=== PATIENT | female | born 2000 | race Caucasian/White ===

== ENCOUNTER 2020-07-01 10:31 | Outpatient (REF) | payer OTHER, SELFPAY ==
--- NOTE | 2020-07-01 | US_ITS ---
EXAMINATION: OBSTETRICAL ULTRASOUND, FIRST TRIMESTER HISTORY: 19-year-old at 12.0 weeks of gestation NT screening COMPARISON: 05/27/2020 TECHNIQUE: Real time transabdominal imaging with color and M-mode Doppler. FINDINGS: A single, live IUP CRL of 49.6 mm c/w 11.5wks is noted. Heart Rate: 160 beats per minute. Normal yolk sac seen. NT was 1.3.mm. NB Present The embryo appears sonographically wnl for this GA. Both maternal ovaries are seen and appear normal. GESTATIONAL AGE: 1. Established GA: 12.0 wks 2. GA from AUA: 11.5 wks ESTIMATED DATE OF DELIVERY: 1. Established OLGA: 01/13/2021 2. OLGA from [facility]: 01/15/2021 IMPRESSION: 1. Single live IUP 2. Size equals dates 3. NT of 1.3 mm MFM Consultation: I reviewed the ultrasound findings along with significance of NT measurement. The NT of less than 3mm is generally reassuring. However, the sensitivity for T21 detection is only 60%. I reviewed the availability of serum aneuploidy screening which includes cell-free DNA and placental protein based tests. I discussed the sensitivity, false-positive rate, and other limitations associated with each test. I also reviewed the availability of invasive diagnostic tests that are associated small but definite risk of miscarriage. We also reviewed the differences between screening tests and diagnostic tests. After our discussion, she opted for the First trimester screening that is based on cell-free DNA or non-invasive testing (NIPT). The result will be faxed to your office in approximately 7 days. A follow up at 18 weeks for survey has been scheduled. Thank you very much for this referral. Majority of this visit was spent reviewing her care and counselling her in face to face time: Time spent 20 min.
== END 2020-07-01 10:32 | disposition home or self-care (01) ==
LOC: HO.US 10:31
PROVIDERS: Visit Provider Advanced Practice Midwife
DX: Z34.90 Encounter for supervision of normal pregnancy, unspecified, unspecified trimester (principal); Z36.82 Encounter for antenatal screening for nuchal translucency
CPT/HCPCS: 76813

== ENCOUNTER → 2020-07-12 13:01 | Outpatient (BNVA) | payer OTHER, SELFPAY | PROVIDERS: Visit Provider Advanced Practice Midwife | DX: Z76.89 Persons encountering health services in other specified circumstances (principal) ==

== ENCOUNTER 2020-08-05 15:01 | Outpatient (REF) | payer OTHER, SELFPAY ==
[2020-08-06 14:18] LABS: CT PCR NOT DETECTED (Not Detect.); NG PCR NOT DETECTED (Not Detect.)
[2020-08-08 09:44] LABS: BV Int Neg Control Negative (Negative); BV Int Pos Control Positive (Positive)
== END 2020-08-05 15:02 | disposition home or self-care (01) ==
LOC: HO.LAB 15:01
PROVIDERS: Visit Provider Advanced Practice Midwife
DX: Z34.80 Encounter for supervision of other normal pregnancy, unspecified trimester (principal); Z20.2 Contact with and (suspected) exposure to infections with a predominantly sexual mode of transmission; Z34.02 Encounter for supervision of normal first pregnancy, second trimester
CPT/HCPCS: 87480; 87491; 87510; 87591; 87660

== ENCOUNTER 2020-08-19 10:27 | Outpatient (REF) | payer OTHER, SELFPAY ==
--- NOTE | 2020-08-19 10:32 | US_ITS ---
EXAMINATION: US OBSTETRICAL CLINICAL INFORMATION: 19-year-old at the 19.0 weeks of gestation Suspected anomaly COMPARISON: 07/01/2020 TECHNIQUE: Real-time transabdominal ultrasound was performed using C1-5 megahertz transducer. FINDINGS: A single, active, fetus is seen in vertex presentation. The placenta is posterior without previa, and the amniotic fluid volume is wnl. MEASUREMENTS: 1. Biparietal Diameter: 4.1 cm; 18.4 wks 2. Occipital Frontal Diameter: 5.4 cm 3. Head Circumference: 15.7 cm; 18.4 wks 4. Abdominal Circumference: 13.0 cm; 18.4 wks 5. Femur Length: 2.8 cm; 18.4 wks 6. Humerus Length: 2.7 cm; 18.5 wks 7. Tibia Length: 2.4 cm; 18.5 wks 8. Ulna Length: 2.6 cm; 19.3 wks 9. Lateral ventricle: 0.7 cm 10. Cerebellum: 1.88 cm; 19.3 wks 11. Cisterna Magna: 0.35 cm 12. Nuchal Fold: 2.52 mm 13. Heart Rate: 132 beats per minute Rt ovary: normal Lt ovary: normal Cervical length 4.3 cm on T/A. GESTATIONAL AGE: 1. Established GA: 19.0 wks 2. GA from [facility]: 18.4 wks ESTIMATED DATE OF DELIVERY: 1. Established OLGA: 01/13/2021 2. OLGA from [facility]: 01/16/2021 ANATOMY: The visualized anatomy includes but not limited to: 1. Cranium: Normal 2. Intracranial anatomy: cavum septum pellucidi, lateral ventricles, choroid plexus, cerebellum, posterior fossa, third and fourth ventricles. 3. face: orbits, lip/palate, profile, nasal bone 4. Heart: four-chamber view of the heart, ventricular septum, foramen ovale, pulmonary vein, left and right outflow tracts, three-vessel view, 3 vessel trachea view, aortic and ductal arches, situs.. 5. Diaphragm: Normal 6. Abdominal wall: Normal 7. Cord Insertion: Normal 8. Spine: Cervical, thoracic, lumbar, sacral. 9. Stomach: Normal size and shape 10. Right Kidney: Normal 11. Left Kidney: Normal 12. 3 vessel cord: Normal 13. Upper extremity: Open hands, fifth digit. 14. Lower extremity: Tibia, fibula, bilateral feet. 15. Bladder: Normal 16. Genitalia: Male, patient aware US/US OB /maternal detail IMPRESSION: 1. Single, living, intrauterine with appropriate biometry. 2. Normal survey DISCUSSION: I reviewed today's ultrasound findings. We discussed the limitations of ultrasound in diagnosing aneuploidy and other congenital abnormalities. I reviewed the differences between screening test and diagnostic test. Amniocentesis was discussed and declined. She was informed that the baseline incidence of congenital abnormalities is approximately 3-5%. Not all these conditions are diagnosable in utero. RECOMMENDATIONS: Thank you for allowing me to participate in her care. Visiting time 25 minutes. Majority of this visit was spent reviewing and discussing her care.
== END 2020-08-19 10:28 | disposition home or self-care (01) ==
LOC: HO.US 10:27
PROVIDERS: Visit Provider Advanced Practice Midwife
DX: Z34.80 Encounter for supervision of other normal pregnancy, unspecified trimester (principal); Z36.3 Encounter for antenatal screening for malformations
CPT/HCPCS: 76811

== ENCOUNTER → 2020-09-02 15:07 | Outpatient (BNVA) | payer OTHER, SELFPAY | PROVIDERS: PCP Nurse Practitioner Family; Referring Provider Nurse Practitioner Family; Visit Provider Advanced Practice Midwife | DX: Z76.89 Persons encountering health services in other specified circumstances (principal) ==

== ENCOUNTER 2020-09-16 11:29 | Outpatient (REF) | payer OTHER, SELFPAY ==
--- NOTE | 2020-09-16 11:35 | US_ITS ---
EXAMINATION: OBSTETRICAL ULTRASOUND, Follow up HISTORY: 19-year-old at the 23.0 weeks of gestation Size date discrepancy ? umbilical cord cyst COMPARISON: 08/19/2020 TECHNIQUE: Real time transabdominal imaging with color and M-mode Doppler. PRESENTATION: Vertex PLACENTA LOCATION: Posterior without previa AMNIOTIC FLUID: Normal MEASUREMENTS: 1. Biparietal Diameter: 5.1 cm; 21.4 wks 2. Head Circumference: 20.5 cm; 22.5 wks 3. Abdominal Circumference: 18.3 cm; 23.2 wks 4. Femur Length: 4.2 cm; 23.4 wks 5. Heart Rate: 144 beats per minute WEIGHT: EFW: 570 grams (1 lbs 4 oz) -- 51 %. Evaluation of the umbilical cord showed prominent segments of the umbilical vein rather than a cyst. Abdominal CI and PCI are within normal limits. GESTATIONAL AGE: 1. Established GA: 23.0 wks 2. GA from A: 22.6 wks ESTIMATED DATE OF DELIVERY: 1. Established OLGA: 01/13/2021 2. OLGA from A: 01/14/2021 US/US OB follow up IMPRESSION: 1. Single active fetus is in vertex presentation 2. Size equals dates 3. Prominent segment of the umbilical vein. No evidence of nuchal cord cyst I reviewed today's ultrasound findings and gave her reassurance. Previously seen umbilical cord cyst is no longer visible. Instead prominent segment of the umbilical vein seen. Normal blood flow is seen through this segment. This is most likely a normal variant. Follow-up has been scheduled in 6 weeks. Thank you very much for this referral. Visiting time 25 minutes. Majority of this visit was spent reviewing and coordinating her care.
== END 2020-09-16 11:30 | disposition home or self-care (01) ==
LOC: HO.US 11:29
PROVIDERS: Visit Provider Advanced Practice Midwife
DX: Z34.80 Encounter for supervision of other normal pregnancy, unspecified trimester (principal)
CPT/HCPCS: 76816

== ENCOUNTER → 2020-10-07 14:24 | Outpatient (BNVA) | payer OTHER, SELFPAY | PROVIDERS: PCP Pediatrics; Visit Provider Advanced Practice Midwife | DX: Z76.89 Persons encountering health services in other specified circumstances (principal) ==

== ENCOUNTER → 2020-10-11 11:25 | Outpatient (BNVA) | payer OTHER, SELFPAY | PROVIDERS: PCP Pediatrics; Visit Provider Advanced Practice Midwife | CPT/HCPCS: 99212 ==

== ENCOUNTER 2020-10-25 12:57 | Outpatient (REF) | payer OTHER, SELFPAY ==
[2020-10-25 14:56] LABS: Hematocrit 32.9 % (37-47); Hemoglobin 10.4 g/dl (12.0-16.0); Mean Corpuscular HGB Conc 31.6 g/dl (31.0-35.0); Mean Corpuscular Hemoglobin 28.3 pg (27.0-33.0); Mean Corpuscular Volume 89.6 fL (80-98); Mean Platelet Volume 10.9 fL (9.4-12.3); Platelet Count 272 X10*3/uL (160-400); Red Blood Count 3.67 X10*6/uL (4.20-5.50); Red Cell Distribution Width 14.2 % (11.0-16.0); White Blood Count 9.7 X10*3/uL (4.8-10.8)
[2020-10-25 15:13] LABS: Glucose 1 Hour PP 50gm Dose 87 mg/dL (60-140)
[2020-10-26 08:09] LABS: Syphilis Screen Nonreactive (Nonreactive)
== END 2020-10-25 12:58 | disposition home or self-care (01) ==
LOC: HO.LAB 12:57
PROVIDERS: Visit Provider Advanced Practice Midwife
DX: Z34.80 Encounter for supervision of other normal pregnancy, unspecified trimester (principal)
CPT/HCPCS: 36415; 85027; 86780

== ENCOUNTER 2020-10-28 12:12 | Outpatient (REF) | payer OTHER, SELFPAY ==
--- NOTE | 2020-10-28 12:17 | US_ITS ---
EXAMINATION: OBSTETRICAL ULTRASOUND, Follow up HISTORY: 20-year-old at 29.0 weeks of gestation Umbilical cord cyst Size date discrepancy COMPARISON: 09/16/2020 TECHNIQUE: Real time transabdominal imaging with color and M-mode Doppler. PRESENTATION: Vertex PLACENTA LOCATION: Posterior AMNIOTIC FLUID: Normal MEASUREMENTS: 1. Biparietal Diameter: 7.2 cm; 29.0 wks 2. Head Circumference: 27.1 cm; 29.4 wks 3. Abdominal Circumference: 25.0 cm; 29.2 wks 4. Femur Length: 5.6 cm; 29.2 wks 5. Heart Rate: 158 beats per minute WEIGHT: EFW: 1365 grams (3 lbs 0 oz) -- 47 %. There is no evidence of the umbilical cord cyst either at the abdominal cord insertion site or at the PCI. Normal views of: Posterior fossa, lateral ventricles, four-chamber view of the heart, stomach, bladder and kidneys. BIOPHYSICAL PROFILE: Motion: 2 Tone: 2 Breathin Amniotic Fluid: 2 Total score: 8/8 GESTATIONAL AGE: 1. Established GA: 29.0 wks 2. GA from AUA: 29.2 wks ESTIMATED DATE OF DELIVERY: 1. Established OLGA: 01/14/2020 2. OLGA from [facility]: 01/11/2021 US/US OB follow up IMPRESSION: 1. A single active fetus in vertex presentation 2. Size equals dates 3. BPP of 05/07 4. Umbilical cord cyst has resolved. No further ultrasound examination scheduled. Thank you very much for this referral.
== END 2020-10-28 12:13 | disposition home or self-care (01) ==
LOC: HO.US 12:12
PROVIDERS: Visit Provider Advanced Practice Midwife
DX: O43.193 Other malformation of placenta, third trimester (principal); O98.313 Other infections with a predominantly sexual mode of transmission complicating pregnancy, third trimester; O26.893 Other specified pregnancy related conditions, third trimester; G43.909 Migraine, unspecified, not intractable, without status migrainosus; O26.843 Uterine size-date discrepancy, third trimester; Z3A.29 29 weeks gestation of pregnancy
CPT/HCPCS: 76816; 81003; 99212

== ENCOUNTER 2020-11-15 14:35 | Outpatient (REF) | payer OTHER, SELFPAY ==
[2020-11-16 09:22] LABS: BV Int Neg Control Negative (Negative); BV Int Pos Control Positive (Positive)
[2020-11-16 17:36] LABS: C. trachomatis RNA TMA NOT DETECTED (NOT DETECTED); N. gonorrhoeae RNA TMA NOT DETECTED (NOT DETECTED)
== END 2020-11-15 14:36 | disposition home or self-care (01) ==
LOC: HO.LAB 14:35
PROVIDERS: Visit Provider Advanced Practice Midwife
DX: O26.899 Other specified pregnancy related conditions, unspecified trimester (principal); Z20.2 Contact with and (suspected) exposure to infections with a predominantly sexual mode of transmission; N89.8 Other specified noninflammatory disorders of vagina
CPT/HCPCS: 36415; 81003; 87210; 87480; 87491; 87510; 87591; 87660; 99212

== ENCOUNTER → 2020-11-28 14:15 | Outpatient (BNVA) | payer OTHER, SELFPAY | PROVIDERS: Visit Provider Advanced Practice Midwife | DX: Z34.80 Encounter for supervision of other normal pregnancy, unspecified trimester (principal) | CPT/HCPCS: 90471; 90715; 99212 ==

== ENCOUNTER 2021-04-05 14:37 | Emergency (ER) | payer OTHER, SELFPAY ==
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
[2021-04-05 15:07] VITALS: BP 116/62; PULSE 73; RESP 16; TEMP 36.7; O2SAT 97; BMI 32.2
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
== END 2021-04-05 16:49 | disposition home or self-care (01) ==
PROVIDERS: Emergency Provider Emergency Medicine; PCP Pediatrics
DX: S06.0X0A Concussion without loss of consciousness, initial encounter (principal); S39.012A Strain of muscle, fascia and tendon of lower back, initial encounter; S16.1XXA Strain of muscle, fascia and tendon at neck level, initial encounter; S93.401A Sprain of unspecified ligament of right ankle, initial encounter; V43.52XA Car driver injured in collision with other type car in traffic accident, initial encounter; Y93.9 Activity, unspecified; Y92.410 Unspecified street and highway as the place of occurrence of the external cause; Y99.9 Unspecified external cause status
CPT/HCPCS: 70450; 72100; 72125; 73610; 99283; 99284

== ENCOUNTER 2021-06-16 14:33 | Emergency (ER) | payer OTHER, SELFPAY ==
[2021-06-16 14:36] VITALS: BP 133/81; PULSE 94; RESP 18; TEMP 36.6; O2SAT 99; BMI 32.1
[2021-06-16 16:00] VITALS: BP 113/72; PULSE 83; RESP 16; TEMP 36.7; O2SAT 99
--- NOTE | 2021-06-16 16:43 | ED_ITS ---
HPI - Nausea/Vomiting/Diarrhea General Chief complaint: Nausea/Vomiting/Diarrhea Stated complaint: vomiting Time Seen by Provider: 06/16/21 16:28 Source: patient Mode of arrival: ambulatory Limitations: no limitations History of Present Illness HPI Narrative: Patient is a 20-year-old female, who is presenting with 2 days of nausea and pelvic pain and slight bleeding this morning. She states she thinks she may be , her last menstrual period was June 16 and she had intercourse on May 01, and the . She states she did take an [id number] test and it showed a faint line but she said it's has been doing that since she had a miscarriage few months ago. She denies any vomiting or diarrhea, denies any changes in her urine or bowels, denies any fevers. She states she is not trying to get but she has not been taking her OCP regularly. Related Data Home Medications Medication Instructions Recorded Confirmed vit with calcium-iron tab PO 07/12/20 fum-folic acid 27 mg-1 mg tablet Previous Rx's Medication Instructions Recorded ferrous sulfate 325 mg (65 mg 325 mg PO DAILY #30 tab 10/26/20 iron) tablet famotidine 20 mg tablet 20 mg PO BID #60 tab 10/28/20 valacyclovir 500 mg tablet 500 mg PO DAILY #60 tab 10/28/20 (Valtrex) acetaminophen 500 mg tablet 1,000 mg PO QID PRN #14 tab 04/05/21 (Tylenol Extra Strength) cyclobenzaprine 10 mg tablet 10 mg PO Q8H #10 tab 04/05/21 Allergies Allergy/AdvReac Type Severity Reaction Status Date / Time cinnamon [CINNAMON] Allergy Severe ANAPHYLAXIS Verified 11/28/20 14:38 oats [OATS] Allergy Severe ANAPHYLAXIS Verified 11/28/20 14:38 apple [APPLES] Allergy Intermediate ANGIOEDEMA Verified 11/28/20 14:38 Review of Systems Review of Systems: Yes all other systems are reviewed and are negative PMFSH Past Medical History Medical History Anxiety Depression Migraines Migraines Miscarriage within last 12 months Family History Family History Father Chronic mental illness Mother CVD (cardiovascular disease) Chronic mental illness Family/Other Breast cancer Social History Social History Alcohol intake: unknown Patient Tobacco Use Status: Tobacco use Unknown Advance Directives: No Advance Directives Information Provided: No Physical Exam Vital Signs: Vital Signs: Last Vital Signs Temp 98.0 F 06/16/21 16:00 Pulse 83 06/16/21 16:00 Resp 16 06/16/21 16:00 BP 113/72 06/16/21 16:00 Pulse Ox 99 06/16/21 16:00 Body Mass Index 32.1 Const: General: cooperative, healthy appearing, comfortable, no acute distress and well developed Orientation/consciousness: patient oriented x3 Limitations: no limitations HENMT: Head: Yes normal to inspection Eyes: General: appearance normal, both eyes and all related structures Neck: Neck: Yes normal visual inspection and Yes full ROM Resp: Effort & Inspection: normal respiratory effort and able to speak in complete sentences Cardio: Rate: regular rate Rhythm: regular rhythm Heart sounds: normal S1 and S2 GI: Inspection: Yes normal to inspection Palpation (GI): Soft to palpation and nontender Skin: General skin exam: no rashes or lesions noted Neuro: General: patient oriented x3 Extrem: General: Yes normal to inspection Course Course Course Narrative: Patient is a 20-year-old female, who is presenting with 2 days of nausea and pelvic pain and slight bleeding this morning. Vital signs stable, physical exam unremarkable. Most likely , will get UA and urine test as well as quant. As patient states her tests have been testing positive since she had her miscarriage 2 months ago. MDM - Nausea/Vomiting/Diarrhea Lab Data Labs: Lab Results 06/16/21 06/16/21 06/16/21 Range/Units 16:48 16:48 16:48 Beta HCG, Quant < 2 mIU/mL Urine Color DK YELLOW Urine Appearance HAZY Urine pH 6.0 (5.0-8.0) Ur Specific [place] >= 1.030 H (1.005-1.025) Urine Protein TRACE (NEG-TRACE) MG/DL Urine Glucose (UA) NEG (NEG) MG/DL Urine Ketones NEG (NEG) MG/DL Urine Blood 2+ H (NEG) Urine Nitrite NEG (NEG) Ur Leukocyte Esterase 1+ H (NEG) Urine RBC 1-4 (0) /HPF Urine WBC 1-4 (0-4) /HPF Ur Squamous Epith Cells 3+ /LPF Urine Bacteria TRACE /LPF Urine Mucus 3+ /LPF Urine Test NEGATIVE (NEGATIVE) Discharge Plan Discharge Clinical Impression: Nausea Patient Disposition: Home, Self-Care Instructions: Acute Nausea and Vomiting (ED) Additional Instructions: Today, your test was negative. If her symptoms persist 3 develop a fever, please follow-up with your PCP, any urgent care or emergency department. Otherwise, I have attached instructions on how to manage any nausea that you have. Prescriptions: No Action ferrous sulfate 325 mg (65 mg iron) tablet 325 mg PO DAILY Qty: 30 RF: 5 cyclobenzaprine 10 mg tablet 10 mg PO Q8H Qty: 10 RF: 0 acetaminophen [Tylenol Extra Strength] 500 mg tablet 1,000 mg PO QID PRN (Reason: fever or pain) Qty: 14 RF: 0 vit-iron fum-folic ac 27-1 mg tablet PO RF: 0 valacyclovir [Valtrex] 500 mg tablet 500 mg PO DAILY Qty: 60 RF: 3 famotidine 20 mg tablet 20 mg PO BID Qty: 60 RF: 4 Interventions: ED Discharge Assessment Last Done: 06/16/21 17:47 Discharge Date/Time: 06/16/21 17:51
[2021-06-16 17:03] LABS: UPreg QC Valid YES; Urine Pregnancy NEGATIVE (NEGATIVE)
[2021-06-16 17:04] LABS: Appearance Urine HAZY; Color Urine DK YELLOW; Glucose Urine UA NEG (NEG); Leukocyte Esterase Urine 1+ (NEG); Nitrite Urine NEG (NEG); Specific Gravity - Urine >= 1.030 (1.005-1.025); UACC Culture Trigger YES; Urine Blood 2+ (NEG); Urine Ketones NEG (NEG); Urine Protein TRACE MG/DL (NEG-TRACE)
[2021-06-16 17:38] LABS: HCG Quantitative < 2 mIU/mL
[2021-06-16 17:39] LABS: Bacteria Urine TRACE /LPF; Mucus Urine 3+ /LPF; Squamous Epithelial Cell Urine 3+ /LPF
== END 2021-06-16 17:51 | disposition home or self-care (01) ==
PROVIDERS: Physician Assistant; Emergency Provider Emergency Medicine
DX: R11.2 Nausea with vomiting, unspecified (principal); Z79.899 Other long term (current) drug therapy
CPT/HCPCS: 36415; 81001; 81003; 81025; 84702; 87086; 99283; 99284

== ENCOUNTER 2021-07-29 12:20 | Emergency (ER) | payer OTHER, SELFPAY ==
--- NOTE | ~2021-07-29 | US_ITS ---
EXAMINATION: US OBSTETRICAL ULTRASOUND CLINICAL INFORMATION: Cramping. Rule out spontaneous . COMPARISON: None LMP: 06/16/2021. Gestational age by maternal dates is 6 weeks 1 day. Estimated date of delivery by maternal dates is 03/23/2022. TECHNIQUE: Transabdominal first trimester OB ultrasound FINDINGS: The uterus is normal in size and shape. There is an intrauterine gestational sac. Reeves-rump length measures 0.47 cm suggesting gestational age of 6 weeks 2 days with estimated date of delivery of 03/22/2022. There is a low heart rate of 63 bpm. There is a yolk sac. No fluid collection adjacent to the gestational sac is seen. The right ovary is normal-appearing and measures 2.5 x 1.9 x 1.8 cm. The left ovary measures 2.4 x 1.5 x 2 cm. There is a 0.9 cm complex cyst probably representing a corpus luteum. There is no fluid in the pelvis. US/US OB <= 14 weeks fetus IMPRESSION: 1. Single intrauterine gestation with ultrasound gestational age of 6 weeks 2 days +/- 4 days. 2. Estimated date of delivery is 03/22/2022 +/- 4 days. 3. Low heart rate of 63 bpm.
[2021-07-29 12:29] VITALS: BP 113/68; PULSE 87; RESP 18; TEMP 36.6; O2SAT 98; BMI 30.9
[2021-07-29 12:45] LABS: Appearance Urine HAZY; Color Urine YELLOW; Glucose Urine UA NEG (NEG); Leukocyte Esterase Urine TRACE (NEG); Nitrite Urine NEG (NEG); Specific Gravity - Urine >= 1.030 (1.005-1.025); Urine Blood NEG (NEG); Urine Ketones NEG (NEG); Urine Protein NEG (NEG-TRACE)
[2021-07-29 12:55] LABS: Bacteria Urine 2+ /LPF; RBC Urine 0 /HPF (0); Squamous Epithelial Cell Urine 4+ /LPF
[2021-07-29 13:49] VITALS: BP 126/76; PULSE 90; RESP 18; TEMP 36.6; O2SAT 100
--- NOTE | 2021-07-29 13:56 | ED_ITS ---
HPI - General Adult General Chief complaint: General Medical Stated complaint: cramping (6wks preg) Time Seen by Provider: 07/29/21 13:54 Source: patient Mode of arrival: ambulatory Limitations: no limitations History of Present Illness HPI narrative: 20-year-old female came in for evaluation of abdominal contractio n. This is about 6 weeks came in for evaluation lower pelvic contraction, no vaginal spotting or bleeding, no nausea,, chest pain. Patient is here for any evaluation. Patient has her 1st appointment on September 02. Related Data Home Medications Medication Instructions Recorded Confirmed vit with calcium-iron tab PO 07/12/20 fum-folic acid 27 mg-1 mg tablet Previous Rx's Medication Instructions Recorded ferrous sulfate 325 mg (65 mg 325 mg PO DAILY #30 tab 10/26/20 iron) tablet famotidine 20 mg tablet 20 mg PO BID #60 tab 10/28/20 valacyclovir 500 mg tablet 500 mg PO DAILY #60 tab 10/28/20 (Valtrex) acetaminophen 500 mg tablet 1,000 mg PO QID PRN #14 tab 04/05/21 (Tylenol Extra Strength) cyclobenzaprine 10 mg tablet 10 mg PO Q8H #10 tab 04/05/21 Allergies Allergy/AdvReac Type Severity Reaction Status Date / Time cinnamon [CINNAMON] Allergy Severe ANAPHYLAXIS Verified 11/28/20 14:38 oats [OATS] Allergy Severe ANAPHYLAXIS Verified 11/28/20 14:38 apple [APPLES] Allergy Intermediate ANGIOEDEMA Verified 11/28/20 14:38 Review of Systems 2 Review of Systems: All other systems are reviewed and are negative Constitutional: Reports as per HPI and Reports no additional constitutional complaints Eyes: Reports as per HPI and Reports no additional eye complaints Reports system reviewed and no additional complaints, except as documented Cardiovascular: Reports as per HPI and Reports no additional cardiovascular complaints Respiratory: Reports as per HPI and Reports no additional respiratory complaints Gastrointestinal: Reports as per HPI and Reports no additional gastrointestinal complaints Genitourinary: Reports no additional female genitourinary complaints Musculoskeletal: Reports no additional musculoskeletal complaints Skin/Breast: Reports system reviewed and no additional complaints, except as docu Psychiatric: Reports no additional psychiatric complaints Endocrine: Reports no additional endocrine complaints Hematologic/Lymphatic: Reports no additional hematologic/lymphatic complaints Allergic/Immunologic: Reports no additional allergic/immunologic complaints Reports system reviewed and no additional complaints, except as documented and Reports Abnormal speech present [facility] Past Medical History Medical History Anxiety Depression Migraines Migraines Miscarriage within last 12 months Family History Family History Father Chronic mental illness Mother CVD (cardiovascular disease) Chronic mental illness Family/Other Breast cancer Social History Social History Alcohol intake: unknown Patient Tobacco Use Status: Tobacco use Unknown Advance Directives: No Advance Directives Information Provided: No Patient : Yes Physical Exam Vital Signs: Vital Signs: Last Vital Signs Temp 98 F 07/29/21 13:49 Pulse 90 07/29/21 13:49 Resp 18 07/29/21 13:49 BP 126/76 07/29/21 13:49 Pulse Ox 100 07/29/21 13:49 Body Mass Index 30.9 Vital signs have been reviewed as appeared to be correct. Blood pressure normal. Heart rate normal. Respiration rate normal. Temperature normal. Oxygen saturation normal. Appearance: Alert. Oriented X3. No acute distress. Head: Normal external exam. Normocephalic. Atraumatic. No Gayle signs noted. No raccoon eyes noted Eyes: PERRLA. EOMI. Conjunctiva and sclera normal. Eyelids normal. ENT: TM's Normal. Pharynx normal. Uvula midline. Moist mucous membranes. No trismus noted. No drooling noted. No muffled voice noted. Neck: Normal inspection. Neck supple. FROM. No adenopathy. Thyroid Normal. No meningeal signs. No neck mass noted. CVS: Normal heart rate and rhythm. Heart sound normal. No murmurs noted. Pulses normal throughout. Respiratory: No respiratory distress. Painless inspiration. Breath sounds normal. No wheezes/rales/rhonchi noted. Chest nontender. No accessory muscle usage noted or decreased air movement noted. Abdomen: Soft and nontender. Bowel sounds normal in all 4 quadrants. No distention noted. No organomegaly noted. No visible injury noted. Back: No CVA tenderness. Full range of motion noted. Skin: Skin warm and dry. Normal skin color. Normal skin turgor. No rashes/lesions/lacerations noted. Extremities: No lower extremity edema. Extremities exhibit normal range of motion. Extremities nontender. Neuro: Oriented X 3. Cranial nerve exam: II-XII are grossly intact No motor deficit. No sensory deficit. Reflexes normal. Course Course Course Narrative: Assessment and plan. This is about 6 weeks came in for abdominal contractions, patient blood type is A positive. Patient has unremarkable pelvic ultrasound consistent with early with gestational age of 6 weeks. Medical Decision Making Medical Records Medical records reviewed: Yes I reviewed the patient's medical records. Lab Data Lab results reviewed: Yes I reviewed the patient's lab results. Result diagrams: 07/29/21 14:06 07/29/21 14:06 Labs: Lab Results 07/29/21 07/29/21 07/29/21 Range/Units 12:39 14:06 14:06 WBC 9.4 (4.8-10.8) X10*3/uL RBC 4.23 (4.20-5.50) X10*6/uL Hgb 11.7 L (12.0-16.0) g/dl Hct 35.5 L (37.0-47.0) % MCV 83.9 (80.0-98.0) fL MCH 27.7 (27.0-33.0) pg MCHC 33.0 (31.0-35.0) g/dl RDW 15.6 (11.0-16.0) % Plt Count 269 (160-400) X10*3/uL MPV 10.4 (9.4-12.3) fL Immature Gran % (Auto) 0.3 (0.0-0.4) % Neut % (Auto) 75.5 H (45-73) % Lymph % (Auto) 17.9 L (20-40) % [place] % (Auto) 5.4 (2-11) % Eos % (Auto) 0.7 (0-4) % Baso % (Auto) 0.2 (0-2) % Lymph # (Auto) 1.7 (1.2-4.9) X10*3/uL [place] # (Auto) 0.5 (0.1-1.2) X10*3/uL Eos # (Auto) 0.1 (0.0-0.4) X10*3/uL Baso # (Auto) 0.0 (0.0-0.2) X10*3/uL Abs Immat Gran (auto) 0.03 (0.00-0.03) X10*3/uL Absolute Neuts (auto) 7.07 (2.0-8.3) x10*3/uL Absolute Nucleated RBC 0.000 (0.0-0.012) X10*3/uL Nucleated RBC % (auto) 0.0 (0.0-0.2) /100WBC Sodium 136 (135-145) mmol/L Potassium 4.1 (3.3-5.1) mmol/L Chloride 105 (96-108) mmol/L Carbon Dioxide 22 (22-29) mmol/L Anion Gap 13 (12-20) BUN 10 (9-16) mg/dL Creatinine 0.63 (0.5-1.4) mg/dL Estim Creat Clear Calc 145.9 Estimated GFR > 60 Random Glucose 89 (60-115) mg/dL Calcium 9.3 (8.4-10.2) mg/dL Urine Color YELLOW Urine Appearance HAZY Urine pH 6.0 (5.0-8.0) Ur Specific [place] >= 1.030 H (1.005-1.025) Urine Protein NEG (NEG-TRACE) MG/DL Urine Glucose (UA) NEG (NEG) MG/DL Urine Ketones NEG (NEG) MG/DL Urine Blood NEG (NEG) Urine Nitrite NEG (NEG) Ur Leukocyte Esterase TRACE H (NEG) Urine RBC 0 (0) /HPF Urine WBC 1-4 (0-4) /HPF Ur Squamous Epith Cells 4+ /LPF Urine Bacteria 2+ /LPF Imaging Data Ob pelvic ultrasound: Radiologist's impression: 1. Single intrauterine gestation with ultrasound gestational age of? 6 weeks 2 days +/- 4 days. 2. Estimated date of delivery is 03/22/2022 +/- 4 days. 3. Low heart rate of 63 bpm. Discharge Plan Discharge Clinical Impression: Early stage of Patient Disposition: Home, Self-Care Instructions: (ED) Additional Instructions: Follow-up with your OB as scheduled on September 02. Prescriptions: No Action ferrous sulfate 325 mg (65 mg iron) tablet 325 mg PO DAILY Qty: 30 RF: 5 cyclobenzaprine 10 mg tablet 10 mg PO Q8H Qty: 10 RF: 0 acetaminophen [Tylenol Extra Strength] 500 mg tablet 1,000 mg PO QID PRN (Reason: fever or pain) Qty: 14 RF: 0 vit-iron fum-folic ac 27-1 mg tablet PO RF: 0 valacyclovir [Valtrex] 500 mg tablet 500 mg PO DAILY Qty: 60 RF: 3 famotidine 20 mg tablet 20 mg PO BID Qty: 60 RF: 4
[2021-07-29 14:11] LABS: MANUAL DIFF FLAG NO
[2021-07-29 14:15] LABS: Basophils Percent Auto 0.2 % (0-2); Eosinophils Absolute Auto 0.1 X10*3/uL (0.0-0.4); Eosinophils Percent Auto 0.7 % (0-4); Hematocrit 35.5 % (37.0-47.0); Hemoglobin 11.7 g/dl (12.0-16.0); Imm Gran Abs Auto 0.03 X10*3/uL (0.00-0.03); Imm Gran Pct Auto 0.3 % (0.0-0.4); Lymphocytes Absolute Auto 1.7 X10*3/uL (1.2-4.9); Lymphocytes Percent Auto 17.9 % (20-40); Mean Corpuscular Hemoglobin 27.7 pg (27.0-33.0); Mean Corpuscular Volume 83.9 fL (80.0-98.0); Mean Platelet Volume 10.4 fL (9.4-12.3); Monocytes Absolute Auto 0.5 X10*3/uL (0.1-1.2); Monocytes Percent Auto 5.4 % (2-11); Neutrophils Absolute Auto 7.07 x10*3/uL (2.0-8.3); Neutrophils Percent Auto 75.5 % (45-73); Platelet Count 269 X10*3/uL (160-400); Red Blood Count 4.23 X10*6/uL (4.20-5.50); Red Cell Distribution Width 15.6 % (11.0-16.0); White Blood Count 9.4 X10*3/uL (4.8-10.8)
[2021-07-29 14:32] LABS: Anion Gap 13 (12-20); Blood Urea Nitrogen 10 mg/dL (9-16); Calcium 9.3 mg/dL (8.4-10.2); Carbon Dioxide 22 mmol/L (22-29); Chloride 105 mmol/L (96-108); Creatinine Clr Calc Pharmacy 145.9; Estimated Glomerular Filt Rate > 60; Glucose Random 89 mg/dL (60-115); Potassium 4.1 mmol/L (3.3-5.1); Sodium 136 mmol/L (135-145)
[2021-07-29 15:19] LABS: HCG Quantitative 32611 mIU/mL
== END 2021-07-29 15:14 | disposition home or self-care (01) ==
PROVIDERS: Emergency Provider Emergency Medicine
DX: O26.91 Pregnancy related conditions, unspecified, first trimester (principal); Z3A.01 Less than 8 weeks gestation of pregnancy
CPT/HCPCS: 36415; 76801; 80048; 81001; 84702; 85025; 99284

== ENCOUNTER 2021-09-04 10:42 | Outpatient (REF) | payer OTHER, SELFPAY ==
[2021-09-04 11:56] LABS: COVID-19 Test Positive (Negative)
== END 2021-09-04 10:43 | disposition home or self-care (01) ==
LOC: HO.LAB 10:42
PROVIDERS: Visit Provider Internal Medicine
DX: Z20.822 Contact with and (suspected) exposure to COVID-19 (principal)
CPT/HCPCS: 36415; 87635; C9803

== ENCOUNTER 2022-08-04 12:00 | Emergency (ER) | payer OTHER, SELFPAY ==
--- OUTSIDE RECORDS SUMMARY | 2022-08-04 12:31 | XMS_ITS ---
:2000 Author Care Team Providers Name Role Phone Gadiel Borden Primary Care Provider Unavailable Allergies None recorded. Medications None recorded. Problems None recorded. Procedures None recorded. Results Lab Results None recorded. Past Encounters None recorded. Social History None recorded. Vaccine List None recorded. Plan of Care Reminders Provider Appointments None recorded. ? ? Lab None recorded. ? ? Referral None recorded. ? ? Procedures None recorded. ? ? Surgeries None recorded. ? ? Imaging None recorded. ? ? Vitals None recorded.
== END 2022-08-04 13:42 | disposition left against medical advice (07) ==
PROVIDERS: Emergency Provider Emergency Medicine
DX: Z20.822 Contact with and (suspected) exposure to COVID-19 (principal)

== ENCOUNTER 2022-08-08 06:50 | Emergency (ER) | payer OTHER, SELFPAY ==
[2022-08-08 07:22] VITALS: BP 120/73; PULSE 108; RESP 16; TEMP 36.2; O2SAT 97; BMI 33.5
--- NOTE | 2022-08-08 08:56 | PC.NURSE ---
provider entered tx room at 0855 to perform pelvic exam, pt not in room, pt not found to be in bathrooms or wr
--- NOTE | 2022-08-08 08:57 | PC.NURSE ---
0855 provider roman entered [facility] for pelvic exam, pt not in room, pt not located in bathrooms or waiting room
--- NOTE | 2022-08-08 09:23 | ED.GENADULT ---
HPI - General Adult General Chief complaint: Back Pain/Injury Stated complaint: Back pain Time Seen by Provider: 08/08/22 08:25 Source: patient Mode of arrival: ambulatory Limitations: no limitations History of Present Illness HPI narrative: Patient left ED without being seen. Related Data Home Medications Medication Instructions Recorded Confirmed vit with calcium-iron tab PO 07/12/20 fum-folic acid 27 mg-1 mg tablet Previous Rx's Medication Instructions Recorded ferrous sulfate 325 mg (65 mg 325 mg PO DAILY #30 tabs 10/26/20 iron) tablet famotidine 20 mg tablet 20 mg PO BID #60 tabs 10/28/20 valacyclovir 500 mg tablet 500 mg PO DAILY #60 tabs 10/28/20 (Valtrex) acetaminophen 500 mg tablet 1,000 mg PO QID PRN fever or pain 04/05/21 (Tylenol Extra Strength) #14 tabs cyclobenzaprine 10 mg tablet 10 mg PO Q8H Muscle spasm #10 tabs 04/05/21 Allergies Allergy/AdvReac Type Severity Reaction Status Date / Time cinnamon [CINNAMON] Allergy Severe ANAPHYLAXIS Verified 11/28/20 14:38 oats [OATS] Allergy Severe ANAPHYLAXIS Verified 11/28/20 14:38 apple [APPLES] Allergy Intermediate ANGIOEDEMA Verified 11/28/20 14:38 PMFSH Past Medical History Medical History Anxiety Depression Migraines Migraines Miscarriage within last 12 months Family History Family History Father Chronic mental illness Mother CVD (cardiovascular disease) Chronic mental illness Family/Other Breast cancer Social History Social History Alcohol intake: unknown Patient Tobacco Use Status: Tobacco use Unknown Advance Directives: No Advance Directives Information Provided: No Physical Exam ED Vital Signs: Vital Signs - 24 hr 08/08/22 07:22 Temperature 97.1 F Pulse Rate 108 H Respiratory Rate 16 Blood Pressure 120/73 Pulse Oximetry 97 Oxygen Delivery Method Room Air BMI result Body Mass Index 33.5 Course Course Course Narrative: Patient left the ED without being seen Discharge Plan Discharge Clinical Impression: Potential exposure to STD Patient Disposition: Left Without Being Seen Interventions: LWBS Worksheet Last Done: 08/08/22 09:19 Discharge Date/Time: 08/08/22 09:20
== END 2022-08-08 09:21 | disposition left against medical advice (07) ==
PROVIDERS: Emergency Provider Emergency Medicine
DX: M54.50 Low back pain, unspecified (principal); Z79.899 Other long term (current) drug therapy; Z20.2 Contact with and (suspected) exposure to infections with a predominantly sexual mode of transmission
CPT/HCPCS: 99281

== ENCOUNTER 2022-08-19 15:26 | Emergency (ER) | payer OTHER, SELFPAY ==
[2022-08-19 15:30] VITALS: BP 131/72; PULSE 99; RESP 16; TEMP 36.6; O2SAT 96; BMI 32.5
--- NOTE | 2022-08-19 15:30 | ED.BACK ---
HPI - Back Pain/Injury General Chief Complaint: Back Pain/Injury Stated Complaint: back pain, left leg can't move, urinating a lot Related Data Home Medications Medication Instructions Recorded Confirmed vit with calcium-iron tab PO 07/12/20 fum-folic acid 27 mg-1 mg tablet Previous Rx's Medication Instructions Recorded ferrous sulfate 325 mg (65 mg 325 mg PO DAILY #30 tabs 10/26/20 iron) tablet famotidine 20 mg tablet 20 mg PO BID #60 tabs 10/28/20 valacyclovir 500 mg tablet 500 mg PO DAILY #60 tabs 10/28/20 (Valtrex) acetaminophen 500 mg tablet 1,000 mg PO QID PRN fever or pain 04/05/21 (Tylenol Extra Strength) #14 tabs cyclobenzaprine 10 mg tablet 10 mg PO Q8H Muscle spasm #10 tabs 04/05/21 Allergies Allergy/AdvReac Type Severity Reaction Status Date / Time cinnamon [CINNAMON] Allergy Severe ANAPHYLAXIS Verified 08/19/22 15:30 oats [OATS] Allergy Severe ANAPHYLAXIS Verified 08/19/22 15:30 apple [APPLES] Allergy Intermediate ANGIOEDEMA Verified 08/19/22 15:30 PMFSH Past Medical History Medical History Anxiety Depression Migraines Migraines Miscarriage within last 12 months Family History Family History Father Chronic mental illness Mother CVD (cardiovascular disease) Chronic mental illness Family/Other Breast cancer Social History Social History Alcohol intake: unknown Patient Tobacco Use Status: Tobacco use Unknown Advance Directives: No Advance Directives Information Provided: No Physical Exam Vital Signs: Vital Signs: Last Vital Signs Temp 97.8 F 08/19/22 15:30 Pulse 99 08/19/22 15:30 Resp 16 08/19/22 15:30 BP 131/72 08/19/22 15:30 Pulse Ox 96 08/19/22 15:30 O2 Del Method 08/19/22 15:30 BMI result Body Mass Index 32.5 Course Course Course Narrative: RME--21yo F c/o severe back pain x 2 weeks. Denies injury/trauma or fall. Reports incontinence due to not being able to get up fast enough. Denies hematuria/dysuria, abd pain ambulated slow and steady into triage. Pt is driving today UA/preg ordered as well as Toradol and Lidoderm MDM - Back Pain/Injury Lab Data Labs: Lab Results 08/19/22 08/19/22 Range/Units 15:41 15:41 Urine Color Yellow Urine Appearance Clear Urine pH 5.5 (5.0-9.0) Ur Specific [place] 1.025 (1.005-1.025) Urine Protein Negative (Neg-Trace) mg/dL Urine Glucose (UA) Negative (Negative) mg/dL Urine Ketones Negative (Negative) mg/dL Urine Blood Negative (Negative) Urine Nitrite Negative (Negative) Ur Leukocyte Esterase Negative (Negative) Urine Test NEGATIVE (NEGATIVE) Discharge Plan Discharge Clinical Impression: Back pain Patient Disposition: Elopement Prescriptions: No Action ferrous sulfate 325 mg (65 mg iron) tablet 325 mg PO DAILY Qty: 30 5RF cyclobenzaprine 10 mg tablet 10 mg PO Q8H Qty: 10 0RF acetaminophen [Tylenol Extra Strength] 500 mg tablet 1,000 mg PO QID PRN (Reason: fever or pain) Qty: 14 0RF vit-iron fum-folic ac 27-1 mg tablet PO valacyclovir [Valtrex] 500 mg tablet 500 mg PO DAILY Qty: 60 3RF famotidine 20 mg tablet 20 mg PO BID Qty: 60 4RF Interventions: ED Discharge Assessment Last Done: 08/19/22 16:35 Discharge Date/Time: 08/19/22 16:28
[2022-08-19 15:47] LABS: Appearance Urine Clear; Color Urine Yellow; Glucose Urine UA Negative (Negative); Leukocyte Esterase Urine Negative (Negative); Nitrite Urine Negative (Negative); PH 5.5 (5.0-9.0); Specific Gravity - Urine 1.025 (1.005-1.025); Urine Blood Negative (Negative); Urine Ketones Negative (Negative); Urine Protein Negative (Neg-Trace)
[2022-08-19 15:49] LABS: UPreg QC Valid YES; Urine Pregnancy NEGATIVE (NEGATIVE)
== END 2022-08-19 16:28 | disposition left against medical advice (07) ==
PROVIDERS: Physician Assistant; Emergency Provider Emergency Medicine
DX: M54.50 Low back pain, unspecified (principal); Z79.899 Other long term (current) drug therapy
CPT/HCPCS: 81003; 81025; 96374; 99282; 99284

== ENCOUNTER 2022-08-31 13:26 | Outpatient (REF) | payer OTHER, SELFPAY | END 2022-08-31 13:27 | disposition home or self-care (01) | LOC: HO.LAB 13:26 | PROVIDERS: Visit Provider Internal Medicine | DX: Z13.89 Encounter for screening for other disorder (principal) ==

== ENCOUNTER 2022-09-06 12:58 | Outpatient (REF) | payer OTHER, SELFPAY ==
[2022-09-06 13:23] LABS: COVID-19 Test Negative (Negative); IDNOW Serial# 9DB6401D
== END 2022-09-06 12:59 | disposition home or self-care (01) ==
LOC: HO.LAB 12:58
PROVIDERS: Visit Provider Internal Medicine
DX: Z20.822 Contact with and (suspected) exposure to COVID-19 (principal)
CPT/HCPCS: 87635; C9803

== ENCOUNTER 2023-09-14 19:09 | Emergency (ER) | payer MEDICAID, SELFPAY ==
[2023-09-14 19:56] VITALS: BP 150/88; PULSE 85; RESP 18; TEMP 36.9; O2SAT 98; BMI 32.4
== END 2023-09-14 22:53 | disposition left against medical advice (07) ==
PROVIDERS: Emergency Provider Emergency Medicine
DX: R51.9 Headache, unspecified (principal); R42 Dizziness and giddiness
CPT/HCPCS: 99281

== ENCOUNTER 2023-10-10 11:48 | Outpatient (REF) | payer MEDICAID, SELFPAY ==
[2023-10-10 15:45] LABS: CT PCR NOT DETECTED (Not Detect.); NG PCR NOT DETECTED (Not Detect.)
[2023-10-11 08:10] LABS: HIV AB/AG Nonreactive (Nonreactive); HIV Num 1 0.04 S/CO (0.00-0.99); Hepatitis B Surface Antigen Negative (Negative); ~HepC Num1 0.08 S/CO (0.00-0.79); ~Hepatitis C Antibody Nonreactive (Nonreactive)
[2023-10-11 08:20] LABS: Syphilis Screen Nonreactive (Nonreactive)
== END 2023-10-10 11:49 | disposition home or self-care (01) ==
LOC: HO.CHCLDS 11:48
PROVIDERS: Visit Provider Family Medicine
DX: Z11.3 Encounter for screening for infections with a predominantly sexual mode of transmission (principal)
CPT/HCPCS: 0353U; 36415; 86780; 86803; 87340; 87389

== ENCOUNTER → 2023-10-25 11:39 | Outpatient (REF) | payer MEDICAID, SELFPAY ==
--- NOTE | ~2023-10-25 | XR_ITS ---
EXAMINATION: XR CHEST CLINICAL INFORMATION: Preop surgery COMPARISON: None available. TECHNIQUE: 2 views of the chest were obtained. FINDINGS: No significant abnormality is noted involving the heart, lungs, mediastinum, bony thorax or soft tissues. XR/XR chest 2V IMPRESSION: Unremarkable chest examination.
--- NOTE | 2023-10-25 11:59 | ECG_ITS ---
Test Reason : R94.31 Blood Pressure : / mmHG Vent. Rate : 077 BPM Atrial Rate : 077 BPM P-R Int : 126 ms QRS Dur : 080 ms QT Int : 366 ms P-R-T Axes : 006 055 035 degrees QTc Int : 414 ms Normal sinus rhythm with sinus arrhythmia Normal ECG No previous ECGs available Referred By: Aster White Electronically Signed By:Regan Erwin
== END ==
LOC: HO.CARD 11:39
PROVIDERS: PCP Family Medicine; Visit Provider Plastic Surgery
DX: Z01.818 Encounter for other preprocedural examination (principal); R94.31 Abnormal electrocardiogram [ECG] [EKG]
CPT/HCPCS: 71046; 93005

== ENCOUNTER → 2023-10-25 11:59 | Outpatient (BNV) | payer MEDICAID, SELFPAY | PROVIDERS: PCP Family Medicine; Visit Provider Internal Medicine Cardiovascular Disease | DX: R94.31 Abnormal electrocardiogram [ECG] [EKG] (principal) | CPT/HCPCS: 93010 ==

== ENCOUNTER 2023-11-26 15:28 | Outpatient (REF) | payer MEDICAID, SELFPAY ==
[2023-11-26 17:31] LABS: MANUAL DIFF FLAG NO
[2023-11-26 17:34] LABS: Basophils Percent Auto 0.3 % (0-2); Eosinophils Absolute Auto 0.1 X10*3/uL (0.0-0.4); Eosinophils Percent Auto 1.6 % (0-4); Hematocrit 37.1 % (37.0-47.0); Hemoglobin 11.8 g/dl (12.0-16.0); Imm Gran Abs Auto 0.03 X10*3/uL (0.00-0.03); Imm Gran Pct Auto 0.4 % (0.0-0.4); Lymphocytes Absolute Auto 1.6 X10*3/uL (1.2-4.9); Lymphocytes Percent Auto 21.7 % (20-40); Mean Corpuscular HGB Conc 31.8 g/dl (31.0-35.0); Mean Corpuscular Hemoglobin 27.3 pg (27.0-33.0); Mean Corpuscular Volume 85.7 fL (80.0-98.0); Mean Platelet Volume 10.7 fL (9.4-12.3); Monocytes Absolute Auto 0.6 X10*3/uL (0.1-1.2); Monocytes Percent Auto 7.5 % (2-11); Neutrophils Percent Auto 68.5 % (45-73); Platelet Count 304 X10*3/uL (160-400); Red Blood Count 4.33 X10*6/uL (4.20-5.50); Red Cell Distribution Width 15.3 % (11.0-16.0); White Blood Count 7.3 X10*3/uL (4.8-10.8)
[2023-11-26 17:40] LABS: Estimated Average Glucose 111 mg/dL; Hemoglobin A1c % 5.5 % (<6.0)
[2023-11-26 17:42] LABS: Prothrombin Time 11.9 SEC (11.1-13.3)
[2023-11-26 17:43] LABS: Appearance Urine Clear; Bacteria Urine 1+ (None Seen); Color Urine Yellow; Glucose Urine UA Negative (Negative); Hyaline Casts Urine 0-2 /LPF (0-2); Leukocyte Esterase Urine Negative (Negative); Nitrite Urine Negative (Negative); PH 6.5 (5.0-9.0); RBC Urine 0-2 /HPF (0-2); Specific Gravity - Urine 1.025 (1.005-1.025); Urine Blood Negative (Negative); Urine Ketones Negative (Negative); Urine Protein Negative (Neg-Trace); WBC Urine 0-5 /HPF (0-5)
[2023-11-26 17:45] LABS: Partial Thromboplastin Time 28.7 SEC (26.0-36.8)
[2023-11-26 17:48] LABS: Anion Gap 10 (12-20); Blood Urea Nitrogen 11 mg/dL (9-16); Calcium 9.1 mg/dL (8.4-10.2); Carbon Dioxide 22 mmol/L (22-29); Chloride 110 mmol/L (96-108); Estimated Glomerular Filt Rate > 60; Glucose Random 103 mg/dL (60-115); Potassium 3.6 mmol/L (3.3-5.1); Sodium 138 mmol/L (135-145)
[2023-11-26 18:05] LABS: TSH reflex Free T4 0.62 uIU/mL (0.32-4.0)
[2023-11-27 08:04] LABS: HIV AB/AG Nonreactive (Nonreactive); HIV Num 1 0.05 S/CO (0.00-0.99); ~Hepatitis C Antibody Nonreactive (Nonreactive)
[2023-11-28 12:58] LABS: HCG Tumor Marker <5 mIU/mL
== END 2023-11-26 15:29 | disposition home or self-care (01) ==
LOC: HO.CHCLDS 15:28
PROVIDERS: Visit Provider Family Medicine
DX: Z01.818 Encounter for other preprocedural examination (principal)
CPT/HCPCS: 36415; 80048; 81001; 83036; 84443; 84702; 85025; 85610; 85730; 86803; 87389

== ENCOUNTER 2023-12-10 10:14 | Outpatient (REF) | payer MEDICAID, SELFPAY ==
[2023-12-10 15:00] LABS: Alanine Aminotransferase 18 U/L (0-31); Alkaline Phosphatase 85 U/L (39-117); Anion Gap 10 (12-20); Aspartate Amino Transferase 12 U/L (5-31); Bilirubin Total 0.4 mg/dL (0.0-1.0); Blood Urea Nitrogen 12 mg/dL (9-16); Calcium 9.1 mg/dL (8.4-10.2); Carbon Dioxide 24 mmol/L (22-29); Chloride 110 mmol/L (96-108); Estimated Glomerular Filt Rate > 60; Glucose Random 77 mg/dL (60-115); Potassium 3.7 mmol/L (3.3-5.1); Sodium 140 mmol/L (135-145)
== END 2023-12-10 10:15 | disposition home or self-care (01) ==
LOC: HO.CHCLDS 10:14
PROVIDERS: Visit Provider Family Medicine
DX: Z01.818 Encounter for other preprocedural examination (principal)
CPT/HCPCS: 36415; 80053

== ENCOUNTER 2023-12-24 17:14 | Observation (INO) | payer MEDICAID, SELFPAY ==
--- NOTE | ~2023-12-24 | CT_ITS ---
EXAMINATION: CT CHEST ANGIOGRAM PE PROTOCOL CLINICAL INFORMATION: , Reason for Exam Chest pain status post surgery. PE? COMPARISON: None TECHNIQUE: Volumetric imaging was performed through the chest. Reformatted coronal and sagittal imaging was performed. 3-D MIP images performed at a dedicated separate workstation. This CT examination was performed using dose optimization techniques as appropriate, variously including the following: *Automated exposure control *Adjustment of mA and/or kV according to patient size (this includes techniques or standardized protocols for targeted exams where dose is matched to indication/reason for exam; i.e. extremities or head) *Use of iterative reconstruction technique CONTRAST: 65 mL of Omnipaque 350 injected DLP: 274 FINDINGS: PULMONARY ARTERIES: There are suboptimal opacification of the pulmonary artery with many artifacts, there are occlusive and nonocclusive filling defects in secondary and tertiary branches suggesting small emboli , within peripheral segmental and subsegmental branches. Gomez images. There are no large central emboli. No CT evidence of cardiac strain or septal bowing. LINES/TUBES: None LUNGS: Lung Parenchyma: There is no CT evidence of significant lung parenchymal disease. Lung Nodules:There are no significant lung nodules. AIRWAYS: Trachea and bronchi are normal. PLEURA: No pleural effusion or pneumothorax. MEDIASTINUM AND NANCY: The visualized thyroid gland is unremarkable. No mediastinal, hilar or axillary lymphadenopathy. There is no mediastinal mass. VESSELS: Thoracic aorta is normal in size. HEART AND PERICARDIUM: Heart is normal in size. There is no pericardial effusion. There are coronary calcifications. CHEST WALL, LOWER NECK, SURROUNDING SOFT TISSUES: Normal VISUALIZED ABDOMEN: Unremarkable BONES: The visualized bony thorax is within normal limits. CT/CT angio chest PE protocol IMPRESSION: 1. Positive PE. There are occlusive and nonocclusive small filling defects in peripheral segmental and subsegmental branches secondary and tertiary branches suggesting small emboli within secondary and tertiary branches. Gomez images, No large central emboli. No CT evidence of cardiac strain. 2. Coronary calcifications. (Referring physician staff is being called, by physician staff assistance, to be alerted of the above critical findings and recommendations.) 12/24/2023 9:07 PM
--- NOTE | 2023-12-24 17:16 | ECG_ITS ---
Test Reason : CHEST TIGHTNESS Blood Pressure : / mmHG Vent. Rate : 124 BPM Atrial Rate : 124 BPM P-R Int : 114 ms QRS Dur : 070 ms QT Int : 288 ms P-R-T Axes : 059 057 021 degrees QTc Int : 413 ms Sinus tachycardia Nonspecific ST abnormality Abnormal ECG When compared with ECG of 25-OCT-2023 12:08, Vent. rate has increased BY [address] now depressed in Anterior leads Referred By: Jaun Boucher Electronically Signed By:Regan Erwin
[2023-12-24 17:28] VITALS: BP 128/78; PULSE 126; RESP 16; TEMP 36.6; O2SAT 98; BMI 32.8
--- NOTE | 2023-12-24 17:34 | ED_ITS ---
HPI - General Adult General Chief complaint: General Medical Stated complaint: chest tightness, sob Time Seen by Provider: 12/24/23 17:36 Source: patient Mode of arrival: ambulatory Limitations: no limitations History of Present Illness HPI narrative: Patient is a 23 old female who presents emergency department for evaluation of shortness of breath and a tightness sensation in her chest. She reports that she underwent a [place] butt lift surgery in [facility] at [facility] on 12/18/2023. The following day she was experiencing shortness of breath and she presented to an emergency department in [place]. She reports that she had a CT scan with IV contrast and reportedly this was normal. She does state that at that time she is advised her hemoglobin was low; at 8.2 and states that prior to surgery she was informed it was 11.8. She states that her shortness of breath had actually resolved for a few days and she ultimately traveled home by plane. She expressed concern that potentially the way she was feeling was due to the oxycodone that she was taking. She stopped taking this as of last night. She states that she began feeling short of breath again last night as well as today. It is experienced at rest as well as with exertion. Denies leg pain. Denies history of DVT/PE/malignancy. Denies use of OCP Related Data Home Medications Medication Instructions Recorded Confirmed ascorbic acid (vitamin C) 500 mg 500 mg QAM 12/24/23 12/24/23 tablet (Vitamin C) cephalexin 500 mg capsule 500 mg PO QID 12/24/23 12/24/23 ferrous gluconate 324 mg (38 mg 324 mg PO QAM 12/24/23 12/24/23 iron) tablet oxycodone-acetaminophen 5 mg-325 1 tab PO Q4H PRN Pain 12/24/23 12/24/23 mg tablet pediatric multivitamin no.17 with 1 tab PO QAM 12/24/23 12/24/23 fluoride 0.5 mg chewable tablet (Multi-Vitamin With Fluoride) Allergies Allergy/AdvReac Type Severity Reaction Status Date / Time cinnamon [CINNAMON] Allergy Severe ANAPHYLAXIS Verified 09/14/23 20:01 oats [OATS] Allergy Severe ANAPHYLAXIS Verified 09/14/23 20:01 apple [APPLES] Allergy Intermediate ANGIOEDEMA Verified 09/14/23 20:01 Review of Systems 2 Review of Systems: Yes all other systems are reviewed and are negative [facility] Past Medical History Attestation statement: The following information was validated with the patient. Source: old records reviewed Medical History Miscarriage within last 12 months Migraines Migraines Depression Anxiety Family History Family History Father Chronic mental illness Mother CVD (cardiovascular disease) Chronic mental illness Family/Other Breast cancer Social History Social History Alcohol intake: unknown Patient Tobacco Use Status: Tobacco use Unknown Smoked in Last 30 Days: No Use of substances other than those prescribed or required for medical reasons: No Advance Directives: Yes Advance Directives on File: Yes Advance Directives Date on File: 12/25/23 Nutrition Risks: No Nutritional Risk service: No Physical Exam ED Vital Signs: Vital Signs - 24 hr 12/24/23 17:28 12/24/23 19:00 Temperature 98 F 98.3 F Pulse Rate 126 H 89 Respiratory Rate 16 14 Blood Pressure 128/78 125/74 Pulse Oximetry 98 98 Oxygen Delivery Method Room Air Room Air BMI result Body Mass Index 32.8 Appearance: Alert.?Oriented to person, place and time. No acute distress.?Normal affect. Eyes: Pupils equal, round and reactive to light.? ENT: Pharynx normal.?? Neck: Normal inspection.? Neck supple.?? CVS: Heart sounds normal. Tachycardia? Pulses normal.?? Respiratory: No respiratory distress.? Lung sounds clear to auscultation bilaterally?? Abdomen: Soft and non-tender. Normoactive bowel sounds. No pulsatile mass.? Multiple surgical incisions to the abdomen, groin, back, and buttocks - appear well healing, some have scabbed, no surrounding erythema, swelling, warmth, pus- like discharge. Extensive bruising to the bilateral posterior shoulders, anterior axilla/chest, pelvis groin and proximal thighs and buttocks. ? Skin: Skin warm and dry.? Normal skin color.? Extremities: No lower extremity edema.? No calf ttp?compression stockings intact. 2+ DP/PT pulse bilaterally Neuro: Moves all extremities spontaneously. Sensation intact bilaterally. Ambulates with normal steady gait. Course Course Course Narrative: RME: 23-year-old female presents to ED for chest tightness and shortness of breath status post butt lift surgery in [place] and recent travel from [place]. Patient brought into the ED immediately. Patient is tachycardic. Labs chest CT ordered to rule out PE Reevaluation(s) Reevaluation #1: CT positive for pulmonary embolism, admitted to medicine service, Dr. Hernandez. Patient updated on plan of care verbalizes understanding. Lovenox initiated. Medications Administered Generic Name Dose Route Start Last Admin Trade Name Freq PRN Reason Stop Dose Admin Acetaminophen 650 mg 12/24/23 21:43 12/25/23 16:14 Acetaminophen 325 Mg Tablet PO 650 mg Q6H PRN Administration Pain, Mild (Pain Scale 1-3) Ascorbic Acid 500 mg 12/25/23 09:00 12/25/23 09:16 Ascorbic Acid 500 Mg Tablet PO 500 mg DAILY DEEP Administration Cephalexin HCl 500 mg 12/24/23 22:15 12/25/23 13:04 Cephalexin 500 Mg Capsule PO 12/25/23 17:01 500 mg QID DEEP Administration Enoxaparin Sodium 90 mg 12/24/23 22:00 12/25/23 09:18 Enoxaparin Sodium 100 Mg/Ml Syringe 1 mg/kg (90 mg) 90 mg SUBCUT Administration Q12H [facility] Ferrous Sulfate 324 mg 12/25/23 09:00 12/25/23 09:16 Ferrous Sulfate 324 Mg Tablet. PO 324 mg DAILY DEEP Administration Multivitamins/Vitamin C 1 tab 12/24/23 22:15 12/25/23 09:16 Multivitamin Tablet PO 1 tab DAILY DEEP Administration Sodium Chloride 3 ml 12/25/23 00:00 12/25/23 16:14 0.9 % Sodium Chloride Flush 3 Ml Syringe IVFLUSH 3 ml QSHIFT DEEP Administration Discontinued Medications Generic Name Dose Route Start Last Admin Trade Name Freq PRN Reason Stop Dose Admin Acetaminophen 975 mg 12/24/23 18:22 12/24/23 18:34 Acetaminophen 325 Mg Tablet PO 12/24/23 18:23 975 mg ONCE ONE Administration Sodium Chloride 1,000 mls @ 999 mls/hr 12/24/23 17:45 12/24/23 19:56 Ns IV 12/24/23 18:45 Infused .Q1H1M DEEP Infusion Iohexol 100 ml 12/24/23 19:20 12/24/23 19:20 Iohexol 350 Mg/Ml 100 Ml Infus..Btl IV 12/24/23 19:21 65 ml ONCE ONE Administration Medical Decision Making Medical Decision Making [facility] Narrative: Patient is a 23 old female who presents emergency department for evaluation of shortness of breath and tightness in her chest as per HPI after recent body contouring surgical procedure on 12/18/2023. She appears to be in no respiratory distress, speaking clear full sentences, lung sounds are clear bilaterally to the apices, no tachypnea or hypoxia. She is tachycardic upon evaluation which she states has than baseline for her since she had her surgery. Reports that her pain is primarily to her surgical site in reported as a 6/10, declines any pain medication aside from Tylenol she does not like the way that the opiates make her feel. Serum labs EKG and CT angio of the chest to be obtained, concern for possible PE given history and physical examination. Differential to include viral syndrome, poorly controlled pain, anxiety Differential Diagnosis Differential Diagnoses: The differential diagnosis associated with the presentation includes (As noted above) Admission/Observation Consideration of admission/observation: Escalation of care including admission/observation considered (See narrative above in course narrative for further detail) Consult Healthcare Provider Management of the patient was discussed with: Hospitalist (See course narrative) Lab Data MDM Lab Attestation statement: I reviewed the patient's lab results. (See course narrative for further detail) CBC is without leukocytosis, normocytic anemia which is improved from her prior reported levels, unremarkable CMP. High sensitive troponin below detectable limits. BNP within normal range. HCG negative. Viral panel negative. 12/25/23 04:18 12/25/23 04:18 Labs: Lab Results 12/24/23 12/24/23 Range/Units 18:04 19:03 WBC 10.3 (4.8-10.8) X10*3/uL RBC 3.25 L D (4.20-5.50) X10*6/uL Hgb 9.2 L D (12.0-16.0) g/dl Hct 28.3 L D (37.0-47.0) % MCV 87.1 (80.0-98.0) fL MCH 28.3 (27.0-33.0) pg MCHC 32.5 (31.0-35.0) g/dl RDW 15.3 (11.0-16.0) % Plt Count 392 D (160-400) X10*3/uL MPV 10.2 (9.4-12.3) fL Immature Gran % (Auto) 1.3 H (0.0-0.4) % Neut % (Auto) 62.7 (45-73) % Lymph % (Auto) 26.2 (20-40) % [place] % (Auto) 7.4 (2-11) % Eos % (Auto) 1.9 (0-4) % Baso % (Auto) 0.5 (0-2) % Lymph # (Auto) 2.7 (1.2-4.9) X10*3/uL [place] # (Auto) 0.8 (0.1-1.2) X10*3/uL Eos # (Auto) 0.2 (0.0-0.4) X10*3/uL Baso # (Auto) 0.1 (0.0-0.2) X10*3/uL Abs Immat Gran (auto) 0.13 H (0.00-0.03) X10*3/uL Absolute Neuts (auto) 6.4 (2.0-8.3) x10*3/uL Absolute Nucleated RBC 0.000 (0.0-0.012) X10*3/uL Nucleated RBC % (auto) 0.0 (0.0-0.2) /100WBC PT 11.6 (11.1-13.3) SEC INR 1.0 (0.9-1.1) APTT 28.0 (26.0-36.8) SEC D-Dimer High Sensitivty 381 NG/ML Sodium 139 (135-145) mmol/L Potassium 3.7 (3.3-5.1) mmol/L Chloride 105 (96-108) mmol/L Carbon Dioxide 26 (22-29) mmol/L Anion Gap 12 (12-20) BUN 9 (9-16) mg/dL Creatinine 0.57 (0.5-1.4) mg/dL Estim Creat Clear Calc 162.1 Estimated GFR > 60 Random Glucose 95 (60-115) mg/dL Calcium 9.3 (8.4-10.2) mg/dL Total Bilirubin 0.6 (0.0-1.0) mg/dL AST 20 (5-31) U/L ALT 31 (0-31) U/L Alkaline Phosphatase 69 (39-117) U/L Troponin I High Sens < 2.7 (<3.5-17.0) ng/L B-Natriuretic Peptide < 10 (<100) pg/mL Total Protein 6.8 (6.5-8.0) g/dL Albumin 3.7 (3.5-5.0) g/dL Beta HCG, Quant < 2 mIU/mL Influenza Type A (PCR) NEGATIVE (Negative) Influenza Type B (PCR) NEGATIVE (Negative) RSV RNA Qual (PCR) NEGATIVE (Negative) SARS-CoV-2 RNA (RT-PCR) NEGATIVE (Negative) Independent Interpretation I performed an independent interpretation of an: CT Scan (Positive PE) Radiology Impression Discussion of test interpretation with radiology: I have reviewed the radiologist's reading. Radiologist Impression: CT/CT angio chest PE protocol IMPRESSION: 1. Positive PE. There are occlusive and nonocclusive small filling defects in peripheral segmental and subsegmental branches secondary and tertiary branches suggesting small emboli within secondary and tertiary branches. Gomez images, No large central emboli. No CT evidence of cardiac strain. 2. Coronary calcifications. External Record Review Unfortunately unable to obtain outpatient records from surgical site, unable to make contact with staff. She does not recall the name of the hospital she presented to in [place] to obtain records from there. Critical Care Time Critical Care Time Critical Care Time: Yes Total Critical Care Time: 45 Attestation: I personally attest to this critical care time spent taking care of the patient exclusive of all other billable procedures was approximately 45 minutes including initial evaluation of patient, ordering tests, ct interpretation, EKG interpretation, medical consultation, documentation, re-evaluation. Discharge Plan Discharge Clinical Impression: Pulmonary embolism Patient Disposition: Admitted As Inpatient
[2023-12-24] MEDS: 0.9 % Sodium Chloride 1,000 ML 999 ML IV (18:05)
[2023-12-24 18:28] LABS: MANUAL DIFF FLAG NO
[2023-12-24] MEDS: Acetaminophen 325 MG TABLET 975 MG PO (18:34)
[2023-12-24 18:38] LABS: Basophils Absolute Auto 0.1 X10*3/uL (0.0-0.2); Basophils Percent Auto 0.5 % (0-2); Eosinophils Absolute Auto 0.2 X10*3/uL (0.0-0.4); Eosinophils Percent Auto 1.9 % (0-4); Hematocrit 28.3 % (37.0-47.0); Hemoglobin 9.2 g/dl (12.0-16.0); Imm Gran Abs Auto 0.13 X10*3/uL (0.00-0.03); Imm Gran Pct Auto 1.3 % (0.0-0.4); Lymphocytes Absolute Auto 2.7 X10*3/uL (1.2-4.9); Lymphocytes Percent Auto 26.2 % (20-40); Mean Corpuscular HGB Conc 32.5 g/dl (31.0-35.0); Mean Corpuscular Hemoglobin 28.3 pg (27.0-33.0); Mean Corpuscular Volume 87.1 fL (80.0-98.0); Mean Platelet Volume 10.2 fL (9.4-12.3); Monocytes Absolute Auto 0.8 X10*3/uL (0.1-1.2); Monocytes Percent Auto 7.4 % (2-11); Neutrophils Absolute Auto 6.4 x10*3/uL (2.0-8.3); Neutrophils Percent Auto 62.7 % (45-73); Platelet Count 392 X10*3/uL (160-400); Red Blood Count 3.25 X10*6/uL (4.20-5.50); Red Cell Distribution Width 15.3 % (11.0-16.0); White Blood Count 10.3 X10*3/uL (4.8-10.8)
[2023-12-24 18:39] LABS: Prothrombin Time 11.6 SEC (11.1-13.3)
[2023-12-24 18:41] LABS: D Dimer High Sensitivity 381 NG/ML
[2023-12-24 18:54] LABS: Alanine Aminotransferase 31 U/L (0-31); Albumin Level 3.7 g/dL (3.5-5.0); Alkaline Phosphatase 69 U/L (39-117); Anion Gap 12 (12-20); Aspartate Amino Transferase 20 U/L (5-31); B Type Natriuretic Peptide < 10 pg/mL (<100); Bilirubin Total 0.6 mg/dL (0.0-1.0); Blood Urea Nitrogen 9 mg/dL (9-16); Calcium 9.3 mg/dL (8.4-10.2); Carbon Dioxide 26 mmol/L (22-29); Chloride 105 mmol/L (96-108); Creatinine Clr Calc Pharmacy 162.1; Estimated Glomerular Filt Rate > 60; Glucose Random 95 mg/dL (60-115); Potassium 3.7 mmol/L (3.3-5.1); Sodium 139 mmol/L (135-145); Total Protein 6.8 g/dL (6.5-8.0)
[2023-12-24 19:00] VITALS: BP 125/74; PULSE 89; RESP 14; TEMP 36.8; O2SAT 98
[2023-12-24 19:01] LABS: HCG Quantitative < 2 mIU/mL; Troponin-I High Sensitivity < 2.7 ng/L (<3.5-17.0)
[2023-12-24] MEDS: iohexoL 350 MG/ML 100 ML INFUS..BTL IV (19:20)
[2023-12-24 19:52] LABS: Influenza A PCR NEGATIVE (Negative); Influenza B PCR NEGATIVE (Negative); Resp Syncy Virus RNA Qual PCR NEGATIVE (Negative); SARS COV2 PCR INHOUSE NEGATIVE (Negative)
--- NOTE | 2023-12-24 20:34 | PC.NURSE ---
late entry: veterinary technologist called this RN into satinder, due to suspected IV infiltration. Pts IV did infiltrate, this RN stopped infusing fluids, pulled IV and provided patient with warm pack. Pt is endorsing mild pain to the upper left bicep at this time
--- NOTE | 2023-12-24 21:44 | PM.IMHP ---
History of Present Illness Date of Service: 12/24/23 Chief Complaint: Dyspnea This is a 23-year-old female with pertinent history of recent BBL (12/18/2023) who presents to the emergency department for evaluation of dyspnea. Patient states she underwent surgery in [place], [place]. Patient experienced shortness of breath following surgery but states her CT scan with contrast was normal. Patient traveled to [place] on 12/21/2023 by plane. She again started to have shortness of breath on 12/22 which was constant and prompted ER visit today. Also reports chest tightening. No palpitations or chest discomfort. No similar history in the past. No fever, chills, abdominal pain, changes in urinary or bowel habits. No use of for CP. Denies history of blood clots. In the emergency department, patient was found to be tachycardic and CTA with occlusive and nonocclusive pulmonary emboli Review of Systems Constitutional: Constitutional: Reports no additional constitutional complaints Cardiovascular: Cardiovascular: Reports dyspnea and Reports dyspnea on exertion Respiratory: Respiratory: Reports dyspnea and Reports dyspnea on exertion Gastrointestinal: Gastrointestinal: Reports no additional gastrointestinal complaints Genitourinary: Genitourinary: Reports no additional female genitourinary complaints PMFSH Medical History Miscarriage within last 12 months Migraines Migraines Depression Anxiety Family History Father Chronic mental illness Mother CVD (cardiovascular disease) Chronic mental illness Family/Other Breast cancer Social History Alcohol intake: unknown Patient Tobacco Use Status: Tobacco use Unknown Smoked in Last 30 Days: No Use of substances other than those prescribed or required for medical reasons: No Advance Directives: No Advance Directives Information Provided: No Meds Allergies Allergy/AdvReac Type Severity Reaction Status Date / Time cinnamon [CINNAMON] Allergy Severe ANAPHYLAXIS Verified 09/14/23 20:01 oats [OATS] Allergy Severe ANAPHYLAXIS Verified 09/14/23 20:01 apple [APPLES] Allergy Intermediate ANGIOEDEMA Verified 09/14/23 20:01 Home Medications Medication Instructions Recorded Confirmed Last Taken Type ascorbic acid (vitamin C) 500 mg 500 mg QAM 03/12/24/23 12/24/23 History tablet (Vitamin C) cephalexin 500 mg capsule 500 mg PO QID 12/24/23 12/24/23 12/24/23 History ferrous gluconate 324 mg (38 mg 324 mg PO QAM 12/24/23 12/24/23 12/24/23 History iron) tablet oxycodone-acetaminophen 5 mg-325 1 tab PO Q4H PRN Pain 12/24/23 12/24/23 12/23/23 History mg tablet pediatric multivitamin no.17 with 1 tab PO QAM 12/24/23 12/24/23 12/24/23 History fluoride 0.5 mg chewable tablet (Multi-Vitamin With Fluoride) Physical Exam Vital Signs and Narrative: Vital Signs: Last Vital Signs Temp 98.3 F 12/24/23 19:00 Pulse 89 12/24/23 19:00 Resp 14 12/24/23 19:00 BP 125/74 12/24/23 19:00 Pulse Ox 98 12/24/23 19:00 O2 Del Method Room Air 12/24/23 19:00 BMI result Body Mass Index 32.8 Middle-aged female lying in bed in no distress Neck supple, no JVD Tachycardic with regular rhythm, S1-S2 heard Regular breath sounds bilaterally, no wheezing or crackles appreciated Abdomen soft nontender, no guarding, no rigidity Patient is awake, alert and oriented to self, place, time and person ; no focal motor deficit Psych: Normal mood No pedal edema Results Labs 12/24/23 18:04 12/24/23 18:04 Labs: Laboratory Results - last 24 hr 12/24/23 12/24/23 18:04 19:03 MCV 87.1 MCH 28.3 MCHC 32.5 RDW 15.3 Plt Count 392 D MPV 10.2 Immature Gran % (Auto) 1.3 H Neut % (Auto) 62.7 Lymph % (Auto) 26.2 [place] % (Auto) 7.4 Eos % (Auto) 1.9 Baso % (Auto) 0.5 Lymph # (Auto) 2.7 [place] # (Auto) 0.8 Eos # (Auto) 0.2 Baso # (Auto) 0.1 Abs Immat Gran (auto) 0.13 H Absolute Neuts (auto) 6.4 Absolute Nucleated RBC 0.000 Nucleated RBC % (auto) 0.0 PT 11.6 INR 1.0 APTT 28.0 D-Dimer High Sensitivty 381 Anion Gap 12 Estim Creat Clear Calc 162.1 Estimated GFR > 60 Random Glucose 95 Calcium 9.3 Total Bilirubin 0.6 AST 20 ALT 31 Alkaline Phosphatase 69 Troponin I High Sens < 2.7 B-Natriuretic Peptide < 10 Total Protein 6.8 Albumin 3.7 Beta HCG, Quant < 2 Influenza Type A (PCR) NEGATIVE Influenza Type B (PCR) NEGATIVE RSV RNA Qual (PCR) NEGATIVE SARS-CoV-2 RNA (RT-PCR) NEGATIVE Imaging Radiologist's Impressions: Impressions Chest CTA 12/24/23 19:35 IMPRESSION: 1. Positive PE. There are occlusive and nonocclusive small filling defects in peripheral segmental and subsegmental branches secondary and tertiary branches suggesting small emboli within secondary and tertiary branches. Gomez images, No large central emboli. No CT evidence of cardiac strain. 2. Coronary calcifications. (Referring physician staff is being called, by physician staff assistance, to be alerted of the above critical findings and recommendations.) 12/24/2023 9:07 PM Assessment and Plan (1) Pulmonary emboli: Status: Acute Plan This is a 23-year-old female with pertinent history of recent BBL (12/18/2023) who presents to the emergency department for evaluation of dyspnea. #. Acute symptomatic non massive PE: Provoked due to recent surgery. Will admit patient with cardiac monitoring. Initiating therapeutic Lovenox. Transition to oral anticoagulants prior to discharge. Monitor symptoms. #. Normocytic anemia: Likely blood loss in the setting of recent surgery. States her hemoglobin was normal prior to surgery. Obtaining B12/folate/iron panel #. Recent BBL: On Keflex, stop date 12/24 DVT prophylaxis: Therapeutic Lovenox Full code Quality Stroke Does the patient have a stroke diagnosis?: No VTE Prior VTE?: No VTE Risk Level:: Medical - moderate - high VTE Device Contraindication: Treatment Not Indicated VTE Drug Contraindication: N/A - Med Ordered
--- NOTE | 2023-12-24 21:56 | PHA.MEDREC ---
Pharmacy Consult ? Medication Reconciliation Pharmacy has completed the medication reconciliation. Confirmed medication and with patient. Patient reports she is only taking her pain medication in the evening. Also reports that she started taking Cephalexin 500mg on the .
[2023-12-24 22:14] VITALS: BP 119/74; PULSE 105; RESP 15; O2SAT 99
[2023-12-24] MEDS: cephALEXin 500 MG CAPSULE PO (22:52)
[2023-12-24] MEDS: Multivitamin TABLET 1 TAB PO (22:52)
[2023-12-24] MEDS: Enoxaparin Sodium 100 MG/ML SYRINGE 90 MG SUBCUT (22:52)
[2023-12-25] VITALS (8 sets, daily range): BP systolic 95–122; BP diastolic 54–65; PULSE 86–116; RESP 13–18; TEMP 36.1–36.8; O2SAT 97–99; BMI 32.8
--- NOTE | 2023-12-25 00:32 | PC.NURSE ---
Pt changed her mind about pain meds before sleep, reports feeling tired and is going to try to sleep. Will continue to monitor for changes.
[2023-12-25] MEDS: 0.9 % Sodium Chloride Flush 3 ML SYRINGE IVFLUSH ×4 (02:20→22:48)
[2023-12-25 06:16] LABS: MANUAL DIFF FLAG NO
[2023-12-25 06:17] LABS: Basophils Percent Auto 0.3 % (0-2); Eosinophils Absolute Auto 0.2 X10*3/uL (0.0-0.4); Eosinophils Percent Auto 1.9 % (0-4); Hematocrit 25.7 % (37.0-47.0); Hemoglobin 8.2 g/dl (12.0-16.0); Imm Gran Abs Auto 0.15 X10*3/uL (0.00-0.03); Imm Gran Pct Auto 1.5 % (0.0-0.4); Lymphocytes Absolute Auto 2.8 X10*3/uL (1.2-4.9); Lymphocytes Percent Auto 27.3 % (20-40); Mean Corpuscular HGB Conc 31.9 g/dl (31.0-35.0); Mean Corpuscular Hemoglobin 27.7 pg (27.0-33.0); Mean Corpuscular Volume 86.8 fL (80.0-98.0); Mean Platelet Volume 10.3 fL (9.4-12.3); Monocytes Absolute Auto 0.7 X10*3/uL (0.1-1.2); Monocytes Percent Auto 6.7 % (2-11); NRBC Pct Auto 0.2 /100WBC (0.0-0.2); Neutrophils Absolute Auto 6.4 x10*3/uL (2.0-8.3); Neutrophils Percent Auto 62.3 % (45-73); Platelet Count 360 X10*3/uL (160-400); Red Blood Count 2.96 X10*6/uL (4.20-5.50); Red Cell Distribution Width 15.6 % (11.0-16.0); White Blood Count 10.3 X10*3/uL (4.8-10.8)
[2023-12-25 06:35] LABS: Anion Gap 12 (12-20); Blood Urea Nitrogen 10 mg/dL (9-16); Calcium 8.6 mg/dL (8.4-10.2); Carbon Dioxide 26 mmol/L (22-29); Chloride 106 mmol/L (96-108); Creatinine Clr Calc Pharmacy 146.6; Estimated Glomerular Filt Rate > 60; Glucose Random 89 mg/dL (60-115); Iron 47 mcg/dL (30-160); Percent Iron Saturation 18 % (15-50); Potassium 3.7 mmol/L (3.3-5.1); Sodium 140 mmol/L (135-145); Total Iron Binding Capacity 262 mcg/dL (228-428); Unsaturated Iron Binding 215 ug/dL
[2023-12-25 07:06] LABS: Folate 11.4 ng/mL (> or = 4.0); Vitamin B12 1192 pg/mL (200-900)
--- NOTE | 2023-12-25 07:10 | PC.NURSE ---
Report given to oncoming ZAIN Traylor
[2023-12-25 08:18] LABS: Immature Retic Fraction 35.6 % (3.0-15.9); Retic HGB Equivalent 30.9 pg (30.0-35.0); Reticulocytes Absolute 0.122 X10*6/uL (0.026-0.095)
[2023-12-25 08:19] LABS: Reticulocyte Percent 4.1 % (0.5-1.8)
[2023-12-25 08:24] LABS: Lactate Dehydrogenase 271 U/L (122-220)
--- NOTE | 2023-12-25 09:04 | PC.NURSE ---
Pt resting on stretcher, respirations equal and unlabored. Awaiting inpatient bed assignment.
[2023-12-25] MEDS: Ascorbic Acid 500 MG TABLET PO (09:16)
[2023-12-25] MEDS: Multivitamin TABLET 1 TAB PO (09:16)
[2023-12-25] MEDS: cephALEXin 500 MG CAPSULE PO ×3 (09:16→16:55)
[2023-12-25] MEDS: Ferrous Sulfate 324 MG TABLET.DR PO (09:16)
[2023-12-25] MEDS: Acetaminophen 325 MG TABLET 650 MG PO ×3 (09:17→22:47)
[2023-12-25] MEDS: Enoxaparin Sodium 100 MG/ML SYRINGE 90 MG SUBCUT ×2 (09:18→22:47)
--- NOTE | 2023-12-25 10:51 | MHC.CM.PN ---
Met with patient and sig other, Freddy, in regards to discharge planning. Patient lives with [facility], ambulates independently and had no services prior to coming to the hospital. No services anticipated to be needed because patient is not homebound. PCP verified. Copy of HCP obtained from [facility]. Obs notice explained and signed. Isaiah will tranpsort patient home when medically stable. Continue to monitor for d/c needs.
--- NOTE | 2023-12-25 11:05 | P.PNIM_ITS ---
Subjective Subjective Date of Service: 12/25/23 Interval History: dyspnea improved but still quite dyspneic + tachycardic (to 130s) with minimal movement Review of Systems Review of Systems: Yes all other systems are reviewed and are negative Physical Exam 2 Vital Signs: Vital Signs: Last Vital Signs Temp 97.6 F 12/25/23 10:41 Pulse 100 12/25/23 10:41 Resp 16 12/25/23 10:41 BP 95/65 12/25/23 10:41 Pulse Ox 97 12/25/23 10:41 O2 Del Method Room Air 12/25/23 10:41 BMI result Body Mass Index 32.8 Gen: in no acute distress HEENT: sclera anicteric, moist mucus membranes Neck: supple Lungs: clear to auscultation bilaterally Heart: regular, tachycardic, no murmurs Abd: soft, non-tender, non-distended Ext: no edema Skin: warm/well-perfused Neuro: alert and oriented x3, no focal findings Psych: appropriate affect Objective Data Active Medications Acetaminophen (Acetaminophen 325 Mg Tablet) 650 mg PO Q6H PRN PRN Reason: Pain, Mild (Pain Scale 1-3) Last Admin: 12/25/23 09:17 Dose: 650 mg Documented By: LYNDSEY Ascorbic Acid (Ascorbic Acid 500 Mg Tablet) 500 mg PO DAILY [facility] Last Admin: 12/25/23 09:16 Dose: 500 mg Documented By: LYNDSEY Cephalexin HCl (Cephalexin 500 Mg Capsule) 500 mg PO QID [facility] Stop: 12/25/23 17:01 Last Admin: 12/25/23 09:16 Dose: 500 mg Documented By: LYNDSEY Enoxaparin Sodium (Enoxaparin Sodium 100 Mg/Ml Syringe) 90 mg 1 mg/kg (90 mg) SUBCUT Q12H [facility] Last Admin: 12/25/23 09:18 Dose: 90 mg Documented By: LYNDSEY Ferrous Sulfate (Ferrous Sulfate 324 Mg Tablet.) 324 mg PO DAILY [facility] Last Admin: 12/25/23 09:16 Dose: 324 mg Documented By: LYNDSEY Melatonin (Melatonin 3 Mg Tablet) 6 mg PO BEDTIME PRN PRN Reason: Insomnia Multivitamins/Vitamin C (Multivitamin Tablet) 1 tab PO DAILY [facility] Last Admin: 12/25/23 09:16 Dose: 1 tab Documented By: LYNDSEY Ondansetron HCl (Ondansetron Hcl 4 Mg/2 Ml Vial) 4 mg IVPUSH Q8H PRN PRN Reason: Nausea and Vomiting Oxycodone HCl (Oxycodone Hcl Immed Release 5 Mg Tablet) 5 mg PO Q4H PRN PRN Reason: Pain, Severe (Pain Scale 7-10) Sodium Chloride (0.9 % Sodium Chloride Flush 3 Ml Syringe) [facility] Last Admin: 12/25/23 09:17 Dose: 3 ml Documented By: LYNDSEY Labs 12/25/23 04:18 12/25/23 04:18 Labs: Laboratory Results - last 24 hr 12/24/23 12/24/23 12/25/23 18:04 19:03 04:18 MCV 87.1 86.8 MCH 28.3 27.7 MCHC 32.5 31.9 RDW 15.3 15.6 Plt Count 392 D 360 MPV 10.2 10.3 Immature Gran % (Auto) 1.3 H 1.5 H Neut % (Auto) 62.7 62.3 Lymph % (Auto) 26.2 27.3 [place] % (Auto) 7.4 6.7 Eos % (Auto) 1.9 1.9 Baso % (Auto) 0.5 0.3 Lymph # (Auto) 2.7 2.8 [place] # (Auto) 0.8 0.7 Eos # (Auto) 0.2 0.2 Baso # (Auto) 0.1 0.0 Abs Immat Gran (auto) 0.13 H 0.15 H Absolute Neuts (auto) 6.4 6.4 Absolute Nucleated RBC 0.000 0.020 H Nucleated RBC % (auto) 0.0 0.2 Absolute Retic 0.122 H Percent Retic 4.1 H Immature Retic Fraction 35.6 H Retic Hgb Equivalent 30.9 PT 11.6 INR 1.0 APTT 28.0 D-Dimer High Sensitivty 381 Anion Gap 12 12 Estim Creat Clear Calc 162.1 146.6 Estimated GFR > 60 > 60 Random Glucose 95 89 Calcium 9.3 8.6 D Iron 47 TIBC 262 % Saturation 18 Unsat Iron Binding 215 Total Bilirubin 0.6 AST 20 ALT 31 Alkaline Phosphatase 69 Lactate Dehydrogenase 271 H Troponin I High Sens < 2.7 B-Natriuretic Peptide < 10 Total Protein 6.8 Albumin 3.7 Vitamin B12 1192 H Folate 11.4 Beta HCG, Quant < 2 Influenza Type A (PCR) NEGATIVE Influenza Type B (PCR) NEGATIVE RSV RNA Qual (PCR) NEGATIVE SARS-CoV-2 RNA (RT-PCR) NEGATIVE Assessment and Plan (1) Pulmonary embolism: Status: Acute Plan d2 23yo F with recent BBL in [place], [place] 12/18/23 after which she flew back to [place] 12/21/23 then developed dyspnea 12/23/23 admitted for symptomatic provoked PE provoked PE - on therapeutic LMWH, transition to apixaban possibly tomorrow, total duration at least 3 mo normocytic anemia - likely blood loss from recent surgery; monitor H+H and check FOBT recent BBL - finish cephalexin as previously prescribed, last day today dispo - anticipate home eventually Total time managing care of this patient today: 35 minutes. Quality Stroke Does the patient have a stroke diagnosis?: No VTE Prior VTE?: No VTE Risk Level:: Medical - moderate - high VTE Device Contraindication: Treatment Not Indicated VTE Drug Contraindication: N/A - Med Ordered
--- NOTE | 2023-12-25 16:34 | HO.SKINPHOTO ---
Location: L nostril Category: Stage: Length: Width: Depth: cm Location: Category: Stage: Length: Width: Depth: cm Location: Category: Stage: Length: Width: Depth: cm Location: Category: Stage: Length: Width: Depth: cm Location: Category: Stage: Length: Width: Depth: cm Location: Category: Stage: Length: Width: Depth: cm
--- NOTE | 2023-12-25 16:35 | PC.NURSE ---
photo included in chart sent to Dr. Bryant, pt concerned for HSV outbreak, reports painful throbbing, request for valrex made to . awaiting order.
[2023-12-25] MEDS: valACYclovir HCL 1,000 MG TABLET 1000 MG PO (16:55)
[2023-12-26] VITALS (7 sets, daily range): BP systolic 106–118; BP diastolic 54–69; PULSE 85–117; RESP 18; TEMP 35.7–36.5; O2SAT 96–99
[2023-12-26] MEDS: Acetaminophen 325 MG TABLET 650 MG PO (06:24)
[2023-12-26] MEDS: valACYclovir HCL 1,000 MG TABLET 1000 MG PO ×2 (06:25→08:51)
[2023-12-26] MEDS: Multivitamin TABLET 1 TAB PO (08:06)
[2023-12-26] MEDS: Ferrous Sulfate 324 MG TABLET.DR PO (08:06)
[2023-12-26] MEDS: Ascorbic Acid 500 MG TABLET PO (08:06)
[2023-12-26] MEDS: 0.9 % Sodium Chloride Flush 3 ML SYRINGE IVFLUSH (08:06)
[2023-12-26] MEDS: Enoxaparin Sodium 100 MG/ML SYRINGE 90 MG SUBCUT (08:08)
[2023-12-26 10:44] LABS: Hematocrit 29.2 % (37.0-47.0); Hemoglobin 9.3 g/dl (12.0-16.0); Mean Corpuscular HGB Conc 31.8 g/dl (31.0-35.0); Mean Corpuscular Hemoglobin 27.6 pg (27.0-33.0); Mean Corpuscular Volume 86.6 fL (80.0-98.0); Mean Platelet Volume 10.2 fL (9.4-12.3); NRBC Pct Auto 0.2 /100WBC (0.0-0.2); Platelet Count 384 X10*3/uL (160-400); Red Blood Count 3.37 X10*6/uL (4.20-5.50); Red Cell Distribution Width 16.3 % (11.0-16.0); White Blood Count 12.7 X10*3/uL (4.8-10.8)
--- NOTE | 2023-12-26 13:27 | MHC.CM.PN ---
Patient has been medically cleared for dc to home today, self care.
--- NOTE | 2023-12-26 13:31 | PM.DS ---
DS: Providers Provider Date of Service: 12/26/23 Date of admission: 12/24/23 21:46 Date of discharge: 12/26/23 Primary care physician: Aster White MD DS: Diagnosis Discharge Diagnosis (1) Pulmonary embolism: Status: Acute (2) Postoperative anemia: Status: Acute (3) HSV infection: Status: Acute DS: Summary Hospital Course Hospital Course: From the history and physical by the admitting hospitalist, Aniyah Hernandez MD, 12/24/23: This is a 23-year-old female with pertinent history of recent BBL (12/18/2023) who presents to the emergency department for evaluation of dyspnea. Patient states she underwent surgery in [place], [place]. Patient experienced shortness of breath following surgery but states her CT scan with contrast was normal. Patient traveled to [place] on 12/21/2023 by plane. She again started to have shortness of breath on 12/22 which was constant and prompted ER visit today. Also reports chest tightening. No palpitations or chest discomfort. No similar history in the past. No fever, chills, abdominal pain, changes in urinary or bowel habits. No use of for CP. Denies history of blood clots. In the emergency department, patient was found to be tachycardic and CTA with occlusive and nonocclusive pulmonary emboli 23yo F with recent [place] butt lift surgery in [place], [place] 12/18/23 after which she flew back to [place] 12/21/23 then developed dyspnea 12/23/23; admitted for symptomatic provoked PE. Not hypoxic, though symptomatic and with exertional tachycardia. Started on therapeutic enoxaparin. Transitioned to oral apixaban [10 mg bid x 7d, then 5 mg bid] with total duration of at least 3-6 months. Noted to have normocytic anemia likely related to blood loss from recent surgery [she said her Hb was as low as 7+ after the surgery in [place]]. 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 Discharged home with instructions to follow up with primary care in 1-2 weeks. Time Attestation Discharge Coordination Time (in mins): 40 Quality: Safe Use of Opioids Does Pt have an Active Cancer Diagnosis on the Problem List?: No Quality: Stroke Does the patient have a stroke diagnosis?: No Physical Exam Vital Signs: Vital Signs: Last Vital Signs Temp 97.3 F 12/26/23 10:52 Pulse 105 H 12/26/23 10:52 Resp 18 12/26/23 10:52 BP 115/69 12/26/23 10:52 Pulse Ox 98 12/26/23 10:52 O2 Del Method Room Air 12/26/23 10:52 BMI result Body Mass Index 32.8 Gen: in no acute distress HEENT: sclera anicteric, moist mucus membranes, small vesicle at L nasolabial fold Neck: supple Lungs: clear to auscultation bilaterally Heart: regular rate and rhythm, no murmurs Abd: soft, non-tender, non-distended Ext: no edema Skin: warm/well-perfused Neuro: alert and oriented x3, no focal findings Psych: appropriate affect DS: Data Data Completed and Pending Completed studies during hospitalization [Text1]: Laboratory Results WBC 12.7 X10*3/uL (4.8-10.8) H 12/26/23 10:33 RBC 3.37 X10*6/uL (4.20-5.50) L 12/26/23 10:33 Hgb 9.3 g/dl (12.0-16.0) L 12/26/23 10:33 Hct 29.2 % (37.0-47.0) L 12/26/23 10:33 MCV 86.6 fL (80.0-98.0) 12/26/23 10:33 MCH 27.6 pg (27.0-33.0) 12/26/23 10:33 MCHC 31.8 g/dl (31.0-35.0) 12/26/23 10:33 RDW 16.3 % (11.0-16.0) H 12/26/23 10:33 Plt Count 384 X10*3/uL (160-400) 12/26/23 10:33 MPV 10.2 fL (9.4-12.3) 12/26/23 10:33 Immature Gran % (Auto) 1.5 % (0.0-0.4) H 12/25/23 04:18 Neut % (Auto) 62.3 % (45-73) 12/25/23 04:18 Lymph % (Auto) 27.3 % (20-40) 12/25/23 04:18 [place] % (Auto) 6.7 % (2-11) 12/25/23 04:18 Eos % (Auto) 1.9 % (0-4) 12/25/23 04:18 Baso % (Auto) 0.3 % (0-2) 12/25/23 04:18 Lymph # (Auto) 2.8 X10*3/uL (1.2-4.9) 12/25/23 04:18 [place] # (Auto) 0.7 X10*3/uL (0.1-1.2) 12/25/23 04:18 Eos # (Auto) 0.2 X10*3/uL (0.0-0.4) 12/25/23 04:18 Baso # (Auto) 0.0 X10*3/uL (0.0-0.2) 12/25/23 04:18 Abs Immat Gran (auto) 0.15 X10*3/uL (0.00-0.03) H 12/25/23 04:18 Absolute Neuts (auto) 6.4 x10*3/uL (2.0-8.3) 12/25/23 04:18 Absolute Nucleated RBC 0.020 X10*3/uL (0.0-0.012) H 12/26/23 10:33 Nucleated RBC % (auto) 0.2 /100WBC (0.0-0.2) 12/26/23 10:33 Absolute Retic 0.122 X10*6/uL (0.026-0.095) H 12/25/23 04:18 Percent Retic 4.1 % (0.5-1.8) H 12/25/23 04:18 Immature Retic Fraction 35.6 % (3.0-15.9) H 12/25/23 04:18 Retic Hgb Equivalent 30.9 pg (30.0-35.0) 12/25/23 04:18 PT 11.6 SEC (11.1-13.3) 12/24/23 18:04 INR 1.0 (0.9-1.1) 12/24/23 18:04 APTT 28.0 SEC (26.0-36.8) 12/24/23 18:04 D-Dimer High Sensitivty 381 NG/ML 12/24/23 18:04 Sodium 140 mmol/L (135-145) 12/25/23 04:18 Potassium 3.7 mmol/L (3.3-5.1) 12/25/23 04:18 Chloride 106 mmol/L (96-108) 12/25/23 04:18 Carbon Dioxide 26 mmol/L (22-29) 12/25/23 04:18 Anion Gap 12 (12-20) 12/25/23 04:18 BUN 10 mg/dL (9-16) 12/25/23 04:18 Creatinine 0.63 mg/dL (0.5-1.4) 12/25/23 04:18 Estim Creat Clear Calc 146.6 12/25/23 04:18 Estimated GFR > 60 12/25/23 04:18 Random Glucose 89 mg/dL (60-115) 12/25/23 04:18 Calcium 8.6 mg/dL (8.4-10.2) D 12/25/23 04:18 Iron 47 mcg/dL (30-160) 12/25/23 04:18 TIBC 262 mcg/dL (228-428) 12/25/23 04:18 % Saturation 18 % (15-50) 12/25/23 04:18 Unsat Iron Binding 215 ug/dL 12/25/23 04:18 Total Bilirubin 0.6 mg/dL (0.0-1.0) 12/24/23 18:04 AST 20 U/L (5-31) 12/24/23 18:04 ALT 31 U/L (0-31) 12/24/23 18:04 Alkaline Phosphatase 69 U/L (39-117) 12/24/23 18:04 Lactate Dehydrogenase 271 U/L (122-220) H 12/25/23 04:18 Troponin I High Sens < 2.7 ng/L (<3.5-17.0) 12/24/23 18:04 B-Natriuretic Peptide < 10 pg/mL (<100) 12/24/23 18:04 Total Protein 6.8 g/dL (6.5-8.0) 12/24/23 18:04 Albumin 3.7 g/dL (3.5-5.0) 12/24/23 18:04 Vitamin B12 1192 pg/mL (200-900) H 03/27/24 04:18 Folate 11.4 ng/mL (> or = 4.0) 12/25/23 04:18 Beta HCG, Quant < 2 mIU/mL 12/24/23 18:04 Influenza Type A (PCR) NEGATIVE (Negative) 12/24/23 19:03 Influenza Type B (PCR) NEGATIVE (Negative) 12/24/23 19:03 RSV RNA Qual (PCR) NEGATIVE (Negative) 12/24/23 19:03 SARS-CoV-2 RNA (RT-PCR) NEGATIVE (Negative) 12/24/23 19:03 CAR, Polyspecific NEGATIVE 12/25/23 04:18 Positive CAR Work-up TNP 12/25/23 04:18 Impressions Chest CTA 12/24/23 19:35 IMPRESSION: 1. Positive PE. There are occlusive and nonocclusive small filling defects in peripheral segmental and subsegmental branches secondary and tertiary branches suggesting small emboli within secondary and tertiary branches. Gomez images, No large central emboli. No CT evidence of cardiac strain. 2. Coronary calcifications. (Referring physician staff is being called, by physician staff assistance, to be alerted of the above critical findings and recommendations.) 12/24/2023 9:07 PM Discharge Plan Discharge Anticipated Discharge Date/Time: 12/26/23 12:58 Patient Disposition: Home, Self-Care Discharge Diagnosis: pulmonary embolism postoperative anemia HSV infection Referrals: Aster White MD [Primary Care Provider] - 1 Week Discharge Medications: New valacyclovir 1 gram Tablet 1,000 mg PO Q8H Qty: 15 0RF Eliquis 5 mg tablet See Rx Instructions .ROUTE .COMPLEX Qty: 74 0RF Rx Instructions: 10 mg (2 tabs) twice daily for 7 days, then 5 mg twice daily Continued oxycodone-acetaminophen 5-325 mg tablet 1 tab PO Q4H PRN (Reason: Pain) ascorbic acid (vitamin C) [Vitamin C] 500 mg tablet 500 mg QAM ferrous gluconate 324 mg (38 mg iron) tablet 324 mg PO QAM Multi-Vitamin With Fluoride 0.5 mg tablet,chewable 1 tab PO QAM Discontinued cephalexin 500 mg capsule 500 mg PO QID Discharge Orders: Discharge Order (Routine); Ordered 12/26/23 Ordered By: Jaehyun Annette Diet: Advance to usual diet Activity on Discharge: As tolerated Stand Alone Forms: Patient Portal Discharge page Care Plan Goals: treat clot Health Concerns: pulmonary embolism postoperative anemia HSV infection Plan of Treatment: apixaban [Eliquis] 10 mg [two 5 mg tabs] twice daily for 7 days, then 5 mg [one 5 mg tab] twice daily for AT LEAST 3 months take valacylovir 1 gram 3x a day for 5 days Please follow up with your primary care doctor within 1 week. Return to the hospital if you experience recurrent or worsening symptoms. Assessment: See Discharge Summary. Patient Instructions: Apixaban (By mouth), Pulmonary Embolism (DC)
== END 2023-12-26 14:14 | disposition home or self-care (01) ==
LOC: HO.ED 18:15 → HO.EDOVER 21:57 → HO.IMC 12-25 17:49
PROVIDERS: Nurse Practitioner Family; Physician Assistant; Admitting Provider Student in an Organized Health Care Education/Training Program; Emergency Provider Emergency Medicine Emergency Medical Services; PCP Family Medicine; Visit Provider Family Medicine
DX: I26.99 Other pulmonary embolism without acute cor pulmonale (principal); D64.89 Other specified anemias; B00.9 Herpesviral infection, unspecified; R06.02 Shortness of breath; R07.89 Other chest pain; Z98.890 Other specified postprocedural states; Z11.52 Encounter for screening for COVID-19; Z20.828 Contact with and (suspected) exposure to other viral communicable diseases
CPT/HCPCS: 0241U; 36415; 71275; 80048; 80053; 82607; 82746; 83540; 83615; 83880; 84484; 84702; 85025; 85027; 85045; 85379; 85610; 85730; 86880; 93005; 96360; 96361; 99222; 99285; J1650; Q9967

== ENCOUNTER → 2023-12-24 17:16 | Outpatient (BNV) | payer MEDICAID, SELFPAY | PROVIDERS: Admitting Provider Student in an Organized Health Care Education/Training Program; Emergency Provider Emergency Medicine Emergency Medical Services; PCP Family Medicine; Visit Provider Internal Medicine Cardiovascular Disease | DX: R00.0 Tachycardia, unspecified (principal); R07.9 Chest pain, unspecified | CPT/HCPCS: 93010 ==

== ENCOUNTER → 2023-12-24 21:46 | Outpatient (BNV) | payer MEDICAID, SELFPAY | PROVIDERS: Admitting Provider Student in an Organized Health Care Education/Training Program; Emergency Provider Emergency Medicine Emergency Medical Services; Visit Provider Student in an Organized Health Care Education/Training Program | DX: I26.99 Other pulmonary embolism without acute cor pulmonale (principal); D64.9 Anemia, unspecified; B00.9 Herpesviral infection, unspecified | CPT/HCPCS: 99222; 99232; 99239 ==

== ENCOUNTER 2024-01-03 22:49 | Emergency (ER) | payer MEDICAID, SELFPAY ==
--- NOTE | ~2024-01-03 | XR_ITS ---
EXAMINATION: XR CHEST CLINICAL INFORMATION: Chest pain. COMPARISON: None available. TECHNIQUE: Frontal view of the chest was obtained. FINDINGS: No significant abnormality is noted involving the heart, lungs, mediastinum, bony thorax or soft tissues. XR/XR chest 1V IMPRESSION: Unremarkable examination.
--- NOTE | 2024-01-03 22:51 | ECG_ITS ---
Test Reason : CP Blood Pressure : / mmHG Vent. Rate : 081 BPM Atrial Rate : 081 BPM P-R Int : 146 ms QRS Dur : 082 ms QT Int : 374 ms P-R-T Axes : 048 047 033 degrees QTc Int : 434 ms Normal sinus rhythm Normal ECG When compared with ECG of 24-DEC-2023 17:20, Vent. rate has decreased BY 43 BPM Referred By: Generic ED Physician Electronically Signed By:LORRIE ESTEVEZ MD
--- NOTE | 2024-01-03 22:58 | MHC.EDTECH ---
Patient brought into triage EKG taken per order and signed by provider
[2024-01-03 23:07] VITALS: BP 120/70; PULSE 88; RESP 16; TEMP 36.5; O2SAT 97; BMI 33.1
[2024-01-03 23:21] LABS: Basophils Percent Auto 0.5 % (0-2); Eosinophils Absolute Auto 0.1 X10*3/uL (0.0-0.4); Eosinophils Percent Auto 1.7 % (0-4); Hematocrit 32.7 % (37.0-47.0); Hemoglobin 10.4 g/dl (12.0-16.0); Imm Gran Abs Auto 0.01 X10*3/uL (0.00-0.03); Imm Gran Pct Auto 0.1 % (0.0-0.4); Lymphocytes Percent Auto 36.6 % (20-40); MANUAL DIFF FLAG NO; Mean Corpuscular HGB Conc 31.8 g/dl (31.0-35.0); Mean Corpuscular Hemoglobin 27.9 pg (27.0-33.0); Mean Corpuscular Volume 87.7 fL (80.0-98.0); Monocytes Absolute Auto 0.6 X10*3/uL (0.1-1.2); Monocytes Percent Auto 6.7 % (2-11); Neutrophils Absolute Auto 4.4 x10*3/uL (2.0-8.3); Neutrophils Percent Auto 54.4 % (45-73); Platelet Count 403 X10*3/uL (160-400); Red Blood Count 3.73 X10*6/uL (4.20-5.50); Red Cell Distribution Width 16.2 % (11.0-16.0); White Blood Count 8.2 X10*3/uL (4.8-10.8)
[2024-01-03 23:28] LABS: D Dimer High Sensitivity 411 NG/ML
[2024-01-03 23:41] LABS: Alanine Aminotransferase 29 U/L (0-31); Albumin Level 4.1 g/dL (3.5-5.0); Alkaline Phosphatase 77 U/L (39-117); Anion Gap 13 (12-20); Aspartate Amino Transferase 18 U/L (5-31); Bilirubin Total 0.2 mg/dL (0.0-1.0); Blood Urea Nitrogen 16 mg/dL (9-16); Calcium 9.3 mg/dL (8.4-10.2); Carbon Dioxide 24 mmol/L (22-29); Chloride 108 mmol/L (96-108); Creatinine Clr Calc Pharmacy 127.2; Estimated Glomerular Filt Rate > 60; Glucose Random 100 mg/dL (60-115); Potassium 3.6 mmol/L (3.3-5.1); Sodium 141 mmol/L (135-145); Total Protein 7.1 g/dL (6.5-8.0)
[2024-01-03 23:50] LABS: Troponin-I High Sensitivity < 2.7 ng/L (<3.5-17.0)
== END 2024-01-04 01:09 | disposition left against medical advice (07) ==
PROVIDERS: Emergency Provider Emergency Medicine
DX: R07.9 Chest pain, unspecified (principal); R06.02 Shortness of breath
CPT/HCPCS: 36415; 71045; 80053; 84484; 85025; 85379; 93005; 99283

== ENCOUNTER → 2024-01-03 22:51 | Outpatient (BNV) | payer MEDICAID, SELFPAY | PROVIDERS: Emergency Provider Emergency Medicine; Visit Provider Internal Medicine Cardiovascular Disease | DX: R07.9 Chest pain, unspecified (principal) | CPT/HCPCS: 93010 ==

== ENCOUNTER 2024-01-04 10:44 | Emergency (ER) | payer MEDICAID, SELFPAY ==
--- NOTE | ~2024-01-04 | CT_ITS ---
EXAMINATION: CT ABDOMEN AND PELVIS WITH CONTRAST CLINICAL INFORMATION: Recent cosmetic surgery including liposuctioned Br COMPARISON: None available. TECHNIQUE: Multidetector volumetric images were obtained from the superior aspect of the liver through the pubic symphysis following administration 85 mL of Omnipaque 350 intravenous contrast. Sagittal and coronal reformatted images were obtained on the technologist's workstation. Oral contrast: No This CT examination was performed using dose optimization techniques as appropriate, variously including the following: *Automated exposure control *Adjustment of mA and/or kV according to patient size (this includes techniques or standardized protocols for targeted exams where dose is matched to indication/reason for exam; i.e. extremities or head) *Use of iterative reconstruction technique DLP: 659 mGy-cm FINDINGS: LUNG BASES: The visualized lung bases are unremarkable. LIVER, GALLBLADDER, AND BILIARY TREE: The liver is normal in size, shape, and attenuation. No focal hepatic lesion or biliary ductal dilatation is present. The gallbladder is unremarkable with no evidence of radiopaque gallstones, gallbladder wall thickening, or obvious pericholecystic inflammatory changes. PANCREAS: Unremarkable. SPLEEN: Unremarkable. ADRENAL GLANDS: Unremarkable. KIDNEYS AND URETERS: The kidneys are normal in size, shape, and attenuation. No hydronephrosis, hydroureter, or calculi seen. No perinephric stranding. BLADDER: Mildly distended without wall thickening. GASTROINTESTINAL TRACT: Colonic diverticulosis without secondary signs of acute diverticulitis. The small bowel is unremarkable. The appendix is unremarkable. ABDOMINAL WALL: No significant hernia is appreciated. LYMPH NODES: Innumerable prominent mesenteric lymph nodes, which do not meet pathologic size criteria, largest of which measures 9 mm in short axis and the mid left mesentery (3:29). No retroperitoneal, pelvic, or inguinal lymphadenopathy. VASCULAR: No abdominal aortic aneurysm. Prominent bilateral parametrial varicosities. PELVIC VISCERA: Unremarkable. TISSUES: Extensive fat stranding in the subcutaneous fat of the circumferential abdominal wall and anterior pelvis. Small bilateral fluid collections measuring 2.3 x 0.8 x 3.4 cm on the right and 3.5 x 1.3 x 4.0 cm on the left. No drainable fluid collection. OSSEOUS STRUCTURES: Unremarkable. CT/CT abdomen pelvis w IV con IMPRESSION: 1. Extensive fat stranding in the subcutaneous fat of the circumferential abdominal wall and anterior pelvis is likely postsurgical in the setting of recent liposuction. Small bilateral fluid collections measuring 3.4 cm on the right and 4.0 cm on the left likely represent postsurgical seromas. Cannot exclude superinfection. 2. Colonic diverticulosis without acute diverticulitis. 3. Prominent bilateral parametrial varicosities may suggest pelvic congestion syndrome and pelvic pain. Recommend clinical correlation. Fleischner guidelines were followed.
[2024-01-04 10:48] VITALS: BP 118/67; PULSE 96; RESP 18; TEMP 36.3; O2SAT 97; BMI 33.2
--- NOTE | 2024-01-04 10:53 | ECG_ITS ---
Test Reason : PE Blood Pressure : / mmHG Vent. Rate : 095 BPM Atrial Rate : 095 BPM P-R Int : 110 ms QRS Dur : 076 ms QT Int : 352 ms P-R-T Axes : 071 052 026 degrees QTc Int : 442 ms Sinus rhythm with sinus arrhythmia with short OK Otherwise normal ECG When compared with ECG of 03-JAN-2024 22:52, OK interval has decreased Referred By: Generic ED Physician Electronically Signed By:LORRIE ESTEVEZ MD
--- NOTE | 2024-01-04 11:14 | ED_ITS ---
HPI - SOB/Dyspnea General Chief Complaint: Dyspnea Stated Complaint: Shortness of breath, chest pain Time Seen by Provider: 01/04/24 11:13 Source: patient Mode of arrival: ambulatory Limitations: no limitations History of Present Illness HPI Narrative: 23-year-old female who recently traveled [place] to have 360 liposuction and a presumed butt lift. diagnosed with a PE that was segmental and placed on Xarelto this was approximately 2 weeks ago. Patient is here today complaining of shortness of breath and dizziness. She states she is also here for abdominal pain stating that it is different than her gas pains Related Data Home Medications ?Medication ?Instructions ?Recorded ?Confirmed ascorbic acid (vitamin C) 500 mg 500 mg QAM 12/24/23 12/24/23 tablet (Vitamin C) ferrous gluconate 324 mg (38 mg 324 mg PO QAM 12/24/23 12/24/23 iron) tablet oxycodone-acetaminophen 5 mg-325 1 tab PO Q4H PRN Pain 12/24/23 12/24/23 mg tablet pediatric multivitamin no.17 with 1 tab PO QAM 12/24/23 12/24/23 fluoride 0.5 mg chewable tablet (Multi-Vitamin With Fluoride) Previous Rx's ?Medication ?Instructions ?Recorded apixaban 5 mg tablet (Eliquis) See Rx Instructions .Route 12/26/23 .COMPLEX #74 tabs valacyclovir 1 gram tablet 1,000 mg PO Q8H #15 tabs 12/26/23 Allergies Allergy/AdvReac Type Severity Reaction Status Date / Time cinnamon [CINNAMON] Allergy Severe ANAPHYLAXIS Verified 01/04/24 10:51 oats [OATS] Allergy Severe ANAPHYLAXIS Verified 01/04/24 10:51 apple [APPLES] Allergy Intermediate ANGIOEDEMA Verified 01/04/24 10:51 Review of Systems 2 Review of Systems: Review of systems: General: Patient denies any fever chills recent illness or falls Musculoskeletal: Denies back pain or body aches or other injuries HEENT: denies headache, runny nose, ear pain Respiratory: shortness of breath, no cough Cardiovascular: no chest pain or palpitations : denies dysuria, frequency Abdomen: no nausea vomiting she also has abdominal pain Extremities: no swelling, no pain Skin: no diaphoresis Yes all other systems are reviewed and are negative PMFSH Past Medical History Medical History Miscarriage within last 12 months Migraines Migraines Depression Anxiety Family History Family History Father Chronic mental illness Mother CVD (cardiovascular disease) Chronic mental illness Family/Other Breast cancer Social History Social History Alcohol intake: unknown Patient Tobacco Use Status: Never used Tobacco Second Hand Smoke Exposure: No Advance Directives: Yes Advance Directives on File: Yes Advance Directives Date on File: 12/25/23 service: No Physical Exam 2 Vital Signs: Vital Signs: Last Vital Signs Temp 97.3 F 01/04/24 10:48 Pulse 78 01/04/24 13:18 Resp 16 01/04/24 13:18 BP 118/71 01/04/24 13:18 Pulse Ox 99 01/04/24 13:18 O2 Del Method Room Air 01/04/24 13:18 BMI result Body Mass Index 33.2 General: Well-appearing well-nourished in no signs of distress HEENT: Normocephalic atraumatic Neck: No signs of JVD, no masses no tenderness or lymphadenopathy Cardiovascular: Regular rate and rhythm Respiratory: Clear to auscultation bilaterally Abdomen: Unable to examine patient has some kind of brace over her abdomen and buttocks no masses Extremities: Normal pedal pulses no signs of edema Skin: Dry warm no rashes Back: No tenderness full ROM Course Course Course Narrative: Patient removed her brace as able to view the abdomen there is no obvious signs of redness signs of infection she has no tenderness to palpation CT read as some seromas question superinfection there is no signs of infection on the skin I do not think the patient needs antibiotics. As far as the pelvic congestion syndrome was also discussed think this patient can follow up with Ob Medications Administered Discontinued Medications Generic Name Dose Route Start Last Admin Trade Name Freq PRN Reason Stop Dose Admin Sodium Chloride 1,000 mls @ 999 mls/hr 01/04/24 11:30 01/04/24 12:48 Ns IV 01/04/24 12:30 Infused .Q1H1M DEEP Infusion Iohexol 85 ml 01/04/24 14:15 01/04/24 14:15 Iohexol 350 Mg/Ml 100 Ml Infus..Btl IV 01/04/24 14:16 85 ml ONCE ONE Administration Medical Decision Making Medical Decision Making [facility] Narrative: Patient has any known PE was sent home on Xarelto patient does look well vitals are stable this is likely her noon normal x-ray was done I will send off labs make sure there is no heart strain or elevated troponin Differential Diagnosis Differential Diagnoses: The differential diagnosis associated with the presentation includes Pulmonary embolism right heart strain shortness of breath weakness pulmonary embolism new normal for the patient acute complication of recent surgery Admission/Observation Consideration of admission/observation: Escalation of care including admission/observation considered Lab Data [facility] Lab Attestation statement: I reviewed the patient's lab results. 01/04/24 11:35 01/04/24 11:35 Labs: Lab Results 01/04/24 01/04/24 Range/Units 11:35 13:33 WBC 6.6 (4.8-10.8) X10*3/uL RBC 3.72 L (4.20-5.50) X10*6/uL Hgb 10.3 L (12.0-16.0) g/dl Hct 32.0 L (37.0-47.0) % MCV 86.0 (80.0-98.0) fL MCH 27.7 (27.0-33.0) pg MCHC 32.2 (31.0-35.0) g/dl RDW 16.2 H (11.0-16.0) % Plt Count 397 (160-400) X10*3/uL MPV 10.1 (9.4-12.3) fL Immature Gran % (Auto) 0.3 (0.0-0.4) % Neut % (Auto) 61.4 (45-73) % Lymph % (Auto) 28.2 (20-40) % [place] % (Auto) 7.9 (2-11) % Eos % (Auto) 1.7 (0-4) % Baso % (Auto) 0.5 (0-2) % Lymph # (Auto) 1.9 (1.2-4.9) X10*3/uL [place] # (Auto) 0.5 (0.1-1.2) X10*3/uL Eos # (Auto) 0.1 (0.0-0.4) X10*3/uL Baso # (Auto) 0.0 (0.0-0.2) X10*3/uL Abs Immat Gran (auto) 0.02 (0.00-0.03) X10*3/uL Absolute Neuts (auto) 4.0 (2.0-8.3) x10*3/uL Absolute Nucleated RBC 0.000 (0.0-0.012) X10*3/uL Nucleated RBC % (auto) 0.0 (0.0-0.2) /100WBC Sodium 137 (135-145) mmol/L Potassium 4.4 D (3.3-5.1) mmol/L Chloride 105 (96-108) mmol/L Carbon Dioxide 25 (22-29) mmol/L Anion Gap 11 L (12-20) BUN 12 (9-16) mg/dL Creatinine 0.60 (0.5-1.4) mg/dL Estim Creat Clear Calc 155.0 Estimated GFR > 60 Random Glucose 82 (60-115) mg/dL Calcium 9.2 (8.4-10.2) mg/dL Total Bilirubin 0.3 (0.0-1.0) mg/dL Direct Bilirubin 0.1 (0.0-0.5) mg/dL AST 29 (5-31) U/L ALT 28 (0-31) U/L Alkaline Phosphatase 82 (39-117) U/L Total Protein 7.4 (6.5-8.0) g/dL Albumin 4.1 (3.5-5.0) g/dL Lipase 26 (8-78) U/L Urine Color Yellow Urine Appearance Clear Urine pH 5.5 (5.0-9.0) Ur Specific [place] <= 1.005 (1.005-1.025) Urine Protein Negative (Neg-Trace) mg/dL Urine Glucose (UA) Negative (Negative) mg/dL Urine Ketones Negative (Negative) mg/dL Urine Blood Negative (Negative) Urine Nitrite Negative (Negative) Ur Leukocyte Esterase Negative (Negative) Urine Test NEGATIVE (NEGATIVE) Independent Interpretation I performed an independent interpretation of an: EKG, Plain X-Ray and CT Scan Radiology Impression Discussion of test interpretation with radiology: I have reviewed the radiologist's reading. External Record Review External record reviewed: Inpatient record Chronic Conditions Patient?s care impacted by: Hypertension Pulmonary embolism Discharge Plan Discharge Clinical Impression: Acute postoperative abdominal pain, Female pelvic congestion syndrome, Chronic shortness of breath Patient Disposition: Home, Self-Care Instructions: Abdominal Pain (ED), Shortness of Breath (ED) Additional Instructions: You were seen in the emergency department for abdominal pain. You underwent a CT scan labs which show signs of pelvic congestion syndrome which is something that will need follow-up with your doctor for. He also states ear having some breast milk and pain the abdomen please call follow-up with your surgeon If you have any other concerns please do not hesitate to come back to emergency department. As we discussed please continue with the Eliquis 2 tabs twice a day for 7 days then 1 tab twice a day for 7 days and then he will be on 1 tab a day Prescriptions: No Action oxycodone-acetaminophen 5-325 mg tablet 1 tab PO Q4H PRN (Reason: Pain) ascorbic acid (vitamin C) [Vitamin C] 500 mg tablet 500 mg QAM ferrous gluconate 324 mg (38 mg iron) tablet 324 mg PO QAM Multi-Vitamin With Fluoride 0.5 mg tablet,chewable 1 tab PO QAM valacyclovir 1 gram Tablet 1,000 mg PO Q8H Qty: 15 0RF Eliquis 5 mg tablet See Rx Instructions .ROUTE .COMPLEX Qty: 74 0RF Rx Instructions: 10 mg (2 tabs) twice daily for 7 days, then 5 mg twice daily Print Language: Sudanese
[2024-01-04 11:39] LABS: MANUAL DIFF FLAG NO
[2024-01-04] MEDS: 0.9 % Sodium Chloride 1,000 ML 999 ML IV (11:39)
[2024-01-04 11:52] LABS: Basophils Percent Auto 0.5 % (0-2); Eosinophils Absolute Auto 0.1 X10*3/uL (0.0-0.4); Eosinophils Percent Auto 1.7 % (0-4); Hemoglobin 10.3 g/dl (12.0-16.0); Imm Gran Abs Auto 0.02 X10*3/uL (0.00-0.03); Imm Gran Pct Auto 0.3 % (0.0-0.4); Lymphocytes Absolute Auto 1.9 X10*3/uL (1.2-4.9); Lymphocytes Percent Auto 28.2 % (20-40); Mean Corpuscular HGB Conc 32.2 g/dl (31.0-35.0); Mean Corpuscular Hemoglobin 27.7 pg (27.0-33.0); Mean Platelet Volume 10.1 fL (9.4-12.3); Monocytes Absolute Auto 0.5 X10*3/uL (0.1-1.2); Monocytes Percent Auto 7.9 % (2-11); Neutrophils Percent Auto 61.4 % (45-73); Platelet Count 397 X10*3/uL (160-400); Red Blood Count 3.72 X10*6/uL (4.20-5.50); Red Cell Distribution Width 16.2 % (11.0-16.0); White Blood Count 6.6 X10*3/uL (4.8-10.8)
[2024-01-04 12:09] LABS: Alanine Aminotransferase 28 U/L (0-31); Albumin Level 4.1 g/dL (3.5-5.0); Alkaline Phosphatase 82 U/L (39-117); Anion Gap 11 (12-20); Aspartate Amino Transferase 29 U/L (5-31); Bilirubin Direct 0.1 mg/dL (0.0-0.5); Bilirubin Total 0.3 mg/dL (0.0-1.0); Blood Urea Nitrogen 12 mg/dL (9-16); Calcium 9.2 mg/dL (8.4-10.2); Carbon Dioxide 25 mmol/L (22-29); Chloride 105 mmol/L (96-108); Estimated Glomerular Filt Rate > 60; Glucose Random 82 mg/dL (60-115); Lipase 26 U/L (8-78); Potassium 4.4 mmol/L (3.3-5.1); Sodium 137 mmol/L (135-145); Total Protein 7.4 g/dL (6.5-8.0)
[2024-01-04 13:18] VITALS: BP 118/71; PULSE 78; RESP 16; O2SAT 99
[2024-01-04 13:41] LABS: Appearance Urine Clear; Color Urine Yellow; Glucose Urine UA Negative (Negative); Leukocyte Esterase Urine Negative (Negative); Nitrite Urine Negative (Negative); PH 5.5 (5.0-9.0); Specific Gravity - Urine <= 1.005 (1.005-1.025); Urine Blood Negative (Negative); Urine Ketones Negative (Negative); Urine Protein Negative (Neg-Trace)
[2024-01-04 13:43] LABS: UPreg QC Valid YES; Urine Pregnancy NEGATIVE (NEGATIVE)
[2024-01-04] MEDS: iohexoL 350 MG/ML 100 ML INFUS..BTL 85 ML IV (14:15)
[2024-01-04 16:15] VITALS: BP 119/67; PULSE 87; RESP 18; TEMP -17.7; TEMP 0; O2SAT 98
== END 2024-01-04 16:16 | disposition home or self-care (01) ==
PROVIDERS: Emergency Provider Student in an Organized Health Care Education/Training Program; PCP Family Medicine
DX: R06.02 Shortness of breath (principal); R07.89 Other chest pain; R11.0 Nausea; R10.2 Pelvic and perineal pain; Z79.899 Other long term (current) drug therapy
CPT/HCPCS: 36415; 74177; 80048; 80076; 81003; 81025; 83690; 85025; 93005; 96360; 99284; Q9967

== ENCOUNTER → 2024-01-04 10:53 | Outpatient (BNV) | payer MEDICAID, SELFPAY | PROVIDERS: Emergency Provider Student in an Organized Health Care Education/Training Program; PCP Family Medicine; Visit Provider Internal Medicine Cardiovascular Disease | DX: I49.8 Other specified cardiac arrhythmias (principal) | CPT/HCPCS: 93010 ==

== ENCOUNTER 2024-01-26 15:05 | Emergency (ER) | payer MEDICAID, SELFPAY ==
--- NOTE | ~2024-01-26 | CT_ITS ---
EXAMINATION: CT ANGIOGRAM OF THE CHEST WITH AND WITHOUT CONTRAST (CT PULMONARY ANGIOGRAM FOR PE) CLINICAL INFORMATION: Reason for Exam hypoxic and pleurisy. History of PE in the PE? COMPARISON: Baseline 12/24/2023 TECHNIQUE: Prior to contrast administration, noncontrast localization images were obtained. Subsequently, multidetector volumetric imaging was performed from the thoracic inlet to below the diaphragms following the administration of 80 mL Omnipaque 350 intravenous contrast. No contrast reaction reported Sagittal, coronal, and MIP oblique sagittal reformatted images were obtained on the CT workstation, uploaded to PACS, and reviewed. This CT examination was performed using dose optimization techniques as appropriate, variously including the following: *Automated exposure control *Adjustment of mA and/or kV according to patient size (this includes techniques or standardized protocols for targeted exams where dose is matched to indication/reason for exam; i.e. extremities or head) *Use of iterative reconstruction technique Total exam dose-length product 274 mGy-cm FINDINGS: QUALITY OF STUDY/CONTRAST BOLUS: Satisfactory. PULMONARY ARTERIES: No pulmonary emboli. THORACIC AORTA: No aneurysm. LUNG: No focal consolidation, nodules or masses. PLEURA: No pleural effusion or pneumothorax. MEDIASTINUM: Normal heart size. No pericardial effusion. No hilar or mediastinal lymphadenopathy. No evidence of septal bowing or right heart strain. CORONARY ARTERY CALCIFICATION: None visualized on this study. CHEST WALL/AXILLA: No axillary or internal mammary lymphadenopathy. OSSEOUS STRUCTURES: No acute or suspicious osseous abnormality. UPPER ABDOMEN: Unremarkable. No reflux of contrast into the hepatic veins to suggest elevated right heart pressures. CT/CT angio chest PE protocol IMPRESSION: No evidence for acute or chronic pulmonary embolism. VTE: negative
--- NOTE | 2024-01-26 15:07 | ECG_ITS ---
Test Reason : CP Blood Pressure : / mmHG Vent. Rate : 093 BPM Atrial Rate : 093 BPM P-R Int : 126 ms QRS Dur : 076 ms QT Int : 352 ms P-R-T Axes : 047 055 035 degrees QTc Int : 437 ms Normal sinus rhythm with sinus arrhythmia Normal ECG When compared with ECG of 04-JAN-2024 10:56, No significant change was found Referred By: Jaun Boucher Electronically Signed By:HERMAN PRESCOTT
[2024-01-26 15:15] VITALS: BP 113/65; PULSE 106; RESP 18; TEMP 36.6; O2SAT 99; BMI 32.8
--- NOTE | 2024-01-26 15:20 | ED_ITS ---
HPI - General Adult General Chief complaint: Chest Pain Stated complaint: chest pain, hx of blood clot in lungs,low o2 level Time Seen by Provider: 01/26/24 16:38 Source: patient Mode of arrival: ambulatory Limitations: no limitations History of Present Illness HPI narrative: Patient is a 23 year old assigned female at with a history of recent diagnosis of pulmonary embolism presenting to the emergency department today after an episode of shortness of breath, chest discomfort, and a low oxygenation saturation. Patient states that she is taking her Eliquis as prescribed. Patient states that earlier today she had an episode of shortness of breath and chest pain, checked her oxygenation, and saw that it was as low as 84%. Patient denies any dizziness, lightheadedness, abdominal pain, nausea, vomiting, fever, chills, blurry vision, double vision, loss of vision, back pain, night sweats, pain with urination, increased urinary frequency, increased urinary urgency, blood in her urine or stool, syncope or a near syncopal episode, recent trauma or falls, bowel incontinence, bladder incontinence, bowel retention, bladder retention, or any other complaints at this time. Relieving factors: none Exacerbating factors: none Associated symptoms: chest pain and shortness of breath Treatments prior to arrival: none Related Data Home Medications ?Medication ?Instructions ?Recorded ?Confirmed ascorbic acid (vitamin C) 500 mg 500 mg QAM 12/24/23 12/24/23 tablet (Vitamin C) ferrous gluconate 324 mg (38 mg 324 mg PO QAM 12/24/23 12/24/23 iron) tablet oxycodone-acetaminophen 5 mg-325 1 tab PO Q4H PRN Pain 12/24/23 12/24/23 mg tablet pediatric multivitamin no.17 with 1 tab PO QAM 12/24/23 12/24/23 fluoride 0.5 mg chewable tablet (Multi-Vitamin With Fluoride) Previous Rx's ?Medication ?Instructions ?Recorded apixaban 5 mg tablet (Eliquis) See Rx Instructions .Route 12/26/23 .COMPLEX #74 tabs valacyclovir 1 gram tablet 1,000 mg PO Q8H #15 tabs 12/26/23 Allergies Allergy/AdvReac Type Severity Reaction Status Date / Time cinnamon [CINNAMON] Allergy Severe ANAPHYLAXIS Verified 01/26/24 15:16 oats [OATS] Allergy Severe ANAPHYLAXIS Verified 01/26/24 15:16 apple [APPLES] Allergy Intermediate ANGIOEDEMA Verified 01/26/24 15:16 Review of Systems 2 Constitutional: Constitutional: Reports no additional constitutional complaints, Denies chills, Denies fever(s) and Denies night sweats Eyes: Eyes: Reports no additional eye complaints, Denies blurry vision, Denies change in vision, Denies diplopia, Denies eye discharge, Denies loss of vision and Denies eye pain ENT: Denies dizziness Cardiovascular: Cardiovascular: Reports no additional cardiovascular complaints, Reports chest pain, Denies lightheadedness, Denies Loss of Consciousness and Reports dyspnea Respiratory: Respiratory: Reports no additional respiratory complaints and Reports dyspnea Gastrointestinal: Gastrointestinal: Reports no additional gastrointestinal complaints, Denies abdominal pain, Denies melena, Denies hematochezia, Denies change in bowel habits and Denies change in stool character Genitourinary: Genitourinary: Denies hematuria, Denies urinary frequency, Denies dysuria, Denies urinary incontinence, Denies urinary hesitancy and Denies urinary urgency Musculoskeletal: Musculoskeletal: Reports no additional musculoskeletal complaints, Denies numbness and Denies tingling Neurologic: Denies dizziness, Denies loss of vision, Denies numbness and Denies tingling Psychiatric: Psychiatric: Reports no additional psychiatric complaints Endocrine: Endocrine: Reports no additional endocrine complaints Hematologic/Lymphatic: Hematologic/Lymphatic: Reports no additional hematologic/lymphatic complaints Allergic/Immunologic: Allergic/Immunologic: Reports no additional allergic/immunologic complaints PMFSH Past Medical History Attestation statement: The following information was validated with the patient. Source: old records reviewed and nursing notes reviewed Medical History Miscarriage within last 12 months Migraines Migraines Depression Anxiety Family History Family History Father Chronic mental illness Mother CVD (cardiovascular disease) Chronic mental illness Family/Other Breast cancer Social History Social History Alcohol intake: unknown Patient Tobacco Use Status: Never used Tobacco Second Hand Smoke Exposure: No Advance Directives: Yes Advance Directives on File: Yes Advance Directives Date on File: 12/25/23 Do you have a plan to hurt others: No Plan service: No Physical Exam ED Vital Signs: Vital Signs - 24 hr 01/26/24 15:15 01/26/24 17:51 01/26/24 19:22 Temperature 97.8 F 98.0 F 98.2 F Pulse Rate 106 H 83 77 Respiratory Rate 18 14 18 Blood Pressure 113/65 114/72 110/70 Pulse Oximetry 99 100 Oxygen Delivery Method Room Air Room Air BMI result Body Mass Index 32.8 Const General: cooperative, no acute distress, alert and awake Nutritional Appearance: well nourished Orientation/consciousness: patient oriented x3 Limitations: no limitations HENMT Head: Yes normal to inspection and Yes atraumatic Ears: hearing grossly normal bilaterally and external ears normal General nose exam: Normal external nose present, no nasal discharge noted and no epistaxis Face and sinus: Yes normal facial exam, No abrasion and No laceration Mouth: Normal oral and palatal mucosa present, no drooling and no muffled voice Eyes General: appearance normal, both eyes and all related structures Periorbital: periorbital findings normal Eyelids: Yes eyelids normal Conjunctivae: conjunctivae normal Pupils: Equal, round and reactive pupils present EOM: EOMs intact bilaterally Neck Neck: Yes normal visual inspection, Yes full ROM and Yes no lymphadenopathy Chest Chest palpation & inspection: normal inspection of the chest Resp Effort & Inspection: normal respiratory effort and able to speak in complete sentences GI Inspection: Yes normal to inspection Neuro General: patient oriented x3 and moves all extremities Cranial nerves: Yes Equal, round and reactive pupils present Cognition (Neuro): normal cognition Motor exam (neuro): 5/5 motor strength present throughout Sensory Exam: Normal double simultaneous stimulation for sensation Coordination: [id number] test normal Extrem General: Yes normal to inspection, Yes full ROM and Yes capillary refill normal Psych Appearance: grossly normal Mental Status: mental status grossly normal Affect: normal affect Attitude: cooperative Thought process: Normal thought process present Thought content: Normal thought content present Insight: Good insight present (Psych) Course Course Course Narrative: RME: 23 yold female with pmh of PE presents to the ED for chest pain and hypoxia at home with 02 sat of 86%. 02 sat on room air is normal presently in the ED. Nurse Elise spoke with Nurse Jason to bring patient to the ED. Labs, EKG, and CT Chest ordered. Medications Administered Discontinued Medications Generic Name Dose Route Start Last Admin Trade Name Freq PRN Reason Stop Dose Admin Iohexol 100 ml 01/26/24 17:41 01/26/24 17:42 Iohexol 350 Mg/Ml 100 Ml Infus..Btl IV 01/26/24 17:42 65 ml ONCE ONE Administration Medical Decision Making Medical Decision Making [facility] Narrative: Patient is a 23 year old assigned female at with a history of recent pulmonary embolism diagnosis presenting to the emergency department today after an episode of shortness of breath, chest pain, and a low oxygenation saturation reading. Patient's physical exam was unremarkable. Patient's finger nails have acrylic or some other artificial nail on them, which may have affected the patient's home oxygenation saturation probe. Patient was >95% SPO2 while in the department. Patient's blood work was unremarkable. Patient's EKG was unremarkable. Patient's CT PE showed no acute process. I explained my physical exam findings as well as all test results to the patient. I answered all questions asked by the patient. I stressed the importance of the patient taking her medication as prescribed. I stressed the importance of the patient following up with her primary care provider. I stressed the importance of the patient returning to the emergency department immediately if her symptoms were to worsen or if she were to develop any dizziness, shortness of breath, difficulty breathing, chest pain, blurry vision, loss of vision, nausea, vomiting, abdominal pain, fever, chills, back pain, or any other complaints. Patient verbalized agreement and understanding with this treatment plan and discharge. Differential Diagnosis Differential Diagnoses: The differential diagnosis associated with the presentation includes Hypoxia Pulmonary embolism Chest pain NSTEMI STEMI Anxiety Admission/Observation Consideration of admission/observation: Escalation of care including admission/observation considered Patient would have been admitted to the hospital had her work up had any findings where hospital admission was appropriate and her clinical presentation warranted hospital admission. Lab Data [facility] Lab Attestation statement: I reviewed the patient's lab results. My interpretation of these results are in the [facility] Rationale portion of this note. 01/26/24 15:27 01/26/24 15:27 Labs: Lab Results 01/26/24 Range/Units 15:27 WBC 9.9 (4.8-10.8) X10*3/uL RBC 4.42 (4.20-5.50) X10*6/uL Hgb 12.1 (12.0-16.0) g/dl Hct 37.5 (37.0-47.0) % MCV 84.8 (80.0-98.0) fL MCH 27.4 (27.0-33.0) pg MCHC 32.3 (31.0-35.0) g/dl RDW 14.8 (11.0-16.0) % Plt Count 403 H (160-400) X10*3/uL MPV 10.5 (9.4-12.3) fL Immature Gran % (Auto) 0.2 (0.0-0.4) % Neut % (Auto) 66.8 (45-73) % Lymph % (Auto) 25.6 (20-40) % Stewart % (Auto) 5.4 (2-11) % Eos % (Auto) 1.5 (0-4) % Baso % (Auto) 0.5 (0-2) % Lymph # (Auto) 2.5 (1.2-4.9) X10*3/uL Stewart # (Auto) 0.5 (0.1-1.2) X10*3/uL Eos # (Auto) 0.2 (0.0-0.4) X10*3/uL Baso # (Auto) 0.1 (0.0-0.2) X10*3/uL Abs Immat Gran (auto) 0.02 (0.00-0.03) X10*3/uL Absolute Neuts (auto) 6.6 (2.0-8.3) x10*3/uL Absolute Nucleated RBC 0.000 (0.0-0.012) X10*3/uL Nucleated RBC % (auto) 0.0 (0.0-0.2) /100WBC PT 12.8 (11.1-13.3) SEC INR 1.1 (0.9-1.1) APTT 32.7 (26.0-36.8) SEC Sodium 140 (135-145) mmol/L Potassium 3.8 (3.3-5.1) mmol/L Chloride 107 (96-108) mmol/L Carbon Dioxide 23 (22-29) mmol/L Anion Gap 14 (12-20) BUN 14 (9-16) mg/dL Creatinine 0.66 (0.5-1.4) mg/dL Estim Creat Clear Calc 140.0 Estimated GFR > 60 Random Glucose 104 (60-115) mg/dL Calcium 9.3 (8.4-10.2) mg/dL Total Bilirubin 0.3 (0.0-1.0) mg/dL AST 13 (5-31) U/L ALT 16 (0-31) U/L Alkaline Phosphatase 84 (39-117) U/L Troponin I High Sens < 2.7 (<3.5-17.0) ng/L B-Natriuretic Peptide < 10 (<100) pg/mL Total Protein 7.6 (6.5-8.0) g/dL Albumin 4.2 (3.5-5.0) g/dL Beta HCG, Quant < 2 mIU/mL Influenza Type A (PCR) NEGATIVE (Negative) Influenza Type B (PCR) NEGATIVE (Negative) RSV RNA Qual (PCR) NEGATIVE (Negative) SARS-CoV-2 RNA (RT-PCR) NEGATIVE (Negative) Independent Interpretation I performed an independent interpretation of an: EKG and CT Scan Interpretation: My interpretation is in agreement with the radiologist's impression of this imaging study. - EXAMINATION: CT ANGIOGRAM OF THE CHEST WITH AND WITHOUT CONTRAST (CT PULMONARY ANGIOGRAM FOR PE) CLINICAL INFORMATION: Reason for Exam hypoxic and pleurisy. History of PE in the PE? COMPARISON: Baseline 12/24/2023 TECHNIQUE: Prior to contrast administration, noncontrast localization images were obtained. Subsequently, multidetector volumetric imaging was performed from the thoracic inlet to below the diaphragms following the administration of 80 mL Omnipaque 350 intravenous contrast. No contrast reaction reported Sagittal, coronal, and MIP oblique sagittal reformatted images were obtained on the CT workstation, uploaded to PACS, and reviewed. This CT examination was performed using dose optimization techniques as appropriate, variously including the following: *Automated exposure control *Adjustment of mA and/or kV according to patient size (this includes techniques or standardized protocols for targeted exams where dose is matched to indication/reason for exam; i.e. extremities or head) *Use of iterative reconstruction technique Total exam dose-length product 274 mGy-cm FINDINGS: QUALITY OF STUDY/CONTRAST BOLUS: Satisfactory. PULMONARY ARTERIES: No pulmonary emboli. THORACIC AORTA: No aneurysm. LUNG: No focal consolidation, nodules or masses. PLEURA: No pleural effusion or pneumothorax. MEDIASTINUM: Normal heart size. No pericardial effusion. No hilar or mediastinal lymphadenopathy. No evidence of septal bowing or right heart strain. CORONARY ARTERY CALCIFICATION: None visualized on this study. CHEST WALL/AXILLA: No axillary or internal mammary lymphadenopathy. OSSEOUS STRUCTURES: No acute or suspicious osseous abnormality. UPPER ABDOMEN: Unremarkable. No reflux of contrast into the hepatic veins to suggest elevated right heart pressures. CT/CT angio chest PE protocol IMPRESSION: No evidence for acute or chronic pulmonary embolism. VTE: negative Dictated By: Boy Trevizo MD Signed By: Electronically signed by Boy Trevizo MD 01/26/241950 - Vent. Rate: 093 BPM Atrial Rate: 093 BPM P-R Int: 126 ms QRS Dur: 076 ms QT Int: 352 ms P-R-T Axes: 047 055 035 degrees QTc Int: 437 ms Normal sinus rhythm with sinus arrhythmia Normal ECG When compared with ECG of 04-JAN-2024 10:56, No significant change was found DD/ 1510 Radiology Impression Discussion of test interpretation with radiology: I have reviewed the radiologist's reading. Discharge Plan Discharge Clinical Impression: Pulmonary embolism Patient Disposition: Home, Self-Care Instructions: Blood Thinners (ED) Additional Instructions: Continue taking your anti-coagulant medication. Follow up with your primary care provider. Return to the emergency department immediately if your symptoms worsen or if you develop any dizziness, shortness of breath, difficulty breathing, chest pain, blurry vision, loss of vision, nausea, vomiting, abdominal pain, fever, chills, back pain, or any other complaints. Prescriptions: No Action oxycodone-acetaminophen 5-325 mg tablet 1 tab PO Q4H PRN (Reason: Pain) ascorbic acid (vitamin C) [Vitamin C] 500 mg tablet 500 mg QAM ferrous gluconate 324 mg (38 mg iron) tablet 324 mg PO QAM Multi-Vitamin With Fluoride 0.5 mg tablet,chewable 1 tab PO QAM valacyclovir 1 gram Tablet 1,000 mg PO Q8H Qty: 15 0RF Eliquis 5 mg tablet See Rx Instructions .ROUTE .COMPLEX Qty: 74 0RF Rx Instructions: 10 mg (2 tabs) twice daily for 7 days, then 5 mg twice daily Referrals: [facility] Family Medicine [Provider Group] (Call to establish and follow up with a primary care provider. If you already have a primary care provider, please follow up with them.) [facility] [Provider Group] [facility] [Provider Group] Stand Alone Forms: Work/School Release Interventions: ED Discharge Assessment Last Done: 01/26/24 19:22 Discharge Date/Time: 01/26/24 19:25 Print Language: Icelandic
[2024-01-26 15:33] LABS: MANUAL DIFF FLAG NO
[2024-01-26 15:42] LABS: Basophils Absolute Auto 0.1 X10*3/uL (0.0-0.2); Basophils Percent Auto 0.5 % (0-2); Eosinophils Absolute Auto 0.2 X10*3/uL (0.0-0.4); Eosinophils Percent Auto 1.5 % (0-4); Hematocrit 37.5 % (37.0-47.0); Hemoglobin 12.1 g/dl (12.0-16.0); Imm Gran Abs Auto 0.02 X10*3/uL (0.00-0.03); Imm Gran Pct Auto 0.2 % (0.0-0.4); Lymphocytes Absolute Auto 2.5 X10*3/uL (1.2-4.9); Lymphocytes Percent Auto 25.6 % (20-40); Mean Corpuscular HGB Conc 32.3 g/dl (31.0-35.0); Mean Corpuscular Hemoglobin 27.4 pg (27.0-33.0); Mean Corpuscular Volume 84.8 fL (80.0-98.0); Mean Platelet Volume 10.5 fL (9.4-12.3); Monocytes Absolute Auto 0.5 X10*3/uL (0.1-1.2); Monocytes Percent Auto 5.4 % (2-11); Neutrophils Absolute Auto 6.6 x10*3/uL (2.0-8.3); Neutrophils Percent Auto 66.8 % (45-73); Platelet Count 403 X10*3/uL (160-400); Red Blood Count 4.42 X10*6/uL (4.20-5.50); Red Cell Distribution Width 14.8 % (11.0-16.0); White Blood Count 9.9 X10*3/uL (4.8-10.8)
[2024-01-26 15:45] LABS: INTERNATIONAL NORM RATIO 1.1 (0.9-1.1); Prothrombin Time 12.8 SEC (11.1-13.3)
[2024-01-26 15:48] LABS: Partial Thromboplastin Time 32.7 SEC (26.0-36.8)
[2024-01-26 16:01] LABS: B Type Natriuretic Peptide < 10 pg/mL (<100)
[2024-01-26 16:04] LABS: Alanine Aminotransferase 16 U/L (0-31); Albumin Level 4.2 g/dL (3.5-5.0); Alkaline Phosphatase 84 U/L (39-117); Anion Gap 14 (12-20); Aspartate Amino Transferase 13 U/L (5-31); Bilirubin Total 0.3 mg/dL (0.0-1.0); Blood Urea Nitrogen 14 mg/dL (9-16); Calcium 9.3 mg/dL (8.4-10.2); Carbon Dioxide 23 mmol/L (22-29); Chloride 107 mmol/L (96-108); Estimated Glomerular Filt Rate > 60; Glucose Random 104 mg/dL (60-115); HCG Quantitative < 2 mIU/mL; Potassium 3.8 mmol/L (3.3-5.1); Sodium 140 mmol/L (135-145); Total Protein 7.6 g/dL (6.5-8.0)
[2024-01-26 16:12] LABS: Influenza A PCR NEGATIVE (Negative); Influenza B PCR NEGATIVE (Negative); Resp Syncy Virus RNA Qual PCR NEGATIVE (Negative); SARS COV2 PCR INHOUSE NEGATIVE (Negative); Troponin-I High Sensitivity < 2.7 ng/L (<3.5-17.0)
[2024-01-26] MEDS: iohexoL 350 MG/ML 100 ML INFUS..BTL IV (17:42)
[2024-01-26 17:51] VITALS: BP 114/72; PULSE 83; RESP 14; TEMP 36.7; O2SAT 100
[2024-01-26 19:22] VITALS: BP 110/70; PULSE 77; RESP 18; TEMP 36.8
== END 2024-01-26 19:25 | disposition home or self-care (01) ==
PROVIDERS: Physician Assistant; Emergency Provider Internal Medicine
DX: I26.99 Other pulmonary embolism without acute cor pulmonale (principal); Z79.01 Long term (current) use of anticoagulants
CPT/HCPCS: 0241U; 36415; 71275; 80053; 83880; 84484; 84702; 85025; 85610; 85730; 93005; 99283; 99284; Q9967

== ENCOUNTER → 2024-01-26 15:07 | Outpatient (BNV) | payer MEDICAID, SELFPAY | PROVIDERS: Emergency Provider Internal Medicine; Visit Provider Internal Medicine | DX: I49.8 Other specified cardiac arrhythmias (principal) | CPT/HCPCS: 93010 ==

== ENCOUNTER 2024-02-02 08:11 | Emergency (ER) | payer OTHER, SELFPAY ==
[2024-02-02 08:19] VITALS: BP 134/82; PULSE 115; O2SAT 97
[2024-02-02 08:21] VITALS: BP 112/78; PULSE 93; RESP 18; TEMP 36.6; O2SAT 99; BMI 32.2
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
[2024-02-02 08:42] LABS: MANUAL DIFF FLAG NO
[2024-02-02 08:45] LABS: Basophils Percent Auto 0.5 % (0-2); Eosinophils Percent Auto 0.1 % (0-4); Hematocrit 38.9 % (37.0-47.0); Hemoglobin 12.8 g/dl (12.0-16.0); Imm Gran Abs Auto 0.02 X10*3/uL (0.00-0.03); Imm Gran Pct Auto 0.2 % (0.0-0.4); Lymphocytes Absolute Auto 2.8 X10*3/uL (1.2-4.9); Lymphocytes Percent Auto 32.4 % (20-40); Mean Corpuscular HGB Conc 32.9 g/dl (31.0-35.0); Mean Corpuscular Hemoglobin 27.1 pg (27.0-33.0); Mean Corpuscular Volume 82.4 fL (80.0-98.0); Monocytes Absolute Auto 0.5 X10*3/uL (0.1-1.2); Monocytes Percent Auto 5.2 % (2-11); Neutrophils Absolute Auto 5.3 x10*3/uL (2.0-8.3); Neutrophils Percent Auto 61.6 % (45-73); Platelet Count 394 X10*3/uL (160-400); Red Blood Count 4.72 X10*6/uL (4.20-5.50); Red Cell Distribution Width 14.8 % (11.0-16.0); White Blood Count 8.7 X10*3/uL (4.8-10.8)
[2024-02-02] MEDS: LORazepam 1 MG TABLET 2 MG PO (08:47)
[2024-02-02 08:53] LABS: Appearance Urine Clear; Color Urine Yellow; Glucose Urine UA Negative (Negative); Leukocyte Esterase Urine Small (1+) (Negative); Nitrite Urine Negative (Negative); PH 5.5 (5.0-9.0); Specific Gravity - Urine 1.015 (1.005-1.025); UMIC TRIGGER UACC YES; Urine Blood Negative (Negative); Urine Ketones Negative (Negative); Urine Protein Negative (Neg-Trace)
[2024-02-02 08:58] LABS: Bacteria Urine 1+ (None Seen); Hyaline Casts Urine 0-2 /LPF (0-2); RBC Urine 0-2 /HPF (0-2); UACC Culture Trigger YES
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
[2024-02-02 09:12] LABS: Amphetamine Screen Urine Not Detected (Not Detect); Barbiturates, Urine Not Detected (Not Detect); Benzodiazepines Screen Urine Not Detected (Not Detect); Buprenorphine Scr Not Detected (Not Detect); Cannabinoid Screen Urine Not Detected (Not Detect); Cocaine Screen Urine Not Detected (Not Detect); Fentanyl, urine Not Detected (Not Detect); Methadone Screen, Urine Not Detected (Not Detect); Opiate Screen Urine Not Detected (Not Detect); Oxycodone Screen Urine Not Detected (Not Detect); Phencyclidine Screen Urine Not Detected (Not Detect)
[2024-02-02 09:16] LABS: Alanine Aminotransferase 16 U/L (0-31); Albumin Level 4.7 g/dL (3.5-5.0); Alkaline Phosphatase 89 U/L (39-117); Anion Gap 20 (12-20); Aspartate Amino Transferase 16 U/L (5-31); Bilirubin Direct < 0.2 mg/dL (0.0-0.5); Bilirubin Total 0.2 mg/dL (0.0-1.0); Blood Urea Nitrogen 8 mg/dL (9-16); Calcium 9.9 mg/dL (8.4-10.2); Carbon Dioxide 18 mmol/L (22-29); Chloride 110 mmol/L (96-108); Creatinine Clr Calc Pharmacy 157.9; Estimated Glomerular Filt Rate > 60; Ethanol 249 mg/dL; Glucose Random 101 mg/dL (60-115); Magnesium 1.9 mg/dL (1.6-2.6); Potassium 3.4 mmol/L (3.3-5.1); Sodium 145 mmol/L (135-145); Total Protein 8.3 g/dL (6.5-8.0)
[2024-02-02 09:21] LABS: HCG Quantitative < 2 mIU/mL; Influenza A PCR NEGATIVE (Negative); Influenza B PCR NEGATIVE (Negative); Resp Syncy Virus RNA Qual PCR NEGATIVE (Negative); SARS COV2 PCR INHOUSE NEGATIVE (Negative)
--- NOTE | 2024-02-02 10:20 | PC.NURSE ---
Pt sleeping at this time. Placed on bedside gambling monitor, NSR. Breathing even and unlabored.
[2024-02-02 11:41] VITALS: BP 100/59; PULSE 98; RESP 14; O2SAT 98
[2024-02-02 14:29] VITALS: BP 99/52; PULSE 98; RESP 17; O2SAT 98
--- NOTE | 2024-02-02 16:05 | PC.NURSE ---
Late entry: Patient increasing in agitation, yelling that she wants to leave. MD aware, patient re-directed by this RN. Boyfriend is now at bedside. Rosy, CARE team met with patient, plan for d/c at this point
[2024-02-02 16:33] VITALS: BP 102/68; PULSE 84; RESP 16; TEMP 36.6; O2SAT 97
== END 2024-02-02 16:35 | disposition home or self-care (01) ==
PROVIDERS: Emergency Provider Emergency Medicine
DX: F10.929 Alcohol use, unspecified with intoxication, unspecified (principal); Y90.8 Blood alcohol level of 240 mg/100 ml or more; F41.9 Anxiety disorder, unspecified; Z86.711 Personal history of pulmonary embolism; Z79.01 Long term (current) use of anticoagulants
CPT/HCPCS: 0241U; 80048; 80076; 80307; 81001; 83735; 84702; 85025; 87086; 99284; 99285; S9485

== ENCOUNTER 2024-03-10 09:21 | Outpatient (AMB) | payer MEDICAID, SELFPAY ==
--- NOTE | 2024-03-10 09:22 | MHC.OFFVIS ---
Vital Signs 03/10/24 09:28 Height 5 ft 4 in Weight 192 lb BMI 33.0 BP 115/67 Blood Pressure Location Rt brachial Position Sitting Pulse 86 Intake Visit Reasons: abscess (R) axilla Intake Note: Patient referred by Dr. Thomas for abscess on Rt axilla. Reports abcess healed. Was prescribed a course of Doxycycline 100mg BID X7d. Patient c/o: abscess completely healed but did not want to cancel last minute. Patient did not take abx. Optical Effects Line Up Person Required: No Accompanied by: Self / Same As Patient Allergies cinnamon [CINNAMON] Allergy (Severe, Verified 03/10/24 09:27) ANAPHYLAXIS oats [OATS] Allergy (Severe, Verified 03/10/24 09:27) ANAPHYLAXIS apple [APPLES] Allergy (Intermediate, Verified 03/10/24 09:27) ANGIOEDEMA HPI Comments Details: Patient presents here for evaluation of a right axillary abscess. This happened several days ago. Apparently it is spontaneously drained and is resolving. She has never had this before. Chart was reviewed and patient evaluated [facility] Medical History Miscarriage within last 12 months Migraines Migraines Depression Anxiety Family History Father Chronic mental illness Mother CVD (cardiovascular disease) Chronic mental illness Family/Other Breast cancer Social History Alcohol intake: unknown Patient Tobacco Use Status: Never used Tobacco Second Hand Smoke Exposure: No Advance Directives Date on File: 12/25/23 service: No Female Reproductive History Menstrual Age of Menarche: 12 Physical Exam Vital Signs: Last Vital Signs Pulse 86 03/10/24 09:28 BP 115/67 03/10/24 09:28 BMI result Body Mass Index 33.0 Extrem Other: Right axilla demonstrates resolving carbuncle. No evidence of any fluctuance or abscess. Assessment & Plan Assessment & Plan (1) Carbuncle of arm: Code(s): L02.439 - Carbuncle of limb, unspecified Category: Surgical Plan At present, patient was obtained local therapy and will otherwise follow-up p.r.n.. All questions answered. Coding Level of Care Code New Pt Level 3 (43654) Diagnoses Carbuncle of arm L02.439
[2024-03-10 09:28] VITALS: BP 115/67; PULSE 86; BMI 33.0
== END 2024-03-10 09:48 | disposition home or self-care (01) ==
PROVIDERS: PCP Internal Medicine; Visit Provider Surgery
DX: L02.439 Carbuncle of limb, unspecified (principal)
CPT/HCPCS: 99203

== ENCOUNTER → 2024-03-10 09:21 | Outpatient (BNVA) | payer MEDICAID, SELFPAY | PROVIDERS: PCP Internal Medicine; Visit Provider Surgery | DX: L02.439 Carbuncle of limb, unspecified (principal) | CPT/HCPCS: 99202 ==

== ENCOUNTER 2024-03-23 08:02 | Emergency (ER) | payer MEDICAID, SELFPAY ==
[2024-03-23 08:10] VITALS: BP 117/72; PULSE 93; RESP 18; TEMP 36.5; O2SAT 97; BMI 33.1
--- NOTE | 2024-03-23 09:35 | PC.NURSE ---
called pharmacy for missing medication
--- NOTE | 2024-03-23 09:38 | ED_ITS ---
HPI - Skin/Abscess/Foreign Bdy General Chief complaint: Skin/Abscess/Foreign Body Stated complaint: Abscess R arm Time Seen by Provider: 03/23/24 09:02 Source: patient Mode of arrival: ambulatory Limitations: no limitations History of Present Illness HPI narrative: 23-year-old female with no significant past medical history presents to emergency department with complaints of swelling, erythema, and pain at the [facility] axilla for the last 2 weeks. She reports she believes she has abscess. She denies any drainage from the abscessed area. She also denies any fevers, chills. She endorses change in range of motion secondary to pain. Pertinent positives and negatives discussed in HPI Related Data Home Medications ?Medication ?Instructions ?Recorded ?Confirmed ascorbic acid (vitamin C) 500 mg 500 mg QAM 12/24/23 03/10/24 tablet (Vitamin C) pediatric multivitamin no.17 with 1 tab PO QAM 12/24/23 03/10/24 fluoride 0.5 mg chewable tablet (Multi-Vitamin With Fluoride) Previous Rx's ?Medication ?Instructions ?Recorded apixaban 5 mg tablet (Eliquis) See Rx Instructions .Route 12/26/23 .COMPLEX #74 tabs valacyclovir 1 gram tablet 1,000 mg PO Q8H #15 tabs 12/26/23 mupirocin 2 % topical ointment 1 appl topical TID #15 grams 03/23/24 Allergies Allergy/AdvReac Type Severity Reaction Status Date / Time cinnamon [CINNAMON] Allergy Severe ANAPHYLAXIS Verified 03/23/24 08:11 oats [OATS] Allergy Severe ANAPHYLAXIS Verified 03/23/24 08:11 apple [APPLES] Allergy Intermediate ANGIOEDEMA Verified 03/23/24 08:11 Review of Systems Review of Systems: Yes all other systems are reviewed and are negative [facility] Past Medical History Medical History Miscarriage within last 12 months Migraines Migraines Depression Anxiety Family History Family History Father Chronic mental illness Mother CVD (cardiovascular disease) Chronic mental illness Family/Other Breast cancer Social History Social History Alcohol intake: unknown Patient Tobacco Use Status: Never used Tobacco Second Hand Smoke Exposure: No Advance Directives: Yes Advance Directives on File: Yes Advance Directives Date on File: 12/25/23 Do you have a plan to hurt others: No Plan service: No Physical Exam Vital Signs: Vital Signs: Last Vital Signs Temp 97.7 F 03/23/24 10:54 Pulse 93 03/23/24 10:54 Resp 18 03/23/24 10:54 BP 117/72 03/23/24 10:54 Pulse Ox 97 03/23/24 10:54 O2 Del Method Room Air 03/23/24 10:54 BMI result Body Mass Index 33.1 Nursing notes and vital signs reviewed. GENERAL APPEARANCE: A&0 x 4, generally well appearing, no acute distress HENMT: Normal to inspection, atraumatic, face symmetrical. Normal external ears, nose, and oropharynx clear. EYE: PERRLA, EOM intact, structures appear normal NECK: Supple without stiffness or restricted ROM. HEART: Normal rate and regular rhythm, normal S1/S2, no M/R/G LUNGS: LS CTA, moving air well. Able to speak in complete sentences. No crackles, wheezes, or rhonchi auscultated BACK: No CVAT, no obvious deformity EXTREMITIES: Moving all extremities without difficulty. Normal capillary refill. 1.5 cm x 1 cm erythemic, swollen area with central fluctuance NEUROLOGICAL: Alert and oriented, moving all 4 extremities with equal strength. CN not formally tested but appearing grossly intact. Observed to ambulate with normal gait. Cognition normal SKIN: Warm and dry without any lesions, rash, or visible sores Medications Administered Discontinued Medications Generic Name Dose Route Start Last Admin Trade Name Haiderq PRN Reason Stop Dose Admin Lidocaine HCl 30 ml 03/23/24 09:20 03/23/24 10:02 Lidocaine Hcl 1 % 10 Ml Vial INFILTRATI 03/23/24 09:21 30 ml ONCE ONE Administration Medical Decision Making Medical Decision Making MDM Narrative: Old records reviewed for previous imaging, lab studies, ECGs, and notes. Pat ient was assessed the emergency department with no acute distress or toxicity noted. Abscess incised and drained. See procedure note for further details. Mupirocin ointment sent to preferred pharmacy and patient educated to follow-up with dermatology in addition to her primary care provider. Patient educated to use warm compresses several times day to further express drainage from the abscess. Patient is safe for discharge at this time with plan for [id number] Tylenol and/or NSAID such as ibuprofen or naproxen for fever/discomfort with dosing as per packaging. HPI, PE, diagnostics, and plan discussed with patient and family with no unanswered questions at this time. Strict return precautions given to return to the emergency department with new, worsening, or concerning emergent symptoms. Recommended to follow-up with there primary care provider in 24-48 hours for further treatment and management. Differential Diagnosis Differential Diagnoses: The differential diagnosis associated with the presentation includes But not limited to cellulitis, abscess, hidradenitis suppurativa, carbuncle, sepsis, malignancy Chronic Conditions Patient?s care impacted by: Other PE on eliquis Procedures Abscess I/D Site: upper extremity (Axilla) Side (if applicable): right Sedation/analgesia: none Local Anesthetic: lidocaine 1% Amount of anesthesia used (mL): 5 Technique: incised with blade (And loculated) Amount of fluid expressed (mL): 10 Sent for culture/gram staining?: No Irrigation: Yes Packing used?: none Complications: pain Discharge Plan Discharge Clinical Impression: Abscess of axilla, right Patient Disposition: Home, Self-Care Instructions: Abscess (ED), Incision and Drainage (ED) Additional Instructions: Your seen in the emergency department for concerns of an abscess to your right armpit. Your abscess was incised and drained with a large volume of purulent fluid expressed. Please use warm compresses several times a day in addition to prescribe antibiotic ointment. Please follow-up with dermatology in addition to your primary care provider. You are safe for discharge at this time with plan for management of fever or discomfort with [id number] Tylenol and/or NSAID such as ibuprofen or naproxen with dosing as per packaging. Please return to the emergency department with new, worsening, or concerning emergent symptoms. Recommended to follow-up with your primary care provider in 24-48 hours for further treatment and management. Thank you for choosing [facility]. Prescriptions: New mupirocin 2 % ointment 1 appl topical TID Qty: 15 0RF No Action ascorbic acid (vitamin C) [Vitamin C] 500 mg tablet 500 mg QAM Multi-Vitamin With Fluoride 0.5 mg tablet,chewable 1 tab PO QAM valacyclovir 1 gram Tablet 1,000 mg PO Q8H Qty: 15 0RF Eliquis 5 mg tablet See Rx Instructions .ROUTE .COMPLEX Qty: 74 0RF Rx Instructions: 10 mg (2 tabs) twice daily for 7 days, then 5 mg twice daily Referrals: [facility]] [facility]] [facility] [Provider Group] Stand Alone Forms: Work/School Release Interventions: ED Discharge Assessment Last Done: 03/23/24 10:54 Discharge Date/Time: 03/23/24 10:54 Print Language: Uruguayan
[2024-03-23] MEDS: Lidocaine HCl 1 % 10 ML VIAL 30 ML INFILTRATI (10:02)
--- NOTE | 2024-03-23 10:02 | PC.NURSE ---
provider to medicate pt in wound
[2024-03-23 10:54] VITALS: BP 117/72; PULSE 93; RESP 18; TEMP 36.5; O2SAT 97
== END 2024-03-23 10:54 | disposition home or self-care (01) ==
PROVIDERS: Emergency Provider Emergency Medicine
DX: L02.411 Cutaneous abscess of right axilla (principal)
CPT/HCPCS: 10060; 99282; 99284

== ENCOUNTER 2024-05-29 12:08 | Emergency (ER) | payer MEDICAID, SELFPAY ==
--- NOTE | ~2024-05-29 | CT_ITS ---
EXAMINATION: CT HEAD WITHOUT CONTRAST CLINICAL INFORMATION: Chronic migraine headaches, acute worsening headache COMPARISON: CT scan of brain on 04/05/2021 TECHNIQUE: Contiguous axial imaging was performed from the skull base to vertex without intravenous administration of contrast. This CT examination was performed using dose optimization techniques as appropriate, variously including the following: *Automated exposure control *Adjustment of mA and/or kV according to patient size (this includes techniques or standardized protocols for targeted exams where dose is matched to indication/reason for exam; i.e. extremities or head) *Use of iterative reconstruction technique DLP: 576 mGy-cm FINDINGS: Ventricles, sulci and cisterns are normal. Cava septum pellucidum and cavum with edema present. There is no midline shift, no abnormal intra- or extra- axial fluid accumulation. [place] and white matter differentiation is normal. Bone window images show no evidence of skull fracture. CT/CT head/brain wo IV con IMPRESSION: 1. Unchanged Normal CT scan of the brain. 2. No intracranial hemorrhage or skull fracture is seen. 3. No evidence of space occupying lesion could be found. 4. The current plain CT scan of the brain shows no diagnostic evidence of acute cerebral infarction. Electronically signed by: Ramon Bryson MD 05/29/2024 02:59 PM EDT
--- NOTE | 2024-05-29 12:11 | ED.GENADULT ---
HPI - General Adult General Chief complaint: Headache Stated complaint: Sent from urgent care for CT scan Time Seen by Provider: 05/29/24 12:35 Source: patient and RN notes reviewed Mode of arrival: ambulatory Limitations: no limitations History of Present Illness ED Provider: Roxy Youssef PA-C HPI narrative: This is a 23-year-old female, with a history of PE on Eliquis, who presents emergency department with complaints of headaches x 2 weeks. Patient states that over the last 2 weeks she has noticed frontal headache, and pressure in her head. She has a history of migraines and states that this is atypical of her headaches she has had in the past. She states that her severity waxes and wanes in severity however states that the headache is present at all times. She has been taking Tylenol which has not provided her with any relief. She was seen at an urgent care yesterday and was told to come to the emergency room for head CT. She states that over the last 3 days she has had nausea, 3 episodes of vomiting yesterday, and diarrhea. She denies any bloody or black stool. She denies any urinary symptoms. No chance of . Denies any fevers, chills, chest pain, shortness for breath, abdominal pain, current nausea. No other complaints or concerns this time. MD complaint: Headaches Onset (ago): week(s) Location: head Radiation: non-radiation Quality: aching Pain Consistency: constant Relieving factors: none Exacerbating factors: none Associated symptoms: denies other symptoms Treatments prior to arrival: none Related Data Home Medications ?Medication ?Instructions ?Recorded ?Confirmed ascorbic acid (vitamin C) 500 mg 500 mg QAM 12/24/23 03/10/24 tablet (Vitamin C) pediatric multivitamin no.17 with 1 tab PO QAM 12/24/23 03/10/24 fluoride 0.5 mg chewable tablet (Multi-Vitamin With Fluoride) Previous Rx's ?Medication ?Instructions ?Recorded apixaban 5 mg tablet (Eliquis) See Rx Instructions .Route 12/26/23 .COMPLEX #74 tabs valacyclovir 1 gram tablet 1,000 mg PO Q8H #15 tabs 12/26/23 mupirocin 2 % topical ointment 1 appl topical TID #15 grams 03/23/24 Allergies Allergy/AdvReac Type Severity Reaction Status Date / Time cinnamon [CINNAMON] Allergy Severe ANAPHYLAXIS Verified 05/29/24 12:16 oats [OATS] Allergy Severe ANAPHYLAXIS Verified 05/29/24 12:16 apple [APPLES] Allergy Intermediate ANGIOEDEMA Verified 05/29/24 12:16 Review of Systems Review of Systems: Yes all other systems are reviewed and are negative Constitutional: Constitutional: Reports as per [facility] Past Medical History Attestation statement: The following information was validated with the patient. Medical History Miscarriage within last 12 months Migraines Migraines Depression Anxiety Family History Family History Father Chronic mental illness Mother CVD (cardiovascular disease) Chronic mental illness Family/Other Breast cancer Social History Social History Alcohol intake: unknown Patient Tobacco Use Status: Never used Tobacco Second Hand Smoke Exposure: No Advance Directives: Yes Advance Directives on File: Yes Advance Directives Date on File: 12/25/23 service: No Physical Exam ED Vital Signs: Vital Signs - 24 hr 05/29/24 12:12 05/29/24 14:00 05/29/24 15:30 Temperature 97.6 F 97.6 F 97.6 F Pulse Rate 107 H 99 99 Respiratory Rate 16 18 18 Blood Pressure 112/72 112/72 112/72 Pulse Oximetry 98 98 98 Oxygen Delivery Method Room Air Room Air Room Air BMI result Body Mass Index 34.7 Const General: cooperative, comfortable and no acute distress Orientation/consciousness: patient oriented x3 Limitations: no limitations [facility] Head: Yes normal to inspection, Yes normocephalic and Yes atraumatic Ears: hearing grossly normal bilaterally General nose exam: Normal external nose present Face and sinus: Yes normal facial exam Mouth: Normal oral and palatal mucosa present, oropharynx normal and moist mucous membranes Throat: Yes posterior oropharynx normal Eyes General: appearance normal, both eyes and all related structures Eyelids: Yes eyelids normal Conjunctivae: conjunctivae normal Sclerae: sclerae normal Pupils: Equal, round and reactive pupils present EOM: EOMs intact bilaterally Neck Neck: Yes normal visual inspection, Yes full ROM and Yes no lymphadenopathy Lymphatic: no lymphadenopathy noted Chest Chest palpation & inspection: normal inspection of the chest Resp Effort & Inspection: normal respiratory effort and able to speak in complete sentences Auscultation: clear to auscultation bilaterally, no crackles, no rales, no rhonchi and no wheezes Cardio Rate: regular rate Rhythm: regular rhythm Heart sounds: S1 normal heart sound present and S2 normal heart sound present GI Other: Abdomen is soft, nontender, nondistended Inspection: Yes normal to inspection Skin General skin exam: no rashes or lesions noted Trauma: no lacerations or abrasions Wounds: no wounds Neuro General: patient oriented x3 and moves all extremities Cranial nerves: Yes Equal, round and reactive pupils present Extrem General: Yes normal to inspection Right upper extremity: normal to inspection Left upper extremity: normal to inspection Right lower extremity: normal to inspection Left lower extremity: normal to inspection NIH Stroke Scale Internal: Initial- Upon Arrival Level of Consciousness: Alert Level of Consciousness Questions: Answers both questions correctly Level of Consciousness Commands: Performs both tasks correctly Best Gaze: Normal Visual: No visual loss Facial Palsy: Normal Motor Arm (Right): No drift Motor Arm (Left): No drift Motor Leg (Right): No drift Motor Leg (Left): No drift Limb Ataxia: Absent Sensory: Normal Best Language: No aphasia Dysarthia: Normal Extinction and Inattention: No abnormality Score: 0 Course Course Course Narrative: This is a Rapid Medical Examination (RME) performed by Rashid Veloz PA-C in triage. Full HPI, ROS, assessment and treatment plan per primary provider in the Main ED. 23 yo female hx of PE on eliquis intermittent x2 years, worsening x2 weeks. described as pressure senstion to left side of head w/ assoc n/v. no photophobia. pain is longer controlled with tylenol. seen at yesterday, advised to come to the ED for CT scan of head as patient is on eliquis. Plan: ct head, basic labs Reevaluation(s) Reevaluation #1: CT scan unremarkable. Discussed findings with patient. Labs reassuring, no electrolyte derangement, she tested negative for COVID, flu, RSV. It is unclear what is causing her to have the symptoms however given reassuring exam, no further workup indicated at this time. Given strict return precautions. She understands agrees plan. Stable for discharge. Medications Administered Discontinued Medications Generic Name Dose Route Start Last Admin Trade Name Freq PRN Reason Stop Dose Admin Sodium Chloride 1,000 mls @ 999 mls/hr 05/29/24 12:49 05/29/24 13:50 Ns IV 05/29/24 13:49 Infused .Q1H1M ONE Infusion Medical Decision Making Medical Decision Making [facility] Narrative: This is a 23-year-old female who presents emergency department with complaints of headache x2 weeks. On arrival, patient is slightly tachycardic at 107 all other vital signs within normal limits. She also reports that she had several episodes of vomiting and diarrhea over the past week. No nasal congestion, fevers or chills. She is currently on Eliquis for pulmonary embolism that was provoked after having an elective surgery. She has no focal deficits on examination. Normal physical examination. Differential diagnoses ICH,-unlikely, SDH, sinusitis, tension headache, migraine headache, ocular migraine, electrolyte derangement. Differential Diagnosis Differential Diagnoses: The differential diagnosis associated with the presentation includes See above Admission/Observation Consideration of admission/observation: Escalation of care including admission/observation considered Lab Data [facility] Lab Attestation statement: I reviewed the patient's lab results. 05/29/24 12:24 05/29/24 12:24 Labs: Lab Results 05/29/24 05/29/24 05/29/24 Range/Units 12:24 12:24 13:24 WBC 7.3 (4.8-10.8) X10*3/uL RBC 4.62 (4.20-5.50) X10*6/uL Hgb 12.6 (12.0-16.0) g/dl Hct 38.3 (37.0-47.0) % MCV 82.9 (80.0-98.0) fL MCH 27.3 (27.0-33.0) pg MCHC 32.9 (31.0-35.0) g/dl RDW 15.9 (11.0-16.0) % Plt Count 323 (160-400) X10*3/uL MPV 10.2 (9.4-12.3) fL Immature Gran % (Auto) 0.4 (0.0-0.4) % Neut % (Auto) 61.7 (45-73) % Lymph % (Auto) 31.6 (20-40) % [place] % (Auto) 5.1 (2-11) % Eos % (Auto) 0.7 (0-4) % Baso % (Auto) 0.5 (0-2) % Lymph # (Auto) 2.3 (1.2-4.9) X10*3/uL [place] # (Auto) 0.4 (0.1-1.2) X10*3/uL Eos # (Auto) 0.1 (0.0-0.4) X10*3/uL Baso # (Auto) 0.0 (0.0-0.2) X10*3/uL Abs Immat Gran (auto) 0.03 (0.00-0.03) X10*3/uL Absolute Neuts (auto) 4.5 (2.0-8.3) x10*3/uL Absolute Nucleated RBC 0.000 (0.0-0.012) X10*3/uL Nucleated RBC % (auto) 0.0 (0.0-0.2) /100WBC PT 13.1 (11.1-13.3) SEC INR 1.1 (0.9-1.1) Sodium 140 (135-145) mmol/L Potassium 3.5 (3.3-5.1) mmol/L Chloride 110 H (96-108) mmol/L Carbon Dioxide 25 (22-29) mmol/L Anion Gap 9 L (12-20) BUN 14 (9-16) mg/dL Creatinine 0.65 (0.5-1.4) mg/dL Estim Creat Clear Calc 146.3 Estimated GFR > 60 Random Glucose 98 (60-115) mg/dL Calcium 10.0 (8.4-10.2) mg/dL Magnesium 1.9 (1.6-2.6) mg/dL Total Bilirubin 0.3 (0.0-1.0) mg/dL AST 12 (5-31) U/L ALT 13 (0-31) U/L Alkaline Phosphatase 83 (39-117) U/L Total Protein 7.6 (6.5-8.0) g/dL Albumin 4.3 (3.5-5.0) g/dL Beta HCG, Quant < 2 < 2 mIU/mL Influenza Type A (PCR) NEGATIVE (Negative) Influenza Type B (PCR) NEGATIVE (Negative) RSV RNA Qual (PCR) NEGATIVE (Negative) SARS-CoV-2 RNA (RT-PCR) NEGATIVE (Negative) Radiology Impression Discussion of test interpretation with radiology: I have reviewed the radiologist's reading. External Record Review External record reviewed: Inpatient record, Office record, Outpatient record, Prior outpatient labs, Prior outpatient radiology, Primary care record and Outside ED record Discharge Plan Discharge Clinical Impression: Headache Patient Disposition: Home, Self-Care Instructions: Acute Headache (ED) Additional Instructions: You were seen in the emergency department due to ongoing headaches. Your blood work was reassuring. Your CT scan does not show any abnormalities. You are not . Please rest, drink plenty of fluids. Follow-up with the neurology referral that you were given yesterday. If any new or worsening symptoms occur including but not limited to fevers, chills, worsening headache, vomiting, please return for re-evaluation. Follow-up with your primary care physician regarding this visit. Prescriptions: No Action ascorbic acid (vitamin C) [Vitamin C] 500 mg tablet 500 mg QAM Multi-Vitamin With Fluoride 0.5 mg tablet,chewable 1 tab PO QAM valacyclovir 1 gram Tablet 1,000 mg PO Q8H Qty: 15 0RF Eliquis 5 mg tablet See Rx Instructions .ROUTE .COMPLEX Qty: 74 0RF Rx Instructions: 10 mg (2 tabs) twice daily for 7 days, then 5 mg twice daily mupirocin 2 % ointment 1 appl topical TID Qty: 15 0RF Stand Alone Forms: Work/School Release Interventions: ED Discharge Assessment Last Done: 05/29/24 15:30 Discharge Date/Time: 05/29/24 15:31 Print Language: Sami
[2024-05-29 12:12] VITALS: BP 112/72; PULSE 107; RESP 16; TEMP 36.4; O2SAT 98; BMI 34.7
[2024-05-29 12:27] LABS: MANUAL DIFF FLAG NO
[2024-05-29 12:29] LABS: Basophils Percent Auto 0.5 % (0-2); Eosinophils Absolute Auto 0.1 X10*3/uL (0.0-0.4); Eosinophils Percent Auto 0.7 % (0-4); Hematocrit 38.3 % (37.0-47.0); Hemoglobin 12.6 g/dl (12.0-16.0); Imm Gran Abs Auto 0.03 X10*3/uL (0.00-0.03); Imm Gran Pct Auto 0.4 % (0.0-0.4); Lymphocytes Absolute Auto 2.3 X10*3/uL (1.2-4.9); Lymphocytes Percent Auto 31.6 % (20-40); Mean Corpuscular HGB Conc 32.9 g/dl (31.0-35.0); Mean Corpuscular Hemoglobin 27.3 pg (27.0-33.0); Mean Corpuscular Volume 82.9 fL (80.0-98.0); Mean Platelet Volume 10.2 fL (9.4-12.3); Monocytes Absolute Auto 0.4 X10*3/uL (0.1-1.2); Monocytes Percent Auto 5.1 % (2-11); Neutrophils Absolute Auto 4.5 x10*3/uL (2.0-8.3); Neutrophils Percent Auto 61.7 % (45-73); Platelet Count 323 X10*3/uL (160-400); Red Blood Count 4.62 X10*6/uL (4.20-5.50); Red Cell Distribution Width 15.9 % (11.0-16.0); White Blood Count 7.3 X10*3/uL (4.8-10.8)
[2024-05-29 12:35] LABS: INTERNATIONAL NORM RATIO 1.1 (0.9-1.1); Prothrombin Time 13.1 SEC (11.1-13.3)
[2024-05-29 12:50] LABS: Alanine Aminotransferase 13 U/L (0-31); Albumin Level 4.3 g/dL (3.5-5.0); Alkaline Phosphatase 83 U/L (39-117); Anion Gap 9 (12-20); Aspartate Amino Transferase 12 U/L (5-31); Bilirubin Total 0.3 mg/dL (0.0-1.0); Blood Urea Nitrogen 14 mg/dL (9-16); Carbon Dioxide 25 mmol/L (22-29); Chloride 110 mmol/L (96-108); Creatinine Clr Calc Pharmacy 146.3; Estimated Glomerular Filt Rate > 60; Glucose Random 98 mg/dL (60-115); Magnesium 1.9 mg/dL (1.6-2.6); Potassium 3.5 mmol/L (3.3-5.1); Sodium 140 mmol/L (135-145); Total Protein 7.6 g/dL (6.5-8.0)
[2024-05-29 12:51] LABS: HCG Quantitative < 2 mIU/mL
[2024-05-29] MEDS: 0.9 % Sodium Chloride 1,000 ML 999 ML IV (13:00)
[2024-05-29 14:00] VITALS: BP 112/72; PULSE 99; RESP 18; TEMP 36.4; O2SAT 98
[2024-05-29 14:04] LABS: Influenza A PCR NEGATIVE (Negative); Influenza B PCR NEGATIVE (Negative); Resp Syncy Virus RNA Qual PCR NEGATIVE (Negative); SARS COV2 PCR INHOUSE NEGATIVE (Negative)
[2024-05-29 15:30] VITALS: BP 112/72; PULSE 99; RESP 18; TEMP 36.4; O2SAT 98
== END 2024-05-29 15:31 | disposition home or self-care (01) ==
PROVIDERS: Physician Assistant Medical; Emergency Provider Emergency Medicine
DX: R51.9 Headache, unspecified (principal); R29.700 NIHSS score 0; Z86.711 Personal history of pulmonary embolism; Z79.01 Long term (current) use of anticoagulants
CPT/HCPCS: 0241U; 36415; 70450; 80053; 83735; 84702; 85025; 85610; 96360; 99284

== ENCOUNTER 2024-06-06 19:30 | Emergency (ER) | payer MEDICAID, SELFPAY ==
--- NOTE | ~2024-06-06 | XR_ITS ---
EXAMINATION: XR CHEST CLINICAL INFORMATION: Shortness of breath COMPARISON: None available. TECHNIQUE: 2 views of the chest were obtained. FINDINGS: No significant abnormality is noted involving the heart, lungs, mediastinum, bony thorax or soft tissues. XR/XR chest 2V IMPRESSION: Unremarkable examination. Electronically signed by: Asa Hinojosa DO 06/06/2024 09:10 PM EDT
--- NOTE | 2024-06-06 19:31 | ECG_ITS ---
Test Reason : CHEST PAIN Blood Pressure : / mmHG Vent. Rate : 108 BPM Atrial Rate : 108 BPM P-R Int : 120 ms QRS Dur : 084 ms QT Int : 346 ms P-R-T Axes : 040 029 011 degrees QTc Int : 463 ms Sinus tachycardia Otherwise normal ECG When compared with ECG of 26-JAN-2024 15:10, Heart rate has increased Referred By: Shelley Corrales Electronically Signed By:ABDELRAHMAN FERNANDEZ
[2024-06-06 19:42] VITALS: BP 141/95; PULSE 111; RESP 20; TEMP 36.7; O2SAT 97; BMI 35.2
--- NOTE | 2024-06-06 19:43 | ED_ITS ---
HPI - General Adult General Chief complaint: Chest Pain Stated complaint: chest pain/heart rate seems high/sob Time Seen by Provider: 06/06/24 21:16 Source: patient Mode of arrival: ambulatory Limitations: no limitations History of Present Illness ED Provider: pawan AYON narrative: Patient With history of PE post surgery in 12/[address] scan on 01/21 was negative for PE patient is on Eliquis since then complaining of for last 3 days having chest tightness and shortness a breath prior to arrival patient had palpitation with heart rate of 140 on arrival was 110 no leg swelling or leg pain pain increases on taking deep breath no cough no fever no chills no calf pain no family history of blood clot Related Data Home Medications ?Medication ?Instructions ?Recorded ?Confirmed ascorbic acid (vitamin C) 500 mg 500 mg QAM 12/24/23 03/10/24 tablet (Vitamin C) pediatric multivitamin no.17 with 1 tab PO QAM 12/24/23 03/10/24 fluoride 0.5 mg chewable tablet (Multi-Vitamin With Fluoride) Previous Rx's ?Medication ?Instructions ?Recorded apixaban 5 mg tablet (Eliquis) See Rx Instructions .Route 12/26/23 .COMPLEX #74 tabs valacyclovir 1 gram tablet 1,000 mg PO Q8H #15 tabs 12/26/23 mupirocin 2 % topical ointment 1 appl topical TID #15 grams 03/23/24 Allergies Allergy/AdvReac Type Severity Reaction Status Date / Time cinnamon [CINNAMON] Allergy Severe ANAPHYLAXIS Verified 06/06/24 19:45 oats [OATS] Allergy Severe ANAPHYLAXIS Verified 06/06/24 19:45 apple [APPLES] Allergy Intermediate ANGIOEDEMA Verified 06/06/24 19:45 Review of Systems 2 Review of Systems: Yes all other systems are reviewed and are negative PMFSH Past Medical History Medical History Miscarriage within last 12 months Migraines Migraines Depression Anxiety Family History Family History Father Chronic mental illness Mother CVD (cardiovascular disease) Chronic mental illness Family/Other Breast cancer Social History Social History Alcohol intake: unknown Patient Tobacco Use Status: Never used Tobacco Smoked in Last 30 Days: No Second Hand Smoke Exposure: No Use of substances other than those prescribed or required for medical reasons: No Advance Directives: Yes Advance Directives on File: Yes Advance Directives Date on File: 12/25/23 Do you have a plan to hurt others: No Plan service: No Physical Exam ED Vital Signs: Vital Signs - 24 hr 06/06/24 19:42 06/06/24 21:49 06/06/24 23:18 Temperature 98.0 F 98.1 F 98.1 F Pulse Rate 111 H 92 92 Respiratory Rate 20 19 19 Blood Pressure 141/95 H 117/65 117/65 Pulse Oximetry 97 99 99 Oxygen Delivery Method Room Air Room Air Room Air BMI result Body Mass Index 35.2 Appearance: Alert. Oriented X3. No acute distress. Eyes: PERRLA, No Nystagmus ENT: Pharynx normal. Oral Mucosa moist Neck: Normal inspection. Neck supple. CVS: Normal heart rate and rhythm. Pulses normal. No pericardial rubs Respiratory: No respiratory distress. Equal air entry bilateral, no wheezing/rales/rhonchi no pleural rubs Abdomen: Soft and nontender. Bowel sounds are present, no mass palpable, no CVA tenderness Skin: Skin warm and dry. Normal skin color. Normal skin turgor. Extremities: No lower extremity edema. No calf tenderness Neuro: Oriented X 3. No motor deficit. No sensory deficit.No cerebellar signs , cranial nerves II-XII intact Course Course Course Narrative: RME performed by Shelley Corrales PA-C. Patient is a 23 year old assigned female at presenting to the emergency department with chest pain and shortness of breath. Patient states that she has a history of PE and is currently taking Eliquis. Detailed physical exam and review of systems are deferred to the psychology clinician. EKG, labs, imaging, and swabs ordered. Patient placed back in the waiting room pending room availability and results. Medical Decision Making Medical Decision Making MDM Narrative: Patient with atypical chest pain with shortness a breath D-dimer negative for PE discharge patient home patient has had a tachycardia episode with heart rate of 140 at home followed by anxiety could be the cause for the symptoms never had any tachycardia like this in the past patient advised to follow with PCP or report to the ER if palpitation happens again for further workup likely patient has SVT Differential Diagnosis Differential Diagnoses: The differential diagnosis associated with the presentation includes PE/ACS/pneumonia/pneumothorax Admission/Observation Consideration of admission/observation: Escalation of care including admission/observation considered Lab Data MDM Lab Attestation statement: I reviewed the patient's lab results. 06/06/24 19:56 06/06/24 19:56 Labs: Lab Results 06/06/24 06/06/24 Range/Units 19:56 21:49 WBC 10.3 (4.8-10.8) X10*3/uL RBC 4.71 (4.20-5.50) X10*6/uL Hgb 12.8 (12.0-16.0) g/dl Hct 38.9 (37.0-47.0) % MCV 82.6 (80.0-98.0) fL MCH 27.2 (27.0-33.0) pg MCHC 32.9 (31.0-35.0) g/dl RDW 15.4 (11.0-16.0) % Plt Count 318 (160-400) X10*3/uL MPV 9.8 (9.4-12.3) fL Immature Gran % (Auto) 0.3 (0.0-0.4) % Neut % (Auto) 65.7 (45-73) % Lymph % (Auto) 26.2 (20-40) % [place] % (Auto) 6.4 (2-11) % Eos % (Auto) 1.0 (0-4) % Baso % (Auto) 0.4 (0-2) % Lymph # (Auto) 2.7 (1.2-4.9) X10*3/uL [place] # (Auto) 0.7 (0.1-1.2) X10*3/uL Eos # (Auto) 0.1 (0.0-0.4) X10*3/uL Baso # (Auto) 0.0 (0.0-0.2) X10*3/uL Abs Immat Gran (auto) 0.03 (0.00-0.03) X10*3/uL Absolute Neuts (auto) 6.7 (2.0-8.3) x10*3/uL Absolute Nucleated RBC 0.000 (0.0-0.012) X10*3/uL Nucleated RBC % (auto) 0.0 (0.0-0.2) /100WBC D-Dimer High Sensitivty < 150 NG/ML Sodium 139 (135-145) mmol/L Potassium 3.6 (3.3-5.1) mmol/L Chloride 107 (96-108) mmol/L Carbon Dioxide 23 (22-29) mmol/L Anion Gap 13 (12-20) BUN 12 (9-16) mg/dL Creatinine 0.73 (0.5-1.4) mg/dL Estim Creat Clear Calc 131.4 Estimated GFR > 60 Random Glucose 106 (60-115) mg/dL Calcium 9.9 (8.4-10.2) mg/dL Magnesium 2.0 (1.6-2.6) mg/dL Total Bilirubin 0.3 (0.0-1.0) mg/dL AST 13 (5-31) U/L ALT 15 (0-31) U/L Alkaline Phosphatase 90 (39-117) U/L Troponin I High Sens < 2.7 (<3.5-17.0) ng/L Total Protein 8.0 (6.5-8.0) g/dL Albumin 4.5 (3.5-5.0) g/dL Beta HCG, Quant < 2 mIU/mL Influenza Type A (PCR) NEGATIVE (Negative) Influenza Type B (PCR) NEGATIVE (Negative) RSV RNA Qual (PCR) NEGATIVE (Negative) SARS-CoV-2 RNA (RT-PCR) NEGATIVE (Negative) Independent Interpretation I performed an independent interpretation of an: EKG and Plain X-Ray Interpretation: Sinus tachycardia heart rate 108 beats per minute normal interval normal axis no acute ST T wave changes Radiology Impression Discussion of test interpretation with radiology: I have reviewed the radiologist's reading. Discharge Plan Discharge Clinical Impression: Atypical chest pain Patient Disposition: Home, Self-Care Instructions: Noncardiac Chest Pain (ED) Additional Instructions: Your chest pain is likely musculoskeletal workup is negative for blood clot or any major cardiac event Drink plenty of fluids Report to the ER if your recurrence of the palpitation episodes for further management Prescriptions: No Action ascorbic acid (vitamin C) [Vitamin C] 500 mg tablet 500 mg QAM Multi-Vitamin With Fluoride 0.5 mg tablet,chewable 1 tab PO QAM valacyclovir 1 gram Tablet 1,000 mg PO Q8H Qty: 15 0RF Eliquis 5 mg tablet See Rx Instructions .ROUTE .COMPLEX Qty: 74 0RF Rx Instructions: 10 mg (2 tabs) twice daily for 7 days, then 5 mg twice daily mupirocin 2 % ointment 1 appl topical TID Qty: 15 0RF Interventions: ED Discharge Assessment Last Done: 06/06/24 23:18 Discharge Date/Time: 06/06/24 23:19 Print Language: Citizen [place]
[2024-06-06 20:01] LABS: MANUAL DIFF FLAG NO
[2024-06-06 20:04] LABS: Basophils Percent Auto 0.4 % (0-2); Eosinophils Absolute Auto 0.1 X10*3/uL (0.0-0.4); Hematocrit 38.9 % (37.0-47.0); Hemoglobin 12.8 g/dl (12.0-16.0); Imm Gran Abs Auto 0.03 X10*3/uL (0.00-0.03); Imm Gran Pct Auto 0.3 % (0.0-0.4); Lymphocytes Absolute Auto 2.7 X10*3/uL (1.2-4.9); Lymphocytes Percent Auto 26.2 % (20-40); Mean Corpuscular HGB Conc 32.9 g/dl (31.0-35.0); Mean Corpuscular Hemoglobin 27.2 pg (27.0-33.0); Mean Corpuscular Volume 82.6 fL (80.0-98.0); Mean Platelet Volume 9.8 fL (9.4-12.3); Monocytes Absolute Auto 0.7 X10*3/uL (0.1-1.2); Monocytes Percent Auto 6.4 % (2-11); Neutrophils Absolute Auto 6.7 x10*3/uL (2.0-8.3); Neutrophils Percent Auto 65.7 % (45-73); Platelet Count 318 X10*3/uL (160-400); Red Blood Count 4.71 X10*6/uL (4.20-5.50); Red Cell Distribution Width 15.4 % (11.0-16.0); White Blood Count 10.3 X10*3/uL (4.8-10.8)
[2024-06-06 20:25] LABS: Alanine Aminotransferase 15 U/L (0-31); Albumin Level 4.5 g/dL (3.5-5.0); Alkaline Phosphatase 90 U/L (39-117); Anion Gap 13 (12-20); Aspartate Amino Transferase 13 U/L (5-31); Bilirubin Total 0.3 mg/dL (0.0-1.0); Blood Urea Nitrogen 12 mg/dL (9-16); Calcium 9.9 mg/dL (8.4-10.2); Carbon Dioxide 23 mmol/L (22-29); Chloride 107 mmol/L (96-108); Creatinine Clr Calc Pharmacy 131.4; Estimated Glomerular Filt Rate > 60; Glucose Random 106 mg/dL (60-115); Potassium 3.6 mmol/L (3.3-5.1); Sodium 139 mmol/L (135-145)
[2024-06-06 20:27] LABS: HCG Quantitative < 2 mIU/mL; Troponin-I High Sensitivity < 2.7 ng/L (<3.5-17.0)
[2024-06-06 20:40] LABS: Influenza A PCR NEGATIVE (Negative); Influenza B PCR NEGATIVE (Negative); Resp Syncy Virus RNA Qual PCR NEGATIVE (Negative); SARS COV2 PCR INHOUSE NEGATIVE (Negative)
--- NOTE | 2024-06-06 20:41 | MHC.EDTECH ---
Patient brought in from the waiting room,changed into hospital attire and placed on the assembly loader,call mooney in reach
[2024-06-06 21:49] VITALS: BP 117/65; PULSE 92; RESP 19; TEMP 36.7; O2SAT 99
--- NOTE | 2024-06-06 21:50 | MHC.EDTECH ---
Hourly rounds and vitals completed,lab drawn and sent to lab,call mooney in reach
[2024-06-06 22:05] LABS: D Dimer High Sensitivity < 150 NG/ML
--- NOTE | 2024-06-06 22:45 | MHC.EDTECH ---
Patient given a turkey sandwich per request
[2024-06-06 23:18] VITALS: BP 117/65; PULSE 92; RESP 19; TEMP 36.7; O2SAT 99
== END 2024-06-06 23:19 | disposition home or self-care (01) ==
PROVIDERS: Physician Assistant Medical; Emergency Provider Internal Medicine
DX: R07.89 Other chest pain (principal); R06.02 Shortness of breath; R00.0 Tachycardia, unspecified; Z03.818 Encounter for observation for suspected exposure to other biological agents ruled out; Z86.711 Personal history of pulmonary embolism; Z79.01 Long term (current) use of anticoagulants; Z79.899 Other long term (current) drug therapy
CPT/HCPCS: 0241U; 36415; 71046; 80053; 83735; 84484; 84702; 85025; 85379; 93005; 99283; 99284

== ENCOUNTER 2024-07-31 12:01 | Emergency (ER) | payer MEDICAID, SELFPAY ==
[2024-07-31 12:05] VITALS: BP 116/82; PULSE 94; RESP 16; TEMP 36.8; O2SAT 98; BMI 31.9
--- NOTE | 2024-07-31 12:08 | ED_ITS ---
HPI - Skin/Abscess/Foreign Bdy General Chief complaint: Skin/Abscess/Foreign Body Stated complaint: fluid filled blisters after removing control Related Data Home Medications ?Medication ?Instructions ?Recorded ?Confirmed ascorbic acid (vitamin C) 500 mg 500 mg QAM 12/24/23 03/10/24 tablet (Vitamin C) pediatric multivitamin no.17 with 1 tab PO QAM 12/24/23 03/10/24 fluoride 0.5 mg chewable tablet (Multi-Vitamin With Fluoride) Previous Rx's ?Medication ?Instructions ?Recorded apixaban 5 mg tablet (Eliquis) See Rx Instructions .Route 12/26/23 .COMPLEX #74 tabs valacyclovir 1 gram tablet 1,000 mg PO Q8H #15 tabs 12/26/23 mupirocin 2 % topical ointment 1 appl topical TID #15 grams 03/23/24 Allergies Allergy/AdvReac Type Severity Reaction Status Date / Time cinnamon [CINNAMON] Allergy Severe ANAPHYLAXIS Verified 07/31/24 12:06 oats [OATS] Allergy Severe ANAPHYLAXIS Verified 07/31/24 12:06 apple [APPLES] Allergy Intermediate ANGIOEDEMA Verified 07/31/24 12:06 PMFSH Past Medical History Medical History Miscarriage within last 12 months Migraines Migraines Depression Anxiety Family History Family History Father Chronic mental illness Mother CVD (cardiovascular disease) Chronic mental illness Family/Other Breast cancer Social History Social History Alcohol intake: unknown Patient Tobacco Use Status: Never used Tobacco Second Hand Smoke Exposure: No Advance Directives Date on File: 12/25/23 Do you have a plan to hurt others: No Plan service: No Physical Exam Vital Signs: Vital Signs: Last Vital Signs Temp 98.3 F 07/31/24 12:05 Pulse 94 07/31/24 12:05 Resp 16 07/31/24 12:05 BP 116/82 07/31/24 12:05 Pulse Ox 98 07/31/24 12:05 O2 Del Method Room Air 07/31/24 12:05 BMI result Body Mass Index 31.9 Course Course Course Narrative: This is a Rapid Medical Examination (RME) performed by Rashid Veloz PA-C in triage. Full HPI, ROS, assessment and treatment plan per primary provider in the Main ED. 23 yo female here for eval of fluid filled blisters to right bicep region beginning today, following nexplanon removal on 07/29. does not believe she is having a reaction to her bandaid as she has used these numerous times. did not trial any OTC meds prior to arrival. Reports allergy to latex however does not believe they were latex gloves when removing the Nexplanon. Reevaluation(s) Reevaluation #1: Patient left the emergency department before myself or any of the other clinicians could review or explain physical exam findings, test results, need or lack there of for additional testing, treatment options, or a treatment plan. Discharge Plan Discharge Clinical Impression: Allergic reaction Patient Disposition: Left W/O Completing Treatment Prescriptions: No Action ascorbic acid (vitamin C) [Vitamin C] 500 mg tablet 500 mg QAM Multi-Vitamin With Fluoride 0.5 mg tablet,chewable 1 tab PO QAM valacyclovir 1 gram Tablet 1,000 mg PO Q8H Qty: 15 0RF Eliquis 5 mg tablet See Rx Instructions .ROUTE .COMPLEX Qty: 74 0RF Rx Instructions: 10 mg (2 tabs) twice daily for 7 days, then 5 mg twice daily mupirocin 2 % ointment 1 appl topical TID Qty: 15 0RF Print Language: Uruguayan
== END 2024-07-31 13:14 | disposition left against medical advice (07) ==
LOC: HO.ED 12:55
PROVIDERS: Emergency Provider Emergency Medicine
DX: L50.0 Allergic urticaria (principal)
CPT/HCPCS: 99281

== ENCOUNTER 2024-08-22 22:07 | Emergency (ER) | payer MEDICAID, SELFPAY ==
[2024-08-22 22:15] VITALS: BP 110/63; PULSE 84; RESP 16; TEMP 36.3; O2SAT 98; BMI 34.8
[2024-08-22 22:30] LABS: IDNOW Serial# 08D9AD1C; Strep A Nucleic Acid Negative (Negative)
--- NOTE | 2024-08-22 22:49 | ED.GENADULT ---
HPI - General Adult General Chief complaint: General Medical Stated complaint: +strep throat antibiotics not working Time Seen by Provider: 08/22/24 22:49 History of Present Illness ED Provider: Floyd AYON narrative: The patient is a 23-year-old female who presents with a complaint of left-sided sore throat pain. She says that about 10 days ago she had what she considered a normal, bilateral sore throat. She went to an urgent care and was diagnosed with strep throat and was placed on penicillin. She says that the original discomfort she had has improved but she has subsequently developed sore throat pain and that is only on the left side of her throat and her neck. She has some pain with swallowing. Patient had a pulmonary embolism earlier this year. She had a positive CT pulmonary angiogram on 12/24/2023. She was placed on apixaban. This was felt to be a provoked pulmonary embolism. She had the PE after having had surgery. The patient recently stopped taking apixaban. Related Data Home Medications ?Medication ?Instructions ?Recorded ?Confirmed ascorbic acid (vitamin C) 500 mg 500 mg QAM 12/24/23 03/10/24 tablet (Vitamin C) pediatric multivitamin no.17 with 1 tab PO QAM 12/24/23 03/10/24 fluoride 0.5 mg chewable tablet (Multi-Vitamin With Fluoride) Previous Rx's ?Medication ?Instructions ?Recorded apixaban 5 mg tablet (Eliquis) See Rx Instructions .Route 12/26/23 .COMPLEX #74 tabs valacyclovir 1 gram tablet 1,000 mg PO Q8H #15 tabs 12/26/23 mupirocin 2 % topical ointment 1 appl topical TID #15 grams 03/23/24 amoxicillin 400 mg-potassium 10 ml PO BID 10 days #200 mL 08/22/24 clavulanate 57 mg/5 mL oral suspension ibuprofen 100 mg/5 mL oral 400 mg (20 mL) PO Q6H PRN pain 08/22/24 suspension #473 mL Allergies Allergy/AdvReac Type Severity Reaction Status Date / Time cinnamon [CINNAMON] Allergy Severe ANAPHYLAXIS Verified 08/22/24 22:17 oats [OATS] Allergy Severe ANAPHYLAXIS Verified 08/22/24 22:17 apple [APPLES] Allergy Intermediate ANGIOEDEMA Verified 08/22/24 22:17 Review of Systems Review of Systems: Yes all other systems are reviewed and are negative [facility] Past Medical History Medical History Miscarriage within last 12 months Migraines Migraines Depression Anxiety Family History Family History Father Chronic mental illness Mother CVD (cardiovascular disease) Chronic mental illness Family/Other Breast cancer Social History Social History Unable to assess alcohol history related to: Unknown Alcohol intake: unknown Patient Tobacco Use Status: Never used Tobacco Second Hand Smoke Exposure: No Use of substances other than those prescribed or required for medical reasons: Unknown Advance Directives: Yes Advance Directives on File: Yes Advance Directives Date on File: 12/25/23 Do you have a plan to hurt others: No Plan Patient : No service: No Physical Exam ED Vital Signs: Vital Signs - 24 hr 08/22/24 22:15 08/22/24 23:28 Temperature 97.4 F 97.9 F Pulse Rate 84 80 Respiratory Rate 16 16 Blood Pressure 110/63 111/76 Pulse Oximetry 98 99 Oxygen Delivery Method Room Air Room Air BMI result Body Mass Index 34.8 Const Other: The patient is awake and alert and does not seem in distress. There is no shortness of breath. She is tolerating her secretions. She does not have a hot potato voice. HENMT Other: Face is symmetrical. There is no trismus. The patient has large tonsils bilaterally. There may be a minimal fullness to the left soft palate but this is an equivocal finding. The uvula is midline. Tympanic membranes are normal bilaterally. Eyes General: appearance normal, both eyes and all related structures Neck Other: Some mild tenderness in the region of the left jugulodigastric lymph node. No definite palpable note however. Resp Effort & Inspection: normal respiratory effort Auscultation: clear to auscultation bilaterally Cardio Rate: regular rate Rhythm: regular rhythm Heart sounds: S1 normal heart sound present and S2 normal heart sound present Skin Other: Skin is pale and dry Neuro Other: The patient is awake and alert with a normal mental status. Cranial nerves are grossly intact. She moves her extremities normally. Extrem Other: No peripheral edema Medications Administered Discontinued Medications Generic Name Dose Route Start Last Admin Trade Name Freq PRN Reason Stop Dose Admin Amoxicillin/Clavulanate Potassium 875 mg 08/22/24 23:03 08/22/24 23:22 Amoxicillin/Potassium Clav 875 Mg Tablet PO 08/22/24 23:04 Not Given ONCE ONE Amoxicillin/Clavulanate Potassium 800 mg 08/22/24 23:26 08/22/24 23:49 Amoxicillin/Potassium Clav 4,000 Mg/50 Ml Susp.Recon PO 08/22/24 23:27 800 mg ONCE ONE Administration Ibuprofen 400 mg 08/22/24 23:05 08/22/24 23:22 Ibuprofen 400 Mg Tablet PO 08/22/24 23:06 Not Given ONCE ONE Ibuprofen 400 mg 08/22/24 23:25 08/22/24 23:49 Ibuprofen Oral Susp 200 Mg/10 Ml Oral.Susp PO 08/22/24 23:26 400 mg ONCE ONE Administration Medical Decision Making Medical Decision Making [facility] Narrative: The patient is a 23-year-old woman who says that she tested positive for strep throat approximately 10 days ago. She was prescribed penicillin. She says that although the original sore throat pain seems to have improved she now has a new left-sided sore throat pain. On exam there is no trismus. I do not feel she has a hot potato voice. She is tolerating her secretions well. Her overall clinical appearance is nontoxic. She has large tonsils bilaterally. There may be some minimal fullness of the left soft palate and she has tenderness in the region of the left jugulodigastric lymph node. Although I do not think she has a peritonsillar abscess it is not impossible she might have an early peritonsillar cellulitis. She will be started on a course of amoxicillin/clavulanate. She should return if worse. Lab Data Labs: Lab Results 08/22/24 Range/Units 22:17 Influenza Type A (PCR) NEGATIVE (Negative) Influenza Type B (PCR) NEGATIVE (Negative) RSV RNA Qual (PCR) NEGATIVE (Negative) SARS-CoV-2 RNA (RT-PCR) NEGATIVE (Negative) S. pyogenes GrpA CRISTI Negative (Negative) Discharge Plan Discharge Clinical Impression: Peritonsillar cellulitis Patient Disposition: Home, Self-Care Additional Instructions: You are being started on a course of a 2nd antibiotic, amoxicillin/clavulanate (also known as Augmentin). I think it is possible you might have a very mild complication of strep throat. You may have a mild case of peritonsillar cellulitis. Please take the antibiotic 2 times a day as prescribed. You may use ibuprofen and acetaminophen as needed for discomfort. Please follow up with your regular doctor's office in about a week. Return to the emergency room if you feel significantly worse. Prescriptions: New amoxicillin-pot clavulanate 400-57 mg/5 mL suspension for reconstitution 10 ml PO BID 10 Days Qty: 200 0RF ibuprofen 100 mg/5 mL suspension 400 mg PO Q6H PRN (Reason: pain) Qty: 473 0RF No Action ascorbic acid (vitamin C) [Vitamin C] 500 mg tablet 500 mg QAM Multi-Vitamin With Fluoride 0.5 mg tablet,chewable 1 tab PO QAM valacyclovir 1 gram Tablet 1,000 mg PO Q8H Qty: 15 0RF Eliquis 5 mg tablet See Rx Instructions .ROUTE .COMPLEX Qty: 74 0RF Rx Instructions: 10 mg (2 tabs) twice daily for 7 days, then 5 mg twice daily mupirocin 2 % ointment 1 appl topical TID Qty: 15 0RF Referrals: [facility] [Provider Group] (left sided sore throat, ? peritonsillar cellulitis) Print Language: Serbian
[2024-08-22 23:02] LABS: Influenza A PCR NEGATIVE (Negative); Influenza B PCR NEGATIVE (Negative); Resp Syncy Virus RNA Qual PCR NEGATIVE (Negative); SARS COV2 PCR INHOUSE NEGATIVE (Negative)
--- NOTE | 2024-08-22 23:22 | PC.NURSE ---
Patient refused Augmentin & Ibuprofen by tablet. States I can't swallow pills. Can you please ask the doctor to give me the liquid version of these medications? I spoke with Dr. Barrientos, who is modifying the medication orders to liquid concentration of these medications. Plan to discharge after medication administration.
[2024-08-22 23:28] VITALS: BP 111/76; PULSE 80; RESP 16; TEMP 36.6; O2SAT 99
[2024-08-22] MEDS: Ibuprofen Oral Susp 200 MG/10 ML ORAL.SUSP 400 MG PO (23:49)
[2024-08-22] MEDS: Amoxicillin/Potassium Clav 4,000 MG/50 ML SUSP.RECON 800 MG PO (23:49)
[2024-08-22 23:57] VITALS: BP 111/76; PULSE 80; RESP 16; TEMP 36.6; O2SAT 99
== END 2024-08-22 23:57 | disposition home or self-care (01) ==
PROVIDERS: Emergency Provider Emergency Medicine
DX: J36 Peritonsillar abscess (principal); Z03.818 Encounter for observation for suspected exposure to other biological agents ruled out; Z86.711 Personal history of pulmonary embolism
CPT/HCPCS: 0241U; 87651; 99283; 99284

== ENCOUNTER 2024-09-04 09:12 | Emergency (ER) | payer MEDICAID, SELFPAY ==
--- NOTE | ~2024-09-04 | CT_ITS ---
EXAMINATION: CT HEAD WITHOUT CONTRAST CLINICAL INFORMATION: Headache COMPARISON: 05/29/2024 TECHNIQUE: Contiguous axial imaging was performed from the skull base to vertex without intravenous administration of contrast. This CT examination was performed using dose optimization techniques as appropriate, variously including the following: *Automated exposure control *Adjustment of mA and/or kV according to patient size (this includes techniques or standardized protocols for targeted exams where dose is matched to indication/reason for exam; i.e. extremities or head) *Use of iterative reconstruction technique DLP: 562 mGy-cm FINDINGS: The ventricles and sulci are normal in size and configuration. No acute hemorrhage, mass effect or shift is evident. Noriega-white differentiation is maintained. In the posterior fossa, the brainstem, cerebellum and fourth ventricle image normally. Small cavum septum lucidum is again evident. The orbits and calvarium are intact. The paranasal sinuses and mastoid air cells are well pneumatized and clear. CT/CT head/brain wo IV con IMPRESSION: 1. Unremarkable noncontrast brain CT. No acute hemorrhage, mass effect or shift. No significant change since 05/29/2024. Electronically signed by: Anatoliy Gallego MD 09/04/2024 01:16 PM [facility]
[2024-09-04 09:24] VITALS: BP 127/83; PULSE 81; RESP 16; TEMP 36.1; O2SAT 98; BMI 36.8
--- NOTE | 2024-09-04 09:27 | ECG_ITS ---
Test Reason : HEADACHE Blood Pressure : / mmHG Vent. Rate : 075 BPM Atrial Rate : 075 BPM P-R Int : 138 ms QRS Dur : 088 ms QT Int : 388 ms P-R-T Axes : 017 036 016 degrees QTc Int : 433 ms Normal sinus rhythm with sinus arrhythmia Normal ECG When compared with ECG of 06-JUN-2024 19:32, No significant change was found Referred By: Generic ED Physician Electronically Signed By:Regan Erwin
--- NOTE | 2024-09-04 11:43 | ED.GENADULT ---
HPI - General Adult General Chief complaint: Headache Stated complaint: Headache/Dizziness Time Seen by Provider: 09/04/24 12:29 Source: patient Mode of arrival: ambulatory Limitations: no limitations History of Present Illness ED Provider: Dr. Lopez Tucker HPI narrative: 23-year-old female with a history of depression, anxiety, migraines, pulmonary embolism-provoked by cosmetic surgery completed 6 month course of Eliquis who presents emergency department for evaluation of headache x6 days. The patient states 6 days prior she woke up with a headache. She states the pain is located in the back of her head and she describes it as a pressure-like pain. The pain is been mainly constant with some brief relief with Tylenol. She states she took Excedrin migraine but the caffeine and Excedrin migraine made her anxious and did not relieve her pain. Patient states she was associated nausea and vomiting with her headache. She was had dimming of her vision and tunnel vision as well. She states that sometimes when she gets up she off balance. The patient does have a migraine syndrome but states that this headache is different than her normal migraine headaches. She denied fever, chills. She states she was chronic chest pain. She denied shortness of breath or dyspnea on exertion. Related Data Home Medications ?Medication ?Instructions ?Recorded ?Confirmed ascorbic acid (vitamin C) 500 mg 500 mg QAM 12/24/23 03/10/24 tablet (Vitamin C) pediatric multivitamin no.17 with 1 tab PO QAM 12/24/23 03/10/24 fluoride 0.5 mg chewable tablet (Multi-Vitamin With Fluoride) Previous Rx's ?Medication ?Instructions ?Recorded apixaban 5 mg tablet (Eliquis) See Rx Instructions .Route 12/26/23 .COMPLEX #74 tabs valacyclovir 1 gram tablet 1,000 mg PO Q8H #15 tabs 12/26/23 mupirocin 2 % topical ointment 1 appl topical TID #15 grams 03/23/24 amoxicillin 400 mg-potassium 10 ml PO BID 10 days #200 mL 08/22/24 clavulanate 57 mg/5 mL oral suspension ibuprofen 100 mg/5 mL oral 400 mg (20 mL) PO Q6H PRN pain 08/22/24 suspension #473 mL Allergies Allergy/AdvReac Type Severity Reaction Status Date / Time cinnamon [CINNAMON] Allergy Severe ANAPHYLAXIS Verified 09/04/24 09:26 oats [OATS] Allergy Severe ANAPHYLAXIS Verified 09/04/24 09:26 apple [APPLES] Allergy Intermediate ANGIOEDEMA Verified 09/04/24 09:26 Review of Systems Review of Systems: Yes all other systems are reviewed and are negative [facility] Past Medical History [facility] Narrative: Social history: The patient states she quit smoking cigarettes 1 year prior. She denies alcohol use. She denies drug use. Medical History Miscarriage within last 12 months Migraines Migraines Depression Anxiety Family History Family History Father Chronic mental illness Mother CVD (cardiovascular disease) Chronic mental illness Family/Other Breast cancer Social History Social History Unable to assess alcohol history related to: Unknown Alcohol intake: unknown Patient Tobacco Use Status: Never used Tobacco Second Hand Smoke Exposure: No Advance Directives: Yes Advance Directives on File: Yes Advance Directives Date on File: 12/25/23 service: No Physical Exam ED Vital Signs: Vital Signs - 24 hr 09/04/24 09:24 09/04/24 11:44 Temperature 96.9 F 97.4 F Pulse Rate 81 71 Respiratory Rate 16 16 Blood Pressure 127/83 120/73 Pulse Oximetry 98 98 Oxygen Delivery Method Room Air Room Air BMI result Body Mass Index 36.8 Vital signs were normal Exam: General: Awake, alert in no distress Head: Normocephalic, atraumatic EENT: PERRL, Lids normal, sclera normal, conjunctiva normal, nose normal , ears normal, throat without erythema or exudates Neck: Supple, no adenopathy Lung: breath sounds symmetric, no wheezing, rales or rhonchi Chest: symmetric movement, nontender Heart: regular rate and rhythm, normal S1, S2 no murmurs or rubs Abdomen: soft, non-tender, nondistended, normal bowel sounds Back: no vertebral tenderness, no CVAT Extremities: no deformities, moves all extremities symmetrically Neuro: General: Awake, alert, oriented, normal speech Cranial nerves: cranial nerves intact Strength: Normal, symmetric strength, can hold all extremities up against gravity without difficulty and no drift Cerebellar: Good yzdzvu-gv-hgvw-to-finger, good rapid finger movement, normal heel to graves Psych: Pleasant, cooperative Course Course Course Narrative: This is an RME done by LILIA Chandler: Additional HPI, ROS, PE not included below will be deferred to primary provider. 23 yo f hx of pe recently stoped eliquis ( 2 months ago) presenting w/ dizziness and the worst headache of her life. Hx of migranes but this feels different. LKWT 6 days ago. Denies head trauma, fevers, chills, neck pain, cp, sob Plan- labs, head ct, ekg Appearance: Alert.? Oriented X3.? No acute cardiopulmonary distress distress.? Head: Normocephalic, atraumatic, no step-offs or deformities? CVS: Pulses normal.? Respiratory: No respiratory distress.? Abdomen: Soft and nontender.? Skin: ? Normal skin color. Extremities: 5/5 strength to bilateral upper and lower extremities Neuro: Oriented X 3.? No motor deficit.? No sensory deficit. Medical Decision Making Medical Decision Making MDM Narrative: 23-year-old female with a history of depression, anxiety, migraines, pulmonary embolism-provoked by cosmetic surgery completed 6 month course of Eliquis who presents emergency department for evaluation of headache x6 days. Patient does have a migraine syndrome but this headache is different than her usual migraine syndrome . The patient's does have associated nausea, vomiting, tunnel vision, dim vision and feeling off balance. Vital signs were normal. Physical examination was normal cerebellar exam Differential diagnosis: ?Includes but is not limited to intracranial bleed, subarachnoid hemorrhage, subdural hemorrhage, stroke, giant cell arteritis, meningitis,, electrolyte abnormality Following evaluation was ordered: CBC, CMP, magnesium, quantitative beta-hCG, urinalysis, EKG, CT scan of the brain without IV contrast Course: 13:44 My independent interpretation patient's laboratory evaluation is as follows: CBC was normal. CMP was normal. Quantitative beta-hCG was negative. Urinalysis was negative. Magnesium was normal. Patient's CT scan of the brain revealed no acute findings which she was reassuring. The patient does not want any medications for her headache given in the emergency department at this time since she had akathisiain the past. Patient was instructed to take Tylenol 1000 mg, ibuprofen 400 mg and Benadryl 50 mg every 6 hours as needed for her headaches. She was given printed and verbal instructions and discharged home Admission/Observation Consideration of admission/observation: Escalation of care including admission/observation considered (Yes) Lab Data MDM Lab Attestation statement: I reviewed the patient's lab results. 09/04/24 11:52 09/04/24 11:52 Labs: Lab Results 09/04/24 09/04/24 09/04/24 Range/Units 11:52 11:53 11:56 WBC 7.2 (4.8-10.8) X10*3/uL RBC 4.77 (4.20-5.50) X10*6/uL Hgb 12.9 (12.0-16.0) g/dl Hct 39.6 (37.0-47.0) % MCV 83.0 (80.0-98.0) fL MCH 27.0 (27.0-33.0) pg MCHC 32.6 (31.0-35.0) g/dl RDW 14.1 (11.0-16.0) % Plt Count 351 (160-400) X10*3/uL MPV 9.9 (9.4-12.3) fL Immature Gran % (Auto) 0.3 (0.0-0.4) % Neut % (Auto) 62.4 (45-73) % Lymph % (Auto) 29.6 (20-40) % [place] % (Auto) 6.3 (2-11) % Eos % (Auto) 1.0 (0-4) % Baso % (Auto) 0.4 (0-2) % Lymph # (Auto) 2.1 (1.2-4.9) X10*3/uL [place] # (Auto) 0.5 (0.1-1.2) X10*3/uL Eos # (Auto) 0.1 (0.0-0.4) X10*3/uL Baso # (Auto) 0.0 (0.0-0.2) X10*3/uL Abs Immat Gran (auto) 0.02 (0.00-0.03) X10*3/uL Absolute Neuts (auto) 4.5 (2.0-8.3) x10*3/uL Absolute Nucleated RBC 0.000 (0.0-0.012) X10*3/uL Nucleated RBC % (auto) 0.0 (0.0-0.2) /100WBC PT 12.6 H (10.9-12.4) SEC INR 1.1 (0.9-1.1) Sodium 141 (135-145) mmol/L Potassium 4.0 (3.3-5.1) mmol/L Chloride 108 (96-108) mmol/L Carbon Dioxide 25 (22-29) mmol/L Anion Gap 12 (12-20) BUN 15 (9-16) mg/dL Creatinine 0.64 (0.5-1.4) mg/dL Estim Creat Clear Calc 153.3 Estimated GFR > 60 Random Glucose 94 (60-115) mg/dL Calcium 9.9 (8.4-10.2) mg/dL Magnesium 1.9 (1.6-2.6) mg/dL Total Bilirubin 0.4 (0.0-1.0) mg/dL AST 18 (5-31) U/L ALT 20 (0-31) U/L Alkaline Phosphatase 84 (39-117) U/L Total Protein 7.8 (6.5-8.0) g/dL Albumin 4.4 (3.5-5.0) g/dL Beta HCG, Quant < 2 mIU/mL Urine Color Yellow Urine Appearance Clear Urine pH 5.5 (5.0-9.0) Ur Specific [place] >= 1.030 H (1.005-1.025) Urine Protein Negative (Neg-Trace) mg/dL Urine Glucose (UA) Negative (Negative) mg/dL Urine Ketones Negative (Negative) mg/dL Urine Blood Negative (Negative) Urine Nitrite Negative (Negative) Ur Leukocyte Esterase Negative (Negative) Independent Interpretation I performed an independent interpretation of an: EKG Interpretation: My interpretation patient's 12 EKG done at 09:27 hours is as follows: Normal sinus rhythm rate of 75, normal NV interval, QRS duration and QTC interval, inverted T-waves in lead 3 and V1, no ST segment elevation, no ST segment depression, no PACs, no PVCs. This is a normal EKG. Radiology Impression Discussion of test interpretation with radiology: I have reviewed the radiologist's reading. Radiologist Impression: CT head/brain wo IV con IMPRESSION: 1. Unremarkable noncontrast brain CT. No acute hemorrhage, mass effect or shift. No significant change since 05/29/2024. Electronically signed by: Anatoliy Gallego MD 09/04/2024 01:16 PM EST Chronic Conditions Patient?s care impacted by: Other (Depression, anxiety, migraine syndrome) Discharge Plan Discharge Clinical Impression: Migraine syndrome Patient Disposition: Home, Self-Care Instructions: Migraine Headache (ED) Additional Instructions: Your blood work was normal. The CT scan of your brain was unremarkable which is reassuring. Your symptoms are consistent with a migraine headache even though your symptoms are different than your usual migraine headaches symptoms. Take the following 3 medications together every 6 hours as needed for headache, nausea or vomiting. Ibuprofen 200 mg pills, 2 pills orally Extra-strength Tylenol (acetaminophen) 500 mg, 2 pills orally Benadry (diphenhydramine) l 25 mg, 2 pills After you take these medications, lie down in a dark quiet room and try to fall asleep. ?These medications will make you sleepy, do not drive or work after taking these medications. Follow-up with your doctor in 2 days. Please return to the emergency department if your symptoms get worse or if you develop any symptoms that are concerning to you. Prescriptions: No Action amoxicillin-pot clavulanate 400-57 mg/5 mL suspension for reconstitution 10 ml PO BID 10 Days Qty: 200 0RF ibuprofen 100 mg/5 mL suspension 400 mg PO Q6H PRN (Reason: pain) Qty: 473 0RF ascorbic acid (vitamin C) [Vitamin C] 500 mg tablet 500 mg QAM Multi-Vitamin With Fluoride 0.5 mg tablet,chewable 1 tab PO QAM valacyclovir 1 gram Tablet 1,000 mg PO Q8H Qty: 15 0RF Eliquis 5 mg tablet See Rx Instructions .ROUTE .COMPLEX Qty: 74 0RF Rx Instructions: 10 mg (2 tabs) twice daily for 7 days, then 5 mg twice daily mupirocin 2 % ointment 1 appl topical TID Qty: 15 0RF Print Language: Romansh
[2024-09-04 11:44] VITALS: BP 120/73; PULSE 71; RESP 16; TEMP 36.3; O2SAT 98
[2024-09-04 12:00] LABS: MANUAL DIFF FLAG NO
[2024-09-04 12:02] LABS: Basophils Percent Auto 0.4 % (0-2); Eosinophils Absolute Auto 0.1 X10*3/uL (0.0-0.4); Hematocrit 39.6 % (37.0-47.0); Hemoglobin 12.9 g/dl (12.0-16.0); Imm Gran Abs Auto 0.02 X10*3/uL (0.00-0.03); Imm Gran Pct Auto 0.3 % (0.0-0.4); Lymphocytes Absolute Auto 2.1 X10*3/uL (1.2-4.9); Lymphocytes Percent Auto 29.6 % (20-40); Mean Corpuscular HGB Conc 32.6 g/dl (31.0-35.0); Mean Platelet Volume 9.9 fL (9.4-12.3); Monocytes Absolute Auto 0.5 X10*3/uL (0.1-1.2); Monocytes Percent Auto 6.3 % (2-11); Neutrophils Absolute Auto 4.5 x10*3/uL (2.0-8.3); Neutrophils Percent Auto 62.4 % (45-73); Platelet Count 351 X10*3/uL (160-400); Red Blood Count 4.77 X10*6/uL (4.20-5.50); Red Cell Distribution Width 14.1 % (11.0-16.0); White Blood Count 7.2 X10*3/uL (4.8-10.8)
[2024-09-04 12:03] LABS: Appearance Urine Clear; Color Urine Yellow; Glucose Urine UA Negative (Negative); Leukocyte Esterase Urine Negative (Negative); Nitrite Urine Negative (Negative); PH 5.5 (5.0-9.0); Specific Gravity - Urine >= 1.030 (1.005-1.025); Urine Blood Negative (Negative); Urine Ketones Negative (Negative); Urine Protein Negative (Neg-Trace)
[2024-09-04 12:21] LABS: Alanine Aminotransferase 20 U/L (0-31); Albumin Level 4.4 g/dL (3.5-5.0); Alkaline Phosphatase 84 U/L (39-117); Anion Gap 12 (12-20); Aspartate Amino Transferase 18 U/L (5-31); Bilirubin Total 0.4 mg/dL (0.0-1.0); Blood Urea Nitrogen 15 mg/dL (9-16); Calcium 9.9 mg/dL (8.4-10.2); Carbon Dioxide 25 mmol/L (22-29); Chloride 108 mmol/L (96-108); Creatinine Clr Calc Pharmacy 153.3; Estimated Glomerular Filt Rate > 60; Glucose Random 94 mg/dL (60-115); Magnesium 1.9 mg/dL (1.6-2.6); Sodium 141 mmol/L (135-145); Total Protein 7.8 g/dL (6.5-8.0)
[2024-09-04 12:24] LABS: HCG Quantitative < 2 mIU/mL
[2024-09-04 12:26] LABS: INTERNATIONAL NORM RATIO 1.1 (0.9-1.1); Prothrombin Time 12.6 SEC (10.9-12.4)
[2024-09-04 14:12] VITALS: BP 112/57; PULSE 75; RESP 16; TEMP 37.1; O2SAT 98
== END 2024-09-04 14:13 | disposition home or self-care (01) ==
PROVIDERS: Physician Assistant; Emergency Provider Emergency Medicine Emergency Medical Services
DX: G43.909 Migraine, unspecified, not intractable, without status migrainosus (principal)
CPT/HCPCS: 36415; 70450; 80053; 81003; 83735; 84702; 85025; 85610; 93005; 99284

== ENCOUNTER → 2024-09-04 09:27 | Outpatient (BNV) | payer MEDICAID, SELFPAY | PROVIDERS: Emergency Provider Emergency Medicine Emergency Medical Services; Visit Provider Internal Medicine Cardiovascular Disease | DX: I49.9 Cardiac arrhythmia, unspecified (principal) | CPT/HCPCS: 93010 ==

== ENCOUNTER 2024-09-08 10:44 | Outpatient (REF) | payer MEDICAID, SELFPAY ==
[2024-09-08 11:42] LABS: MANUAL DIFF FLAG NO
[2024-09-08 11:59] LABS: Basophils Percent Auto 0.5 % (0-2); Eosinophils Absolute Auto 0.1 X10*3/uL (0.0-0.4); Eosinophils Percent Auto 1.3 % (0-4); Hematocrit 38.5 % (37.0-47.0); Hemoglobin 12.3 g/dl (12.0-16.0); Imm Gran Abs Auto 0.02 X10*3/uL (0.00-0.03); Imm Gran Pct Auto 0.3 % (0.0-0.4); Lymphocytes Percent Auto 26.2 % (20-40); Mean Corpuscular HGB Conc 31.9 g/dl (31.0-35.0); Mean Corpuscular Hemoglobin 26.8 pg (27.0-33.0); Mean Corpuscular Volume 83.9 fL (80.0-98.0); Mean Platelet Volume 10.8 fL (9.4-12.3); Monocytes Absolute Auto 0.5 X10*3/uL (0.1-1.2); Monocytes Percent Auto 7.2 % (2-11); Neutrophils Absolute Auto 4.8 x10*3/uL (2.0-8.3); Neutrophils Percent Auto 64.5 % (45-73); Platelet Count 331 X10*3/uL (160-400); Red Blood Count 4.59 X10*6/uL (4.20-5.50); Red Cell Distribution Width 14.2 % (11.0-16.0); White Blood Count 7.5 X10*3/uL (4.8-10.8)
[2024-09-08 12:37] LABS: HCG Quantitative < 2 mIU/mL
== END 2024-09-08 10:45 | disposition home or self-care (01) ==
LOC: HO.HHCL 10:44
PROVIDERS: Family Medicine; Visit Provider Internal Medicine Geriatric Medicine
DX: Z32.00 Encounter for pregnancy test, result unknown (principal); D64.9 Anemia, unspecified
CPT/HCPCS: 36415; 84702; 85025

== ENCOUNTER 2024-10-15 10:38 | Outpatient (REF) | payer MEDICAID, SELFPAY ==
[2024-10-15 12:27] LABS: HCG Quantitative < 2 mIU/mL
== END 2024-10-15 10:39 | disposition home or self-care (01) ==
LOC: HO.HHCL 10:38
PROVIDERS: Visit Provider Family Medicine
DX: Z72.51 High risk heterosexual behavior (principal)
CPT/HCPCS: 36415; 84702

== ENCOUNTER 2024-10-27 13:06 | Outpatient (REF) | payer MEDICAID, SELFPAY ==
--- OUTSIDE RECORDS SUMMARY | 2024-10-27 14:03 | XMS_ITS | Encounter Summary ---
Demographics Address [address] [place] [address] Mobile Phone Home Phone Email Address Preferred Language en Marital Status Single Sikhism Affiliation Unknown Race White Ethnic Group or Author Organization [employer] Address [address] 7t [place] [address] Care Team Providers Care Intake Man Name Role Phone Jeanine Smith MD Primary Care Provider Reason for Visit * Reason Onset Date Comments Med Refill 10/25/2024 Encounter Details Date Type Department Care Team ([facility] st Contact Info) Description 10/25/2024 Refill [facility] MED & PEDS [address] [place] [address] Jeanine Smith MD [address] [place] [address] Social History Tobacco Use Types Packs/Day Years Used Date Smoking Tobacco: Never Passive Smoke Exposure: Never Smokeless Tobacco: Never Alcohol Use Standard Drinks/Week Comments Never 0 (1 standard drink = 0.6 oz pur e alcohol) Depression Answer Date Recorded Patient Health Questionnaire-9 Score 15 06/30/2024 Patient Health Questionnaire-9 Score 15 06/30/2024 Last PHQ-9: Questionnaire Data Not on file 1 Housing Stability Answer Date Recorded What is your housing situation today? I have aristeo willams 10/03/[address] you li ve. Do you have problems with any of the following? None of the above 10/03/2023 Food Insecurity Answer Date Recorded Within the past 12 months, y ou worried that your food would run out before you got money to buy more: Never True 10/03/2023 Within the past 12 months,th e food you bought just didn't last and you didn't have enough money to get more: Never True 12/2023 Transportation Answer Date Recorded In the past 12 months, has l ack of transportation kept you from medical appts, meetings, work or from getting things needed for daily living? No 10/03/2023 Utilities Answer Date Recorded In the past 12 months, has t he electric, gas, oil or water company threatened to shut off services in your home? No 10/03/2023 Depression Answer Date Recorded Patient Health Questionnaire-2 Score 3 06/30/2024 Comments No Sex and Gender Information Value Date Recorded Sex Assigned at Female 05/16/2023 1:26 PM EDT Legal Sex Female 1:25 PM EDT Gender Identity Female 05/16/2023 1:26 PM EDT Sexual Orientation Straight 11/19/2023 8: 38 AM EST documented as of this encounter Plan of Treatment Upcoming Encounters Date Type Department Care Team (Late st Contact Info) Description 10/29/2024 10:00 AM EST Office Visit [facility] [address] [place] [address] Sharron Pace CNM [address] [place] [address] documented as of this encounter Visit Diagnoses Not on filedocumented in this encounter Additional Health Concerns Assessment Noted Time PHQ-9 Depression Total Score: 15 024 2:35 PM EDT documented as of this encounter Care Teams Intake Man Relationship Specialty Start Date End Date Jeanine Smith MD [address] [place] [address] PCP - General Internal Medicine 03/04/24 [facility] Consulting Physician Obstetrics and Gynecology 09/30/23 documented as of this encounter
--- OUTSIDE RECORDS SUMMARY | 2024-10-27 14:03 | XMS_ITS | Encounter Summary ---
Author Organization [employer] Address [address] 7t [place] [address] Care Team Providers Care Finance Administrator Name Role Phone Jeanine Smith MD Primary Care Provider [phone] Encounter Details Date Type Department Care Team (Late st Contact Info) Description 03/05/2024 Orders Only [facility] MED & PEDS [address] [place], [place] [phone] Jeanine Smith MD [address] [place], [place] [phone] Single subsegmental pulmonary embolism without acute cor pulmonale (CMS/HCC) Social History Tobacco Use Types Packs/Day Years Used Date Smoking Tobacco: Never Smokeless Tobacco: Never Housing Stability Answer Date Recorded What is [...] off services in your home? No 10/03/2023 Comments Unknown Sex and Gender Information Value Date Recorded Sex Assigned at Female 05/16/2023 1:26 PM EDT Legal Sex Female 1:25 PM EDT Gender Identity Female 05/16/2023 1:26 PM EDT Sexual Orientation Straight 11/19/2023 8: 38 AM EST documented as of this encounter Plan of Treatment Upcoming Encounters Date Type Department Care Team (Late st Contact Info) Description 10/29/2024 10:00 AM EST Office Visit [facility] [address] [place], [place] [phone] Sharron Pace CNM [address] [place] [address] documented as of this encounter Visit Diagnoses Diagnosis Single subsegmental pulmonary embolism without acute cor pulmonale (CMS/HCC) documented in this encounter Care Teams Finance Administrator Relationship Specialty Start Date End Date Jeanine Smith MD [address] [place] [address] PCP - General Internal Medicine 03/04/24 [facility] Consulting Physician Obstetrics and Gynecology 09/30/23 documented as of this encounter
--- OUTSIDE RECORDS SUMMARY | 2024-10-27 14:03 | XMS_ITS | Encounter Summary ---
Author Organization [employer] Address [address] 7t [place] [address] Care Team Providers Care Weapons System Instrument Mechanic Name Role Phone Jeanine Smith MD Primary Care Provider Encounter Details Date Type Department Care Team (Late st Contact Info) Description 10/16/2024 Telephone [facility] CHC MED & PEDS [address] [place], [place] [phone] Jeanine Smith MD 505 [place] [address] Social History Tobacco Use Types Packs/Day Years [...] AM EST documented as of this encounter Miscellaneous Notes * Telephone Encounter - Yolanda Coto RN - 10/21/2024 11:09 AM EST Tc from pt requesting a letter to be able to tint her car window due to migraine history. PER [facility] needs clinical diagnoises that would cause photophobia migraines is not listed. Provider need to sign off that it can not be corrected by effective polarized tinted sun eye wear. 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 * Telephone Encounter - Rosibel Sparks - 10/16/2024 8:52 AM EST Tc from pt requesting a letter to be able to tint her car window due to migraine history. documented in this encounter Plan of Treatment Upcoming Encounters Date Type Department Care Team (Late st Contact Info) Description 10/29/2024 10:00 AM EST Office Visit [facility] [address] [place] [address] Sharron Pace, EDWARD [address] [place] [address] documented as of this encounter Visit Diagnoses Not on filedocumented in this encounter Additional Health Concerns Assessment Noted Time PHQ-9 Depression Total Score: 15 024 2:35 PM EDT documented as of this encounter Care Teams Weapons System Instrument Mechanic Relationship Specialty Start Date End Date Jeanine Smith MD [address] [place] [address] PCP - General Internal Medicine 03/04/24 [facility] Consulting Physician Obstetrics and Gynecology 09/30/23 documented as of this encounter
--- OUTSIDE RECORDS SUMMARY | 2024-10-27 14:03 | XMS_ITS | Encounter Summary ---
Author Organization [employer] [facility] Address [address] 7t [place] [address] Care Team Providers Care Passenger Elevator Operator Name Role Phone Jeanine Smith MD Primary Care Provider [phone] Encounter Details Date Type Department Care Team (Latest Contact Info) Description 10/15/2024 Travel Social History Tobacco Use Types Packs/Day Years [...] Description 10/29/2024 10:00 AM EST Office Visit [facility] [address] [place], [place] [phone] Sharron Pace CNM [address] [place] [address] documented as of this encounter Visit Diagnoses Not on filedocumented in this encounter Additional Health Concerns Assessment Noted Time PHQ-9 Depression Total Score: 15 024 2:35 PM EDT documented as of this encounter Care Teams Passenger Elevator Operator Relationship Specialty Start Date End Date Jeanine Smith MD [address] [place] [address] PCP - General Internal Medicine 03/04/24 [facility] Consulting Physician Obstetrics and Gynecology 09/30/23 documented as of this encounter
--- OUTSIDE RECORDS SUMMARY | 2024-10-27 14:03 | XMS_ITS | Encounter Summary ---
Author Organization [employer] Address [address] 7[address] [place] [address] Care Team Providers Care Pickling Tank Operator Name Role Phone Aster White MD Primary Care Provider [phone] Jeanine Smiht MD Primary Care Provider [phone] Encounter Details Date Type Department Care Team ([facility] st Contact Info) Description 02/05/2024 Telephone [facility]INE [address] [place] [address] Aster White MD [address] [place], [place] [phone] Social History Tobacco Use Types Packs/Day Years Used Date Smoking Tobacco: Never Smokeless Tobacco: Never Housing Stability Answer Date Recorded What is your housing situation today? I have aristeo imer 10/03/[address] you li [...] 10:00 AM EST Office Visit [facility] [address] [place] [address] Sharron Pace CNM [address] [place] [address] documented as of this encounter Visit Diagnoses Not on filedocumented in this encounter Care Teams Pickling Tank Operator Relationship Specialty Start Date End Date Aster White MD 230 [place] [address] PCP - General Family Medicine 10/10/23 03/03/24 Jeanine Smith MD [address] [place] [address] PCP - General Internal Medicine 03/04/24 [facility] Consulting Physician Obstetrics and Gynecology 09/30/23 documented as of this encounter
--- OUTSIDE RECORDS SUMMARY | 2024-10-27 14:03 | XMS_ITS | Encounter Summary ---
Author Organization [employer] Address [address] 7[address] [place] [address] Care Team Providers Care Inspector And Unloader Name Role Phone Jeanine Smith MD Primary Care Provider Encounter Details Date Type Department Care Team (Late st Contact Info) Description 10/26/2024 Orders Only [facility] MED & PEDS [address] [place], [place] [phone] Jeanine Smith MD 505 [place] [address] Social History Tobacco Use Types Packs/Day Years [...] Description 10/29/2024 10:00 AM EST Office Visit [facility] [address] [place], [place] [phone] Sharron Pace CNM [address] [place] [address] documented as of this encounter Visit Diagnoses Not on filedocumented in this encounter Additional Health Concerns Assessment Noted Time PHQ-9 Depression Total Score: 15 024 2:35 PM EDT documented as of this encounter Care Teams Inspector And Unloader Relationship Specialty Start Date End Date Jeanine Smith MD [address] [place] [address] PCP - General Internal Medicine 03/04/24 [facility] Consulting Physician Obstetrics and Gynecology 09/30/23 documented as of this encounter
--- OUTSIDE RECORDS SUMMARY | 2024-10-27 14:03 | XMS_ITS | Encounter Summary ---
Author Organization [employer] [facility] Address [address] [facility] [address] 7t [place] [address] Care Team Providers Care Theatrical Trouper Name Role Phone Jeanine Smith MD Primary Care Provider Reason for Visit * Reason Comments Sore Throat Encounter Details Date Type Department Care Team ([facility] st Contact Info) Description 10/15/2024 10:00 AM EST Office Visit [facility] [address] [place], [place] [phone] Mart Briscoe MD [address] [place] [address] Unprotected sexual intercourse (Primary Dx); Sore throat; Nausea Social History Tobacco Use Types Packs/Day Years [...] AM EST documented as of this encounter Last Filed Vital Signs Vital Sign Reading Time Taken Comments Blood Pressure 123/83 10/15/2024 10:08 AM EST Pulse 90 10/15/2024 10:08 AM EST Temperature 36.6 ??C (97.9 ??F) 10/15/2024 10:[address] Respiratory Rate 16 10/15/2024 10:08 AM EST Oxygen Saturation 99% 10/15/2024 10:08 AM EST Inhaled Oxygen Concentration - - Weight 92.1 kg (203 lb) 10/15/2024 10:08 AM EST Height - - Body Mass Index 34.84 09/02/2024 5:57 PM EST documented in this encounter Progress Notes * Mart Briscoe MD - 10/15/2024 10:00 AM EST Subjective History was provided by the patient. Paolo Quintana is a 24 y.o. female who presents for evaluation of dry throat and acid reflux. Denies congestion or rhinorrhea. Denies cough. Denies F/C/N/V/D. Denies tobacco or alcohol use. But admits to late night eating prior to bedtime. There was a concern from a pharmacist about her frequent use of Plan B. Currently not on any maintenance control method. Patient states she is nowplanning to conceive. Has a monogamous male partner of 5 years. States she is no longer pursuing Plan B or control. Her LMP was 4 weeks ago. Also had [facility]. Was told all negative results. Objective Vitals: 10/15/24 1008 BP: 123/83 BP Location: Right arm Patient Position: Sitting BP Cuff Size: Adult Pulse: 90 Resp: 16 Temp: 97.9 ??F (36.6 ??C) TempSrc: Temporal SpO2: 99% Weight: 203 lb (92.1 kg) Physical Exam Office Visit on 10/15/2024 Component Date Value Ref Range Status Influenza A 10/15/2024 Negative Negative, Indeterminate Final Influenza B 10/15/2024 Negative Negative, Indeterminate Final Rapid COVID Ag 10/15/2024 Negative Final Rapid Strep A Screen 10/15/2024 Negative Negative, None Detected Final Preg Test, Ur 10/15/2024 Negative Negative, Indeterminate, None Detected, Invalid, Specimen unsatisfactory for evaluation, Weakly Positive Final HCG Quantitative 10/15/2024 <2 mIU/mL Final Weeks post LMP Approximate hCG(Last Menstrual Period) Range (mIU/ml)3 - 4 weeks 9 - 1304 - 5 weeks 75 - 2,6005 - 6 weeks 850 - 20,8006 - 7 weeks 4000 - 100,2007 - 12 weeks 11,500 - 289,41617 - 16 weeks 18,300 - 137,68810 - 29 weeks (2nd trimester) 1,400 - 53,32943 - 41 weeks (3rd trimester) 940 - 60,000The Meza B-hCG assay is used for the early detection ofpregnancy; it cannot be used to diagnose any conditionunrelated to . If a B-hCG level is not supportedby the clinical evidence, results should be confirmed by analternative method (qualitative urine hCG, for example). Paolo was seen today for sore throat. Diagnoses and all orders for this visit: Unprotected sexual intercourse (Primary) - hCG, Total, Quantitative; Future Sore throat - Influenza A (ID NOW Rapid Molecular) - Influenza B (ID NOW Rapid Molecular) - POCT Rapid COVID Ag - POCT rapid strep A manually resulted Nausea - POCT , urine manually resulted Patient presents to [facility] due to dry throat and acid reflux symptoms Rapid COVID-19, Influenza A/B, and Strep tests all negative today Patient prefers to not take any Tums, H2 lorie, or PPI for her GERD Discussed lifestyle modification and GERD precautions Encouraged to avoid late night eating Urine test negative today; patient also requesting a serum HCG Discussed about PNV (prefers to purchase OTC) Indications for UC/ER use reviewed Advised to contact the clinic if any persistent or worsening symptoms documented in this encounter Plan of Treatment Upcoming Encounters Date Type Department Care Team (Late st Contact Info) Description 10/29/2024 10:00 AM EST Office Visit [facility] [address] [place], [place] [phone] Sharron Pace CNM [address] [place], [place] [phone] documented as of this encounter Procedures Procedure Name Priority Date/Time Associated Diagnosis Comments HCG, TOTAL, QN Routine 10/15/2024 10:42 AM EST Unprotected sexual intercourse POCT INFLUENZA B (ID NOW RAPID MOLECULAR) Routine 10/15/2024 10:22 AM EST Sore throat POCT INFLUENZA A (ID NOW RAPID MOLECULAR) Routine 10/15/2024 10:22 AM EST Sore throat POCT , URINE Routine 10/15/2024 10:17 AM EST Nausea POCT RAPID COVID ANTIGEN Routine 10/15/2024 10:12 AM EST Sore throat POCT RAPID STREP A Routine 10/15/2024 10 :12 AM EST Sore throat documented in this encounter Results * hCG, Total, Quantitative (10/15/2024 10:42 AM EST) HCG Quantitative <2 mIU/mL [facility] Comment:Weeks post LMP Appro ximate hCG(Last Menstrual Period) Range (mIU/ml)3 - 4 weeks 9 - 1304 - 5 weeks 75 - 2,6005 - 6 weeks 850 - 20,8006 - 7 weeks 4000 - 100,2007 - 12 weeks 11,500 - 289,37992 - 16 weeks 18,300 - 137,50782 - 29 weeks (2nd trimester) 1,400 - 53,90442 - 41 weeks (3rd trimester) 940 - 60,000The Meza B- hCG assay is used for the early detection ofpregnancy; it cannot be used to diagnose any conditionunrelated to . If a B-hCG level is not supportedby the clinical evidence, results should be confirmed by analternative method (qualitative urine hCG, for example). Blood Venous blood specimen / Unknown 10/15/2024 10:42 AM EST 10/15/2024 11:12 AM EST us Mart Briscoe MD LAB BLOOD ORDERABLES Final Resul t Performing Organization Address [facility] Co de Phone Number [facility] [address] [place] [phone] * Influenza B (ID NOW Rapid Molecular) (10/15/2024 10:22 AM EST) Pathologist [facility] Influenza B Negative Negative, Indeterminate [facility] Swab 10/15/2024 10:2 2 AM EST us Mart Briscoe MD POINT OF CARE TEST ENTER/EDIT OR DERABLES Final Result Performing Organization Address [facility] Phone Number [facility] [address] [place] [phone] * Influenza A (ID NOW Rapid Molecular) (10/15/2024 10:22 AM EST) [facility] Influenza A Negative Negative, Indeterminate [facility] Swab 10/15/2024 10:2 2 AM EST us Mart Briscoe MD POINT OF CARE TEST ENTER/EDIT OR DERABLES Final Result Performing Organization Address [facility] Phone Number [facility] [address] [place] [phone] * POCT , urine manually resulted (10/15/2024 10:17 AM EST) Preg Test, Ur Negative Negative, Indeterminate, None Detected, Invalid, Specimen unsatisfactory for evaluation, Weakly Positive Urine 10/15/2024 10:1 7 AM EST us Mart Briscoe MD POINT OF CARE TEST ENTER/EDIT OR DERABLES Final Result * POCT rapid strep A manually resulted (10/15/2024 10:12 AM EST) Rapid Strep A Screen Negative Negative, None Detected Swab 10/15/2024 10:1 2 AM EST us Mart Briscoe MD POINT OF CARE TEST ENTER/EDIT OR DERABLES Final Result * POCT Rapid COVID Ag (10/15/2024 10:12 AM EST) Rapid COVID Ag Negative Swab 10/15/2024 10:1 2 AM EST us Mart Briscoe MD POINT OF CARE TEST ENTER/EDIT OR DERABLES Final Result documented in this encounter Visit Diagnoses Diagnosis Unprotected sexual intercourse- Primary Problems related to high-risk sexual behavior Sore throat Acute pharyngitis Nausea Nausea alone documented in this encounter Additional Health Concerns Assessment Noted Time PHQ-9 Depression Total Score: 15 024 2:35 PM EDT documented as of this encounter Care Teams Theatrical Trouper Relationship Specialty Start Date End Date Jeanine Smith MD [address] [place] [address] PCP - General Internal Medicine 03/04/24 [facility] Consulting Physician Obstetrics and Gynecology 09/30/23 documented as of this encounter
--- OUTSIDE RECORDS SUMMARY | 2024-10-27 14:03 | XMS_ITS | Encounter Summary ---
Author Organization [employer] Address [address]t [place] [address] Care Team Providers Care Final Inspector Balance Wheel Name Role Phone Jeanine Smith MD Primary Care Provider [phone] Reason for Visit * Reason Onset Date Comments Med Refill 10/26/2024 Encounter Details Date Type Department Care Team ([facility] st Contact Info) Description 10/26/2024 Refill [facility] [address] [place] [address] Jeanine Smith MD [address] [place] [address] Social History Tobacco Use Types Packs/Day Years [...] encounter Miscellaneous Notes * Telephone Encounter - Rosibel Sparks - 10/26/2024 2:38 PM EST Tc from pt called in regarding status on last message . Pt was informed messaged was sent to pcp this morning it can take 24-72 hr for a response . * Telephone Encounter - Ricki Brasher - 10/26/2024 9:23 AM EST TC from pt requesting medication refill. Medications needing refill : valACYclovir (Valtrex) 1 g tablet To be sent to: [facility]- [address] [place] [address] documented in this encounter Plan of Treatment Upcoming Encounters Date Type Department Care Team (Late st Contact Info) Description 10/29/2024 10:00 AM EST Office Visit [facility] [address] [place] [address] Sharron Pace CNM [address] [place] [address] documented as of this encounter Visit Diagnoses Not on filedocumented in this encounter Additional Health Concerns Assessment Noted Time PHQ-9 Depression Total Score: 15 024 2:35 PM EDT documented as of this encounter Care Teams Final Inspector Balance Wheel Relationship Specialty Start Date End Date Jeanine Smith MD [address] [place] [address] PCP - General Internal Medicine 03/04/24 [facility] Consulting Physician Obstetrics and Gynecology 09/30/23 documented as of this encounter
--- OUTSIDE RECORDS SUMMARY | 2024-10-27 14:03 | XMS_ITS | Encounter Summary ---
Author Organization [employer] Address [address] [facility] 7t [place] [address] Care Team Providers Care Car Varnisher Name Role Phone Jeanine Smith MD Primary Care Provider [phone] Reason for Visit * Reason Onset Date Comments No Show 10/08/2024 Encounter Details Date Type Department Care Team ([facility] Contact Info) Description 10/08/2024 Telephone [facility] MED & PEDS [address] [place] [address] Jeanine Smith MD [address] [place] [address] No Show Social History Tobacco Use Types Packs/Day Years [...] encounter Miscellaneous Notes * Telephone Encounter - Beryl Sommers - 10/08/2024 1:46 PM EST 10/08/24 no show for discuss control documented in this encounter Plan of Treatment Upcoming Encounters Date Type Department Care Team (Late st Contact Info) Description 10/29/2024 10:00 AM EST Office Visit [facility] MEDICINE [address] [place] [address] Sharron Pace CN [address] [place] [address] documented as of this encounter Visit Diagnoses Not on filedocumented in this encounter Additional Health Concerns Assessment Noted Time PHQ-9 Depression Total Score: 15 024 2:35 PM EDT documented as of this encounter Care Teams Car Varnisher Relationship Specialty Start Date End Date Jeanine Smith MD [address] [place] [address] PCP - General Internal Medicine 03/04/24 [facility] Consulting Physician Obstetrics and Gynecology 09/30/23 documented as of this encounter
--- OUTSIDE RECORDS SUMMARY | 2024-10-27 14:03 | XMS_ITS | Encounter Summary ---
Author Organization [facility] [facility] Address [address] [place] [address] 7 [place] [address] Care Team Providers Care Lay Ups Assembler Name Role Phone Aster White MD Primary Care Provider [phone] Jeanine Smith MD Primary Care Provider [phone] Reason for Referral * Consultation (Routine) - Authorized Specialty Diagnoses / Procedures Referred By Contac t Referred To Contact Pharmacy Diagnoses Acute pulmonary embolism, unspecified pulmonary embolism type, unspecified whether acute cor pulmonale present (CMS/HCC) Minnie Adams PharmD [address] [place] [address] Phone: tel: fax: Referral ID Status Reason Start Date Expiration Date Visits Requested Visits Authorized [id number] Authorized Continuity of Care 01/10/2024 01/09/2025 1 1 Encounter Details Date Type Department Care Team (Late st Contact Info) Description 01/10/2024 Orders Only [facility] MEDICINE [address] [place] [address] Minnie Adams, PharmD [address] [place] [address] Acute pulmonary embolism, unspecified pulmonary embolism type, unspecified whether acute cor pulmonale present (CMS/HCC) (Primary Dx) Social History Tobacco Use Types Packs/Day Years Used Date Smoking Tobacco: Never Smokeless Tobacco: Never Housing Stability Answer Date Recorded What is your housing situation today? I have aristeo sing 10/03/[address] you li [...] Description 10/29/2024 10:00 AM EST Office Visit [facility] MEDICINE [address] [place] [address] Sharron Pace CN [address] [place] [address] Scheduled Referrals Name Type Priority Associated Diagnoses Orde r Schedule Referral to Pharmacy [place] Outpatient Referral Routine Acute pulmonary embolism, unspecified pulmonary embolism type, unspecified whether acute cor pulmonale present (CMS/HCC) Ordered: 01/10/2024 documented as of this encounter Visit Diagnoses Diagnosis Acute pulmonary embolism, unspecified pulmonary embolism type, unspecified whether acute cor pulmonale present (CMS/HCC)- Primary documented in this encounter Care Teams Lay Ups Assembler Relationship Specialty Start Date End Date Aster White MD [address] [place] [address] PCP - General Family Medicine 10/10/23 03/03/24 Jeanine Smith MD [address] [place] [address] PCP - General Internal Medicine 03/04/24 [facility] Consulting Physician Obstetrics and Gynecology 09/30/23 documented as of this encounter
--- OUTSIDE RECORDS SUMMARY | 2024-10-27 14:03 | XMS_ITS | Encounter Summary ---
Author Organization [employer] Address [address] [facility] 7t [place] [address] Care Team Providers Care Retail Mortgage Banker Name Role Phone Jeanine Smith MD Primary Care Provider Reason for Visit * Reason Onset Date Comments Plan B 10/08/2024 Encounter Details Date Type Department Care Team ([facility] st Contact Info) Description 10/08/2024 Telephone [facility]S [address] [place] [address] Jeanine Smith MD [address] [place] [address] Plan B Social History Tobacco Use Types Packs/Day Years [...] encounter Miscellaneous Notes * Telephone Encounter - Ilda Tavarez RN - 10/08/2024 9:49 AM EST Pt came to [facility] pharm today, [facility] pharmacist states this is the third time pt has been in for Plan B in 20 days. This is not best pt care. [facility] pharmacist has counseled on control and pt refused first two times. This time [facility] pharmacist will not give Plan B and reached out to this telegraphic typewriter operator chief. Pt agrees to see PCP today at 11:15a to discuss control. documented in this encounter Plan of Treatment Upcoming Encounters Date Type Department Care Team (Late st Contact Info) Description 10/29/2024 10:00 AM EST Office Visit [facility] MEDICINE [address] [place] [address] Sharron Pace CNM [address] [place] [address] documented as of this encounter Visit Diagnoses Not on filedocumented in this encounter Additional Health Concerns Assessment Noted Time PHQ-9 Depression Total Score: 15 024 2:35 PM EDT documented as of this encounter Care Teams Retail Mortgage Banker Relationship Specialty Start Date End Date Jeanine Smith MD [address] [place] [address] PCP - General Internal Medicine 03/04/24 [facility] Consulting Physician Obstetrics and Gynecology 09/30/23 documented as of this encounter
--- OUTSIDE RECORDS SUMMARY | 2024-10-27 14:04 | XMS_ITS | Encounter Summary ---
Author Organization [employer] Address [address] [facility] [address] 7t [place] [address] Care Team Providers Care Back Shoe Worker Name Role Phone Jeanine Smith MD Primary Care Provider Reason for Visit * Reason Onset Date Comments Nurse Triage 06/29/2024 Encounter Details Date Type Department Care Team ([facility] st Contact Info) Description 06/29/2024 Telephone [facility] MEDICINE [address] [place] [address] Jeanine Smith MD [address] [place] [address] Nurse Triage Social History Tobacco Use Types Packs/Day Years Used Date Smoking Tobacco: Never Smokeless Tobacco: Never Depression Answer Date Recorded Patient Health Questionnaire-9 Score 15 06/30/2024 Patient Health Questionnaire-9 Score 15 06/30/2024 Last PHQ-9: Questionnaire Data Not on file 1 Housing Stability Answer Date Recorded What is your housing situation today? I have aristeochris willams 10/03/[address] you [...] t he electric, gas, oil or water [employer] threatened to shut off services in your home? No 10/03/2023 Depression Answer Date Recorded Patient Health Questionnaire-2 Score 3 06/30/2024 Comments Unknown Sex and Gender Information Value Date Recorded Sex Assigned at Female 05/16/2023 1:26 PM EDT Legal Sex Female 1:25 PM EDT Gender Identity Female 05/16/2023 1:26 PM EDT Sexual Orientation Straight 11/19/2023 8: 38 AM EST documented as of this encounter Miscellaneous Notes * Telephone Encounter - Atiya Powell RN - 06/29/2024 11:23 AM EDT Triage call Pt reports experiencing a panic attack 06/28/24 which lasted for 40min. Pt reports feeling like I am in a daze today , shaky, anxous and doesn't want to leave home. Pt is not suicidal and doesn't want to hurt anyone. Pt reports since having control implant about 2 years ago has been having mood shifts. Pt reports recent cosmetic surgery (November of this year) and has had to take eliquis for 6 months now. Pt stopped eliquis 06/26/24 per MD order. Pt doesn't drink coffee or caffeinated drinks. Pt did call ambulance on 06/28/24 but, declined to go to the hospital at that time. Pt is advised to come to [facility] today open till 8pm. Pt is advised [facility] has someone who can speak with Pt in [facility]. Pt agrees with this plan, home care reviewed. Pt will come to [facility] today. Insurance is verified as active. Protocol Used: Anxiety and Panic Attack (Adult) Protocol-Based Disposition: See in Office or Video Visit within 3 Days Video visit not offered Positive Triage Question: * Patient wants to be seen * All higher-acuity triage questions were negative Care Advice Discussed: * Note to Triager - Anxiety Symptoms * Reassurance and Education - Anxiety * Anxiety - Healthy Lifestyle Tips * Avoid Caffeine * Avoid Triggers of Anxiety * Stress Reduction * Reasons To Call Back - Anxiety or panic attacks continue - You feel like harming yourself - You become worse * Telephone Encounter - Sukh Butler - 06/29/2024 10:21 AM EDT Symptom: Anxiety or Panic Attack Outcome: Schedule an urgent appointment (within 4 hours) or talk to a nurse or provider soon Reason: Anxiety keeps from normal daily activities (such as school or work) The caller accepted this outcome. Patient states it could be due to the In plant in the arm for control please call [phone] documented in this encounter Plan of Treatment Upcoming Encounters Date Type Department Care Team (Late st Contact Info) Description 10/29/2024 10:00 AM EST Office Visit [facility] MEDICINE [address] [place], [place] [phone] Sharron Pace CNM [address] [place], [place] [phone] documented as of this encounter Visit Diagnoses Not on filedocumented in this encounter Care Teams Back Shoe Worker Relationship Specialty Start Date End Date Jeanine Smith MD [address] [place] [address] PCP - General Internal Medicine 03/04/24 [facility] Consulting Physician Obstetrics and Gynecology 09/30/23 documented as of this encounter
--- OUTSIDE RECORDS SUMMARY | 2024-10-27 14:04 | XMS_ITS | Encounter Summary ---
Author Organization [employer] Address [address] [facility] [address] [facility] [address] 7t [place] [address] Care Team Providers Care Carbon Dioxide Operator Name Role Phone Aster White MD Primary Care Provider [phone] Jeanine Smith MD Primary Care Provider [phone] Reason for Visit * Reason Onset Date Comments Call Back Request 12/27/2023 Encounter Details Date Type Department Care Team ([facility] st Contact Info) Description 12/27/2023 Telephone [facility] MEDICINE [address] [place] [address] Aster White MD [address] [place] [address] Call Back Request Social History Tobacco Use Types Packs/Day Years [...] encounter Miscellaneous Notes * Telephone Encounter - Caron Carney RN - 01/02/2024 3:23 PM EDT T/C to pt. For below message, as per new prescription direction is Eliquis 5 MG tablet [[id number]] Take 1 tablet (5 mg) by mouth 2 times daily. No answer. Not able to LVM. Will send message to PCP as FYI. * Telephone Encounter - Sukh Butler - 12/27/2023 12:41 PM EDT Tc from patient requesting a call back to see the possibility for a Drainage massage patient had lipo on 12/17 and was diagnose with blood clogs in lungs on 12/23 documented in this encounter Plan of Treatment Upcoming Encounters Date Type Department Care Team (Late st Contact Info) Description 10/29/2024 10:00 AM EST Office Visit [facility] MEDICINE [address] [place] [address] Sharron Pace CNM [address] [place] [address] documented as of this encounter Visit Diagnoses Not on filedocumented in this encounter Care Teams Carbon Dioxide Operator Relationship Specialty Start Date End Date Aster White MD [address] [place] [address] PCP - General Family Medicine 10/10/23 03/03/24 Jeanine Smith MD [address] [place] [address] PCP - General Internal Medicine 03/04/24 [facility] Consulting Physician Obstetrics and Gynecology 09/30/23 documented as of this encounter
--- OUTSIDE RECORDS SUMMARY | 2024-10-27 14:04 | XMS_ITS | Encounter Summary ---
Author Organization [employer] Address [address] [facility] [address] 7t [place] [address] Care Team Providers Care Barber Name Role Phone Jeanine Smith MD Primary Care Provider Encounter Details Date Type Department Care Team (Late st Contact Info) Description 10/27/2024 9:40 AM EST Office Visit [facility] [address] [place], [place] [phone] Tiara Simpson MD [address] [place], [place] [phone] Herpes infection (Primary Dx); Patient desires Social History Tobacco Use Types Packs/Day Years Used Date Smoking Tobacco: Never Passive Smoke Exposure: Never Smokeless Tobacco: Never Tobacco Cessation:Counseling Given: Not Answered Alcohol Use Standard Drinks/Week Comments Never 0 [...] Sign Reading Time Taken Comments Blood Pressure 105/71 10/27/2024 10:28 AM EST Pulse 70 10/27/2024 10:28 AM EST Temperature 36.2 ??C (97.1 ??F) 10/27/2024 10:[address] Respiratory Rate 20 10/27/2024 10:28 AM EST Oxygen Saturation 98% 10/27/2024 10:28 AM EST Inhaled Oxygen Concentration - - Weight 94.4 kg (208 lb 3.2 oz) 10/27/2024 10:28 AM EST Height 162.6 cm (5' 4 ) 10/27/2024 10:28 AM EST Body Mass Index 35.74 10/27/2024 10:28 AM EST documented in this encounter Progress Notes * Renuka Robin - 10/27/2024 9:40 AM EST Subjective Patient ID: Paolo Quintana is a 24 y.o. female with past medical history of obesity, hx of PE, anxiety and depression who presents to walk in clinic for herpes outbreak on right hand. Pt reports she has a hx of herpes outbreak on her right hand every few years. She notes she has never had a swab done but reports positive serologies. Started as a tingling of her right palm and the developed a blister. Denies fevers. Review of Systems Constitutional: Negative for fatigue, fever and unexpected weight change. Respiratory: Negative for cough. Cardiovascular: Negative for chest pain. Gastrointestinal: Negative for abdominal pain. Genitourinary: Negative for difficulty urinating. Objective Visit Vitals BP 105/71 (BP Location: Left arm, Patient Position: Sitting, BP Cuff Size: Large adult) Pulse 70 Temp 97.1 ??F (36.2 ??C) (Temporal) Resp 20 Body mass index is 35.74 kg/m??. Physical Exam Constitutional: Appearance: Normal appearance. Cardiovascular: Rate and Rhythm: Normal rate. Pulmonary: Effort: Pulmonary effort is normal. Skin: Findings: Rash present. Lesion: ..Rash is vesicular (isolated 1cm vesicle on right palmar area withacute tenderness). Neurological: General: No focal deficit present. Mental Status: She is alert and oriented to person, place, and time. Problem List Items Addressed This Visit Herpes infection - Primary Likely herpes outbreak. Physical exam with findings of 1cm vesicular lesion. Within 72 hr window. -Prescribed acyclovir (Zovirax) 800 MG, take 3 tabs a day for 2 days -Obtained swab, sent HSV order 10/27/24. -Contact precautions discussed. Relevant Medications acyclovir (Zovirax) 800 MG tablet Other Relevant Orders Herpes Simplex Virus Culture with Reflex Typing Patient desires -prescribed Vit-Fe Fumarate-FA ( Vitamins) 28-0.8 MG Relevant Medications Vit-Fe Fumarate-FA ( Vitamins) 28-0.8 MG tablet -No evidence of acute disease process. Suspect HSV. Exam with findings of vesicular lesion. -Will treat with antiviral. -ER precautions discussed. -Seek medical attention for worsening symptoms. I, Renuka Robin, am serving as a scribe to document services personally performed by Dr. Neal, based on the patient's response to questions by provider and providers statements to me. documented in this encounter Miscellaneous Notes * Assessment & Plan Note - Renuka Robin - 10/27/2024 10:43 AM ESTAssociated Problem(s): Patient desires -prescribed Vit-Fe Fumarate-FA ( Vitamins) 28-0.8 MG * Assessment & Plan Note - Renuka Robin - 10/27/2024 10:41 AM ESTAssociated Problem(s): Herpes infection Likely herpes outbreak. Physical exam with findings of 1cm vesicular lesion. Within 72 hr window. -Prescribed acyclovir (Zovirax) 800 MG, take 3 tabs a day for 2 days -Obtained swab, sent HSV order 10/27/24. -Contact precautions discussed. documented in this encounter Plan of Treatment Upcoming Encounters Date Type Department Care Team ([facility] st Contact Info) Description 10/29/2024 10:00 AM EST Office Visit [facility] MEDICINE [address] [place], [place] [phone] Sharron Pace CNM [address] [place], [place] [phone] Scheduled Orders Name Type Priority Associated Diagnoses Orde r Schedule Herpes Simplex Virus Culture with Reflex Typing Microbiology Routine Herpes infection Ordered: 10/27/2024 documented as of this encounter Visit Diagnoses Diagnosis Herpes infection- Primary Herpes simplex without mention of complication Patient desires documented in this encounter Additional Health Concerns Assessment Noted Time PHQ-9 Depression Total Score: 15 024 2:35 PM EDT documented as of this encounter Care Teams Barber Relationship Specialty Start Date End Date Jeanine Smith MD [address] [place] [address] PCP - General Internal Medicine 03/04/24 [facility] Consulting Physician Obstetrics and Gynecology 09/30/23 documented as of this encounter
--- OUTSIDE RECORDS SUMMARY | 2024-10-27 14:04 | XMS_ITS | Encounter Summary ---
Author Organization [employer] Address [address] [facility] [address] 7t [place] [address] Care Team Providers Care Shipping Inspector Name Role Phone Jeanine Smith MD Primary Care Provider Reason for Visit * Reason Onset Date Comments Medication Question 05/05/2024 Encounter Details Date Type Department Care Team ([facility] st Contact Info) Description 05/05/2024 Telephone [facility] MEDICINE [address] [place] [address] Jeanine Smith MD [address] [place], [place] [phone] Medication Question Social History Tobacco Use Types Packs/Day Years [...] encounter Miscellaneous Notes * Telephone Encounter - Wing Don RN - 05/05/2024 11:34 AM EDT Tc to pt's pharmacy and spoke to Ksenia who stated pt has refills for Elequis and will fill it out.Called pt who inquired about an appt with PCP to discuss if she is suppose to contiue the medication. Also adivsed that a refill was already ordered. Gave appt with PCP for 05/19 at 11:15 am. Pt verbalized understanding and agreement with plan. * Telephone Encounter - Sukh Butler - 05/05/2024 9:44 AM EDT Tc from patient requesting a call back in regards to the medication Eliquis 5 MG tablet is not sureif suppose to continue taking this medication and only haves a few left documented in this encounter Plan of Treatment Upcoming Encounters Date Type Department Care Team (Late st Contact Info) Description 10/29/2024 10:00 AM EST Office Visit [facility] MEDICINE [address] [place] [address] Sharron Pace CNM [address] [place] [address] documented as of this encounter Visit Diagnoses Not on filedocumented in this encounter Care Teams Shipping Inspector Relationship Specialty Start Date End Date Jeanine Smith MD [address] [place] [address] PCP - General Internal Medicine 03/04/24 [facility] Consulting Physician Obstetrics and Gynecology 09/30/23 documented as of this encounter
--- OUTSIDE RECORDS SUMMARY | 2024-10-27 14:04 | XMS_ITS | Encounter Summary ---
Author Organization [employer] Address [address] 7t [place] [address] Care Team Providers Care Pharmacy Director Name Role Phone Aster White MD Primary Care Provider [phone] Jeanine Smith MD Primary Care Provider [phone] Reason for Visit * Reason Onset Date Comments Lab Orders 12/05/2023 Encounter Details Date Type Department Care Team ([facility] st Contact Info) Description 12/05/2023 Telephone [facility] MEDICINE [address] [place] [address] Aster White MD [address] [place] [address] Lab Orders Social History Tobacco Use Types Packs/Day Years [...] Telephone Encounter - Wing Don RN - 12/05/2023 4:32 PM EST Tc to pt regarding labs. Informed pt that all labs including CMP/BMP and hCG were resent by [facility] a few hrs ago. Pt was scheduled for COVID test at [facility] testing site for next week before surgery. Pt verbalizes understanding and agreement with plan. * Telephone Encounter - Joslyn Oakes - 12/05/2023 9:52 AM EST Tc from pt requesting lab orders. Please contact pt for clarifications. Pheresis Nurse advise pt on labs done. documented in this encounter Plan of Treatment Upcoming Encounters Date Type Department Care Team (Late st Contact Info) Description 10/29/2024 10:00 AM EST Office Visit [facility] MEDICINE [address] [place] [address] Sharron Pace CNM [address] [place] [address] documented as of this encounter Visit Diagnoses Not on filedocumented in this encounter Care Teams Pharmacy Director Relationship Specialty Start Date End Date Aster White MD [address] [place] [address] PCP - General Family Medicine 10/10/23 03/03/24 Jeanine Smith MD [address] [place] [address] PCP - General Internal Medicine 03/04/24 [facility] Consulting Physician Obstetrics and Gynecology 09/30/23 documented as of this encounter
--- OUTSIDE RECORDS SUMMARY | 2024-10-27 14:04 | XMS_ITS | Encounter Summary ---
Author Organization [employer] Address [address] [address] 7t [place] [address] Care Team Providers Care Mirror Silverer Name Role Phone Aster White MD Primary Care Provider [phone] Jeanine Smith MD Primary Care Provider [phone] Encounter Details Date Type Department Care Team ([facility] st Contact Info) Description 12/10/2023 Telephone [facility] MEDICINE [address] [place] [address] Aster White MD [address] [place], [place] [phone] Social History Tobacco Use Types Packs/Day Years [...] Description 10/29/2024 10:00 AM EST Office Visit [facility] MEDICINE [address] [place] [address] Sharron Pace CNM [address] [place] [address] documented as of this encounter Visit Diagnoses Not on filedocumented in this encounter Care Teams Mirror Silverer Relationship Specialty Start Date End Date Aster White MD [address] [place] [address] PCP - General Family Medicine 10/10/23 03/03/24 Jeanine Smith MD [address] [place] [address] PCP - General Internal Medicine 03/04/24 [facility] Consulting Physician Obstetrics and Gynecology 09/30/23 documented as of this encounter
--- OUTSIDE RECORDS SUMMARY | 2024-10-27 14:04 | XMS_ITS | Encounter Summary ---
Author Organization [employer] [facility] Address [address] [place] [address] 7t [place] [address] Care Team Providers Care Parcel Post Clerk Name Role Phone Aster White MD Primary Care Provider [phone] Jeanine Smith MD Primary Care Provider [phone] Reason for Visit * Reason Onset Date Comments New Patient 05/16/2023 Encounter Details Date Type Department Care Team (Late st Contact Info) Description 05/16/2023 Telephone [facility] MEDICINE [address] [place] [address] Hamlet Mccullough MD [address] [place] [address] New Patient Social History Tobacco Use Types Packs/Day Years Used Date Smoking Tobacco: Never Assessed Comments Unknown Sex and Gender Information Value Date Recorded Sex Assigned at Female 05/16/2023 1:26 PM EDT Legal Sex Female 1:25 PM EDT Gender Identity Female 05/16/2023 1:26 PM EDT Sexual Orientation Straight 11/19/2023 8: 38 AM EST documented as of this encounter Miscellaneous Notes * Telephone Encounter - Dar Mcnally - 05/16/2023 1:28 PM EDT Pt has been transfer over to wait list for HEAD OF STORE OPERATIONS. EFFECTIVE SINCE 05/16/2023 documented in this encounter Plan of Treatment Upcoming Encounters Date Type Department Care Team (Late Contact Info) Description 10/29/2024 10:00 AM EST Office Visit [facility] MEDICINE [address] [place] [address] Sharron Pace, [facility] [address] [place] [address] documented as of this encounter Visit Diagnoses Not on filedocumented in this encounter Care Teams Parcel Post Clerk Relationship Specialty Start Date End Date Aster White MD [address] [place] [address] PCP - General Family Medicine 10/10/23 03/03/24 Jeanine Smith MD [address] [place] [address] [place] [address] PCP - General Internal Medicine 03/04/24 [facility] Consulting Physician Obstetrics and Gynecology 09/30/23 documented as of this encounter
--- OUTSIDE RECORDS SUMMARY | 2024-10-27 14:04 | XMS_ITS | Encounter Summary ---
Author Organization [employer] Address [address] [place] [address] Care Team Providers Care Production Machine Shop Supervisor Name Role Phone Jeanine Smith MD Primary Care Provider Encounter Details Date Type Department Care Team (Late st Contact Info) Description 07/29/2024 Orders Only [facility] [address] [place] [address] Sharron Pace, CN [address] [place] [address] Social History Tobacco Use Types Packs/Day Years Used Date Smoking Tobacco: Never Smokeless Tobacco: Never Alcohol Use Standard [...] Description 10/29/2024 10:00 AM EST Office Visit [facility] [address], [place] [phone] Sharron Pace CNM [address], [place] [phone] documented as of this encounter Procedures Procedure Name Priority Date/Time Associated Diagnosis Comments PAP SMEAR Routine 09/01/2021 12:00 AM EST documented in this encounter Results * Pap Smear (09/01/2021 12:00 AM EST) Swab us Historical Provider LAB CYTOLOGY ORDERABLES F inal Result [facility] [address] [place] [address] documented in this encounter Visit Diagnoses Not on filedocumented in this encounter Additional Health Concerns Assessment Noted Time PHQ-9 Depression Total Score: 15 024 2:35 PM EDT documented as of this encounter Care Teams Production Machine Shop Supervisor Relationship Specialty Start Date End Date Jeanine Smith MD [address] [place] [address] PCP - General Internal Medicine 03/04/24 [facility] Consulting Physician Obstetrics and Gynecology 09/30/23 documented as of this encounter
--- OUTSIDE RECORDS SUMMARY | 2024-10-27 14:04 | XMS_ITS | Clinical Summary ---
Author Organization [employer] Address [address] [place] [address] Care Team Providers Care Zone Maintenance Technician Name Role Phone Jeanine Smith MD Primary Care Provider Allergies Active Allergy Reactions Criticality Noted Date Comments Apple Juice Angioedema High 09/14/2023 Cinnamon Anaphylaxis High 09/14/2023 Latex 07/29/2024 Oat Anaphylaxis High 09/14/2023 Medications * This document contains information received from the source organization and may not represent a complete record from that organization. ferrous gluconate (Fergon) 324 (38 Fe) MG tablet Take 1 tablet (324 mg) by mouth with breakfast. 90 tablet 1 11/26/19 24 Active Pediatric Multivitamins-Fl (multivitamin with fluoride) 0.5 MG chewable tablet Chew 1 tablet in the morning. 90 tablet 1 11/26/19 24 Active Ascorbic Acid (Vitamin C) 500 MG capsule Take 500 mg by mouth in the morning. 120 capsule 3 11/26/19 24 Active docusate sodium (Colace) 100 MG capsule 12/01/19 24 Active oxyCODONE-acetam inophen (Percocet) 5-325 MG tablet Take 1 tablet by mouth every 4 (four) hours if needed. 12/18/19 24 Active ondansetron (Zofran) 8 MG tablet Take 8 mg by mouth every 8 (eight) hours if needed for nausea. 12/18/19 24 Active Blood Pressure kit 1 Units in the morning. 1 kit 12/30/19 24 Active Eliquis 5 MG tabletIndication s:Single subsegmental pulmonary embolism without acute cor pulmonale (CMS/HCC) Take 1 tablet (5 mg) by mouth 2 times daily. 60 tablet 1 03/05/20 24 Active norethindrone (Ortho Micronor) 0.35 MG tablet Take 1 tablet (0.35 mg) by mouth Once per day. 28 tablet 12 07/29/20 24 025 Active valACYclovir (Valtrex) 1 g tablet Take 1 tablet (1,000 mg) by mouth Once per day. 5 tablet 10/26/19 25 Active acyclovir (Zovirax) 800 MG tabletIndication s:Herpes Simplex Infection Take 3 tabs a day for 2 days 6 tablet 2 10/27/19 25 Active Vit-Fe Fumarate-FA ( Vitamins) 28-0.8 MG tabletIndication s:Family Planning Take 1 tablet by mouth Once per day. 90 tablet 3 10/27/19 25 026 Active valACYclovir (Valtrex) 1 g tablet Take 1,000 mg by mouth in the morning. 01/10/20 23 025 Discontinued(Re order (will not trigger notification to Pharmacy)) Active Problems Problem Noted Date Diagnosed Date Herpes infection 10/27/2024 Assessment & Plan (10/27/2024 10:41 AM EST): Likely herpes outbreak. Physical exam with findings of 1cm vesicular lesion. Within 72 hr window. -Prescribed acyclovir (Zovirax) 800 MG, take 3 tabs a day for 2 days -Obtained swab, sent HSV order 10/27/24. -Contact precautions discussed. Patient desires 10/27/2024 Assessment & Plan (10/27/2024 10:43 AM EST): -prescribed Vit-Fe Fumarate-FA ( Vitamins) 28-0.8 MG Dizziness 09/02/2024 Acute intractable headache 09/02/2024 Assessment & Plan (09/02/2024 7:00 PM EST): Pt with worst headache of her life , sudden onset, 10/10, worse when lying down, denies recent trauma or fevers. + vomiting. Not similar to previus migraines. Reports vision changes and feeling foggy . Concern for increased intracranial hemorrhage. Clinically stable. Pt to go to ER now. Partner to local intermodal truck driver her. She agrees with the plan. Suicidal ideation 06/30/2024 Chronic migraine with aura, without status migra inosus 05/28/2024 PTSD (post-traumatic stress disorder) 03/04/2024 Depression 03/04/2024 Anxiety 03/04/2024 History of pulmonary embolism 03/04/2024 H/O acute alcohol intoxication 03/04/2024 Pulmonary embolism 12/30/2023 Assessment & Plan (12/30/2023 1:17 PM EDT): Provoked DVT, will cont eliquis for 3 months and re-eval, needs HDF appt. Postoperative anemia 12/30/2023 Assessment & Plan (12/30/2023 1:18 PM EDT): Will cont monitoring, will cont iron supplementation and will recheck in 1 month. Pre-op evaluation 11/26/2023 Assessment & Plan (11/26/2023 3:22 PM EST): Patient was seen for pre-operative evaluation. Patient reports no symptoms of CP at rest or with exertion, dyspnea at rest or with exertion, PND, LE edema, claudication, or palpitations. Patient has no hx of ischemic heart disease, CHF, CVD, diabetes, recent anticoagulant or antithrombotic use, person or family hx of coagulopathy. Patient reports no history of stress test, cardiac cath or coronary revascularization. Patients without any known cardiac risk factors. According to the RCRI, this number of risk factors stratifies the patient to Class O, which carries a 3.9% risk of major CV complications. Reviewed EKG & CXR which were normal. Pending lab results, if normal patient can proceed with intended procedure. Class 1 obesity with body ma ss index (BMI) of 32.0 to 32.9 in adult 10/10/2023 Assessment & Plan (10/10/2023 4:45 PM EST): Discussed calorie deficit, recommended reduction of 20-30% of maintenance calories; communications planner referral offered. Recommended to decrease soda and sugary beverage consumption. Recommended at least 20 g per meal of protein to assist with satiety. Recommended at least 150 min/week of moderate intensity exercise. Resolved Problems Problem Noted Date Diagnosed Date Resolved Date Upper respiratory infection 10/12/2023 12/30/2023 Assessment & Plan (10/12/2023 4:53 PM EST): Pt w respiratory symptoms ,VS stable Here covid ,flu and strep negative. .Likely viral syndrome -cepacol,tylenol prn,dextromethorphan -alarm signs ans symptoms -hydration -rest,hand hygiene, mask use Encounters Date Type Department Care Team Description 10/27/2024 9:40 AM EST Office Visit [facility] [address] [place] [phone] Tiara Simpson MD Herpes infection (Primary Dx); Patient desires 10/26/2024 Orders Only [facility] [address] [place] [address] Jeanine Smith MD 10/26/2024 Refill [facility] [address] [place] [phone] Jeanine Smith MD 10/25/2024 Refill [facility] [address] [place] [address] Jeanine Smith MD 10/16/2024 Telephone [facility] [address] [place] [address] Jeanine Smith MD 10/15/2024 10:00 AM EST Office Visit [facility] [address] [place] [phone] Mart Briscoe MD Unprotected sexual intercourse (Primary Dx); Sore throat; Nausea 10/15/2024 Travel 10/08/2024 Telephone [facility] [address] [place] [address] Jeanine Smith MD No Show 10/08/2024 Telephone [facility] [address] [place] [address] Jeanine Fernandes MD Plan B 09/14/2024 Telephone [facility] [address] [place] [address] Leti Mcghee RN Medication Question 09/08/2024 10:20 AM EST [facility] [address] [address] Donte Saavedra MD Possible (Primary Dx) 09/08/[address] [address] Donte Saavedra MD 09/02/2024 6:20 PM EST Office Visit [address] [address] Tiara Simpson MD Acute intractable headache, unspecified headache type (Primary Dx); Dizziness 09/02/[address] [address] Jeanine Smith MD Nurse Triage 08/22/2024 Orders Only GENERIC EXTERNAL DATA DEPARTMENT Provider, Generic External Data 08/13/2024 9:00 AM EST Office Visit [address] [address] Charla Bello MD Streptococcal pharyngitis (Primary Dx); Sore throat 07/30/2024 Telephone [facility] [address] [place] [address] Jeanine Smith MD 07/29/2024 9:30 AM EDT Procedure Visit [address] [address] Sharron Pace CNM Nexplanon removal (Primary Dx); History of pulmonary embolus (PE); Procreative management 07/29/2024 Orders Only [address] [address] Sharron Pace CNM 07/29/2024 Travel from Last 3 Months Immunizations Name Administration Dates Next Due Influenza, IIV3, injectable 10/24/2017 Influenza, intradermal, quad rivalent, preservative free 10/24/2017 Tdap 01/26/2022,11/28/2020,02/05/2018 Social History Tobacco Use Types Packs/Day Years [...] Orientation Straight 11/19/2023 8: 38 AM EST Last Filed Vital Signs Vital Sign Reading [...] Mass Index 35.74 10/27/2024 10:28 AM EST Plan of Treatment Upcoming Encounters Date Type Department Care Team (Late st Contact Info) Description 10/29/2024 10:00 AM EST Office Visit [facility] MEDICINE [address] [place] [address] SanjeevSharron, CNM [address] [place] [address] Health Maintenance Due Date Last Done Comments Lipid Panel 1999 Alcohol/Substance Use Screening 2011 HPV Vaccines (1 - 3-dose series) 2014 Hepatitis B Vaccines (1 of 3 - 19+ 3-dose series) 2018 COVID-19 Vaccine ( - 2023-2 5 season) 2024 Influenza Vaccine (#1) 2024 8, 10/24/2017 Pap Smear 09/01/2024 09/01/2021 SDOH Screening 10/10/2024 10/10/2023 Depression Monitoring (PHQ-9) 12/29/2024, 06/30/2024 Depression Screening 06/30/2025 06/30/2024, 06/30/2024 Family Planning (PISQ) 07/29/2025 07/29/2024 Tobacco Screening 10/27/2025 10/27/2024 DTaP/Tdap/Td Vaccines (4 - T d or Tdap) 01/27/2032 01/26/2022, 11/28/2020, 02/05/2018 Zoster Vaccines (1 of 2) 2049 RSV Patients and Patients Aged 60 years or older (1 - 1-dose 75+ series) 2074 HIV Screening Completed 11/26/2023, 10/10/2023 Hepatitis C Screening Completed 11/26/2023 , 10/10/2023 HIB Vaccines Aged Out No longer eligi ble based on patient's age to complete this topic Hepatitis A Vaccines Aged Out No long er eligible based on patient's age to complete this topic IPV Vaccines Aged Out No longer eligi ble based on patient's age to complete this topic Meningococcal Vaccine Aged Out No silva usha eligible based on patient's age to complete this topic Pneumococcal Vaccine: Pediatrics (0 to 5 Years) and At-Risk Patients (6 to 64 Years) Aged Out No longer eligible b ased on patient's age to complete this topic RSV under 20 months Aged Out No longe r eligible based on patient's age to complete this topic Rotavirus Vaccines Aged Out No longer eligible based on patient's age to complete this topic Procedures Procedure Name Priority Date/Time Associated Diagnosis Comments HCG, TOTAL, QN Routine 10/15/2024 10:42 AM EST Unprotected sexual intercourse POCT INFLUENZA B (ID NOW RAPID MOLECULAR) Routine 10/15/2024 10:22 AM EST Sore throat POCT INFLUENZA A (ID NOW RAPID MOLECULAR) Routine 10/15/2024 10:22 AM EST Sore throat POCT , URINE Routine 10/15/2024 10:17 AM EST Nausea POCT RAPID STREP A Routine 10/15/2024 10 :12 AM EST Sore throat POCT RAPID COVID ANTIGEN Routine 10/15/2024 10:12 AM EST Sore throat HCG, TOTAL, QN Routine 09/08/2024 10:46 AM EST Possible CBC WITH AUTO DIFFERENTIAL Routine 09/08/2024 10:46 AM EST Postoperative anemia POCT , URINE Routine 09/08/2024 10:36 AM EST Possible POCT INFLUENZA A (ID NOW RAPID MOLECULAR) Routine 09/02/2024 6:10 PM EST Dizziness POCT COVID-19 AG DE LA ROSA ID NOW Routine 09/02/2024 6:09 PM EST Dizziness POCT INFLUENZA B (ID NOW RAPID MOLECULAR) Routine 09/02/2024 6:09 PM EST Dizziness POCT , URINE Routine 09/02/2024 6:00 PM EST Dizziness SARS COV2/INFLUENZA A/B AND RSV RNA QL NAAT Routine 08/22/2024 10:17 PM EST STREP A NUCLEIC ACID Routine 08/22/2024 10:17 PM EST POCT INFLUENZA B (ID NOW RAPID MOLECULAR) Routine 08/13/2024 9:27 AM EST Sore throat POCT INFLUENZA A (ID NOW RAPID MOLECULAR) Routine 08/13/2024 9:27 AM EST Sore throat POC DE LA ROSA ID NOW STREP A Routine 08/13/2024 9:13 AM EST Sore throat POCT RAPID COVID ANTIGEN Routine 08/13/2024 9:12 AM EST Sore throat HEPATITIS C ANTIBODY Routine 11/26/2023 3:32 PM EST HIV 1/2 ANTIGEN/ANTIBODY, FOURTH GENERATION W/RFL Routine 11/26/2023 3:32 PM EST PAP SMEAR Routine 09/01/2021 12:00 AM EST from Last 3 Months or Most Recently Relevant to Health Maintenance Results * hCG, Total, Quantitative (10/15/2024 10:42 AM EST) Only the most recent of2 resultswithin the time period is included. HCG Quantitative <2 mIU/mL [facility] Comment:Weeks post LMP Appro ximate hCG(Last Menstrual Period) Range (mIU/ml)3 - 4 weeks 9 - 1304 - 5 weeks 75 - 2,6005 - 6 weeks 850 - 20,8006 - 7 weeks 4000 - 100,2007 - 12 weeks 11,500 - 289,37024 - 16 weeks 18,300 - 137,88783 - 29 weeks (2nd trimester) 1,400 - 53,11202 - 41 weeks (3rd trimester) 940 - 60,000The De La Rosa B- hCG assay is used for the [...] ORDERABLES Final Resul t Performing Organization Address [facility] Co de Phone Number [facility] [address] [place] [phone] * Influenza B (ID NOW Rapid Molecular) (10/15/2024 10:22 AM EST) Only the most recent of3 resultswithin the time period is included. Influenza B Negative Negative, Indeterminate [facility] Swab 10/15/2024 10:2 2 AM EST us Mart Briscoe MD POINT OF CARE TEST ENTER/EDIT OR DERABLES Final Result Performing Organization Address [facility] Phone Number [facility] [address] [place] [phone] * Influenza A (ID NOW Rapid Molecular) (10/15/2024 10:22 AM EST) Only the most recent of3 resultswithin the time period is included. Influenza A Negative Negative, Indeterminate [facility] Swab 10/15/2024 10:2 2 AM EST us Mart Briscoe MD POINT OF CARE TEST ENTER/EDIT OR DERABLES Final Result Performing Organization Address [facility] Phone Number [facility] [address] [place] [phone] * POCT , urine manually resulted (10/15/2024 10:17 AM EST) Only the most recent of3 resultswithin the time period is included. [facility] Preg Test, Ur Negative Negative, Indeterminate, None Detected, Invalid, Specimen unsatisfactory for evaluation, Weakly Positive Urine 10/15/2024 10:1 7 AM EST us Mart Briscoe MD POINT OF CARE TEST ENTER/EDIT OR DERABLES Final Result * POCT Rapid COVID Ag (10/15/2024 10:12 AM EST) Only the most recent of2 resultswithin the time period is included. [facility] Rapid COVID Ag Negative Swab 10/15/2024 10:1 2 AM EST us Mart Briscoe MD POINT OF CARE TEST ENTER/EDIT OR DERABLES Final Result * POCT rapid strep A manually resulted (10/15/2024 10:12 AM EST) [facility] Rapid Strep A Screen Negative Negative, None Detected Swab 10/15/2024 10:1 2 AM EST us Mart Briscoe MD POINT OF CARE TEST ENTER/EDIT OR DERABLES Final Result * (ABNORMAL) CBC auto differential (09/08/2024 10:46 AM EST) [facility] White Blood Count 7.5 4.8 - 10.8 X10*3/uL [facility] Red Blood Count 4.59 4.20 - 5.50 X10*6/uL [facility] Hemoglobin 12.3 12.0 - 16.0 g/dl [facility] Hematocrit 38.5 37.0 - 47.0 % [facility] Mean Corpuscular Volume 83.9 80.0 - 98.0 fL [facility] Mean Corpuscular Hemoglobin 26.8(L) 27.0 - 33.0 pg [facility] Mean Corpuscular HGB Conc 31.9 31.0 - 35.0 g/dl [facility] Red Cell Distribution Width 14.2 11.0 - 16.0 % [facility] Platelet Count 331 160 - 400 X10*3/uL [facility] Mean Platelet Volume 10.8 9.4 - 12.3 fL [facility] Neutrophils Percent Auto 64.5 45 - 73 % [facility] Imm Gran Pct Auto 0.3 0.0 - 0.4 % [facility] Lymphocytes Percent Auto 26.2 20 - 40 % [facility] Monocytes Percent Auto 7.2 2 - 11 % [facility] Eosinophils Percent Auto 1.3 0 - 4 % [facility] Basophils Percent Auto 0.5 0 - 2 % [facility] NRBC Pct Auto 0.0 0.0 - 0.2 /100WBC [facility] Neutrophils Absolute Auto 4.8 2.0 - 8.3 x10*3/uL [facility] Imm Gran Abs Auto 0.02 0.00 - 0.03 X10*3/uL [facility] Lymphocytes Absolute Auto 2.0 1.2 - 4.9 X10*3/uL [facility] Monocytes Absolute Auto 0.5 0.1 - 1.2 X10*3/uL [facility] Eosinophils Absolute Auto 0.1 0.0 - 0.4 X10*3/uL [facility] Basophils Absolute Auto 0.0 0.0 - 0.2 X10*3/uL [facility] NRBC Abs Auto 0.000 0.0 - 0.012 X10*3/uL [facility] Blood Venous blood specimen / Unknown 09/08/2024 10:46 AM EST 09/08/2024 11:36 AM EST us Aster White MD LAB BLOOD ORDERABLES Final Re sult [facility] [address] [place] [address] [phone] * POCT Rapid Covid-19 DE LA ROSA ID NOW (09/02/2024 6:09 PM EST) Coronavirus Antigen PCR Negative Negative, Indeterminate, None Detected, Invalid, Specimen unsatisfactory for evaluation, Weakly Positive QC Media Lot # [id number] Lot# Expiration Date [id number] Swab 09/02/2024 6:09 PM EST Tiara Simpson MD POINT OF CARE TEST ENTER/E DIT ORDERABLES Final Result * Strep A Nucleic Acid (08/22/2024 10:17 PM EST) Pathologist [facility] IDNOW SERIAL# [id number] [facility] Strep A Nucleic Acid Negative Negative [facility] Comment:All test results mus t be correlated with clinical findings.This test has not been evaluated for monitoring treatment ofinfection.Additional follow-up testing using the culture method isrequired if the result is negative and clinical symptomspersist, or in the event of an acute rheumatic feveroutbreak. 08/22/2024 10:1 7 PM EST 08/22/2024 10:19 PM EST us Generic External Data Provider LAB MICROBIOLOGY - GENERAL ORDERABLES Final Result [facility] [address] [place] [phone] * SARS-CoV-2 RNA, Influenza A/B, and RSV RNA, Ql NAAT (08/22/2024 10:17 PM EST) Pathologist [facility] Influenza A PCR NEGATIVE Negative [facility] Influenza B PCR NEGATIVE Negative [facility] Resp Syncy Virus RNA Qual PCR NEGATIVE Negative [facility] SARS COV2 PCR NEGATIVE Negative [facility] Comment:All test results mus t be correlated with clinical findings.Negative results do not preclude SARS-CoV2, influenza Avirus, influenza B virus and/or RSV infectionand should not be used as the sole basis for treatment orother patient management decisions. Negative results must becombined with clinical observations, patient history, andepidemiological information.This test has not been evaluated for monitoring treatment ofinfection.This test has been authorized by the FDA under an EmergencyUse Authorization (EUA) for use by authorized laboratories.Testing performed on the [employer] GeneXpert utilizingreal-time RT-PCR.All SARS CoV2 and positive influenza A/B results arereported to [facility]. 08/22/2024 10:1 7 PM EST 08/22/2024 10:19 PM EST Generic External Data Provider LAB MICROBIOLOGY - GENERAL ORDERABLES Final Result Performing Organization Address [facility] Co de Phone Number [facility] [address] [place] [phone] * (ABNORMAL) POCT rapid strep A manually resulted (08/13/2024 9:13 AM EST) [facility] Rapid Strep A Screen Positive( A) Negative, None Detected Swab 08/13/2024 9:13 AM EST Charla Bello MD POINT OF CARE TEST ENTER/EDIT ORDERABLES Final Result * Hepatitis C Ab (11/26/2023 3:32 PM EST) [facility] Hepatitis C Antibody Nonreactive Nonreactive [facility] Comment:Antibodies to HCV no t detected; does not exclude early acuteHCV infection. 11/26/2023 3:32 PM EST 11/26/2023 5:25 PM EST Aster White MD LAB BLOOD ORDERABLES Final Re sult Performing Organization Address [facility] Co de Phone Number [facility] [address] [place] [phone] * HIV-1/2 Antigen and Antibodies, Fourth Generation, with Reflexes (11/26/2023 3:32 PM EST) [facility] HIV AB/AG Nonreactive Nonreactive [facility] Comment:HIV-1 p24 Ag and/or HIV-1/HIV-2 Ab not detected.A test result that is nonreactive does not exclude thepossibility of exposure to or infection with HIV-1 and/orHIV-2. Nonreactive results in this assay for individualswith prior exposure to HIV-1 and/or HIV-2 may be due toantigen and antibody levels that are below the limit ofdetection of this assay.The [employer] Alinity HIV Ag/Ab Combo assay result andsupplemental assay results should be interpreted inconjunction with the patient's clinical presentation,history and other laboratory results. If the results areinconsistent with clinical evidence, additional testing issuggested to confirm the result. 11/26/2023 3:32 PM EST 11/26/2023 5:25 PM EST Aster White MD LAB BLOOD ORDERABLES Final Re sult Performing Organization Address [facility]/ZIP Co de Phone Number [facility] [address] [place] [address] [phone] * Pap Smear (09/01/2021 12:00 AM EST) Swab Historical Provider LAB CYTOLOGY ORDERABLES F inal Result Performing Organization Address City/[facility]/ZIP Co de Phone Number [facility] [address] [place] [address] from Last 3 Months or Most Recently Relevant to Health Maintenance Insurance [facility] C3 Care Teams Zone Maintenance Technician Relationship Specialty Start Date End Date Jeanine Smith MD [address] [place] [phone] PCP - General Internal Medicine 03/04/24 [facility] Consulting Physician Obstetrics and Gynecology 09/30/23
== END 2024-10-27 13:07 | disposition home or self-care (01) ==
LOC: HO.HHCLNP 13:06
PROVIDERS: Visit Provider Family Medicine
DX: B00.9 Herpesviral infection, unspecified (principal)
CPT/HCPCS: 36415; 87255

== ENCOUNTER 2024-10-29 | Outpatient (REF) | payer MEDICAID, SELFPAY ==
--- OUTSIDE RECORDS SUMMARY | 2024-11-06 14:26 | XMS_ITS | Encounter Summary ---
Author Organization [facility] Address [address] 7t [place] [address] Care Team Providers Care Instructor Modeling Name Role Phone eJanine Smith MD Primary Care Provider [phone] Reason for Visit * Reason Comments Sore Throat Encounter Details Date Type Department Care Team ([facility] st Contact Info) Description 10/15/2024 10:00 AM EST Office Visit [facility] WALK-IN CENTER 230 [place], [place] [phone] Mart Briscoe MD 230 [place] [address] Unprotected sexual intercourse (Primary Dx); Sore throat; [...] weeks ago. Also had STI screening [facility] Was told all negative results. Objective Vitals: [...] - 100,2007 - 12 weeks 11,500 - 289,89234 - 16 weeks 18,300 - 137,98126 - 29 weeks (2nd trimester) 1,400 - 53,67445 - 41 weeks (3rd trimester) 940 - [...] , urine manually resulted Patient presents to [facility] due to dry throat and acid reflux [...] Care Team (Late st Contact Info) Description 11/09/2024 10:00 AM EST Office Visit [facility] MEDICINE 230 [place], [place] [phone] Sharron Pace CNM 230 [place] [address] documented as of this encounter Procedures Procedure [...] 10:42 AM EST) HCG Quantitative <2 mIU/mL [facility] Comment:Weeks post LMP Appro ximate hCG(Last Menstrual Period) Range (mIU/ml)3 - 4 weeks 9 - 1304 - 5 weeks 75 - 2,6005 - 6 weeks 850 - 20,8006 - 7 weeks 4000 - 100,2007 - 12 weeks 11,500 - 289,93674 - 16 weeks 18,300 - 137,89055 - 29 weeks (2nd trimester) 1,400 - 53,43330 - 41 weeks (3rd trimester) 940 - [...] ORDERABLES Final Resul t Performing Organization Address [facility] Co de Phone Number [facility] [address] [place] [phone] * Influenza B (ID NOW Rapid Molecular) (10/15/2024 10:22 AM EST) Pathologist [facility] Influenza B Negative Negative, Indeterminate [facility] Swab 10/15/2024 10:2 2 AM EST us Mart Briscoe MD POINT OF CARE TEST ENTER/EDIT OR DERABLES Final Result Performing Organization Address [facility] Phone Number [facility] [address] [place] [phone] * Influenza A (ID NOW Rapid Molecular) (10/15/2024 10:22 AM EST) [facility] Influenza A Negative Negative, Indeterminate [facility] Swab 10/15/2024 10:2 2 AM EST us Mart Briscoe MD POINT OF CARE TEST ENTER/EDIT OR DERABLES Final Result Performing Organization Address [facility] Phone Number [facility] [address] [place] [phone] * POCT , urine manually resulted [...] documented as of this encounter Care Teams Instructor Modeling Relationship Specialty Start Date End Date Jeanine Smith MD [address] [place] [address] PCP - General Internal Medicine 03/04/24 [facility] Consulting Physician Obstetrics and Gynecology 09/30/23 documented as of this encounter
--- OUTSIDE RECORDS SUMMARY | 2024-11-06 14:26 | XMS_ITS | Encounter Summary ---
Author Organization [employer] Address [address] [facility] 7t [place] [address] Care Team Providers Care Screen Printing Machine Loader Unloader Name Role Phone Jeanine Smith MD Primary Care Provider Reason for Visit * Reason Onset Date Comments No Show 10/08/2024 Encounter Details Date Type Department Care Team ([facility] Contact Info) Description 10/08/2024 Telephone [facility] CHC MED & PEDS 505 [place] [address] Jeanine Smith MD 505 [place] [address] No Show Social History Tobacco Use Types [...] Description 11/09/2024 10:00 AM EST Office Visit [facility] MEDICINE 230 [place] [address] Sharron Pace CN 230 [place] [address] documented as of this encounter Visit Diagnoses Not on filedocumented in this encounter Additional Health Concerns Assessment Noted Time PHQ-9 Depression Total Score: 15 024 2:35 PM EDT documented as of this encounter Care Teams Screen Printing Machine Loader Unloader Relationship Specialty Start Date End Date Jeanine Smith MD 505 [place] [address] PCP - General Internal Medicine 03/04/24 [facility] Consulting Physician Obstetrics and Gynecology 09/30/23 documented as of this encounter
--- OUTSIDE RECORDS SUMMARY | 2024-11-06 14:26 | XMS_ITS | Encounter Summary ---
Author Organization [employer] Address [address] [facility] 7t [place] [address] Care Team Providers Care Airplane Pilot Crop Dusting Name Role Phone Jeanine Smith MD Primary Care Provider Encounter Details Date Type Department Care Team (Late st Contact Info) Description 10/16/2024 Telephone [facility] CHC MED & PEDS 505 [place], [place] [phone] Jeanine Smith MD 505 [place] [address] Social History Tobacco Use Types Packs/Day Years [...] Description 11/09/2024 10:00 AM EST Office Visit [facility] MEDICINE [address] [place] [address] Sharron Pace, EDWARD 230 [place] [address] documented as of this encounter Visit Diagnoses Not on filedocumented in this encounter Additional Health Concerns Assessment Noted Time PHQ-9 Depression Total Score: 15 024 2:35 PM EDT documented as of this encounter Care Teams Airplane Pilot Crop Dusting Relationship Specialty Start Date End Date Jeanine Smith MD [address] [place] [address] PCP - General Internal Medicine 03/04/24 [facility] Consulting Physician Obstetrics and Gynecology 09/30/23 documented as of this encounter
--- OUTSIDE RECORDS SUMMARY | 2024-11-06 14:27 | XMS_ITS | Encounter Summary ---
Author Organization [employer] [facility] Address [address] [facility] [facility] [address] 7t [place] [address] Care Team Providers Care Hris Developer Name Role Phone Jeanine Smith MD [...] Description 11/09/2024 10:00 AM EST Office Visit [facility] MEDICINE 230 [place], [place] [phone] Sharron Pace CNM 230 [place] [address] documented as of this encounter Visit Diagnoses Not on filedocumented in this encounter Additional Health Concerns Assessment Noted Time PHQ-9 Depression Total Score: 15 024 2:35 PM EDT documented as of this encounter Care Teams Hris Developer Relationship Specialty Start Date End Date Jeanine Smith MD [address] [place] [address] PCP - General Internal Medicine 03/04/24 [facility] Consulting Physician Obstetrics and Gynecology 09/30/23 documented as of this encounter
--- OUTSIDE RECORDS SUMMARY | 2024-11-06 14:27 | XMS_ITS | Encounter Summary ---
Author Organization [employer] Address [address] 7t [place] [address] Care Team Providers Care Traveling Electrician Name Role Phone Jeanine Smith MD Primary [...] Description 11/09/2024 10:00 AM EST Office Visit [facility] MEDICINE 230 [place], [place] [phone] Sharron Pace CNM 230 [place] [address] documented as of this encounter Visit Diagnoses Not on filedocumented in this encounter Additional Health Concerns Assessment Noted Time PHQ-9 Depression Total Score: 15 024 2:35 PM EDT documented as of this encounter Care Teams Traveling Electrician Relationship Specialty Start Date End Date Jeanine Smith MD [address] [place] [address] PCP - General Internal Medicine 03/04/24 [facility] Consulting Physician Obstetrics and Gynecology 09/30/23 documented as of this encounter
--- OUTSIDE RECORDS SUMMARY | 2024-11-06 14:27 | XMS_ITS | Encounter Summary ---
Author Organization [employer] Address [address] 7t [place] [address] Care Team Providers Care Systems Integrator Name Role Phone Jeanine Smith MD Primary Care Provider Reason for Visit * Reason Onset Date Comments Nurse Triage 06/29/2024 Encounter Details Date Type Department Care Team ([facility] st Contact Info) Description 06/29/2024 Telephone [facility] MEDICINE 230 [place] [address] Jeanine Smith MD 505 [place] [address] Nurse Triage Social History Tobacco Use Types [...] t he electric, gas, oil or water [employer] threatened to shut off services in your [...] time. Pt is advised to come to [facility] today open till 8pm. Pt is advised [facility] has someone who can speak with Pt in [facility]. Pt agrees with this plan, home care reviewed. Pt will come to [facility] today. Insurance is verified as [...] in the arm for control please call [phone] documented in this encounter Plan of Treatment Upcoming Encounters Date Type Department Care Team (Late st Contact Info) Description 11/09/2024 10:00 AM EST Office Visit [facility] MEDICINE 230 [place], [place] [phone] Sharron Pace CNM 230 [place], [place] [phone] documented as of this encounter Visit Diagnoses Not on filedocumented in this encounter Care Teams Systems Integrator Relationship Specialty Start Date End Date Jeanine Smith MD [address] [place] [address] PCP - General Internal Medicine 03/04/24 [facility] Consulting Physician Obstetrics and Gynecology 09/30/23 documented as of this encounter
--- OUTSIDE RECORDS SUMMARY | 2024-11-06 14:27 | XMS_ITS | Encounter Summary ---
Demographics Address [address] [place] [address] Mobile Phone Home Phone Email Address Preferred Language en Marital Status Single Baptist Affiliation Unknown Race White Ethnic Group or Author Organization [employer] Address [address] [facility] 7t [place] [address] Care Team Providers Care Structural Mill Supervisor Name Role Phone Jeanine Smith MD Primary Care Provider Reason for Visit * Reason Onset Date Comments Med Refill 10/25/2024 Encounter Details Date Type Department Care Team ([facility] st Contact Info) Description 10/25/2024 Refill [facility] MED & PEDS 505 [place] [address] Jeanine Smith MD 505 [place] [address] Social History Tobacco Use Types Packs/Day Years [...] Description 11/09/2024 10:00 AM EST Office Visit [facility] MEDICINE [address] [place] [address] Sharron Pace CNM 230 [place] [address] documented as of this encounter Visit Diagnoses Not on filedocumented in this encounter Additional Health Concerns Assessment Noted Time PHQ-9 Depression Total Score: 15 024 2:35 PM EDT documented as of this encounter Care Teams Structural Mill Supervisor Relationship Specialty Start Date End Date Jeanine Smith MD 505 [place] [address] PCP - General Internal Medicine 03/04/24 [facility] Consulting Physician Obstetrics and Gynecology 09/30/23 documented as of this encounter
--- OUTSIDE RECORDS SUMMARY | 2024-11-06 14:27 | XMS_ITS | Encounter Summary ---
Author Organization [employer] [facility] Address [address] [place] [address] 7 [place] [address] Care Team Providers Care Hogshead Head Matcher Name Role Phone Aster White MD Primary Care Provider [phone] Jeanine Smith MD Primary Care Provider [phone] Reason for Referral * Consultation (Routine) - Authorized Specialty Diagnoses / Procedures Referred By Contac t Referred To Contact Pharmacy Diagnoses Acute pulmonary embolism, unspecified pulmonary embolism type, unspecified whether acute cor pulmonale present (CMS/HCC) Minnie Adams PharmD 230 [place] [address] Phone: tel: fax: Referral ID Status Reason Start Date Expiration Date Visits Requested Visits Authorized [id number] Authorized Continuity of Care 01/10/2024 01/09/2025 1 1 Encounter Details Date Type Department Care Team (Late st Contact Info) Description 01/10/2024 Orders Only [facility] MEDICINE [address] [place] [address] Minnie Adams, PharmD 230 [place] [address] Acute pulmonary embolism, unspecified pulmonary embolism type, [...] Description 11/09/2024 10:00 AM EST Office Visit [facility] MEDICINE [address] [place] [address] Sharron Pace CN 230 [place] [address] Scheduled Referrals Name Type Priority Associated Diagnoses Orde r Schedule Referral to Pharmacy [place] Outpatient Referral Routine Acute pulmonary embolism, unspecified pulmonary embolism type, unspecified whether acute cor pulmonale present (CMS/HCC) Ordered: 01/10/2024 documented as of this encounter Visit Diagnoses Diagnosis Acute pulmonary embolism, unspecified pulmonary embolism type, unspecified whether acute cor pulmonale present (CMS/HCC)- Primary documented in this encounter Care Teams Hogshead Head Matcher Relationship Specialty Start Date End Date Aster White MD [address] [place] [address] PCP - General Family Medicine 10/10/23 03/03/24 Jeanine Smith MD [address] [place] [address] PCP - General Internal Medicine 03/04/24 [facility] Consulting Physician Obstetrics and Gynecology 09/30/23 documented as of this encounter
--- OUTSIDE RECORDS SUMMARY | 2024-11-06 14:27 | XMS_ITS | Encounter Summary ---
Author Organization [employer] Address [address] 7t [place] [address] Care Team Providers Care Science Intern Name Role Phone Jeanine Smith MD Primary Care Provider Encounter Details Date Type Department Care Team (Late st Contact Info) Description 10/31/2024 11:40 AM EST Office Visit [facility] WALK-IN CENTER 230 [place], [place] [phone] Mart Briscoe MD 230 [place], [place] [phone] Viral URI Social History Tobacco Use Types [...] Indeterminate Final QC Media Lot # 10/31/2024 [id number] Final Lot# Expiration Date 10/31/2024 [id number] Final Rapid Influenza B Ag 10/31/2024 Negative Negative, Indeterminate Final QC Media Lot # 10/31/2024 [id number] Final Lot# Expiration Date 10/31/2024 [id number] Final Rapid Strep A Screen 10/31/2024 Negative Negative, None Detected Final QC Media Lot # 10/31/2024 [id number] Final Lot# Expiration Date 10/31/2024 [id number] Final [...] Description 11/09/2024 10:00 AM EST Office Visit [facility] MEDICINE 230 [place], [place] [phone] Sharron Pace, CN 230 [place], [place] [phone] documented as of this encounter Procedures Procedure [...] A manually resulted (10/31/2024 12:11 PM EST) [facility] Rapid Strep A Screen Negative Negative, None Detected QC Media Lot # [id number] Lot# Expiration Date 026 Swab 10/31/2024 12:1 1 PM EST Mart Briscoe MD POINT OF CARE TEST ENTER/EDIT OR DERABLES Final Result * POCT Influenza B manually resulted (10/31/2024 12:11 PM EST) [facility] Rapid Influenza B Ag Negative Negative, Indeterminate QC Media Lot # [id number] Lot# Expiration Date Swab 10/31/2024 12:1 1 PM EST us Mart Briscoe MD POINT OF CARE TEST ENTER/EDIT OR DERABLES Final Result * POCT Influenza A manually resulted (10/31/2024 12:11 PM EST) [facility] Rapid Influenza A Ag Negative Negative, Indeterminate QC Media Lot # [id number] Lot# Expiration Date Swab Nasopharyngeal structure / Unknown 10/31/2024 12:11 PM EST us Mart Briscoe MD POINT OF CARE TEST ENTER/EDIT OR DERABLES Final Result * POCT Rapid COVID Ag (10/31/2024 12:11 PM EST) [facility] Rapid COVID Ag Negative QC Media Lot # [id number] Lot# Expiration Date ,026 Swab 10/31/2024 12:1 1 PM EST us Mart Briscoe MD POINT OF CARE TEST ENTER/EDIT OR DERABLES Final Result documented in this encounter Visit Diagnoses Diagnosis Viral URI Acute upper respiratory infections of unspecified site documented in this encounter Additional Health Concerns Assessment Noted Time PHQ-9 Depression Total Score: 15 024 2:35 PM EDT documented as of this encounter Care Teams Science Intern Relationship Specialty Start Date End Date Jeanine Smith MD [address] [place] [address] PCP - General Internal Medicine 03/04/24 [facility] Consulting Physician Obstetrics and Gynecology 09/30/23 documented as of this encounter
--- OUTSIDE RECORDS SUMMARY | 2024-11-06 14:27 | XMS_ITS | Encounter Summary ---
Author Organization [employer] Address [address] [facility] 7t [place] [address] Care Team Providers Care Correctional Guard Name Role Phone Jeanine Smith MD Primary Care Provider Reason for Visit * Reason Onset Date Comments Plan B 10/08/2024 Encounter Details Date Type Department Care Team ([facility] st Contact Info) Description 10/08/2024 Telephone [facility] CHC MED & PEDS 505 [place] [address] Jeanine Smith MD 505 [place] [address] Plan B Social History Tobacco Use Types [...] 10/08/2024 9:49 AM EST Pt came to [facility] pharm today, [facility] pharmacist states this is the third time pt has been in for Plan B in 20 days. This is not best pt care. [facility] pharmacist has counseled on control and pt refused first two times. This time [facility] pharmacist will not give Plan B and reached out to this press writer. Pt agrees to see PCP today at 11:15a to discuss control. documented in this encounter Plan of Treatment Upcoming Encounters Date Type Department Care Team (Late st Contact Info) Description 11/09/2024 10:00 AM EST Office Visit [facility] MEDICINE 230 [place] [address] Sharron Pace CNM 230 [place] [address] documented as of this encounter Visit Diagnoses Not on filedocumented in this encounter Additional Health Concerns Assessment Noted Time PHQ-9 Depression Total Score: 15 024 2:35 PM EDT documented as of this encounter Care Teams Correctional Guard Relationship Specialty Start Date End Date Jeanine Smith MD 505 [place] [address] PCP - General Internal Medicine 03/04/24 [facility] Consulting Physician Obstetrics and Gynecology 09/30/23 documented as of this encounter
--- OUTSIDE RECORDS SUMMARY | 2024-11-06 14:27 | XMS_ITS | Encounter Summary ---
Author Organization [employer] Address [address] [facility] [facility] [address] [address] 7t [place] [address] Care Team Providers Care Shot Coat Tender Name Role Phone Jeanine Smith MD Primary Care Provider [phone] Encounter Details Date Type Department Care Team (Late st Contact Info) Description 03/05/2024 Orders Only [facility] CHC MED & PEDS 505 [place], [place] [phone] Jeanine Smith MD 505 [place], [place] [phone] Single subsegmental pulmonary embolism without acute cor [...] Visit [facility] MEDICINE 230 [place], [place] [phone] Sharron Pace CNM 230 [place] [address] documented as of this encounter Visit Diagnoses Diagnosis Single subsegmental pulmonary embolism without acute cor pulmonale (CMS/HCC) documented in this encounter Care Teams Shot Coat Tender Relationship Specialty Start Date End Date Jeanine Smith MD [address] [place] [address] PCP - General Internal Medicine 03/04/24 [facility] Consulting Physician Obstetrics and Gynecology 09/30/23 documented as of this encounter
--- OUTSIDE RECORDS SUMMARY | 2024-11-06 14:27 | XMS_ITS | Encounter Summary ---
Author Organization [facility] Address [address] [place] [address] 7t [place] [address] Care Team Providers Care Helpdesk Specialist Name Role Phone Aster White MD Primary Care Provider [phone] Jeanine Smith MD Primary Care Provider [phone] Reason for Visit * Reason Onset Date Comments New Patient 05/16/2023 Encounter Details Date Type Department Care Team (Late st Contact Info) Description 05/16/2023 Telephone [facility] MEDICINE [address] [place] [address] Hamlet Mccullough MD [address] [place] [address] New Patient Social History Tobacco Use Types [...] been transfer over to wait list 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 EFFECTIVE SINCE 05/16/2023 documented in this encounter Plan of Treatment Upcoming Encounters Date Type Department Care Team (Late Contact Info) Description 11/09/2024 10:00 AM EST Office Visit [facility] MEDICINE [address] [place] [address] Sharron Pace, [facility] 230 [place] [address] documented as of this encounter Visit Diagnoses Not on filedocumented in this encounter Care Teams Helpdesk Specialist Relationship Specialty Start Date End Date Aster White MD 230 [place] [address] PCP - General Family Medicine 10/10/23 03/03/24 Jeanine Smith MD [address] [place] [address] [place] [address] PCP - General Internal Medicine 03/04/24 [facility] Consulting Physician Obstetrics and Gynecology 09/30/23 documented as of this encounter
--- OUTSIDE RECORDS SUMMARY | 2024-11-06 14:27 | XMS_ITS | Encounter Summary ---
Author Organization [employer] Address [address] 7t [place] [address] Care Team Providers Care Sleeve Turner Name Role Phone Jeanine Smith MD Primary Care Provider Encounter Details Date Type Department Care Team (Late st Contact Info) Description 10/26/2024 Orders Only [facility] CHC MED & PEDS 505 [place], [place] [phone] Jeanine Smith MD 505 [place] [address] Social History Tobacco Use Types Packs/Day Years [...] Description 11/09/2024 10:00 AM EST Office Visit [facility] MEDICINE 230 [place], [place] [phone] Sharron Pace CNM 230 [place] [address] documented as of this encounter Visit Diagnoses Not on filedocumented in this encounter Additional Health Concerns Assessment Noted Time PHQ-9 Depression Total Score: 15 024 2:35 PM EDT documented as of this encounter Care Teams Sleeve Turner Relationship Specialty Start Date End Date Jeanine Smith MD [address] [place] [address] PCP - General Internal Medicine 03/04/24 [facility] Consulting Physician Obstetrics and Gynecology 09/30/23 documented as of this encounter
--- OUTSIDE RECORDS SUMMARY | 2024-11-06 14:27 | XMS_ITS | Encounter Summary ---
Author Organization [employer] Address [address] [place] [address] Care Team Providers Care Medicare Compliance Auditor Name Role Phone Jeanine Smith MD Primary Care Provider Encounter Details Date Type Department Care Team (Late st Contact Info) Description 11/03/2024 Telephone [facility] [address] [place] [address] Mirta Padilla, RN Social History Tobacco Use Types Packs/Day Years [...] encounter Miscellaneous Notes * Telephone Encounter - Mirta Padilla RN - 11/03/2024 10:21 AM EST Tc to pt to let them know per PCP Please let pt know labs were normal including negative HCG which does not require repeat blood draw thank you Pt verbalized understanding and no further questionsor concerns at this time. * Telephone Encounter - Mirta Padilla RN - 11/03/2024 10:21 AM EST ----- Message from Carisa Ramos sent at 11/02/2024 7:18 PM EST ----- Please let pt know labs were normal including negative HCG which does not require repeat blood drawthank you ----- Message ----- From: Suhas Gonzalez MA Sent: 11/02/2024 9:40 AM EST To: Carisa Ramos NP documented in this encounter Plan of Treatment Upcoming Encounters Date Type Department Care Team (Late st Contact Info) Description 11/09/2024 10:00 AM EST Office Visit [facility] [address] [place] [address] Sharron Pace CNM [address] [place] [address] documented as of this encounter Visit Diagnoses Not on filedocumented in this encounter Additional Health Concerns Assessment Noted Time PHQ-9 Depression Total Score: 15 024 2:35 PM EDT documented as of this encounter Care Teams Medicare Compliance Auditor Relationship Specialty Start Date End Date Jeanine Smith MD [address] [place] [id number] PCP - General Internal Medicine 03/04/24 [facility] Consulting Physician Obstetrics and Gynecology 09/30/23 documented as of this encounter
--- OUTSIDE RECORDS SUMMARY | 2024-11-06 14:27 | XMS_ITS | Encounter Summary ---
Author Organization [employer] Address [address] [place] [address] Care Team Providers Care Podiatry Assistant Name Role Phone Jeanine Smith MD Primary Care Provider Reason for Visit * Reason Onset Date Comments Nurse Triage 11/05/2024 Encounter Details Date Type Department Care Team ([facility] st Contact Info) Description 11/05/2024 Telephone [facility] [address] [place] [address] Jeanine Smith MD [address] [place] [address] Nurse Triage Social History Tobacco Use Types [...] encounter Miscellaneous Notes * Telephone Encounter - Alanna Naidu RN - 11/05/2024 11:23 AM EST called pt to triage, spoke to pt. pt states seen walk in on 2/ for missed period and was told to call back if still no period in a few days. pt states LMP 09/25 and states headaches and nausea. pt was negative for at her walk in appt. pt requesting appt with MEDICAL DIAGNOSTIC RADIOGRAPHER and was given appt Saturdaywith Caryl Pace at 10:00 for exam. advised home care: rest, fluids, monitor for period, and call back as needed. pt understands and agrees sith plan. insurance verified. Protocol Used: Menstrual Period - Missed or Late (Adult) Protocol-Based Disposition: See in Office or Video Visit within 2 Weeks Positive Triage Question: * Missed period has occurred 2 or more times in the last year and cause is not known * All higher-acuity triage questions were negative Care Advice Discussed: * Reasons To Call Back - Positive test - You have any other serious symptoms * Telephone Encounter - Irch Carlos - 11/05/2024 10:51 AM EST Symptoms: Menstrual Periods Absent or Missed, Headache Outcome: Schedule an urgent appointment (within 4 hours) or talk to a nurse or provider soon Reason: Started within the past 3 days The caller accepted this outcome. Pt reports missed cycle for past 11 days and headache, pt also reports Nausea but not from possiblepregnancy . documented in this encounter Plan of Treatment Upcoming Encounters Date Type Department Care Team (Late st Contact Info) Description 11/09/2024 10:00 AM EST Office Visit [facility] [address] [place] [address] Sharron Pace CNM [address] [place], [place] [phone] documented as of this encounter Visit Diagnoses Not on filedocumented in this encounter Additional Health Concerns Assessment Noted Time PHQ-9 Depression Total Score: 15 024 2:35 PM EDT documented as of this encounter Care Teams Podiatry Assistant Relationship Specialty Start Date End Date Jeanine Smith MD [address] [place] [id number] PCP - General Internal Medicine 03/04/24 [facility] Consulting Physician Obstetrics and Gynecology 09/30/23 documented as of this encounter
--- OUTSIDE RECORDS SUMMARY | 2024-11-06 14:27 | XMS_ITS | Encounter Summary ---
Author Organization [employer] Address [address] [place] [address] Care Team Providers Care Cleaning Machine Operator Name Role Phone Jeanine Smith MD Primary Care Provider Encounter Details Date Type Department Care Team (Late st Contact Info) Description 07/29/2024 Orders Only [facility] [address] [place] [address] Sharron Pace, CN [address] [place] [address] Social History Tobacco Use Types Packs/Day Years [...] Description 11/09/2024 10:00 AM EST Office Visit [facility] [address] [place], [place] [phone] Sharron Pace CNM [address] [place], [place] [phone] documented as of this encounter Procedures Procedure Name Priority Date/Time Associated Diagnosis Comments PAP SMEAR Routine 09/01/2021 12:00 AM EST documented in this encounter Results * Pap Smear (09/01/2021 12:00 AM EST) Swab us Historical Provider LAB CYTOLOGY ORDERABLES F inal Result [facility] [address] [place] [address] documented in this encounter Visit Diagnoses Not on filedocumented in this encounter Additional Health Concerns Assessment Noted Time PHQ-9 Depression Total Score: 15 024 2:35 PM EDT documented as of this encounter Care Teams Cleaning Machine Operator Relationship Specialty Start Date End Date Jeanine Smith MD [address] [place] [address] PCP - General Internal Medicine 03/04/24 [facility] Consulting Physician Obstetrics and Gynecology 09/30/23 documented as of this encounter
--- OUTSIDE RECORDS SUMMARY | 2024-11-06 14:27 | XMS_ITS | Encounter Summary ---
Author Organization [employer] Address [address] [place] [address] Care Team Providers Care Healthcare Management Name Role Phone Jeanine Smith MD Primary [...] Description 11/09/2024 10:00 AM EST Office Visit [facility] [address] [place], [place] [phone] Sharron Pace CNM [address] [place] [address] documented as of this encounter Visit Diagnoses Not on filedocumented in this encounter Additional Health Concerns Assessment Noted Time PHQ-9 Depression Total Score: 15 024 2:35 PM EDT documented as of this encounter Care Teams Healthcare Management Relationship Specialty Start Date End Date Jeanine Smith MD [address] [place] [phone] PCP - General Internal Medicine 03/04/24 [facility] Consulting Physician Obstetrics and Gynecology 09/30/23 documented as of this encounter
--- OUTSIDE RECORDS SUMMARY | 2024-11-06 14:27 | XMS_ITS | Encounter Summary ---
Author Organization [employer] Address [address] [place] [address] Care Team Providers Care Programmer Analyst Health It Name Role Phone Jeanine Smith MD Primary Care Provider [phone] Encounter Details Date Type Department Care Team (Late st Contact Info) Description 10/27/2024 9:40 AM EST Office Visit [facility] [address] [place], [place] [phone] Tiara Simpson MD [address] [place], [place] [phone] Herpes infection (Primary Dx); Patient desires Social [...] Upcoming Encounters Date Type Department Care Team ([facility] st Contact Info) Description 11/09/2024 10:00 AM EST Office Visit [facility] [address] [place], [place] [phone] Sharron Pace CNM [address] [place], [place] [phone] documented as of this encounter Procedures Procedure Name Priority Date/Time Associated Diagnosis Comments HERPES CULTURE WITH REFLEX TYPING Routine 10/27/2024 10:49 AM EST Herpes infection documented in this encounter Results * Herpes Simplex Virus Culture with Reflex Typing (10/27/2024 10:49 AM EST) HSV Culture/Type SEE NOTE [facility] Comment:HERPES SIMPLEX VIRUS CULTURE W/RFL TO TYPING Micro Number: [id number] Test Status: Final Specimen Source: Not given Specimen Quality: Adequate HSV Culture: Not IsolatedTHIS TEST WAS PERFORMED AT:[address] [id number] MERATI,MD Swab Topography unknown / Unknown 10/27/2024 10:49 AM EST 10/27/2024 1:08 PM EST Tiara Simpson MD LAB MICROBIOLOGY - GENERAL ORDERABLES Final Result [facility] [address] [place] [address] [phone] documented in this encounter Visit Diagnoses Diagnosis Herpes infection- Primary Herpes simplex without mention of complication Patient desires documented in this encounter Additional Health Concerns Assessment Noted Time PHQ-9 Depression Total Score: 15 024 2:35 PM EDT documented as of this encounter Care Teams Programmer Analyst Health It Relationship Specialty Start Date End Date Jeanine Smith MD [address] [place] [address] PCP - General Internal Medicine 03/04/24 [facility] Consulting Physician Obstetrics and Gynecology 09/30/23 documented as of this encounter
--- OUTSIDE RECORDS SUMMARY | 2024-11-06 14:27 | XMS_ITS | Encounter Summary ---
Author Organization [employer] Address [address] [place] [address] Care Team Providers Care Water Pumper Name Role Phone Aster White MD Primary Care Provider [phone] Jeanine Smith MD Primary Care Provider [phone] Reason for Visit * Reason Onset Date Comments Call Back Request 12/27/2023 Encounter Details Date Type Department Care Team ([facility] st Contact Info) Description 12/27/2023 Telephone [facility] [address] [place] [address] Aster White MD [address] [place] [address] Call Back Request Social History Tobacco Use [...] prescription direction is Eliquis 5 MG tablet [[id number]] Take 1 tablet (5 mg) by mouth [...] Description 11/09/2024 10:00 AM EST Office Visit [facility] [address] [place] [address] Sharron Pace CNM [address] [place] [address] documented as of this encounter Visit Diagnoses Not on filedocumented in this encounter Care Teams Water Pumper Relationship Specialty Start Date End Date Aster White MD [address] [place] [address] PCP - General Family Medicine 10/10/23 03/03/24 Jeanine Smith MD [address] [place] [address] PCP - General Internal Medicine 03/04/24 [facility] Consulting Physician Obstetrics and Gynecology 09/30/23 documented as of this encounter
--- OUTSIDE RECORDS SUMMARY | 2024-11-06 14:27 | XMS_ITS | Encounter Summary ---
Author Organization [employer] Address [address] [place] [address] Care Team Providers Care Numerical Control Machine Tool Operator Name Role Phone Aster White MD Primary Care Provider [phone] Jeanine Smith MD Primary Care Provider [phone] Encounter Details Date Type Department Care Team ([facility] st Contact Info) Description 02/05/2024 Telephone [facility] [address] [place] [address] Aster White MD [address] [place], [place] [phone] Social History Tobacco Use Types Packs/Day Years [...] Description 11/09/2024 10:00 AM EST Office Visit [facility] [address] [place] [address] Sharron Pace CNM [address] [place] [address] documented as of this encounter Visit Diagnoses Not on filedocumented in this encounter Care Teams Numerical Control Machine Tool Operator Relationship Specialty Start Date End Date Aster White MD [address] [place] [address] PCP - General Family Medicine 10/10/23 03/03/24 Jeanine Smith MD [address] [place] [address] PCP - General Internal Medicine 03/04/24 [facility] Consulting Physician Obstetrics and Gynecology 09/30/23 documented as of this encounter
--- OUTSIDE RECORDS SUMMARY | 2024-11-06 14:27 | XMS_ITS | Clinical Summary ---
Author Organization [employer] Address [address] [facility] [address] [place] [address] Care Team Providers Care Refinisher Name Role Phone Jeanine Smith MD Primary [...] Noted Date Diagnosed Date Missed menses 11/02/2024 Assessment & Plan (11/02/2024 12:12 PM EST): Pt menses are late by approxiately 10 days, Has had unprotected sex during this time, neg urine hcg today, pt open to should testing be positive Pt declines contraception Labs as ordered below If labs negative and menses do not occur or pt develops abdominal pain or other symptoms- Return to clinic Irregular periods 11/02/2024 Herpes infection 10/27/2024 Assessment [...] to go to ER now. Partner to moving van driver her. She agrees with the plan. [...] recommended reduction of 20-30% of maintenance calories; field recorder referral offered. Recommended to decrease soda and [...] Encounters Date Type Department Care Team Description 11/05/2024 Telephone [facility] [address] [place] [phone] Jeanine Smith MD Nurse Triage 11/03/[address] [address] Mirta Padilla, ZAIN 11/02/2024 9:40 AM EST Office Visit [facility] [address] [address] Carisa Ramos NP Irregular periods (Primary Dx); Missed menses 10/31/2024 11:40 AM EST Office Visit [facility] [address] [place] [phone] Mart Briscoe MD Viral URI 10/31/2024 Travel 10/29/2024 10:00 AM EST Office Visit [address] [address] Moisés Garcia CNM ASCUS of cervix with negative high risk HPV (Primary Dx); Procreative management; Cystocele, unspecified 10/29/2024 Travel 10/27/2024 9:40 AM EST Office Visit [facility] [address] [address] Tiara Simpson MD Herpes infection (Primary Dx); Patient desires 10/26/2024 Orders Only [facility] [address] [place] [address] Jeanine Smith MD 10/26/2024 Refill [facility] [address] [place] [phone] Jeanine Smith MD 10/25/2024 Refill [facility] [address] [place] [address] Jeanine Smith MD 10/16/2024 Telephone [facility] [address] [place] [address] Jeanine Smith MD 10/15/2024 10:00 AM EST Office Visit [facility] [address] [address] Mart Briscoe MD Unprotected sexual intercourse (Primary Dx); Sore throat; Nausea 10/15/2024 Travel 10/08/2024 Telephone [facility] [address] [place] [address] Jeanine Smith MD No Show 10/08/2024 Telephone [facility] [address] [place] [address] Jeanine Smith MD Plan B 09/14/2024 Telephone [facility] [address] [place] [address] Leti Mcghee, mobile development manager Question 09/08/2024 10:20 AM EST Office Visit [facility] [address] [address] Donte Saavedra MD Possible (Primary Dx) 09/08/2024 Telephone [facility] [address] [address] Donte Saavedra MD 09/02/2024 6:20 PM EST Office Visit [facility] [address] [place] [address] Tiara Simpson MD Acute intractable headache, unspecified headache type (Primary Dx); Dizziness 09/02/2024 Telephone [facility] [address] [place] [address] Jeanine Smith MD Nurse Triage 08/22/2024 Orders Only GENERIC EXTERNAL DATA DEPARTMENT Provider, Generic External Data 08/13/2024 9:00 AM EST Office Visit [facility] [place] [address] [place] [address] Charla Bello MD Streptococcal pharyngitis (Primary Dx); [...] 10/31/2024 11:34 AM EST Plan of Treatment Upcoming Encounters Date Type Department Care Team (Late st Contact Info) Description 11/09/2024 10:00 AM EST Office Visit [facility] [address] [place] [address] Moisés Garcia CNM [address] [place] [address] Health Maintenance Due Date Last Done Comments Lipid Panel 1999 Alcohol/Substance Use Screening 2011 HPV Vaccines (1 - 3-dose series) 2014 Hepatitis B Vaccines (1 of 3 - 19+ 3-dose series) 2018 COVID-19 Vaccine ( - 2023-2 5 season) 2024 Influenza Vaccine (#1) 2024 8, 10/24/2017 SDOH Screening 10/10/2024 10/10/2023 Depression Monitoring (PHQ-9) 12/29/2024, 06/30/2024 Depression Screening 06/30/2025 06/30/2024, 06/30/2024 Family Planning (PISQ) 10/29/2025 10/29/2024 Tobacco Screening 10/29/2025 10/29/2024 Pap Smear 10/29/2027 10/29/2024, 09/01/2021 DTaP/Tdap/Td Vaccines (4 - T d or [...] Associated Diagnosis Comments HCG, TOTAL, QN Routine 11/02/2024 10:17 AM EST Missed menses Irregular periods COMPREHENSIVE METABOLIC PANEL Routine 11/02/2024 10:17 AM EST Missed menses Irregular periods TSH W/REFLEX TO FT4 Routine 11/02/2024 1 0:17 AM EST Missed menses Irregular periods CHLAMYDIA/N. GONORRHOEAE RNA, TMA, UROGENITAL Routine 11/02/2024 10:00 AM EST Missed menses POCT , URINE Routine 11/02/2024 9:39 AM EST Missed menses POCT RAPID STREP A Routine 10/31/2024 12 :11 PM EST Viral URI POCT INFLUENZA B Routine 10/31/2024 12:1 1 PM EST Viral URI POCT INFLUENZA A Routine 10/31/2024 12:1 1 PM EST Viral URI POCT RAPID COVID ANTIGEN Routine 10/31/2024 12:11 PM EST Viral URI PAP SMEAR Routine 10/29/2024 10:40 AM EST ASCUS of cervix with negative high risk HPV HERPES CULTURE WITH REFLEX TYPING Routine 10/27/2024 10:49 AM EST Herpes infection HCG, TOTAL, QN Routine 10/15/2024 10:42 AM [...] GENERATION W/RFL Routine 11/26/2023 3:32 PM EST from Last 3 Months or Most Recently Relevant to Health Maintenance Results * TSH W/Reflex to FT4 (11/02/2024 10:17 AM EST) TSH reflex Free T4 1.22 0.32 - 4.0 uIU/mL [facility] Blood Venous blood specimen / Unknown 11/02/2024 10:17 AM EST 11/02/2024 11:30 AM EST us Carisa Ramos NP LAB BLOOD ORDERABLES Final Resul t Performing Organization Address City/[facility] Co de Phone Number [facility] [address] [place] [phone] * hCG, Total, Quantitative (11/02/2024 10:17 AM EST) Only the most recent of3 resultswithin the time period is included. HCG Quantitative <2 mIU/mL [facility] Comment:Weeks post LMP Appro ximate hCG(Last Menstrual Period) Range (mIU/ml)3 - 4 weeks 9 - 1304 - 5 weeks 75 - 2,6005 - 6 weeks 850 - 20,8006 - 7 weeks 4000 - 100,2007 - 12 weeks 11,500 - 289,57960 - 16 weeks 18,300 - 137,52090 - 29 weeks (2nd trimester) 1,400 - 53,78497 - 41 weeks (3rd trimester) 940 - 60,000The De [place] Rosa B- hCG assay is used for the early detection ofpregnancy; it cannot be used to diagnose any conditionunrelated to . If a B-hCG level is not supportedby the clinical evidence, results should be confirmed by analternative method (qualitative urine hCG, for example). Blood Venous blood specimen / Unknown 11/02/2024 10:17 AM EST 11/02/2024 11:30 AM EST Carisa Ramos NP LAB BLOOD ORDERABLES Final Resul t Performing Organization Address City/[facility] Co de Phone Number [facility] [address] [place] [phone] * (ABNORMAL) Comprehensive Metabolic Panel (11/02/2024 10:17 AM EST) Sodium 138 135 - 145 mmol/L [facility] Potassium 3.6 3.3 - 5.1 mmol/L [facility] Chloride 106 96 - 108 mmol/L [facility] Carbon Dioxide 26 22 - 29 mmol/L [facility] Anion Gap 10(L) 12 - 20 [facility] Urea Nitrogen (BUN) 11 9 - 16 mg/dL [facility] Creatinine, Serum 0.55 0.5 - 1.4 mg/dL [facility] Estimated Glomerular Filt Rate >60 [facility] Comment:Chronic Kidney Disea se: Estimated GFR < 60 mL/min/1.47e0Diqisk Kidney Disease: Estimated GFR < 15 mL/min/1.73m2 Glucose 97 60 - 115 mg/dL [facility] Calcium 8.7 8.4 - 10.2 mg/dL [facility] Bilirubin, Total 0.4 0.0 - 1.0 mg/dL [facility] Aspartate Amino Transferase 15 5 - 31 U/L [facility] Alanine Aminotransferase 20 0 - 31 U/L [facility] Total Protein 7.2 6.5 - 8.0 g/dL [facility] Albumin Level 3.9 3.5 - 5.0 g/dL [facility] Alkaline Phosphatase 77 39 - 117 U/L [facility] Blood Venous blood specimen / Unknown 11/02/2024 10:17 AM EST 11/02/2024 11:30 AM EST us Carisa Ramos NP LAB BLOOD ORDERABLES Final Resul t [facility] [address] [place] [address] [phone] * Chlamydia/N. Gonorrhoeae RNA, TMA, Urogenitial (11/02/2024 10:00 AM EST) CT PCR NOT DETECTED Not Detect. [facility] Comment:A not detected test result does not exclude the possibilityof infection because test results can be affected byimproper specimen collection, concurrent antibiotic therapy,or the number of organisms in the specimen which may bebelow the sensitivity of the test. As with many diagnostictests, results from the Xpert CT/NG assay should beinterpreted in conjunction with other laboratory andclinical data available to the clinician.Xpert CT/NG performance has not been evaluated in patientsless than 14 years of age. The assay should not be used forthe evaluationof suspected sexual abuse or for other medico-legalindications. Additional testing is recommended in anycircumstance when false positive or false negative resultscould lead to adverse medical, social or psychologicalconsequences. NG PCR NOT DETECTED Not Detect. [facility] Comment:A not detected test result does not exclude the possibilityof infection because test results can be affected byimproper specimen collection, concurrent antibiotic therapy,or the number of organisms in the specimen which may bebelow the sensitivity of the test. As with many diagnostictests, results from the Xpert CT/NG assay should beinterpreted in conjunction with other laboratory andclinical data available to the clinician.Xpert CT/NG performance has not been evaluated in patientsless than 14 years of age. The assay should not be used forthe evaluationof suspected sexual abuse or for other medico-legalindications. Additional testing is recommended in anycircumstance when false positive or false negative resultscould lead to adverse medical, social or psychologicalconsequences. Urine (Urine, Random) 11/02/2024 10:00 AM EST 11/02/2024 5:54 PM EST Narrative [facility] - 11/03/2024 1:26 AM EST Urine us Carisa Ramos NP LAB MICROBIOLOGY - GENERAL ORDER CHLOE Final Result [facility] [address] [place] [phone] * POCT , urine manually resulted (11/02/2024 9:39 AM EST) Only the most recent of4 resultswithin the time period is included. Preg Test, Ur Negative Negative, Indeterminate, None Detected, Invalid, Specimen unsatisfactory for evaluation, Weakly Positive Urine 11/02/2024 9:39 AM EST Carisa Ramos NP POINT OF CARE TEST ENTER/EDIT OR DERABLES Final Result * POCT Rapid COVID Ag (10/31/2024 12:11 PM EST) Only the most recent of3 resultswithin the time period is included. [facility] Rapid COVID Ag Negative QC Media Lot # [id number] Lot# Expiration Date Swab 10/31/2024 12:1 1 PM EST us Mart Briscoe MD POINT OF CARE TEST ENTER/EDIT OR DERABLES Final Result * POCT Influenza B manually resulted (10/31/2024 12:11 PM EST) [facility] Rapid Influenza B Ag Negative Negative, Indeterminate QC Media Lot # [id number] Lot# Expiration Date Swab 10/31/2024 12:1 1 PM EST us Mart Briscoe MD POINT OF CARE TEST ENTER/EDIT OR DERABLES Final Result * POCT Influenza A manually resulted (10/31/2024 12:11 PM EST) [facility] Rapid Influenza A Ag Negative Negative, Indeterminate QC Media Lot # [id number] Lot# Expiration Date Swab Nasopharyngeal structure / Unknown 10/31/2024 12:11 PM EST us Mart Briscoe MD POINT OF CARE TEST ENTER/EDIT OR DERABLES Final Result * POCT rapid strep A manually resulted (10/31/2024 12:11 PM EST) Only the most recent of2 resultswithin the time period is included. [facility] Rapid Strep A Screen Negative Negative, None Detected QC Media Lot # [id number] Lot# Expiration Date Swab 10/31/2024 12:1 1 PM EST us Mart Briscoe MD POINT OF CARE TEST ENTER/EDIT OR DERABLES Final Result * Pap Smear (10/29/2024 10:40 AM EST) Swab Cervix uteri structure / Unknown 10/29/2024 10:40 AM EST 10/30/2024 6:30 AM EST Narrative [facility] - 11/06/2024 11:50 AM EST ----- ------- Name: Paolo Angeles ?Age/Sex: 24/F ? : 2000 Unit#: [id number] ?? Attend Dr: ?Re10/29/24 ?Status: PRE REF ? Location: HO.LNP ?Disch: ? ----- ------- SPEC : [id number] ? RECD: 10/30/24-629 ? STATUS: ??SOUT ? REQ NUM: [id number] ? LEXIS: 10/29/24-0 ? SUBM DR: MOISÉS GARCIA CNM ? ENTERED: ??10/30/24 ?SP TYPE: Pap Smr ?OTHR DR: ? ORDERED: ??Pap Smear ? Interpretation ?? Satisfactory for evaluation. ?? Negative for intraepithelial lesion or malignancy. ? HPV High Risk: ??Negative ? HPV Genotyping 16: ??Negative ?? HPV Genotyping 18: ??Negative ?Clinical Information LMP: 09/25/24 Previous PAP test: 2020 ASCUS, HPV neg Other surgery: Other history: ? Material Received ?? ThinPrep-Cervical ----- ------- Signed (signature on file) CORNELIO Berrios (ASCP) 11/06/24 1150 ? ----- ------- ? END OF REPORT ? us Moisés NIXON LAB CYTOLOGY ORDERABLES F inal Result Performing Organization Address [facility] de Phone Number [facility] [address] [place] [address] [phone] * Herpes Simplex Virus Culture with Reflex Typing (10/27/2024 10:49 AM EST) Pathologist [facility] HSV Culture/Type SEE NOTE [facility] Comment:HERPES SIMPLEX VIRUS CULTURE W/RFL TO TYPING Micro Number: [id number] Test Status: Final Specimen Source: Not given Specimen Quality: Adequate HSV Culture: Not IsolatedTHIS TEST WAS PERFORMED AT:[employer] [id number] MERATI,MD Swab Topography unknown / Unknown 10/27/2024 10:49 AM EST 10/27/2024 1:08 PM EST us Tiara Simpson MD LAB MICROBIOLOGY - GENERAL ORDERABLES Final Result Performing Organization Address [facility] Co de Phone Number [facility] [address] [place] [address] [phone] * Influenza B (ID NOW Rapid Molecular) (10/15/2024 10:22 AM EST) Only the most recent of3 resultswithin the time period is included. Influenza B Negative Negative, Indeterminate [facility] Swab 10/15/2024 10:2 2 AM EST us Mart Briscoe MD POINT OF CARE TEST ENTER/EDIT OR DERABLES Final Result Performing Organization Address City/[facility]/ZIP Co de Phone Number [facility] [address] [place] [address] [phone] * Influenza A (ID NOW Rapid Molecular) (10/15/2024 10:22 AM EST) Only the most recent of3 resultswithin the time period is included. Pathologist [facility] Influenza A Negative Negative, Indeterminate [facility] Swab 10/15/2024 10:2 2 AM EST Mart Briscoe MD POINT OF CARE TEST ENTER/EDIT OR DERABLES Final Result Performing Organization Address [facility] Co de Phone Number [facility] [address] [place] [address] [phone] * (ABNORMAL) CBC auto differential (09/08/2024 10:46 AM EST) [facility] White Blood Count 7.5 4.8 - 10.8 X10*3/uL [facility] Red Blood Count 4.59 4.20 - 5.50 X10*6/uL [facility] Hemoglobin 12.3 12.0 - 16.0 g/dl [facility] Hematocrit 38.5 37.0 - 47.0 % [facility] Mean Corpuscular Volume 83.9 80.0 - 98.0 fL [facility] Mean Corpuscular Hemoglobin 26.8(L) 27.0 - 33.0 pg [facility] Mean Corpuscular HGB Conc 31.9 31.0 - 35.0 g/dl [facility] Red Cell Distribution Width 14.2 11.0 - 16.0 % [facility] Platelet Count 331 160 - 400 X10*3/uL [facility] Mean Platelet Volume 10.8 9.4 - 12.3 fL [facility] Neutrophils Percent Auto 64.5 45 - 73 % [facility] Imm Gran Pct Auto 0.3 0.0 - 0.4 % [facility] Lymphocytes Percent Auto 26.2 20 - 40 % [facility] Monocytes Percent Auto 7.2 2 - 11 % [facility] Eosinophils Percent Auto 1.3 0 - 4 % [facility] Basophils Percent Auto 0.5 0 - 2 % [facility] NRBC Pct Auto 0.0 0.0 - 0.2 /100WBC [facility] Neutrophils Absolute Auto 4.8 2.0 - 8.3 x10*3/uL [facility] Imm Gran Abs Auto 0.02 0.00 - 0.03 X10*3/uL [facility] Lymphocytes Absolute Auto 2.0 1.2 - 4.9 X10*3/uL [facility] Monocytes Absolute Auto 0.5 0.1 - 1.2 X10*3/uL [facility] Eosinophils Absolute Auto 0.1 0.0 - 0.4 X10*3/uL [facility] Basophils Absolute Auto 0.0 0.0 - 0.2 X10*3/uL [facility] NRBC Abs Auto 0.000 0.0 - 0.012 X10*3/uL [facility] Blood Venous blood specimen / Unknown 09/08/2024 10:46 AM EST 09/08/2024 11:36 AM EST Aster White MD LAB BLOOD ORDERABLES Final Re sult [facility] [address] [place] [phone] * POCT Rapid Covid-19 [place] ID NOW (09/02/2024 6:09 PM EST) Coronavirus Antigen PCR Negative Negative, Indeterminate, None Detected, Invalid, Specimen unsatisfactory for evaluation, Weakly Positive QC Media Lot # [id number] Lot# Expiration Date [id number] Swab 09/02/2024 6:09 PM EST Tiara Simpson MD POINT OF CARE TEST ENTER/E DIT ORDERABLES Final Result * Strep A Nucleic Acid (08/22/2024 10:17 PM EST) IDNOW SERIAL# [id number] [facility] Strep A Nucleic Acid Negative Negative [facility] Comment:All test results mus [...] LAB MICROBIOLOGY - GENERAL ORDERABLES Final Result [facility] [address] [place] [address] [phone] * SARS-CoV-2 RNA, Influenza A/B, and RSV RNA, Ql NAAT (08/22/2024 10:17 PM EST) Influenza A PCR NEGATIVE Negative [facility] Influenza B PCR NEGATIVE Negative [facility] Resp Syncy Virus RNA Qual PCR NEGATIVE Negative [facility] SARS COV2 PCR NEGATIVE Negative [facility] Comment:All test results mus t be [...] use by authorized laboratories.Testing performed on the TrunqShow GeneXpert utilizingreal-time RT-PCR.All SARS CoV2 and positive influenza A/B results arereported to [facility]. 08/22/2024 10:1 7 PM EST 08/22/2024 10:19 PM EST us Generic External Data Provider LAB MICROBIOLOGY - GENERAL ORDERABLES Final Result Performing Organization Address [facility] Co de Phone Number [facility] [address] [place] [phone] * (ABNORMAL) POCT rapid strep A manually resulted (08/13/2024 9:13 AM EST) [facility] Rapid Strep A Screen Positive( A) Negative, None Detected Swab 08/13/2024 9:13 AM EST Charla Bello MD POINT OF CARE TEST ENTER/EDIT ORDERABLES Final Result * Hepatitis C Ab (11/26/2023 3:32 PM EST) [facility] Hepatitis C Antibody Nonreactive Nonreactive [facility] Comment:Antibodies to HCV no t detected; does not exclude early acuteHCV infection. 11/26/2023 3:32 PM EST 11/26/2023 5:25 PM EST Aster White MD LAB BLOOD ORDERABLES Final Re sult Performing Organization Address [facility] Co de Phone Number [facility] [address] [place] [phone] * HIV-1/2 Antigen and Antibodies, Fourth Generation, with Reflexes (11/26/2023 3:32 PM EST) [facility] HIV AB/AG Nonreactive Nonreactive [facility] Comment:HIV-1 p24 Ag and/or HIV-1/HIV-2 Ab not detected.A test result that is nonreactive does not exclude thepossibility of exposure to or infection with HIV-1 and/orHIV-2. Nonreactive results in this assay for individualswith prior exposure to HIV-1 and/or HIV-2 may be due toantigen and antibody levels that are below the limit ofdetection of this assay.The Trudev HIV Ag/Ab Combo assay result andsupplemental assay results should be interpreted inconjunction with the patient's clinical presentation,history and other laboratory results. If the results areinconsistent with clinical evidence, additional testing issuggested to confirm the result. 11/26/2023 3:3 2 PM EST 11/26/2023 5:25 PM EST us Aster White MD LAB BLOOD ORDERABLES Final Re sult [facility] [address] [place] [address] [phone] from Last 3 Months or Most Recently Relevant to Health Maintenance [facility] C3 Care Teams Refinisher Relationship Specialty Start Date End Date Jeanine Smith MD [address] [place] [phone] PCP - General Internal Medicine 03/04/24 [facility] Consulting Physician Obstetrics and Gynecology 09/30/23
--- OUTSIDE RECORDS SUMMARY | 2024-11-06 14:27 | XMS_ITS | Encounter Summary ---
Author Organization [employer] Address [address] [place] [address] Care Team Providers Care Therapist Rrt Name Role Phone Jeanine Smith MD Primary Care Provider Reason for Visit * Reason Onset Date Comments Medication Question 05/05/2024 Encounter Details Date Type Department Care Team ([facility] st Contact Info) Description 05/05/2024 Telephone [facility] MED[facility] [address] [place] [address] Jeanine Smith MD [address] [place], [place] [phone] Medication Question Social History Tobacco Use Types [...] 10:00 AM EST Office Visit [facility] [address] [place] [address] Sharron Pace CNM [address] [place] [address] documented as of this encounter Visit Diagnoses Not on filedocumented in this encounter Care Teams Therapist Rrt Relationship Specialty Start Date End Date Jeanine Smith MD [address] [place] [phone] PCP - General Internal Medicine 03/04/24 [facility] Consulting Physician Obstetrics and Gynecology 09/30/23 documented as of this encounter
--- OUTSIDE RECORDS SUMMARY | 2024-11-06 14:27 | XMS_ITS | Encounter Summary ---
Author Organization [employer] Address [address] 7[address] [place] [address] Care Team Providers Care Personal Care Assistant Name Role Phone Aster White MD Primary Care Provider [phone] Jeanine Smith MD Primary Care Provider [phone] Reason for Visit * Reason Onset Date Comments Lab Orders 12/05/2023 Encounter Details Date Type Department Care Team ([facility] st Contact Info) Description 12/05/2023 Telephone [facility] MEDICINE [address] [place] [address] Aster White MD [address] [place] [address] Lab Orders Social History Tobacco Use Types [...] Pt was scheduled for COVID test at [facility] testing site for next week before surgery. Pt verbalizes understanding and agreement with plan. * Telephone Encounter - Joslyn Oakes - 12/05/2023 9:52 AM EST Tc from pt requesting lab orders. Please contact pt for clarifications. Alignment Specialist advise pt on labs done. documented in this encounter Plan of Treatment Upcoming Encounters Date Type Department Care Team (Late st Contact Info) Description 11/09/2024 10:00 AM EST Office Visit [facility] MEDICINE [address] [place] [address] Sharron Pace CNM [address] [place] [address] documented as of this encounter Visit Diagnoses Not on filedocumented in this encounter Care Teams Personal Care Assistant Relationship Specialty Start Date End Date Aster White MD [address] [place] [address] PCP - General Family Medicine 10/10/23 03/03/24 Jeanine Smith MD [address] [place] [address] PCP - General Internal Medicine 03/04/24 [facility] Consulting Physician Obstetrics and Gynecology 09/30/23 documented as of this encounter
--- OUTSIDE RECORDS SUMMARY | 2024-11-06 14:27 | XMS_ITS | Encounter Summary ---
Author Organization [employer] Address [address] 7t [place] [address] Care Team Providers Care Plant Tour Guide Name Role Phone Jeanine Smith MD Primary Care Provider Reason for Visit * Reason Onset Date Comments Med Refill 10/26/2024 Encounter Details Date Type Department Care Team ([facility] st Contact Info) Description 10/26/2024 Refill [facility] MEDICINE [address] [place] [address] Jeanine Smith MD [address] [place] [address] Social History Tobacco Use Types Packs/Day Years [...] 10/27/2024 2:36 PM EST Pt seen in [facility] for new outbreak. Was prescribed Valtrex. * [...] 1 g tablet To be sent to: [facility]- [address] [facility] documented in this encounter Plan of Treatment Upcoming Encounters Date Type Department Care Team (Late st Contact Info) Description 11/09/2024 10:00 AM EST Office Visit [facility] MEDICINE [address] [place] [address] Sharron Pace CNM [address] [place] [address] documented as of this encounter Visit Diagnoses Not on filedocumented in this encounter Additional Health Concerns Assessment Noted Time PHQ-9 Depression Total Score: 15 024 2:35 PM EDT documented as of this encounter Care Teams Plant Tour Guide Relationship Specialty Start Date End Date Jeanine Smith MD [address] [place] [address] PCP - General Internal Medicine 03/04/24 [facility] Consulting Physician Obstetrics and Gynecology 09/30/23 documented as of this encounter
--- OUTSIDE RECORDS SUMMARY | 2024-11-06 14:27 | XMS_ITS | Encounter Summary ---
Author Organization [facility] Address [address] 7[address] [place] [address] Care Team Providers Care Revenue Field Agent Name Role Phone Jeanine Smith MD Primary Care Provider Reason for Visit * Reason Comments Amenorrhea Encounter Details Date Type Department Care Team ([facility] st Contact Info) Description 11/02/2024 9:40 AM EST Office Visit [facility] [address] [place], [place] [phone] Carisa Ramos NP [address] [place] [address] Irregular periods (Primary Dx); Missed menses Social [...] documented in this encounter Progress Notes * Carisa Ramos, RESPITE COORDINATOR - 11/02/2024 9:40 AM EST Subjective: Paolo Quintana is a 24 y.o. female who presents to the office for a sick visit. HPI Menses late x 10 days, usually gets period monthly, tried preg test at home, but seemed to malfunction Neg urine hcg. In clinic today- Stopped ocps 4-5 months ago, since then getting menses 06/27 lasted 9 days, 07/30 , sep 25, oct 26 but never got it, cramping and pain Sexually active without protection Would like to be screened for stis Interested in , not concerned if today Menarche 11 years old, periods were regular on the past Since stopping has had menses monthly Has bloating and am nausea, but this also occurs before menses Patient Active Problem List Diagnosis Class 1 obesity with body mass index (BMI) of 32.0 to 32.9 in adult Pre-op evaluation Pulmonary embolism (CMS/HCC) Postoperative anemia PTSD (post-traumatic stress disorder) Depression Anxiety History of pulmonary embolism H/O acute alcohol intoxication Chronic migraine with aura, without status migrainosus Suicidal ideation Dizziness Acute intractable headache Herpes infection Patient desires Missed menses Irregular periods Review of Systems HENT: Negative for congestion. Eyes: Negative for discharge. Respiratory: Negative for apnea. Cardiovascular: Negative for chest pain and leg swelling. Gastrointestinal: Negative for abdominal distention and abdominal pain. Endocrine: Negative for cold intolerance and heat intolerance. Genitourinary: Positive for menstrual problem. Negative for difficulty urinating and dyspareunia. Allergies Allergen Reactions Apple Juice Angioedema Cinnamon Anaphylaxis Oat Anaphylaxis Latex Objective: Visit Vitals BP 130/84 (BP Location: Left arm, Patient Position: Sitting, BP Cuff Size: Large adult) Pulse 88 Temp 97.9 ??F (36.6 ??C) (Temporal) Resp 16 Wt 211 lb (95.7 kg) LMP 2024 (Approximate) SpO2 99% BMI 36.22 kg/m?? OB Status Having periods Smoking Status Never BSA 2.08 m?? Physical Exam Vitals reviewed. Constitutional: Appearance: She is obese. HENT: Head: Normocephalic and atraumatic. Nose: Nose normal. Eyes: Conjunctiva/sclera: Conjunctivae normal. Cardiovascular: Rate and Rhythm: Normal rate and regular rhythm. Pulmonary: Effort: Pulmonary effort is normal. Breath sounds: Normal breath sounds. Musculoskeletal: Cervical back: Normal range of motion and neck supple. Neurological: General: No focal deficit present. Mental Status: She is alert. Assessment/Plan: Problem List Items Addressed This Visit Missed menses Current Assessment & Plan Pt menses are late by approxiately 10 days, Has had unprotected sex during this time, neg urine hcg today, pt open to should testing be positive Pt declines contraception Labs as ordered below If labs negative and menses do not occur or pt develops abdominal pain or other symptoms- Return toclinic Relevant Orders POCT , urine manually resulted (Completed) TSH W/Reflex to FT4 Comprehensive Metabolic Panel hCG, Total, Quantitative Chlamydia/N. Gonorrhoeae RNA, TMA, Urogenitial Irregular periods - Primary Relevant Orders TSH W/Reflex to FT4 Comprehensive Metabolic Panel hCG, Total, Quantitative Current Outpatient Medications Medication Sig Dispense Refill acyclovir (Zovirax) 800 MG tablet Take 3 tabs a day for 2 days 6 tablet 2 Ascorbic Acid (Vitamin C) 500 MG capsule Take 500 mg by mouth in the morning. 120 capsule 3 Blood Pressure kit 1 Units in the morning. 1 kit 0 docusate sodium (Colace) 100 MG capsule Eliquis 5 MG tablet Take 1 tablet (5 mg) by mouth 2 times daily. 60 tablet 1 ferrous gluconate (Fergon) 324 (38 Fe) MG tablet Take 1 tablet (324 mg) by mouth with breakfast. 90tablet 1 ondansetron (Zofran) 8 MG tablet Take 8 mg by mouth every 8 (eight) hours if needed for nausea. oxyCODONE-acetaminophen (Percocet) 5-325 MG tablet Take 1 tablet by mouth every 4 (four) hours if needed. Pediatric Multivitamins-Fl (multivitamin with fluoride) 0.5 MG chewable tablet Chew 1 tablet in themorning. 90 tablet 1 MV & Min w/FA-DHA ( Adult Gummy/DHA/FA) 0.4-25 MG chewable tablet Chew 1 each Once per day. 30 tablet 11 Vit-Fe Fumarate-FA ( Vitamins) 28-0.8 MG tablet Take 1 tablet by mouth Once per day. 90 tablet 3 valACYclovir (Valtrex) 1 g tablet Take 1 tablet (1,000 mg) by mouth Once per day. 5 tablet 0 No current facility-administered medications for this visit. documented in this encounter Miscellaneous Notes * Assessment & Plan Note - Carisa Ramos NP - 11/02/2024 12:12 PM ESTAssociated Problem(s): Missed menses Pt menses are late by approxiately 10 days, Has had unprotected sex during this time, neg urine hcg today, pt open to should testing be positive Pt declines contraception Labs as ordered below If labs negative and menses do not occur or pt develops abdominal pain or other symptoms- Return toclinic documented in this encounter Plan of Treatment Upcoming Encounters Date Type Department Care Team (Late st Contact Info) Description 11/09/2024 10:00 AM EST Office Visit [facility] MEDICINE [address] [place] [address] Sharron Pace, EDWARD [address] [place] [address] documented as of this encounter Procedures Procedure Name Priority Date/Time Associated Diagnosis Comments TSH W/REFLEX TO FT4 Routine 11/02/2024 1 0:17 AM EST Missed menses Irregular periods HCG, TOTAL, QN Routine 11/02/2024 10:17 AM EST Missed menses Irregular periods COMPREHENSIVE METABOLIC PANEL Routine 11/02/2024 10:17 AM EST Missed menses Irregular periods CHLAMYDIA/N. GONORRHOEAE RNA, TMA, UROGENITAL Routine 11/02/2024 10:00 AM EST Missed menses POCT , URINE Routine 11/02/2024 9:39 AM EST Missed menses documented in this encounter Results * hCG, Total, Quantitative (11/02/2024 10:17 AM EST) HCG Quantitative <2 mIU/mL [facility] Comment:Weeks post LMP Appro ximate hCG(Last Menstrual Period) Range (mIU/ml)3 - 4 weeks 9 - 1304 - 5 weeks 75 - 2,6005 - 6 weeks 850 - 20,8006 - 7 weeks 4000 - 100,2007 - 12 weeks 11,500 - 289,13809 - 16 weeks 18,300 - 137,34762 - 29 weeks (2nd trimester) 1,400 - 53,05654 - 41 weeks (3rd trimester) 940 - [...] 11/02/2024 11:30 AM EST us Carisa Ramos RESPITE COORDINATOR LAB BLOOD ORDERABLES Final Resul t Performing Organization Address City/[facility] Co de Phone Number [facility] [address] [place] [address] [phone] * (ABNORMAL) Comprehensive Metabolic Panel (11/02/2024 10:17 AM EST) Sodium 138 135 - 145 mmol/L [facility] Potassium 3.6 3.3 - 5.1 mmol/L [facility] Chloride 106 96 - 108 mmol/L [facility] Carbon Dioxide 26 22 - 29 mmol/L [facility] Anion Gap 10(L) 12 - 20 [facility] Urea Nitrogen (BUN) 11 9 - 16 mg/dL [facility] Creatinine, Serum 0.55 0.5 - 1.4 mg/dL [facility] Estimated Glomerular Filt Rate >60 [facility] Comment:Chronic Kidney Disea se: Estimated GFR < 60 mL/min/1.56o2Almvsv Kidney Disease: Estimated GFR < 15 mL/min/1.73m2 Glucose 97 60 - 115 mg/dL [facility] Calcium 8.7 8.4 - 10.2 mg/dL [facility] Bilirubin, Total 0.4 0.0 - 1.0 mg/dL [facility] Aspartate Amino Transferase 15 5 - 31 U/L [facility] Alanine Aminotransferase 20 0 - 31 U/L [facility] Total Protein 7.2 6.5 - 8.0 g/dL [facility] Albumin Level 3.9 3.5 - 5.0 g/dL [facility] Alkaline Phosphatase 77 39 - 117 U/L [facility] Blood Venous blood specimen / Unknown 11/02/2024 10:17 AM EST 11/02/2024 11:30 AM EST us Carisa Ramos RESPITE COORDINATOR LAB BLOOD ORDERABLES Final Resul t [facility] [address] [place] [address] [phone] * TSH W/Reflex to FT4 (11/02/2024 10:17 AM EST) Pathologist [facility] TSH reflex Free T4 1.22 0.32 - 4.0 uIU/mL [facility] Blood Venous blood specimen / Unknown 11/02/2024 10:17 AM EST 11/02/2024 11:30 AM EST us Carisa Ramos NP LAB BLOOD ORDERABLES Final Resul t Performing Organization Address [facility] Co de Phone Number [facility] [address] [place] [address] [phone] * Chlamydia/N. Gonorrhoeae RNA, TMA, Urogenitial (11/02/2024 10:00 AM EST) [facility] CT PCR NOT DETECTED Not Detect. [facility] Comment:A not detected test result [...] psychologicalconsequences. NG PCR NOT DETECTED Not Detect. [facility] Comment:A not detected test result [...] AM EST 11/02/2024 5:54 PM EST Narrative [facility] - 11/03/2024 1:26 AM EST Urine us Carisa Ramos NP LAB MICROBIOLOGY - GENERAL ORDER CHLOE Final Result [facility] [address] [place] [address] [phone] * POCT , urine manually resulted (11/02/2024 9:39 AM EST) Preg Test, Ur Negative Negative, Indeterminate, None Detected, Invalid, Specimen unsatisfactory for evaluation, Weakly Positive Urine 11/02/2024 9:39 AM EST us Carisa Ramos NP POINT OF CARE TEST ENTER/EDIT OR DERABLES Final Result documented in this encounter Visit Diagnoses Diagnosis Irregular periods- Primary Missed menses documented in this encounter Additional Health Concerns Assessment Noted Time PHQ-9 Depression Total Score: 15 024 2:35 PM EDT documented as of this encounter Care Teams Revenue Field Agent Relationship Specialty Start Date End Date Jeanine Smith MD [address] [place] [address] PCP - General Internal Medicine 03/04/24 [facility] Consulting Physician Obstetrics and Gynecology 09/30/23 documented as of this encounter
--- OUTSIDE RECORDS SUMMARY | 2024-11-06 14:27 | XMS_ITS | Encounter Summary ---
Author Organization [employer] Address [address] [place] [address] Care Team Providers Care Rim Turning Finisher Name Role Phone Aster White MD Primary Care Provider [phone] Jeanine Smith MD Primary Care Provider [phone] Encounter Details Date Type Department Care Team ([facility] st Contact Info) Description 12/10/2023 Telephone [facility] MEDICINE [address] [place] [address] Aster White MD [address] [place], [place] [phone] Social History Tobacco Use Types Packs/Day Years [...] Description 11/09/2024 10:00 AM EST Office Visit [facility] MEDICINE [address] [place] [address] Sharron Pace CNM [address] [place] [address] documented as of this encounter Visit Diagnoses Not on filedocumented in this encounter Care Teams Rim Turning Finisher Relationship Specialty Start Date End Date Aster White MD [address] [place] [address] PCP - General Family Medicine 10/10/23 03/03/24 Jeanine Smith MD [address] [place] [address] PCP - General Internal Medicine 03/04/24 [facility] Consulting Physician Obstetrics and Gynecology 09/30/23 documented as of this encounter
--- OUTSIDE RECORDS SUMMARY | 2024-11-06 14:27 | XMS_ITS | Encounter Summary ---
Author Organization [employer] [facility] Address [address] [facility] [address] [place] [address] Care Team Providers Care Inspector Mechanical Name Role Phone Jeanine Smith MD Primary Care Provider [phone] Reason for Referral * Consultation (Routine) - Closed Specialty Diagnoses / Procedures Referred By Patricia chaidez Referred To Contact Physical Therapy Diagnoses Cystocele, unspecified Sharron Garcia CNM [address] [place] [address] Phone: tel: fax: [facility] [address] [place], [place] Phone: tel: fax: Referral ID Status Reason Start Date Expiration Date V isits Requested Visits Authorized [id number] Closed Specialty Services Required 10/29/2024 10/29/2025 1 1 Encounter Details Date Type Department Care Team (Late st Contact Info) Description 10/29/2024 10:00 AM EST Office Visit [facility] MEDICINE [address] [place] [address] Sharron Garcia CNM [address] [place], [place] [phone] ASCUS of cervix with negative high risk [...] in this encounter Progress Notes * Sharron Garcia CNM - 10/29/2024 10:00 AM EST Subjective [...] to do this and breast exam today. Mcfp urinary incontinence and pain with sex. Open [...] kg/m?? Physical Exam Exam conducted with a commodity manager present (Sharron Garcia CNM). Constitutional: Appearance: Normal appearance. Chest: Breasts: [...] provider of her choice. Local options include Reba Cox, [facility]. [facility] offers care, but births happen at [facility]. She plans to follow with [facility] for care. Cystocele, unspecified - Referral [...] Description 11/09/2024 10:00 AM EST Office Visit [address] [address] Sharron Garcia CNM [address] [place] [address] Scheduled Referrals Name Type Priority Associated Diagnoses Orde r Schedule Referral to Physical Therapy Outpatient Referral Routine Cystocele, unspecified Expected: 10/29/2024 (Approximate), Expires: 10/29/2025 documented as of this encounter Procedures Procedure Name Priority Date/Time Associated Diagnosis Comments PAP SMEAR Routine 10/29/2024 10:40 AM EST ASCUS of cervix with negative high risk HPV documented in this encounter Results * Pap Smear (10/29/2024 10:40 AM EST) Swab Cervix uteri structure / Unknown 10/29/2024 10:40 AM EST 10/30/2024 6:30 AM EST [facility] - 11/06/2024 11:50 AM EST ----- ------- Name: Paolo Angeles ?Age/Sex: 24/F ? : 2000 Unit#: [id number] ?? Attend Dr: ?Re10/29/24 ?Status: PRE REF ? Location: HO.LNP ?Disch: ? ----- ------- SPEC : [id number] ? RECD: 10/30/24 ? STATUS: ??SOUT ? REQ NUM: [id number] ? LEXIS: 10/29/24 ? SUBM DR: SHARRON GARCIA CNM ? ENTERED: ??10/30/24 ?SP TYPE: Pap Smr ?OTHR : ? ORDERED: ??Pap Smear ? Interpretation ?? [...] ------- ? END OF REPORT ? us Sharron Garcia [facility] CYTOLOGY ORDERABLES F inal Result [facility] [address] [place] [address] [phone] documented in this encounter Visit Diagnoses Diagnosis ASCUS of cervix with negative high risk HPV- Primary Procreative management Cystocele, unspecified documented in this encounter Additional Health Concerns Assessment Noted Time PHQ-9 Depression Total Score: 15 024 2:35 PM EDT documented as of this encounter Care Teams Inspector Mechanical Relationship Specialty Start Date End Date Jeanine Smith MD [address] [place] [address] PCP - General Internal Medicine 03/04/24 [facility] Consulting Physician Obstetrics and Gynecology 09/30/23 documented as of this encounter
[2024-11-09 10:17] LABS: HPV Genotype 16 Negative (Negative); HPV Genotype 18 Negative (Negative); HPV High Risk Negative (Negative)
== END 2024-10-29 00:01 | disposition home or self-care (01) ==
LOC: HO.LNP
PROVIDERS: Visit Provider Advanced Practice Midwife
DX: R87.610 Atypical squamous cells of undetermined significance on cytologic smear of cervix (ASC-US) (principal)
CPT/HCPCS: 87626; 88175

== ENCOUNTER 2024-10-29 16:02 | Outpatient (REF) | payer MEDICAID, SELFPAY ==
--- OUTSIDE RECORDS SUMMARY | 2024-10-29 19:30 | XMS_ITS | Encounter Summary ---
Author Organization [employer] [facility] Address [address] 7t [place] [address] Care Team Providers Care Maritime Guard Name Role Phone Jeanine Smith MD Primary Care Provider Reason for Visit * Reason Comments Sore Throat Encounter Details Date Type Department Care Team ([facility] st Contact Info) Description 10/15/2024 10:00 AM EST Office Visit [facility] [address] [place], [place] [phone] Mart Briscoe MD [address] [place] [address] Unprotected sexual intercourse (Primary Dx); Sore throat; [...] is your housing situation today? I have aristoe willams 10/03/[address] [...] weeks ago. Also [facility] Was told all negative results. Objective [...] - 100,2007 - 12 weeks 11,500 - [phone] - 16 weeks 18,300 - 137,96695 - 29 weeks (2nd trimester) 1,400 - 53,89183 - 41 weeks (3rd trimester) 940 - [...] , urine manually resulted Patient presents to [facility] due to dry throat and acid reflux [...] documented in this encounter Plan of Treatment Not on file documented as of this encounter Procedures Procedure [...] 10:42 AM EST) HCG Quantitative <2 mIU/mL [facility] Comment:Weeks post LMP Appro ximate hCG(Last Menstrual Period) Range (mIU/ml)3 - 4 weeks 9 - 1304 - 5 weeks 75 - 2,6005 - 6 weeks 850 - 20,8006 - 7 weeks 4000 - 100,2007 - 12 weeks 11,500 - 289,67717 - 16 weeks 18,300 - 137,59276 - 29 weeks (2nd trimester) 1,400 - 53,41443 - 41 weeks (3rd trimester) 940 - [...] ORDERABLES Final Resul t Performing Organization Address [facility] Co de Phone Number [facility] [address] [place] [phone] * Influenza B (ID NOW Rapid Molecular) (10/15/2024 10:22 AM EST) Influenza B Negative Negative, Indeterminate [facility] Swab 10/15/2024 10:2 2 AM EST us Mart Briscoe MD POINT OF CARE TEST ENTER/EDIT OR DERABLES Final Result Performing Organization Address [facility] de Phone Number [facility] [address] [place] [phone] * Influenza A (ID NOW Rapid Molecular) (10/15/2024 10:22 AM EST) Influenza A Negative Negative, Indeterminate [facility] Swab 10/15/2024 10:2 2 AM EST us Mart Briscoe MD POINT OF CARE TEST ENTER/EDIT OR DERABLES Final Result Performing Organization Address [facility] Phone Number [facility] [address] [place] [phone] * POCT , urine manually resulted [...] documented as of this encounter Care Teams Maritime Guard Relationship Specialty Start Date End Date Jeanine Smith MD [address] [place] [address] PCP - General Internal Medicine 03/04/24 [facility] Consulting Physician Obstetrics and Gynecology 09/30/23 documented as of this encounter
--- OUTSIDE RECORDS SUMMARY | 2024-10-29 19:30 | XMS_ITS | Encounter Summary ---
Author Organization [employer] Address [address] [place] [address] Care Team Providers Care Cement Railroad Car Loader Name Role Phone Jeanine Smith MD Primary Care Provider [phone] Encounter Details Date Type Department Care Team (Late st Contact Info) Description 10/16/2024 Telephone [facility]S [address] [employer], [place] [phone] Jeannie Smith MD [address] [place] [address] Social History Tobacco Use Types Packs/Day Years [...] on file documented as of this encounter Visit Diagnoses Not on filedocumented in this encounter Additional Health Concerns Assessment Noted Time PHQ-9 Depression Total Score: 15 024 2:35 PM EDT documented as of this encounter Care Teams Cement Railroad Car Loader Relationship Specialty Start Date End Date Jeanine Smith MD [address] [place] [address] PCP - General Internal Medicine 03/04/24 [facility] Consulting Physician Obstetrics and Gynecology 09/30/23 documented as of this encounter
--- OUTSIDE RECORDS SUMMARY | 2024-10-29 19:31 | XMS_ITS | Encounter Summary ---
Author Organization [employer] Address [address] 7t [place] [address] Care Team Providers Care Manufacturing Supervisor Name Role Phone Jeanine Smith MD Primary Care Provider Reason for Visit * Reason Onset Date Comments No Show 10/08/2024 Encounter Details Date Type Department Care Team ([facility] Contact Info) Description 10/08/2024 Telephone [facility] MED & PEDS [address] [place] [address] eJanine Smith MD [address] [place] [address] No Show Social History Tobacco Use Types [...] documented as of this encounter Care Teams Manufacturing Supervisor Relationship Specialty Start Date End Date Jeanine Smith MD [address] [place] [address] PCP - General Internal Medicine 03/04/24 [facility] Consulting Physician Obstetrics and Gynecology 09/30/23 documented as of this encounter
--- OUTSIDE RECORDS SUMMARY | 2024-10-29 19:31 | XMS_ITS | Encounter Summary ---
Demographics Address [address] [place] [address] Mobile Phone Home Phone Email Address Preferred Language en Marital Status Single Christian Affiliation Unknown Race White Ethnic Group or Author Organization [employer] Address [address] 7t [place] [address] Care Team Providers Care Industrial Green Systems Designer Name Role Phone Jeanine Smith MD Primary Care Provider Reason for Visit * Reason Onset Date Comments Med Refill 10/25/2024 Encounter Details Date Type Department Care Team ([facility] st Contact Info) Description 10/25/2024 Refill [facility] MED & PEDS [address] [place] [address] Jeanine Smith MD [address] [place] [address] Social History Tobacco Use Types Packs/Day Years [...] as of this encounter Plan of Treatment Not on file documented as of this encounter Visit Diagnoses Not on filedocumented in this encounter Additional Health Concerns Assessment Noted Time PHQ-9 Depression Total Score: 15 024 2:35 PM EDT documented as of this encounter Care Teams Industrial Green Systems Designer Relationship Specialty Start Date End Date Jeanine Smith MD [address] [place] [address] PCP - General Internal Medicine 03/04/24 [facility] Consulting Physician Obstetrics and Gynecology 09/30/23 documented as of this encounter
--- OUTSIDE RECORDS SUMMARY | 2024-10-29 19:31 | XMS_ITS | Encounter Summary ---
Author Organization [email or web address] Address [address] [place] [address] Care Team Providers Care Floor Scraper Name Role Phone Jeanine Smith MD Primary Care Provider Encounter Details Date Type Department Care Team (Late st Contact Info) Description 07/29/2024 Orders Only [facility] [address] [place] [address] Sharron Pace, CN [address] [place] [address] Social History Tobacco Use Types Packs/Day Years [...] 12:00 AM EST) Swab us Historical Provider MD LAB CYTOLOGY ORDERABLES F inal Result Performing Organization Address City/State/[facility] Co de Phone Number [facility] [address] [place] [address] documented in this encounter Visit Diagnoses Not on filedocumented in this encounter Additional Health Concerns Assessment Noted Time PHQ-9 Depression Total Score: 15 024 2:35 PM EDT documented as of this encounter Care Teams Floor Scraper Relationship Specialty Start Date End Date Jeanine Smith MD [address] [place] [address] PCP - General Internal Medicine 03/04/24 [facility] Consulting Physician Obstetrics and Gynecology 09/30/23 documented as of this encounter
--- OUTSIDE RECORDS SUMMARY | 2024-10-29 19:31 | XMS_ITS | Encounter Summary ---
Author Organization [facility] [facility] Address [address] [place] [address] Care Team Providers Care Coding Coordinator Name Role Phone Jeanine Smith MD Primary Care Provider [phone] Encounter Details Date Type Department Care Team [...] documented as of this encounter Care Teams Coding Coordinator Relationship Specialty Start Date End Date Jeanine Smith MD [address] [place] [address] PCP - General Internal Medicine 03/04/24 [facility] Consulting Physician Obstetrics and Gynecology 09/30/23 documented as of this encounter
--- OUTSIDE RECORDS SUMMARY | 2024-10-29 19:31 | XMS_ITS | Encounter Summary ---
Author Organization [employer] Address [address] 7[address] [place] [address] Care Team Providers Care Gas Plant Worker Name Role Phone Jeanine Smith MD Primary Care Provider Reason for Visit * Reason Onset Date Comments Med Refill 10/26/2024 Encounter Details Date Type Department Care Team ([facility] st Contact Info) Description 10/26/2024 Refill [facility] MEDICINE [address] [place] [address] Jeanine Smith MD [address] [place] [address] Social History Tobacco Use Types Packs/Day Years [...] encounter Miscellaneous Notes * Telephone Encounter - Kassidy Sommers RN - 10/27/2024 2:36 PM EST Pt seen in [facility] for new outbreak. Was prescribed Valtrex. * Telephone Encounter - Rosibel Sparks - [...] 1 g tablet To be sent to: [facility] [address] [facility] documented in this encounter Plan of Treatment Not on file documented as of this encounter Visit Diagnoses Not on filedocumented in this encounter Additional Health Concerns Assessment Noted Time PHQ-9 Depression Total Score: 15 024 2:35 PM EDT documented as of this encounter Care Teams Gas Plant Worker Relationship Specialty Start Date End Date Jeanine Smith MD [address] [place] [address] PCP - General Internal Medicine 03/04/24 [facility] Consulting Physician Obstetrics and Gynecology 09/30/23 documented as of this encounter
--- OUTSIDE RECORDS SUMMARY | 2024-10-29 19:31 | XMS_ITS | Encounter Summary ---
Author Organization [employer] Address [address] 7[address] [place] [address] Care Team Providers Care Customer Quality Engineer Name Role Phone Aster White MD Primary Care Provider [phone] Jeanine Smith MD Primary Care Provider [phone] Reason for Visit * Reason Onset Date Comments Lab Orders 12/05/2023 Encounter Details Date Type Department Care Team ([facility] st Contact Info) Description 12/05/2023 Telephone [facility] MEDICINE [address] [place], [place] [phone] Aster White MD [address] [place] [address] Lab Orders Social History Tobacco Use Types [...] Pt was scheduled for COVID test at [facility] testing site for next week before surgery. Pt verbalizes understanding and agreement with plan. * Telephone Encounter - Joslyn Oakes - 12/05/2023 9:52 AM EST Tc from pt requesting lab orders. Please contact pt for clarifications. Product Marketer advise pt on labs done. documented in this encounter Plan of Treatment Not on file documented as of this encounter Visit Diagnoses Not on filedocumented in this encounter Care Teams Customer Quality Engineer Relationship Specialty Start Date End Date Aster White MD [address] [place] [phone] PCP - General Family Medicine 10/10/23 03/03/24 Jeanine Smith MD [address] [place] [address] PCP - General Internal Medicine 03/04/24 [facility] Consulting Physician Obstetrics and Gynecology 09/30/23 documented as of this encounter
--- OUTSIDE RECORDS SUMMARY | 2024-10-29 19:31 | XMS_ITS | Encounter Summary ---
Author Organization [employer] Address [address] [place] [address] Care Team Providers Care Regional Safety Manager Name Role Phone Aster White MD Primary Care Provider [phone] Jeanine Smith MD Primary Care Provider [phone] Encounter Details Date Type Department Care Team ([facility] st Contact Info) Description 12/10/2023 Telephone [facility] MEDICINE [address] [place] [address] Aster White MD [address] [place], [place] [phone] Social History Tobacco Use Types Packs/Day Years [...] on filedocumented in this encounter Care Teams Regional Safety Manager Relationship Specialty Start Date End Date Aster White MD [address] [place] [address] PCP - General Family Medicine 10/10/23 03/03/24 Jeanine Smith MD [address] [place] [address] PCP - General Internal Medicine 03/04/24 [facility] Consulting Physician Obstetrics and Gynecology 09/30/23 documented as of this encounter
--- OUTSIDE RECORDS SUMMARY | 2024-10-29 19:31 | XMS_ITS | Encounter Summary ---
Author Organization [facility] Address [address] 7t [place] [address] Care Team Providers Care Car Rider Name Role Phone Aster White MD Primary Care Provider [phone] Jeanine Smith MD Primary Care Provider [phone] Reason for Visit * Reason Onset Date Comments New Patient 05/16/2023 Encounter Details Date Type Department Care Team ([facility] Contact Info) Description 05/16/2023 Telephone [facility] MEDICINE [address] [place] [address] Hamlet Mcclulough MD [address] [place] [address] New Patient Social History Tobacco Use Types [...] been transfer over to wait list for STAFF EDUCATOR. EFFECTIVE SINCE 05/16/2023 documented in this encounter Plan of Treatment Not on file documented as of this encounter Visit Diagnoses Not on filedocumented in this encounter Care Teams Car Rider Relationship Specialty Start Date End Date Aster White MD [address] [place] [address] PCP - General Family Medicine 10/10/23 03/03/24 Jenaine Smith MD [address] [place] [address] PCP - General Internal Medicine 03/04/24 [facility] Consulting Physician Obstetrics and Gynecology 09/30/23 documented as of this encounter
--- OUTSIDE RECORDS SUMMARY | 2024-10-29 19:31 | XMS_ITS | Encounter Summary ---
Author Organization [id number] Address [address] [place] [address] Care Team Providers Care Commercial Property Manager Name Role Phone Jeanine Smith MD Primary Care Provider Reason for Visit * Reason Onset Date Comments Medication Question 05/05/2024 Encounter Details Date Type Department Care Team ([facility] st Contact Info) Description 05/05/2024 Telephone [facility] MEDICINE [address] [place] [address] Jeanine Smith MD [address] [place], [place] [phone] Medication Question Social History Tobacco Use Types [...] on filedocumented in this encounter Care Teams Commercial Property Manager Relationship Specialty Start Date End Date Jeanine Smith MD [address] [place] [address] PCP - General Internal Medicine 03/04/24 [facility] Consulting Physician Obstetrics and Gynecology 09/30/23 documented as of this encounter
--- OUTSIDE RECORDS SUMMARY | 2024-10-29 19:31 | XMS_ITS | Clinical Summary ---
Author Organization [employer] Address [address] [facility] 7[address] [place] [address] Care Team Providers Care Wedding Planning Internship Name Role Phone Jeanine Smith MD Primary [...] daily. 60 tablet 1 03/05/20 24 Active valACYclovir (Valtrex) 1 g tablet Take [...] 90 tablet 3 10/27/19 25 026 Active MV & Min w/FA-DHA ( Adult Gummy/DHA/FA) 0.4-25 MG chewable tablet Chew 1 each Once per day. 30 tablet 11 10/29/19 25 Active valACYclovir (Valtrex) 1 g tablet Take 1,000 mg by mouth in the morning. 01/10/20 23 025 Discontinued(Re order (will not trigger notification to Pharmacy)) norethindrone (Ortho Micronor) 0.35 MG tablet Take 1 tablet (0.35 mg) by mouth Once per day. 28 tablet 12 07/29/20 24 025 Discontinued(Th erapy completed) Active Problems Problem Noted Date Diagnosed Date [...] to go to ER now. Partner to road oiling truck driver her. She agrees with the [...] recommended reduction of 20-30% of maintenance calories; ems coordinator referral offered. Recommended to decrease soda and [...] Encounters Date Type Department Care Team Description 10/29/2024 10:00 AM EST Office Visit [facility] [address] [place] [address] Sharron Pace CNM ASCUS of cervix with negative high risk HPV (Primary Dx); Procreative management; Cystocele, unspecified 10/29/2024 Travel 10/27/2024 9:40 AM EST Office Visit [facility] [address] [place] [address] Tiara Simpson MD Herpes infection (Primary Dx); Patient desires 10/26/2024 Orders Only [facility] [address] [place] [address] Jeanine Smith MD 10/26/2024 Refill [facility] [address] [place] [address] Jeanine Smith MD 10/25/2024 Refill [facility] [address] [place] [address] Jeanine Smith MD 10/16/2024 Telephone [facility] [address] [place] [address] Jeanine Smith MD 10/15/2024 10:00 AM EST Office Visit [facility] [address] [place] [address] Mart Briscoe MD Unprotected sexual intercourse (Primary Dx); Sore throat; Nausea 10/15/2024 Travel 10/08/2024 Telephone [facility] [address] [place] [address] Jeanine Smith MD No Show 10/08/2024 Telephone [facility] [address] [place] [address] Jeanine Smith MD Plan B 09/14/2024 Telephone [facility] [address] [place] [address] Leti Mcghee, joint machine operator Question 09/08/2024 10:20 AM EST Office Visit [facility] [address] [address] Donte Saavedra MD Possible (Primary Dx) 09/08/2024 Telephone [facility] [address] [address] Donte Saavedra MD 09/02/2024 6:20 PM EST [facility] [address] [address] Tiara Simpson MD Acute intractable headache, unspecified headache type (Primary Dx); Dizziness 09/02/[address] [address] Jeanine Smith MD Nurse Triage 08/22/2024 Orders Only GENERIC EXTERNAL DATA DEPARTMENT Provider, Generic External Data 08/13/2024 9:00 AM EST [facility] [address] [address] Charla Bello MD Streptococcal pharyngitis (Primary Dx); Sore throat 07/30/2024 [facility] [address] [place] [address] Jeanine Smith MD 07/29/2024 9:30 AM EDT Procedure Visit [address] [address] Sharron Pace CNM Nexplanon removal (Primary Dx); History of pulmonary embolus (PE); Procreative management 07/29/2024 Orders Only [address] [address] Sharron Pace, EDWARD 07/29/2024 Travel from Last 3 Months Immunizations Name Administration Dates Next Due Influenza, IIV3, injectable 10/24/2017 Influenza, intradermal, quad rivalent, preservative free 10/24/2017 Tdap 01/26/2022,11/28/2020,02/05/2018 Family History Medical History Relation Name Comments Breast cancer Maternal Grandmother Ovarian cancer Maternal Grandmother uncle ar age Factor V Leiden deficiency Mother Mirza santos reports her own testing negative Relation Name Status Comments Maternal Grandmother Mother Social History Tobacco Use Types Packs/Day Years [...] Sign Reading Time Taken Comments Blood Pressure 107/66 10/29/2024 10:15 AM EST Pulse 85 10/29/2024 10:15 AM EST Temperature 35.7 ??C (96.3 ??F) 10/29/2024 10:[address] Respiratory Rate 16 10/29/2024 10:15 AM EST Oxygen Saturation 99% 10/29/2024 10:15 AM EST Inhaled Oxygen Concentration - - Weight 92.8 kg (204 lb 9.6 oz) 10/29/2024 10:15 AM EST Height 162.6 cm (5' 4 ) 10/29/2024 10:15 AM EST Body Mass Index 35.12 10/29/2024 10:15 AM EST Plan of Treatment Health Maintenance Due Date Last Done Comments [...] Screening 06/30/2025 06/30/2024, 06/30/2024 Family Planning (PISQ) 10/29/2025 10/29/2024 Tobacco Screening 10/29/2025 10/29/2024 DTaP/Tdap/Td Vaccines (4 - T d or [...] 5 Years) and At-Risk Patients (6 to 49) Years) Aged Out No longer eligible b [...] period is included. HCG Quantitative <2 mIU/mL [facility] Comment:Weeks post LMP Appro ximate hCG(Last Menstrual Period) Range (mIU/ml)3 - 4 weeks 9 - 1304 - 5 weeks 75 - 2,6005 - 6 weeks 850 - 20,8006 - 7 weeks 4000 - 100,2007 - 12 weeks 11,500 - 289,20966 - 16 weeks 18,300 - 137,60072 - 29 weeks (2nd trimester) 1,400 - 53,84639 - 41 weeks (3rd trimester) 940 - [...] ORDERABLES Final Resul t Performing Organization Address [facility] Co de Phone Number [facility] [address] [place] [address] [phone] * Influenza B (ID NOW Rapid Molecular) (10/15/2024 10:22 AM EST) Only the most recent of3 resultswithin the time period is included. Influenza B Negative Negative, Indeterminate [facility] Swab 10/15/2024 10:2 2 AM EST us Mart Briscoe MD POINT OF CARE TEST ENTER/EDIT OR DERABLES Final Result Performing Organization Address City/[facility] Co de Phone Number [facility] [address] [place] [phone] * Influenza A (ID NOW Rapid Molecular) (10/15/2024 10:22 AM EST) Only the most recent of3 resultswithin the time period is included. Influenza A Negative Negative, Indeterminate [facility] Swab 10/15/2024 10:2 2 AM EST us Mart Briscoe MD POINT OF CARE TEST ENTER/EDIT OR DERABLES Final Result [facility] [address] [place] [address] [phone] * POCT , urine manually resulted (10/15/2024 10:17 AM EST) Only the most recent of3 resultswithin the time period is included. [facility] Preg Test, Ur Negative Negative, Indeterminate, None Detected, Invalid, Specimen unsatisfactory for evaluation, Weakly Positive Urine 10/15/2024 10:1 7 AM EST us Mart Briscoe MD POINT OF CARE TEST ENTER/EDIT OR DERABLES Final Result * POCT Rapid COVID Ag (10/15/2024 10:12 AM EST) Only the most recent of2 resultswithin the time period is included. [facility] Rapid COVID Ag Negative Swab 10/15/2024 10:1 2 AM EST us Mart Briscoe MD POINT OF CARE TEST ENTER/EDIT OR DERABLES Final Result * POCT rapid strep A manually resulted (10/15/2024 10:12 AM EST) [facility] Rapid Strep A Screen Negative Negative, None Detected Swab 10/15/2024 10:1 2 AM EST us Mart Briscoe MD POINT OF CARE TEST ENTER/EDIT OR DERABLES Final Result * (ABNORMAL) CBC auto differential (09/08/2024 10:46 AM EST) [facility] White Blood Count 7.5 4.8 - 10.8 X10*3/uL [facility] Red Blood Count 4.59 4.20 - 5.50 X10*6/uL [facility] Hemoglobin 12.3 12.0 - 16.0 g/dl [facility] Hematocrit 38.5 37.0 - 47.0 % [facility] Mean Corpuscular Volume 83.9 80.0 - 98.0 fL [facility] Mean Corpuscular Hemoglobin 26.8(L) 27.0 - 33.0 pg [facility] Mean Corpuscular HGB Conc 31.9 31.0 - 35.0 g/dl [facility] Red Cell Distribution Width 14.2 11.0 - 16.0 % [facility] Platelet Count 331 160 - 400 X10*3/uL [facility] Mean Platelet Volume 10.8 9.4 - 12.3 fL [facility] Neutrophils Percent Auto 64.5 45 - 73 % [facility] Imm Gran Pct Auto 0.3 0.0 - 0.4 % [facility] Lymphocytes Percent Auto 26.2 20 - 40 % [facility] Monocytes Percent Auto 7.2 2 - 11 % [facility] Eosinophils Percent Auto 1.3 0 - 4 % [facility] Basophils Percent Auto 0.5 0 - 2 % [facility] NRBC Pct Auto 0.0 0.0 - 0.2 /100WBC [facility] Neutrophils Absolute Auto 4.8 2.0 - 8.3 x10*3/uL [facility] Imm Gran Abs Auto 0.02 0.00 - 0.03 X10*3/uL [facility] Lymphocytes Absolute Auto 2.0 1.2 - 4.9 X10*3/uL [facility] Monocytes Absolute Auto 0.5 0.1 - 1.2 X10*3/uL [facility] Eosinophils Absolute Auto 0.1 0.0 - 0.4 X10*3/uL [facility] Basophils Absolute Auto 0.0 0.0 - 0.2 X10*3/uL [facility] NRBC Abs Auto 0.000 0.0 - 0.012 X10*3/uL [facility] Blood Venous blood specimen / Unknown 09/08/2024 10:46 AM EST 09/08/2024 11:36 AM EST us Aster White MD LAB BLOOD ORDERABLES Final Re sult Performing Organization Address [facility] Co de Phone Number [facility] [address] [place] [address] [phone] * POCT Rapid Covid-19 [place] ID NOW (09/02/2024 6:09 PM EST) Pathologist [facility] Coronavirus Antigen PCR Negative Negative, Indeterminate, None Detected, Invalid, Specimen unsatisfactory for evaluation, Weakly Positive QC Media Lot # [id number] Lot# Expiration Date [id number] Swab 09/02/2024 6:09 PM EST Tiara Simpson MD POINT OF CARE TEST ENTER/E DIT ORDERABLES Final Result * Strep A Nucleic Acid (08/22/2024 10:17 PM EST) [facility] IDNOW SERIAL# [id number] [facility] Strep A Nucleic Acid Negative Negative [facility] Comment:All test results mus t [...] GENERAL ORDERABLES Final Result Performing Organization Address [facility] Co de Phone Number [facility] [address] [place] [address] [phone] * SARS-CoV-2 RNA, Influenza A/B, and RSV RNA, Ql NAAT (08/22/2024 10:17 PM EST) [facility] Influenza A PCR NEGATIVE Negative [facility] Influenza B PCR NEGATIVE Negative [facility] Resp Syncy Virus RNA Qual PCR NEGATIVE Negative [facility] SARS COV2 PCR NEGATIVE Negative [facility] Comment:All test results mus t [...] use by authorized laboratories.Testing performed on the 5o9 GeneXpert utilizingreal-time RT-PCR.All SARS CoV2 and positive influenza A/B results arereported to [facility]. 08/22/2024 10:1 7 PM EST 08/22/2024 10:19 PM EST Generic External Data Provider LAB MICROBIOLOGY - GENERAL ORDERABLES Final Result Performing Organization Address [facility] de Phone Number [facility] [address] [place] [phone] * (ABNORMAL) POCT rapid strep A manually resulted (08/13/2024 9:13 AM EST) [facility] Rapid Strep A Screen Positive( A) Negative, None Detected Swab 08/13/2024 9:13 AM EST Result [facility] Charla Bello MD POINT OF CARE TEST ENTER/EDIT ORDERABLES Final Result * Hepatitis C Ab (11/26/2023 3:32 PM EST) [facility] Hepatitis C Antibody Nonreactive Nonreactive [facility] Comment:Antibodies to HCV no t detected; does not exclude early acuteHCV infection. 11/26/2023 3:32 PM EST 11/26/2023 5:25 PM EST Aster White MD LAB BLOOD ORDERABLES Final Re sult Performing Organization Address [facility] Co de Phone Number [facility] [address] [place] [phone] * HIV-1/2 Antigen and Antibodies, Fourth Generation, with Reflexes (11/26/2023 3:32 PM EST) HIV AB/AG Nonreactive Nonreactive [facility] Comment:HIV-1 p24 Ag and/or HIV-1/HIV-2 Ab not detected.A test result that is nonreactive does not exclude thepossibility of exposure to or infection with HIV-1 and/orHIV-2. Nonreactive results in this assay for individualswith prior exposure to HIV-1 and/or HIV-2 may be due toantigen and antibody levels that are below the limit ofdetection of this assay.The Project Manager HIV Ag/Ab Combo assay result andsupplemental assay results should be interpreted inconjunction with the patient's clinical presentation,history and other laboratory results. If the results areinconsistent with clinical evidence, additional testing issuggested to confirm the result. 11/26/2023 3:32 PM EST 11/26/2023 5:25 PM EST Aster White MD LAB BLOOD ORDERABLES Final Re sult [facility] [address] [place] [address] [phone] * Pap Smear (09/01/2021 12:00 AM EST) Swab us Historical Provider LAB CYTOLOGY ORDERABLES F inal Result [facility] [address] [place] [address] from Last 3 Months or Most Recently Relevant to Health Maintenance Insurance [address] [address] [facility] C3 Care Teams Wedding Planning Internship Relationship Specialty Start Date End Date Jeanine Smith MD [address] [place] [address] PCP - General Internal Medicine 03/04/24 [facility] Consulting Physician Obstetrics and Gynecology 09/30/23
--- OUTSIDE RECORDS SUMMARY | 2024-10-29 19:31 | XMS_ITS | Encounter Summary ---
Author Organization [employer] Address [address] [place] [address] Care Team Providers Care Field Radio Technician Name Role Phone Aster White MD Primary Care Provider [phone] Jeanine Smith MD Primary Care Provider [phone] Encounter Details Date Type Department Care Team ([facility] st Contact Info) Description 02/05/2024 Telephone [facility] [address] [place] [address] Aster White MD [address] [employer] [place], [place] [phone] Social History Tobacco Use Types Packs/Day Years [...] on filedocumented in this encounter Care Teams Field Radio Technician Relationship Specialty Start Date End Date Aster White MD [address] [place] [address] PCP - General Family Medicine 10/10/23 03/03/24 Jeanine Smith MD [address] [place] [address] PCP - General Internal Medicine 03/04/24 [facility] Consulting Physician Obstetrics and Gynecology 09/30/23 documented as of this encounter
--- OUTSIDE RECORDS SUMMARY | 2024-10-29 19:31 | XMS_ITS | Encounter Summary ---
Author Organization [employer] Address [address] [place] [address] Care Team Providers Care Electronics Maintenance Technician Name Role Phone Aster White MD Primary Care Provider Jeanine Smith MD Primary Care Provider [phone] Reason for Visit * Reason Onset Date Comments Call Back Request 12/27/2023 Encounter Details Date Type Department Care Team ([facility] st Contact Info) Description 12/27/[address] [facility] [address] [place] [address] Aster White MD [address] [place] [address] Call Back Request Social History Tobacco Use [...] prescription direction is Eliquis 5 MG tablet [[id number]] Take 1 tablet (5 mg) by mouth [...] on filedocumented in this encounter Care Teams Electronics Maintenance Technician Relationship Specialty Start Date End Date Aster White MD [address] [place] [address] PCP - General Family Medicine 10/10/23 03/03/24 Jeanine Smith MD [address] [place] [address] PCP - General Internal Medicine 03/04/24 [facility] Consulting Physician Obstetrics and Gynecology 09/30/23 documented as of this encounter
--- OUTSIDE RECORDS SUMMARY | 2024-10-29 19:31 | XMS_ITS | Encounter Summary ---
Author Organization [email or web address] Address [address] [facility] [address] [address] [place] [address] Care Team Providers Care Fiberglass Pipe Covering Supervisor Name Role Phone Jeanine Smith MD Primary Care Provider Encounter Details Date Type Department Care Team (Late st Contact Info) Description 03/05/2024 Orders Only [facility] [address] [place], [place] [phone] Jeanine Smith MD [address] [place], [place] [phone] Single subsegmental pulmonary embolism without acute cor [...] (CMS/HCC) documented in this encounter Care Teams Fiberglass Pipe Covering Supervisor Relationship Specialty Start Date End Date Jeanine Smith MD [address] [place] [address] PCP - General Internal Medicine 03/04/24 [facility] Consulting Physician Obstetrics and Gynecology 09/30/23 documented as of this encounter
--- OUTSIDE RECORDS SUMMARY | 2024-10-29 19:31 | XMS_ITS | Encounter Summary ---
Author Organization [employer] [facility] Address [address] [place] [address] Care Team Providers Care Raise Drill Operator Name Role Phone Jeanine Smith MD Primary Care Provider [phone] Reason for Referral * Consultation (Routine) - Pending Review Specialty Diagnoses / Procedures Referred By Patricia chaidez Referred To Contact Physical Therapy Diagnoses Cystocele, unspecified Sharron Pace CNM [address] [place] [address] Phone: tel: fax: [facility] [address] [place], [place] Phone: tel: fax: Referral ID Status Reason Start Date Expiration Date Visits Requested Visits Authorized [id number] Pending Review Specialty Services Required 10/29/2024 10/29/2025 1 1 Encounter Details Date Type Department Care Team (Late st Contact Info) Description 10/29/2024 10:00 AM EST Office Visit [facility] [address] [place] [address] Sharron Pace CNM [address] [place], [place] [phone] ASCUS of cervix with negative high risk HPV (Primary Dx); Procreative management; Cystocele, unspecified Social History Tobacco Use Types Packs/Day Years [...] Mass Index 35.12 10/29/2024 10:15 AM EST documented in this encounter Progress Notes * Sharron Pace CNM - 10/29/2024 10:00 AM EST Subjective Patient ID: Paolo Quintana is a 24 y.o. female who presents for oral contraceptive pill f/u Prescribed progestin only pill at last visit with me in 06/2024. Stopped due to anxiety. Would be okay with getting now. Has a hard time swallowing , would like chewable. Had M for consult as she has history of PE and was thinking about getting in the near future. Consult recommendations from 07/2024 MFM visit state no need for anticoagulation during unless additional risk factors. For compression devices if not mobile and consideration of Lovenox . ASCUS HPV neg 08/2021. Due for pap, would like to do this and breast exam today. Fdc urinary incontinence and pain with sex. Open to pelvic floor PT. Patient seen in conjunction with MIKEY De Leon student. I was present for and confirmed all pertinent elements in the history, exam, assessment of the patient, and the plan of care, and agree with all findings. Review of Systems Genitourinary: Positive for dyspareunia. Negative for dysuria, frequency, genital sores, hematuria,menstrual problem, pelvic pain, urgency, vaginal bleeding, vaginal discharge and vaginal pain. No abnormal pap, no abnormal bleeding, no breast pain, no breast mass, no nipple discharge Objective BP 107/66 (BP Location: Left arm, Patient Position: Sitting, BP Cuff Size: Large adult) Pulse 85 Temp 96.3 ??F (35.7 ??C) (Temporal) Resp 16 Ht 5' 4 (1.626 m) Wt 204 lb 9.6 oz (92.8 kg) LMP 2024 (Approximate) SpO2 99% BMI 35.12 kg/m?? Physical Exam Exam conducted with a director career present (Sharron Pace CNM). Constitutional: Appearance: Normal appearance. Chest: Breasts: Right: Normal. No swelling, bleeding, inverted nipple, mass, nipple discharge, skin change or tenderness. Left: Normal. No swelling, bleeding, inverted nipple, mass, nipple discharge, skin change or tenderness. Genitourinary: General: Normal vulva. Labia: Right: No rash, tenderness, lesion or injury. Left: No rash, tenderness, lesion or injury. Vagina: Normal. No signs of injury and foreign body. No vaginal discharge, erythema, tenderness, bleeding or lesions. Cervix: No cervical motion tenderness, discharge, friability, lesion, erythema, cervical bleeding or eversion. Uterus: Normal. Not enlarged and not tender. Adnexa: Right adnexa normal and left adnexa normal. Right: No mass, tenderness or fullness. Left: No mass, tenderness or fullness. Comments: Cystocele on exam, poor tone Lymphadenopathy: Upper Body: Right upper body: No supraclavicular or axillary adenopathy. Left upper body: No supraclavicular or axillary adenopathy. Neurological: Mental Status: She is alert. Psychiatric: Mood and Affect: Mood normal. Behavior: Behavior normal. Assessment/Plan Diagnoses and all orders for this visit: ASCUS of cervix with negative high risk HPV - Pap Smear Pap today. Will contact with results. Reflex HPV if ASCUS or greater. Repeat 3 years if normal. Procreative management Reviewed preconception counseling. Gummy sent in. Urged toxin avoidance if trying to get . Reviewed that there is no amount of alcohol that is safe in , so best to avoid alcohol while trying to get . Report missed menses. Reviewed that we do not offer care, but can refer to provider of her choice. [facility]. [facility] offers care, but births happen at [facility]. She plans to follow with [facility] for care. Cystocele, unspecified - Referral to Physical Therapy; Future Interested in pelvic floor PT. Will refer to [facility]. Other orders - MV & Min w/FA-DHA ( Adult Gummy/DHA/FA) 0.4-25 MG chewable tablet; Chew 1 each Once per day. documented in this encounter Plan of Treatment Scheduled Orders Name Type Priority Associated Diagnoses Orde r Schedule Pap Smear Pathology and Cytology Routine ASCUS of cervix with negative high risk HPV Ordered: 10/29/2024 Scheduled Referrals Name Type Priority Associated Diagnoses Orde r Schedule Referral to Physical Therapy Outpatient Referral Routine Cystocele, unspecified Expected: 10/29/2024 (Approximate), Expires: 10/29/2025 documented as of this encounter Visit Diagnoses Diagnosis ASCUS of cervix with negative high risk HPV- Primary Procreative management Cystocele, unspecified documented in this encounter Additional Health Concerns Assessment Noted Time PHQ-9 Depression Total Score: 15 024 2:35 PM EDT documented as of this encounter Care Teams Raise Drill Operator Relationship Specialty Start Date End Date Jeanine Smith MD [address] [place] [address] PCP - General Internal Medicine 03/04/24 [facility] Consulting Physician Obstetrics and Gynecology 09/30/23 documented as of this encounter
--- OUTSIDE RECORDS SUMMARY | 2024-10-29 19:31 | XMS_ITS | Encounter Summary ---
Author Organization [employer] Address [address] 7t [place] [address] Care Team Providers Care Soldering Machine Tender Name Role Phone Jeanine Smith MD Primary Care Provider [phone] Encounter Details Date Type Department Care Team (Late st Contact Info) Description 10/26/2024 Orders Only [facility] CHC MED & PEDS [address] [place], [place] [phone] Jeanine Smith MD 505 [place] [address] Social History Tobacco Use Types Packs/Day Years [...] documented as of this encounter Care Teams Soldering Machine Tender Relationship Specialty Start Date End Date Jeanine Smith MD [address] [place] [address] PCP - General Internal Medicine 03/04/24 [facility] Consulting Physician Obstetrics and Gynecology 09/30/23 documented as of this encounter
--- OUTSIDE RECORDS SUMMARY | 2024-10-29 19:31 | XMS_ITS | Encounter Summary ---
Author Organization [email or web address] Address [address] [facility] [address] 7t [place] [address] Care Team Providers Care Cemetery Counselor Name Role Phone Jeanine Smith MD Primary Care Provider Encounter Details Date Type Department Care Team (Late st Contact Info) Description 10/27/2024 9:40 AM EST Office Visit [facility] 230 [place], [place] [phone] Tiara Simpson MD 230 [place], [place] [phone] Herpes infection (Primary Dx); Patient desires Social [...] documented as of this encounter Care Teams Cemetery Counselor Relationship Specialty Start Date End Date Jeanine Smith MD [address] [place] [address] PCP - General Internal Medicine 03/04/24 [facility] Consulting Physician Obstetrics and Gynecology 09/30/23 documented as of this encounter
--- OUTSIDE RECORDS SUMMARY | 2024-10-29 19:31 | XMS_ITS | Encounter Summary ---
Author Organization [employer] [facility] Address [address] 7t [place] [address] Care Team Providers Care Forging Machine Hand Name Role Phone Jeanine Smith MD Primary Care Provider Encounter Details Date Type Department Care Team (Latest Contact Info) Description 10/29/2024 Travel Social History Tobacco Use Types Packs/Day [...] documented as of this encounter Care Teams Forging Machine Hand Relationship Specialty Start Date End Date Jeanine Smith MD [address] [place] [address] PCP - General Internal Medicine 03/04/24 [facility] Consulting Physician Obstetrics and Gynecology 09/30/23 documented as of this encounter
--- OUTSIDE RECORDS SUMMARY | 2024-10-29 19:31 | XMS_ITS | Encounter Summary ---
Author Organization [employer] Address [address] 7t [place] [address] Care Team Providers Care Optician Manager Name Role Phone Jeanine Smith MD Primary Care Provider [phone] Reason for Visit * Reason Onset Date Comments Nurse Triage 06/29/2024 Encounter Details Date Type Department Care Team ([facility] st Contact Info) Description 06/29/2024 Telephone [facility] MEDICINE 230 [place] [address] Jeanine Smith MD 505 [place] [address] Nurse Triage Social History Tobacco Use Types [...] t he electric, gas, oil or water [employer] threatened to shut off services in your [...] time. Pt is advised to come to [facility] today open till 8pm. Pt is advised [facility] has someone who can speak with Pt in [facility]. Pt agrees with this plan, home care reviewed. Pt will come to [facility] today. Insurance is verified as [...] in the arm for control please call [phone] documented in this encounter Plan of Treatment Not on file documented as of this encounter Visit Diagnoses Not on filedocumented in this encounter Care Teams Optician Manager Relationship Specialty Start Date End Date Jeanine Smith MD [address] [place] [address] PCP - General Internal Medicine 03/04/24 [facility] Consulting Physician Obstetrics and Gynecology 09/30/23 documented as of this encounter
--- OUTSIDE RECORDS SUMMARY | 2024-10-29 19:31 | XMS_ITS | Encounter Summary ---
Author Organization [employer] Address [address] [facility] 7t [place] [address] Care Team Providers Care Home Assessment Nurse Name Role Phone Jeanine Smith MD Primary Care Provider [phone] Reason for Visit * Reason Onset Date Comments Plan B 10/08/2024 Encounter Details Date Type Department Care Team ([facility] st Contact Info) Description 10/08/2024 Telephone [facility] CHC MED & PEDS 505 [place] [address] Jeanine Smith MD 505 [place] [address] Plan B Social History Tobacco Use Types [...] 10/08/2024 9:49 AM EST Pt came to [facility] pharm today, [facility] pharmacist states this is the third time pt has been in for Plan B in 20 days. This is not best pt care. [facility] pharmacist has counseled on control and pt refused first two times. This time [facility] pharmacist will not give Plan B and reached out to this marketing copywriter. Pt agrees to see PCP today at 11:15a to discuss control. documented in this encounter Plan of Treatment Not on file documented as of this encounter Visit Diagnoses Not on filedocumented in this encounter Additional Health Concerns Assessment Noted Time PHQ-9 Depression Total Score: 15 024 2:35 PM EDT documented as of this encounter Care Teams Home Assessment Nurse Relationship Specialty Start Date End Date Jeanine Smith MD [address] [place] [address] PCP - General Internal Medicine 03/04/24 [facility] Consulting Physician Obstetrics and Gynecology 09/30/23 documented as of this encounter
--- OUTSIDE RECORDS SUMMARY | 2024-10-29 19:31 | XMS_ITS | Encounter Summary ---
Author Organization [employer] [facility] Address [address] [place] [address] 7 [place] [address] Care Team Providers Care Credit Card Control Clerk Name Role Phone Aster White MD Primary Care Provider [phone] Jeanine Smith MD Primary Care Provider [phone] Reason for Referral * Consultation (Routine) - Authorized Specialty Diagnoses / Procedures Referred By Contac t Referred To Contact Pharmacy Diagnoses Acute pulmonary embolism, unspecified pulmonary embolism type, unspecified whether acute cor pulmonale present (CMS/HCC) Minnie Adams PharmD 230 [place] [address] Phone: tel: fax: Referral ID Status Reason Start Date Expiration Date Visits Requested Visits Authorized [id number] Authorized Continuity of Care 01/10/2024 01/09/2025 1 1 Encounter Details Date Type Department Care Team (Late st Contact Info) Description 01/10/2024 Orders Only [facility] MEDICINE 230 [place] [address] Minnie Adams, PharmD 230 [place] [address] Acute pulmonary embolism, unspecified pulmonary embolism type, [...] as of this encounter Plan of Treatment Scheduled Referrals Name Type Priority Associated Diagnoses Orde r Schedule Referral to Pharmacy [facility] Outpatient Referral Routine Acute pulmonary embolism, unspecified pulmonary embolism type, unspecified whether acute cor pulmonale present (CMS/HCC) Ordered: 01/10/2024 documented as of this encounter Visit Diagnoses Diagnosis Acute pulmonary embolism, unspecified pulmonary embolism type, unspecified whether acute cor pulmonale present (CMS/HCC)- Primary documented in this encounter Care Teams Credit Card Control Clerk Relationship Specialty Start Date End Date Aster White MD [address] [place] [address] PCP - General Family Medicine 10/10/23 03/03/24 Jeanine Smith MD 505 [place] [address] PCP - General Internal Medicine 03/04/24 [facility] Consulting Physician Obstetrics and Gynecology 09/30/23 documented as of this encounter
== END 2024-10-29 16:03 | disposition home or self-care (01) ==
LOC: HO.HHCLNP 16:02
PROVIDERS: Visit Provider Advanced Practice Midwife
DX: Z13.89 Encounter for screening for other disorder (principal)

== ENCOUNTER 2024-11-02 10:15 | Outpatient (REF) | payer MEDICAID, SELFPAY ==
--- OUTSIDE RECORDS SUMMARY | 2024-11-02 11:00 | XMS_ITS | Encounter Summary ---
Author Organization [employer] Address [address] 7t [place] [address] Care Team Providers Care Renovation Plant Supervisor Name Role Phone Jeanine Smith MD Primary Care Provider Encounter Details Date Type Department Care Team (Late st Contact Info) Description 10/31/2024 11:40 AM EST Office Visit [facility] 230 [place], [place] [phone] Mart Briscoe MD 230 [place], [place] [phone] Viral URI Social History Tobacco Use Types Packs/Day Years [...] Sign Reading Time Taken Comments Blood Pressure 116/73 10/31/2024 11:34 AM EST Pulse 88 10/31/2024 11:34 AM EST Temperature 36.5 ??C (97.7 ??F) 10/31/2024 11:[address] Respiratory Rate 20 10/31/2024 11:34 AM EST Oxygen Saturation 99% 10/31/2024 11:34 AM EST Inhaled Oxygen Concentration - - Weight 92.5 kg (204 lb) 10/31/2024 11:34 AM EST Height 162.6 cm (5' 4 ) 10/31/2024 11:34 AM EST Body Mass Index 35.02 10/31/2024 11:34 AM EST documented in this encounter Progress Notes * Mart Briscoe MD - 10/31/2024 11:40 AM EST Subjective History was provided by the patient. Paolo Quintana is a 24 y.o. female who presents for evaluation of symptoms of a URI. Symptoms include cough, runny nose, congestion, and sore throat. Onset of symptoms was 2 days ago, unchanged since that time. Associated negative symptoms include fever, chills, nausea, vomiting, diarrhea, and ear pain. Evaluation to date: none. Treatment to date: none Her daughter was just diagnosed with RSV infection. Objective Vitals: 10/31/24 1134 BP: 116/73 BP Location: Right arm Patient Position: Sitting BP Cuff Size: Adult Pulse: 88 Resp: 20 Temp: 97.7 ??F (36.5 ??C) TempSrc: Temporal SpO2: 99% Weight: 204 lb (92.5 kg) Height: 5' 4 (1.626 m) Physical Exam Vitals reviewed. Constitutional: Appearance: Normal appearance. She is normal weight. HENT: Head: Normocephalic and atraumatic. Right Ear: Tympanic membrane, ear canal and external ear normal. Left Ear: Tympanic membrane, ear canal and external ear normal. Nose: Congestion present. No rhinorrhea. Mouth/Throat: Mouth: Mucous membranes are moist. Pharynx: Oropharynx is clear. No oropharyngeal exudate or posterior oropharyngeal erythema. Eyes: Extraocular Movements: Extraocular movements intact. Conjunctiva/sclera: Conjunctivae normal. Pupils: Pupils are equal, round, and reactive to light. Cardiovascular: Rate and Rhythm: Normal rate and regular rhythm. Heart sounds: Normal heart sounds. Pulmonary: Effort: Pulmonary effort is normal. Breath sounds: Normal breath sounds. Musculoskeletal: General: Normal range of motion. Cervical back: Normal range of motion and neck supple. Lymphadenopathy: Cervical: No cervical adenopathy. Skin: General: Skin is warm and dry. Neurological: General: No focal deficit present. Mental Status: She is alert and oriented to person, place, and time. Mental status is at baseline. Psychiatric: Mood and Affect: Mood normal. Behavior: Behavior normal. Thought Content: Thought content normal. Judgment: Judgment normal. Office Visit on 10/31/2024 Component Date Value Ref Range Status Rapid COVID Ag 10/31/2024 Negative Final QC Media Lot # 10/31/2024 [id number] Final Lot# Expiration Date 10/31/[id number] Final Rapid Influenza A Ag 10/31/2024 Negative Negative, Indeterminate Final QC Media Lot # 10/31/2024 [id number] Final Lot# Expiration Date 10/31/2024 [id number] Final Rapid Influenza B Ag 10/31/2024 Negative Negative, Indeterminate Final QC Media Lot # 10/31/2024 [id number] Final Lot# Expiration Date 10/31/2024 [id number] Final Rapid Strep A Screen 10/31/2024 Negative Negative, None Detected Final QC Media Lot # 10/31/2024 [id number] Final Lot# Expiration Date 10/31/2024 [id number] Final Diagnoses and all orders for this visit: Viral URI - POCT Rapid COVID Ag - POCT Influenza A manually resulted - POCT Influenza B manually resulted - POCT rapid strep A manually resulted Patient with a clinical presentation of viral URI Normal pulmonary exam and no respiratory distress O2 sat reassuring Rapid COVID-19, Influenza A/B, and Strep tests all negative Discussed supportive care with ample hydration, sleep position and rest OTC supportive medications reviewed Droplet precautions discussed Advised to contact the clinic if no improvement of symptoms Indications for UC/ER use reviewed documented in this encounter Plan of Treatment Not on file documented as of this encounter Procedures Procedure Name Priority Date/Time Associated Diagnosis Comments POCT RAPID COVID ANTIGEN Routine 10/31/2024 12:11 PM EST Viral URI POCT INFLUENZA B Routine 10/31/2024 12:1 1 PM EST Viral URI POCT INFLUENZA A Routine 10/31/2024 12:1 1 PM EST Viral URI POCT RAPID STREP A Routine 10/31/2024 12 :11 PM EST Viral URI documented in this encounter Results * POCT rapid strep A manually resulted (10/31/2024 12:11 PM EST) [facility] Rapid Strep A Screen Negative Negative, None Detected QC Media Lot # [id number] Lot# Expiration Date Swab 10/31/2024 12:1 1 PM EST Mart Briscoe MD POINT OF CARE TEST ENTER/EDIT OR DERABLES Final Result * POCT Influenza B manually resulted (10/31/2024 12:11 PM EST) [facility] Rapid Influenza B Ag Negative Negative, Indeterminate QC Media Lot # [id number] Lot# Expiration Date Swab 10/31/2024 12:1 1 PM EST us Mart Briscoe MD POINT OF CARE TEST ENTER/EDIT OR DERABLES Final Result * POCT Influenza A manually resulted (10/31/2024 12:11 PM EST) Rapid Influenza A Ag Negative Negative, Indeterminate QC Media Lot # [id number] Lot# Expiration Date Swab Nasopharyngeal structure / Unknown 10/31/2024 12:11 PM EST us Mart Briscoe MD POINT OF CARE TEST ENTER/EDIT OR DERABLES Final Result * POCT Rapid COVID Ag (10/31/2024 12:11 PM EST) Rapid COVID Ag Negative QC Media Lot # [id number] Lot# Expiration Date 026 Swab 10/31/2024 12:1 1 PM EST us Mart Briscoe MD POINT OF CARE TEST ENTER/EDIT OR DERABLES Final Result documented in this encounter Visit Diagnoses Diagnosis Viral URI Acute upper respiratory infections of unspecified site documented in this encounter Additional Health Concerns Assessment Noted Time PHQ-9 Depression Total Score: 15 024 2:35 PM EDT documented as of this encounter Care Teams Renovation Plant Supervisor Relationship Specialty Start Date End Date Jeanine Smith MD 505 [place] [address] PCP - General Internal Medicine 03/04/24 [facility] Consulting Physician Obstetrics and Gynecology 09/30/23 documented as of this encounter
--- OUTSIDE RECORDS SUMMARY | 2024-11-02 11:00 | XMS_ITS | Encounter Summary ---
Author Organization [employer] Address [address] 7t [place] [address] Care Team Providers Care Buttermaker Continuous Churn Name Role Phone Aster White MD Primary Care Provider [phone] Jeanine Smith MD Primary Care Provider [phone] Encounter Details Date Type Department Care Team ([facility] st Contact Info) Description 02/05/2024 Telephone [facility] MEDICINE 230 [place] [address] Aster White MD [address] [place], [place] [phone] Social History Tobacco Use Types Packs/Day Years [...] on filedocumented in this encounter Care Teams Buttermaker Continuous Churn Relationship Specialty Start Date End Date Aster White MD [address] [place] [address] PCP - General Family Medicine 10/10/23 03/03/24 Jeanine Smith MD [address] [place] [address] PCP - General Internal Medicine 03/04/24 [facility] Consulting Physician Obstetrics and Gynecology 09/30/23 documented as of this encounter
--- OUTSIDE RECORDS SUMMARY | 2024-11-02 11:00 | XMS_ITS | Encounter Summary ---
Demographics Address [address] [place] [address] Mobile Phone Home Phone Email Address Preferred Language en Marital Status Single Sikh Affiliation Unknown Race White Ethnic Group or Author Organization [employer] Address [address] [facility] 7t [place] [address] Care Team Providers Care Product Development Coordinator Name Role Phone Jeanine Smith MD Primary Care Provider [phone] Reason for Visit * Reason Onset Date Comments Med Refill 10/25/2024 Encounter Details Date Type Department Care Team ([facility] st Contact Info) Description 10/25/2024 Refill [facility] MED & PEDS 505 [place] [address] Jeanine Smith MD 505 [place] [address] Social History Tobacco Use Types Packs/Day Years [...] documented as of this encounter Care Teams Product Development Coordinator Relationship Specialty Start Date End Date Jeanine Smith MD [address] [place] [address] PCP - General Internal Medicine 03/04/24 [facility] Consulting Physician Obstetrics and Gynecology 09/30/23 documented as of this encounter
--- OUTSIDE RECORDS SUMMARY | 2024-11-02 11:00 | XMS_ITS | Encounter Summary ---
Author Organization [employer] Address [address] 7t [place] [address] Care Team Providers Care Heel Nail Rasper Name Role Phone Jeanine Smith MD Primary Care Provider Encounter Details Date Type Department Care Team (Late st Contact Info) Description 03/05/2024 Orders Only [facility] CHC MED & PEDS 505 [place], [place] [phone] Jeanine Smith MD 505 [place], [place] [phone] Single subsegmental pulmonary embolism without acute cor [...] (CMS/HCC) documented in this encounter Care Teams Heel Nail Rasper Relationship Specialty Start Date End Date Jeanien Smith MD [address] [place] [address] PCP - General Internal Medicine 03/04/24 [facility] Consulting Physician Obstetrics and Gynecology 09/30/23 documented as of this encounter
--- OUTSIDE RECORDS SUMMARY | 2024-11-02 11:00 | XMS_ITS | Encounter Summary ---
Author Organization [employer] Address [address] 7t [place] [address] Care Team Providers Care Stitch Bonding Machine Tender Helper Name Role Phone Jeanine Smith MD Primary Care Provider Encounter Details Date Type Department Care Team (Late st Contact Info) Description 07/29/2024 Orders Only [facility] MEDICINE [address] [place] [address] Sharron Pace CN [address] [place], [place] [phone] Social History Tobacco Use Types Packs/Day Years [...] ORDERABLES F inal Result Performing Organization Address City/State/[facility] Co de Phone Number [facility] [address] [place] [address] documented in this encounter Visit Diagnoses Not on filedocumented in this encounter Additional Health Concerns Assessment Noted Time PHQ-9 Depression Total Score: 15 024 2:35 PM EDT documented as of this encounter Care Teams Stitch Bonding Machine Tender Helper Relationship Specialty Start Date End Date Jeanine Smith MD 505 [place] [address] PCP - General Internal Medicine 03/04/24 [facility] Consulting Physician Obstetrics and Gynecology 09/30/23 documented as of this encounter
--- OUTSIDE RECORDS SUMMARY | 2024-11-02 11:00 | XMS_ITS | Encounter Summary ---
Author Organization [employer] [facility] Address [address] [place] [address] 7 [place] [address] Care Team Providers Care Flexo Folder Gluer Operator Name Role Phone Aster White MD Primary Care Provider [phone] Jeanine Smith MD Primary Care Provider [phone] Reason for Referral * Consultation (Routine) - Authorized Specialty Diagnoses / Procedures Referred By Contac t Referred To Contact Pharmacy Diagnoses Acute pulmonary embolism, unspecified pulmonary embolism type, unspecified whether acute cor pulmonale present (CMS/HCC) Minnie Adams PharmD [address] [place] [address] Phone: tel: fax: Referral ID Status Reason Start Date Expiration Date Visits Requested Visits Authorized [id number] Authorized Continuity of Care 01/10/2024 01/09/2025 1 1 Encounter Details Date Type Department Care Team (Late st Contact Info) Description 01/10/2024 Orders Only [facility] MEDICINE 230 [place] [address] Minnie Adams, PharmD [address] [place] [address] Acute pulmonary embolism, unspecified pulmonary embolism type, [...] Diagnoses Orde r Schedule Referral to Pharmacy [facility] Outpatient Referral Routine Acute pulmonary embolism, unspecified pulmonary embolism type, unspecified whether acute cor pulmonale present (CMS/HCC) Ordered: 01/10/2024 documented as of this encounter Visit Diagnoses Diagnosis Acute pulmonary embolism, unspecified pulmonary embolism type, unspecified whether acute cor pulmonale present (CMS/HCC)- Primary documented in this encounter Care Teams Flexo Folder Gluer Operator Relationship Specialty Start Date End Date Aster White MD [address] [place] [address] PCP - General Family Medicine 10/10/23 03/03/24 Jeanine Smith MD 505 [place] [address] PCP - General Internal Medicine 03/04/24 [facility] Consulting Physician Obstetrics and Gynecology 09/30/23 documented as of this encounter
--- OUTSIDE RECORDS SUMMARY | 2024-11-02 11:00 | XMS_ITS | Encounter Summary ---
Author Organization [employer] [facility] Address [address]t [place] [address] Care Team Providers Care Glass Science Engineer Name Role Phone Jaenine Smith MD Primary Care Provider Encounter Details [...] documented as of this encounter Care Teams Glass Science Engineer Relationship Specialty Start Date End Date Jeanine Smith MD [address] [place] [address] PCP - General Internal Medicine 03/04/24 [facility] Consulting Physician Obstetrics and Gynecology 09/30/23 documented as of this encounter
--- OUTSIDE RECORDS SUMMARY | 2024-11-02 11:00 | XMS_ITS | Encounter Summary ---
Author Organization [employer] Address [address] [facility] 7t [place] [address] Care Team Providers Care Rejector Name Role Phone Jeanine Simth MD Primary Care Provider Reason for Visit * Reason Onset Date Comments No Show 10/08/2024 Encounter Details Date Type Department Care Team ([place] [facility] Contact Info) Description 10/08/2024 Telephone [facility] CHC MED & PEDS 505 [place] [address] Jeanine Smith MD 505 [place] [address] No Show Social History Tobacco Use Types [...] documented as of this encounter Care Teams Rejector Relationship Specialty Start Date End Date Jeanine Smith MD [address] [place] [address] PCP - General Internal Medicine 03/04/24 [facility] Consulting Physician Obstetrics and Gynecology 09/30/23 documented as of this encounter
--- OUTSIDE RECORDS SUMMARY | 2024-11-02 11:00 | XMS_ITS | Encounter Summary ---
Author Organization [employer] Address [address] [facility] 7t [place] [address] Care Team Providers Care Substance Abuse Clinician Name Role Phone Jeanine Smith MD Primary Care Provider Reason for Visit * Reason Onset Date Comments Plan B 10/08/2024 Encounter Details Date Type Department Care Team ([facility] st Contact Info) Description 10/08/2024 Telephone [facility] CH[facility] MED & PEDS [address] [place] [address] Jeanine Smith MD [address] [place] [address] Plan B Social History Tobacco Use Types [...] 10/08/2024 9:49 AM EST Pt came to [facility] pharm today, [facility] pharmacist states this is the third time pt has been in for Plan B in 20 days. This is not best pt care. [facility] pharmacist has counseled on control and pt refused first two times. This time [facility] pharmacist will not give Plan B and reached out to this abstract writer. Pt agrees to see PCP today at 11:15a to discuss control. documented in this encounter Plan of Treatment Not on file documented as of this encounter Visit Diagnoses Not on filedocumented in this encounter Additional Health Concerns Assessment Noted Time PHQ-9 Depression Total Score: 15 024 2:35 PM EDT documented as of this encounter Care Teams Substance Abuse Clinician Relationship Specialty Start Date End Date Jeanine Smith MD [address] [place] [phone] PCP - General Internal Medicine 03/04/24 [facility] Consulting Physician Obstetrics and Gynecology 09/30/23 documented as of this encounter
--- OUTSIDE RECORDS SUMMARY | 2024-11-02 11:00 | XMS_ITS | Encounter Summary ---
Author Organization [employer] [facility] Address [address] 7[address] [place] [address] Care Team Providers Care Counter Intelligence Agent Name Role Phone Jeanine Smith MD Primary Care Provider Reason for Visit * Reason Comments Sore Throat Encounter Details Date Type Department Care Team ([facility] st Contact Info) Description 10/15/2024 10:00 AM EST Office Visit [facility] [address] [place], [place] [phone] Mart Briscoe MD [address] [place] [address] Unprotected sexual intercourse (Primary Dx); Sore throat; [...] weeks ago. Also had STI screening [facility]. Was told all negative results. Objective Vitals: [...] - 100,2007 - 12 weeks 11,500 - 289,[phone] - 16 weeks 18,300 - 137,45971 - 29 weeks (2nd trimester) 1,400 - 53,32342 - 41 weeks (3rd trimester) 940 - [...] , urine manually resulted Patient presents to [facility] due to dry throat and acid [...] 10:42 AM EST) HCG Quantitative <2 mIU/mL [facility] Comment:Weeks post LMP Appro ximate hCG(Last Menstrual Period) Range (mIU/ml)3 - 4 weeks 9 - 1304 - 5 weeks 75 - 2,6005 - 6 weeks 850 - 20,8006 - 7 weeks 4000 - 100,2007 - 12 weeks 11,500 - 289,27228 - 16 weeks 18,300 - 137,80074 - 29 weeks (2nd trimester) 1,400 - 53,48798 - 41 weeks (3rd trimester) 940 - [...] ORDERABLES Final Resul t Performing Organization Address [facility] [place] Co de Phone Number [facility] [address] [place] [phone] * Influenza B (ID NOW Rapid Molecular) (10/15/2024 10:22 AM EST) Influenza B Negative Negative, Indeterminate [facility] Swab 10/15/2024 10:2 2 AM EST us Mart Briscoe MD POINT OF CARE TEST ENTER/EDIT OR DERABLES Final Result Performing Organization Address [facility] de Phone Number [facility] [address] [place] [phone] * Influenza A (ID NOW Rapid Molecular) (10/15/2024 10:22 AM EST) Influenza A Negative Negative, Indeterminate [facility] Swab 10/15/2024 10:2 2 AM EST us Mart Briscoe MD POINT OF CARE TEST ENTER/EDIT OR DERABLES Final Result Performing Organization Address [facility] Phone Number [facility] [address] [place] [phone] * POCT , urine manually resulted [...] documented as of this encounter Care Teams Counter Intelligence Agent Relationship Specialty Start Date End Date Jeanine Smith MD [address] [place] [phone] PCP - General Internal Medicine 03/04/24 [facility] Consulting Physician Obstetrics and Gynecology 09/30/23 documented as of this encounter
--- OUTSIDE RECORDS SUMMARY | 2024-11-02 11:00 | XMS_ITS | Encounter Summary ---
Author Organization [employer] Address [address] 7[address] [place] [address] Care Team Providers Care Assistant Professor Of Sociology Name Role Phone Jeanine Smith MD Primary Care Provider Encounter Details Date Type Department Care Team (Late st Contact Info) Description 10/16/2024 Telephone [facility] CH[facility] MED & PEDS [address] [place], [place] [phone] Jeanine Smith MD [address] [place] [address] Social History Tobacco Use Types Packs/Day Years [...] documented as of this encounter Care Teams Assistant Professor Of Sociology Relationship Specialty Start Date End Date Jeanine Smith MD [address] [place] [phone] PCP - General Internal Medicine 03/04/24 [facility] Consulting Physician Obstetrics and Gynecology 09/30/23 documented as of this encounter
--- OUTSIDE RECORDS SUMMARY | 2024-11-02 11:00 | XMS_ITS | Encounter Summary ---
Author Organization [employer] [facility] Address [address] 7[address] [place] [address] Care Team Providers Care Neurology Stroke Physician Name Role Phone Jeanine Smith MD Primary Care Provider [phone] Reason for Visit * Reason Comments Amenorrhea Encounter Details Date Type Department Care Team ([facility] st Contact Info) Description 11/02/2024 9:40 AM EST Office Visit [facility] [address] [place] [address] Irregular periods (Primary Dx); Missed menses Social History Tobacco Use Types Packs/Day Years [...] Sign Reading Time Taken Comments Blood Pressure 130/84 11/02/2024 9:30 AM EST Pulse 88 11/02/2024 9:30 AM EST Temperature 36.6 ??C (97.9 ??F) 11/02/2024 9:30 AM ES T Respiratory Rate 16 11/02/2024 9:30 AM EST Oxygen Saturation 99% 11/02/2024 9:30 AM EST Inhaled Oxygen Concentration - - Weight 95.7 kg (211 lb) 11/02/2024 9:30 AM EST Height - - Body Mass Index 36.22 10/31/2024 11:34 AM EST documented in this encounter Plan of Treatment Scheduled Orders Name Type Priority Associated Diagnoses Orde r Schedule TSH W/Reflex to FT4 Lab Routine Missed menses Irregular periods Expected: 11/02/2024 (Approximate), Expires: 11/02/2025 Comprehensive Metabolic Panel Lab Routine Missed menses Irregular periods Expected: 11/02/2024 (Approximate), Expires: 11/02/2025 hCG, Total, Quantitative Lab Routine Missed menses Irregular periods Expected: 11/02/2024 (Approximate), Expires: 11/02/2025 Chlamydia/N. Gonorrhoeae RNA, TMA, Urogenitial Microbiology Routine Missed menses Ordered: 11/02/2024 documented as of this encounter Procedures Procedure Name Priority Date/Time Associated Diagnosis Comments POCT , URINE Routine 11/02/2024 9:39 AM EST Missed menses documented in this encounter Results * POCT , urine manually resulted (11/02/2024 9:39 AM EST) Preg Test, Ur Negative Negative, Indeterminate, None Detected, Invalid, Specimen unsatisfactory for evaluation, Weakly Positive Urine 11/02/2024 9:39 AM EST Carisa Ramos SIGNING AGENT POINT OF CARE TEST ENTER/EDIT OR DERABLES Final Result documented in this encounter Visit Diagnoses Diagnosis Irregular periods- Primary Missed menses documented in this encounter Additional Health Concerns Assessment Noted Time PHQ-9 Depression Total Score: 15 024 2:35 PM EDT documented as of this encounter Care Teams Neurology Stroke Physician Relationship Specialty Start Date End Date Jeanine Smith MD [address] [place] [phone] PCP - General Internal Medicine 03/04/24 Consulting Physician Obstetrics and Gynecology 09/30/23 documented as of this encounter
--- OUTSIDE RECORDS SUMMARY | 2024-11-02 11:00 | XMS_ITS | Encounter Summary ---
Author Organization [employer] Address [address] [place] [address] Care Team Providers Care Design Printing Machine Setter Name Role Phone Jeanine Smith MD Primary Care Provider Encounter Details Date Type Department Care Team (Late st Contact Info) Description 10/26/2024 Orders Only [facility] CH[facility] MED & PEDS [address] [place], [place] [phone] Jeanine Smith MD [address] [place] [address] Social History Tobacco Use Types Packs/Day Years [...] documented as of this encounter Care Teams Design Printing Machine Setter Relationship Specialty Start Date End Date Jeanine Smith MD [address] [place] [phone] PCP - General Internal Medicine 03/04/24 [facility] Consulting Physician Obstetrics and Gynecology 09/30/23 documented as of this encounter
--- OUTSIDE RECORDS SUMMARY | 2024-11-02 11:00 | XMS_ITS | Encounter Summary ---
Author Organization [employer] Address [address] [place] [address] Care Team Providers Care Accounting Auditor Name Role Phone Jeanine Smith MD Primary Care Provider Reason for Visit * Reason Onset Date Comments Med Refill 10/26/2024 Encounter Details Date Type Department Care Team ([facility] st Contact Info) Description 10/26/2024 Refill [facility] MED[facility] [address] [place] [address] Jeanine Smith MD [address] [place] [address] Social History Tobacco Use Types Packs/Day Years [...] 10/27/2024 2:36 PM EST Pt seen in [facility] for new outbreak. Was prescribed [...] 1 g tablet To be sent to: [facility]- [address] [facility] documented in this encounter Plan of Treatment Not on file documented as of this encounter Visit Diagnoses Not on filedocumented in this encounter Additional Health Concerns Assessment Noted Time PHQ-9 Depression Total Score: 15 024 2:35 PM EDT documented as of this encounter Care Teams Accounting Auditor Relationship Specialty Start Date End Date Jeanine Smith MD [address] [place] [phone] PCP - General Internal Medicine 03/04/24 [facility] Consulting Physician Obstetrics and Gynecology 09/30/23 documented as of this encounter
--- OUTSIDE RECORDS SUMMARY | 2024-11-02 11:01 | XMS_ITS | Encounter Summary ---
Author Organization [employer] [facility] Address [address] [place] [address] Care Team Providers Care Rf Technician Name Role Phone Jeanine Smith MD [...] documented as of this encounter Care Teams Rf Technician Relationship Specialty Start Date End Date Jeanine Smith MD [address] [place] [phone] PCP - General Internal Medicine 03/04/24 [facility] Consulting Physician Obstetrics and Gynecology 09/30/23 documented as of this encounter
--- OUTSIDE RECORDS SUMMARY | 2024-11-02 11:01 | XMS_ITS | Encounter Summary ---
Author Organization [employer] [facility] Address [address] [place] [address] Care Team Providers Care Portfolio Accountant Name Role Phone Jeanine Smith MD Primary Care Provider Encounter Details Date Type Department Care Team (Latest Contact Info) Description 10/31/2024 Travel Social History Tobacco Use Types Packs/Day [...] documented as of this encounter Care Teams Portfolio Accountant Relationship Specialty Start Date End Date Jeanine Smith MD [address] [place] [phone] PCP - General Internal Medicine 03/04/24 [facility] Consulting Physician Obstetrics and Gynecology 09/30/23 documented as of this encounter
--- OUTSIDE RECORDS SUMMARY | 2024-11-02 11:01 | XMS_ITS | Encounter Summary ---
Author Organization [employer] Address [address] [place] [address] Care Team Providers Care Portfolio Lead Name Role Phone Jeanine Smith MD Primary Care Provider Encounter Details Date Type Department Care Team (Late st Contact Info) Description 10/27/2024 9:40 AM EST Office Visit [facility] [address] [place], [place] [phone] Tiara Simpson MD [address] [place], [place] [phone] Herpes infection (Primary Dx); Patient desires Social [...] as of this encounter Care Teams Portfolio Lead Relationship Specialty Start Date End Date Jeanine Smith MD [address] [place] [phone] PCP - General Internal Medicine 03/04/24 [facility] Consulting Physician Obstetrics and Gynecology 09/30/23 documented as of this encounter
--- OUTSIDE RECORDS SUMMARY | 2024-11-02 11:01 | XMS_ITS | Clinical Summary ---
Author Organization [employer] Address [address] [facility] 7t [place] [address] Care Team Providers Care Mobile Developer Name Role Phone Jeanine Smith MD Primary [...] Active Problems Problem Noted Date Diagnosed Date Missed menses 11/02/2024 Irregular periods 11/02/2024 Herpes infection 10/27/2024 Assessment & Plan (10/27/2024 [...] to go to ER now. 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 She agrees with the plan. [...] recommended reduction of 20-30% of maintenance calories; drain technician referral offered. Recommended to decrease soda and [...] Encounters Date Type Department Care Team Description 11/02/2024 9:40 AM EST Office Visit [facility] [address] [address] Irregular periods (Primary Dx); Missed menses 10/31/2024 11:40 AM EST [facility] Visit [facility] [address] [address] Mart Briscoe MD Viral URI 10/31/2024 Travel 10/29/2024 10:00 AM EST Office Visit [address] [address] Sharron Pace CNM ASCUS of cervix with negative high risk HPV (Primary Dx); Procreative management; Cystocele, unspecified 10/29/2024 Travel 10/27/2024 9:40 AM EST Office Visit [facility] [address] [address] Tiara Simpson MD Herpes infection (Primary Dx); Patient desires 10/26/2024 Orders Only [facility] [address] [place] [address] Jeanine Smith MD 10/26/2024 Refill [facility] [address] [place] [address] Jeanine Smith MD 10/25/2024 Refill [facility] [address] [place] [address] Jeanine Smith MD 10/16/2024 Telephone [facility] [address] [place] [address] Jeanine Smith MD 10/15/2024 10:00 AM EST Office Visit [facility] [address] [address] Mart Briscoe MD Unprotected sexual intercourse (Primary Dx); Sore throat; Nausea 10/15/2024 Travel 10/08/2024 Telephone [facility] [address] [place] [address] Jeanine Smith MD No Show 10/08/2024 Telephone [facility] [address] [place] [address] Jeanine Smith MD Plan B 09/14/2024 Telephone [facility] [address] [place] [address] Leti Mcghee RN Medication Question 09/08/2024 10:20 AM EST Office Visit [facility] [address] [address] Name, MD Donte Possible (Primary Dx) 09/08/2024 Telephone [facility] [address] [address] Donte Saavedra MD 09/02/2024 6:20 PM EST Office Visit [facility] [address] [address] Tiara Simpson MD Acute intractable headache, unspecified headache type (Primary Dx); Dizziness 09/02/2024 Telephone [facility] [address] [place] [address] Jeanine Smith MD Nurse Triage 08/22/2024 Orders Only GENERIC EXTERNAL DATA DEPARTMENT Provider, Generic External Data 08/13/2024 9:00 AM EST Office Visit [facility] [address] [address] Charla Bello MD Streptococcal pharyngitis (Primary Dx); Sore throat from Last 3 Months Immunizations Name Administration [...] the past 12 months, has t he Service Seeking, gas, oil or water [employer] threatened to shut off services in your [...] (211 lb) 11/02/2024 9:30 AM EST Height 162.6 cm (5' 4 ) 10/31/2024 11:34 AM EST Body Mass Index 36.22 10/31/2024 11:34 AM EST Plan of Treatment Health Maintenance [...] Routine 11/02/2024 9:39 AM EST Missed menses POCT RAPID STREP A Routine 10/31/2024 12 :11 PM EST Viral URI POCT INFLUENZA B Routine 10/31/2024 12:1 1 PM EST Viral URI POCT INFLUENZA A Routine 10/31/2024 12:1 1 PM EST Viral URI POCT RAPID COVID ANTIGEN Routine 10/31/2024 12:11 PM EST Viral URI HCG, TOTAL, QN Routine 10/15/2024 10:42 AM [...] Recently Relevant to Health Maintenance Results * POCT , urine manually resulted (11/02/2024 9:39 AM EST) Only the most recent of4 resultswithin the time period is included. [facility] Preg Test, Ur Negative Negative, Indeterminate, None Detected, Invalid, Specimen unsatisfactory for evaluation, Weakly Positive Urine 11/02/2024 9:39 AM EST Carisa Ramos NP POINT OF CARE TEST ENTER/EDIT OR DERABLES Final Result * POCT Rapid COVID Ag (10/31/2024 12:11 PM EST) Only the most recent of3 resultswithin the time period is included. [facility] Rapid COVID Ag Negative QC Media Lot # [id number] Lot# Expiration Date Swab 10/31/2024 12:1 1 PM EST Mart Briscoe MD POINT OF CARE TEST ENTER/EDIT OR DERABLES Final Result * POCT Influenza B manually resulted (10/31/2024 12:11 PM EST) [facility] Rapid Influenza B Ag Negative Negative, Indeterminate QC Media Lot # [id number] Lot# Expiration Date Swab 10/31/2024 12:1 1 PM EST Mart Briscoe MD POINT OF CARE TEST ENTER/EDIT OR DERABLES Final Result * POCT Influenza A manually resulted (10/31/2024 12:11 PM EST) [facility] Rapid Influenza A Ag Negative Negative, Indeterminate QC Media Lot # [id number] Lot# Expiration Date Swab Nasopharyngeal structure / Unknown 10/31/2024 12:11 PM EST us Mart Briscoe MD POINT OF CARE TEST ENTER/EDIT OR DERABLES Final Result * POCT rapid strep A manually resulted (10/31/2024 12:11 PM EST) Only the most recent of2 resultswithin the time period is included. Pathologist [facility] Rapid Strep A Screen Negative Negative, None Detected QC Media Lot # [id number] Lot# Expiration Date [id number] Swab 10/31/2024 12:1 1 PM EST Mart Briscoe MD POINT OF CARE TEST ENTER/EDIT OR DERABLES Final Result * hCG, Total, Quantitative (10/15/2024 10:42 AM EST) Only the most recent of2 resultswithin the time period is included. [facility] HCG Quantitative <2 mIU/mL [facility] Comment:Weeks post LMP Appro ximate hCG(Last Menstrual Period) Range (mIU/ml)3 - 4 weeks 9 - 1304 - 5 weeks 75 - 2,6005 - 6 weeks 850 - 20,8006 - 7 weeks 4000 - 100,2007 - 12 weeks 11,500 - 289,31012 - 16 weeks 18,300 - 137,64204 - 29 weeks (2nd trimester) 1,400 - 53,13286 - 41 weeks (3rd trimester) 940 - [...] MD LAB BLOOD ORDERABLES Final Resul t [facility] [address] [place] [phone] * Influenza B (ID NOW Rapid Molecular) (10/15/2024 10:22 AM EST) Only the most recent of3 resultswithin the time period is included. Pathologist [facility] Influenza B Negative Negative, Indeterminate [facility] Swab 10/15/2024 10:2 2 AM EST us Mart Briscoe MD POINT OF CARE TEST ENTER/EDIT OR DERABLES Final Result Performing Organization Address [facility] Co de Phone Number [facility] [address] [place] [address] [phone] * Influenza A (ID NOW Rapid Molecular) (10/15/2024 10:22 AM EST) Only the most recent of3 resultswithin the time period is included. Pathologist [facility] Influenza A Negative Negative, Indeterminate [facility] Swab 10/15/2024 10:2 2 AM EST us Mart Briscoe MD POINT OF CARE TEST ENTER/EDIT OR DERABLES Final Result Performing Organization Address [facility] de Phone Number [facility] [address] [place] [phone] * (ABNORMAL) CBC auto differential (09/08/2024 10:46 AM EST) [facility] White Blood Count 7.5 4.8 - 10.8 X10*3/uL [facility] Red Blood Count 4.59 4.20 - 5.50 X10*6/uL [facility] Hemoglobin 12.3 12.0 - 16.0 g/dl [facility] Hematocrit 38.5 37.0 - 47.0 % [facility] Mean Corpuscular Volume 83.9 80.0 - 98.0 fL [facility] Mean Corpuscular Hemoglobin 26.8(L) 27.0 - 33.0 pg [facility] Mean Corpuscular HGB Conc 31.9 31.0 - 35.0 g/dl [facility] Red Cell Distribution Width 14.2 11.0 - 16.0 % [facility] Platelet Count 331 160 - 400 X10*3/uL [facility] Mean Platelet Volume 10.8 9.4 - 12.3 fL [facility] Neutrophils Percent Auto 64.5 45 - 73 % [facility] Imm Gran Pct Auto 0.3 0.0 - 0.4 % [facility] Lymphocytes Percent Auto 26.2 20 - 40 % [facility] Monocytes Percent Auto 7.2 2 - 11 % [facility] Eosinophils Percent Auto 1.3 0 - 4 % [facility] Basophils Percent Auto 0.5 0 - 2 % [facility] NRBC Pct Auto 0.0 0.0 - 0.2 /100WBC [facility] Neutrophils Absolute Auto 4.8 2.0 - 8.3 x10*3/uL [facility] Imm Gran Abs Auto 0.02 0.00 - 0.03 X10*3/uL [facility] Lymphocytes Absolute Auto 2.0 1.2 - 4.9 X10*3/uL [facility] Monocytes Absolute Auto 0.5 0.1 - 1.2 X10*3/uL [facility] Eosinophils Absolute Auto 0.1 0.0 - 0.4 X10*3/uL [facility] Basophils Absolute Auto 0.0 0.0 - 0.2 X10*3/uL [facility] NRBC Abs Auto 0.000 0.0 - 0.012 X10*3/uL [facility] Blood Venous blood specimen / Unknown 09/08/2024 10:46 AM EST 09/08/2024 11:36 AM EST us Aster White MD LAB BLOOD ORDERABLES Final Re sult [facility] [address] [place] [phone] * POCT Rapid Covid-19 [place] ID NOW (09/02/2024 6:09 PM EST) Coronavirus Antigen PCR Negative Negative, Indeterminate, None Detected, Invalid, Specimen unsatisfactory for evaluation, Weakly Positive QC Media Lot # [id number] Lot# Expiration Date [id number] Swab 09/02/2024 6:09 PM EST Tiara Simpson MD POINT OF CARE TEST ENTER/E DIT ORDERABLES Final Result * Strep A Nucleic Acid (08/22/2024 10:17 PM EST) IDNOW SERIAL# [id number] [facility] Strep A Nucleic Acid Negative Negative [facility] Comment:All test results mus t [...] LAB MICROBIOLOGY - GENERAL ORDERABLES Final Result [facility] [address] [place] [phone] * SARS-CoV-2 RNA, Influenza A/B, and RSV RNA, Ql NAAT (08/22/2024 10:17 PM EST) Influenza A PCR NEGATIVE Negative [facility] Influenza B PCR NEGATIVE Negative [facility] Resp Syncy Virus RNA Qual PCR NEGATIVE Negative [facility] SARS COV2 PCR NEGATIVE Negative [facility] Comment:All test results mus t [...] use by authorized laboratories.Testing performed on the [employer] GeneXpert utilizingreal-time RT-PCR.All SARS CoV2 and positive influenza A/B results arereported to [facility]. 08/22/2024 10:1 7 PM EST 08/22/2024 10:19 PM EST us Generic External Data Provider LAB MICROBIOLOGY - GENERAL ORDERABLES Final Result Performing Organization Address [facility]/ZIP Co de Phone Number [facility] [address] [place] [phone] * (ABNORMAL) POCT rapid strep A manually resulted (08/13/2024 9:13 AM EST) Pathologist [facility] Rapid Strep A Screen Positive( A) Negative, None Detected Swab 08/13/2024 9:13 AM EST Charla Bello MD POINT OF CARE TEST ENTER/EDIT ORDERABLES Final Result * Hepatitis C Ab (11/26/2023 3:32 PM EST) [facility] Hepatitis C Antibody Nonreactive Nonreactive [facility] Comment:Antibodies to HCV no t detected; does not exclude early acuteHCV infection. 11/26/2023 3:32 PM EST 11/26/2023 5:25 PM EST Aster White MD LAB BLOOD ORDERABLES Final Re sult Performing Organization Address [facility]/ZIP Co de Phone Number [facility] [address] [place] [phone] * HIV-1/2 Antigen and Antibodies, Fourth Generation, with Reflexes (11/26/2023 3:32 PM EST) Pathologist [facility] HIV AB/AG Nonreactive Nonreactive [facility] Comment:HIV-1 p24 Ag and/or HIV-1/HIV-2 Ab not detected.A test result that is nonreactive does not exclude thepossibility of exposure to or infection with HIV-1 and/orHIV-2. Nonreactive results in this assay for individualswith prior exposure to HIV-1 and/or HIV-2 may be due toantigen and antibody levels that are below the limit ofdetection of this assay.The Onevest[employer] HIV Ag/Ab Combo assay result andsupplemental assay results should be interpreted inconjunction with the patient's clinical presentation,history and other laboratory results. If the results areinconsistent with clinical evidence, additional testing issuggested to confirm the result. 11/26/2023 3:32 PM EST 11/26/2023 5:25 PM EST Aster White MD LAB BLOOD ORDERABLES Final Re sult Performing Organization Address City/[facility]/ZIP Co de Phone Number [facility] [address] [place] [phone] * Pap Smear (09/01/2021 12:00 AM EST) Swab Historical Provider LAB CYTOLOGY ORDERABLES F inal Result Performing Organization Address [facility]/ZIP Co de Phone Number [facility] [address] [place] [phone] from Last 3 Months or Most Recently Relevant to Health Maintenance Insurance [facility] C3 Care Teams Mobile Developer Relationship Specialty Start Date End Date Jeanine Smith MD [address] [place] [phone] PCP - General Internal Medicine 03/04/24 [facility] Consulting Physician Obstetrics and Gynecology 09/30/23
--- OUTSIDE RECORDS SUMMARY | 2024-11-02 11:01 | XMS_ITS | Encounter Summary ---
Author Organization [facility] Address [address] [place] [address] Care Team Providers Care Captain Fishing Vessel Name Role Phone Jeanine Smith MD Primary Care Provider [phone] Reason for Referral * Consultation (Routine) - Closed Specialty Diagnoses / Procedures Referred By Patricia chaidez Referred To Contact Physical Therapy Diagnoses Cystocele, unspecified Sharron Pace CNM [address] [place] [address] Phone: tel: fax: [facility] [address] [place], [place] Phone: tel: fax: Referral ID Status Reason Start Date Expiration Date V isits Requested Visits Authorized [id number] Closed Specialty Services Required 10/29/2024 10/29/2025 1 1 Encounter Details Date Type Department Care Team (Late st Contact Info) Description 10/29/2024 10:00 AM EST Office Visit [facility] [address] [place] [address] Sharron Pace CNM [address], [place] [phone] ASCUS of cervix with negative high risk [...] time swallowing , would like chewable. Had MFM for consult as she has history of PE and was thinking about getting in the near future. Consult recommendations from 07/2024 MFM visit state no need for anticoagulation during unless additional risk factors. For compression devices if not mobile and consideration of Lovenox . ASCUS HPV neg 08/2021. Due for pap, would like to do this and breast exam today. [facility] urinary incontinence and pain with sex. Open to pelvic floor PT. Patient seen in conjunction with Leti Mcghee, MIKEY student. I was present for and confirmed [...] kg/m?? Physical Exam Exam conducted with a freight agent present (Sharron Pace CNM). Constitutional: Appearance: Normal [...] provider of [facility]. [facility] offers care, but births happen at [facility]. She plans to follow with [facility] for care. Cystocele, unspecified - Referral to [...] documented as of this encounter Care Teams Captain Fishing Vessel Relationship Specialty Start Date End Date Jeanine Smith MD [address] [place] [phone] PCP - General Internal Medicine 03/04/24 [facility] Consulting Physician Obstetrics and Gynecology 09/30/23 documented as of this encounter
--- OUTSIDE RECORDS SUMMARY | 2024-11-02 11:01 | XMS_ITS | Encounter Summary ---
Author Organization [employer] Address [address] [place] [address] Care Team Providers Care Shutdown Planner Name Role Phone Aster White MD Primary Care Provider [phone] Jeanine Smith MD Primary Care Provider [phone] Reason for Visit * Reason Onset Date Comments Call Back Request 12/27/2023 Encounter Details Date Type Department Care Team ([facility] st Contact Info) Description 12/27/2023 Telephone [facility] [address] [place] [address] Aster White MD [address] [place] [address] Call Back Request Social History Tobacco Use [...] prescription direction is Eliquis 5 MG tablet [[id number]] Take 1 tablet (5 mg) by mouth [...] on filedocumented in this encounter Care Teams Shutdown Planner Relationship Specialty Start Date End Date Aster White MD [address] [place] [address] PCP - General Family Medicine 10/10/23 03/03/24 Jeanine Smith MD [address] [place] [address] PCP - General Internal Medicine 03/04/24 [facility] Consulting Physician Obstetrics and Gynecology 09/30/23 documented as of this encounter
--- OUTSIDE RECORDS SUMMARY | 2024-11-02 11:01 | XMS_ITS | Encounter Summary ---
Author Organization [employer] Address [address] [place] [address] Care Team Providers Care Digital Design Engineer Name Role Phone Aster White MD Primary Care Provider [phone] Jeanine Smith MD Primary Care Provider [phone] Encounter Details Date Type Department Care Team ([facility] st Contact Info) Description 12/10/2023 Telephone [facility] MED[facility] [address] [place] [address] Aster White MD [address] [place], [place] [phone] Social History Tobacco Use Types Packs/Day Years [...] on filedocumented in this encounter Care Teams Digital Design Engineer Relationship Specialty Start Date End Date Aster White MD [address] [place] [address] PCP - General Family Medicine 10/10/23 03/03/24 Jeanine Smith MD [address] [place] [address] PCP - General Internal Medicine 03/04/24 [facility] Consulting Physician Obstetrics and Gynecology 09/30/23 documented as of this encounter
--- OUTSIDE RECORDS SUMMARY | 2024-11-02 11:01 | XMS_ITS | Encounter Summary ---
Author Organization [employer] Address [address] [place] [address] Care Team Providers Care Cut Off Machine Helper Name Role Phone Aster White MD Primary Care Provider [phone] Jeanine Smith MD Primary Care Provider [phone] Reason for Visit * Reason Onset Date Comments Lab Orders 12/05/2023 Encounter Details Date Type Department Care Team ([facility] st Contact Info) Description 12/05/[address] [facility] MED[facility] [address] [place], [place] [phone] Aster White MD [address] [place] [address] Lab Orders Social History Tobacco Use Types [...] Pt was scheduled for COVID test at [facility] testing site for next week before surgery. Pt verbalizes understanding and agreement with plan. * Telephone Encounter - Joslyn Oakes - 12/05/2023 9:52 AM EST Tc from pt requesting lab orders. Please contact pt for clarifications. Overlock Hemmer advise pt on labs done. documented in this encounter Plan of Treatment Not on file documented as of this encounter Visit Diagnoses Not on filedocumented in this encounter Care Teams Cut Off Machine Helper Relationship Specialty Start Date End Date Aster White MD [address] [place] [address] PCP - General Family Medicine 10/10/23 03/03/24 Jeanine Smith MD [address] [place] [phone] PCP - General Internal Medicine 03/04/24 [facility] Consulting Physician Obstetrics and Gynecology 09/30/23 documented as of this encounter
--- OUTSIDE RECORDS SUMMARY | 2024-11-02 11:01 | XMS_ITS | Encounter Summary ---
Author Organization [employer] Address [address] [place] [address] Care Team Providers Care Medical Referral Coordinator Name Role Phone Jeanine Smith MD Primary Care Provider [phone] Reason for Visit * Reason Onset Date Comments Nurse Triage 06/29/2024 Encounter Details Date Type Department Care Team ([facility] st Contact Info) Description 06/29/2024 Telephone [facility] MEDICINE [address] [place] [address] Jeanine Smith MD [address] [place] [address] Nurse Triage Social History Tobacco Use Types [...] t he electric, gas, oil or water [employer] threatened to shut off services in your [...] open till 8pm. Pt is advised [facility] has someone who can speak with Pt in [facility]. Pt agrees with this plan, home care reviewed. Pt will come to [facility] today. Insurance is verified as active. Protocol [...] in the arm for control please call [phone] documented in this encounter Plan of Treatment Not on file documented as of this encounter Visit Diagnoses Not on filedocumented in this encounter Care Teams Medical Referral Coordinator Relationship Specialty Start Date End Date Jeanine Smith MD [address] [place] [address] PCP - General Internal Medicine 03/04/24 [facility] Consulting Physician Obstetrics and Gynecology 09/30/23 documented as of this encounter
--- OUTSIDE RECORDS SUMMARY | 2024-11-02 11:01 | XMS_ITS | Encounter Summary ---
Author Organization [employer] [facility] Address [address] [place] [address] Care Team Providers Care Assistant Mechanic Name Role Phone Aster White MD Primary Care Provider [phone] Jeanine Smith MD Primary Care Provider [phone] Reason for Visit * Reason Onset Date Comments New Patient 05/16/2023 Encounter Details Date Type Department Care Team ([facility] Contact Info) Description 05/16/2023 Telephone [facility] MED[facility]INE [address] [place] [address] Hamlet Mccullough MD [address] [place] [address] New Patient Social History Tobacco Use Types [...] 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 EFFECTIVE SINCE 05/16/2023 documented in this encounter Plan of Treatment Not on file documented as of this encounter Visit Diagnoses Not on filedocumented in this encounter Care Teams Assistant Mechanic Relationship Specialty Start Date End Date Aster White MD [address] [place] [address] PCP - General Family Medicine 10/10/23 03/03/24 Jeanine Smith MD [address] [place] [address] PCP - General Internal Medicine 03/04/24 [facility] Consulting Physician Obstetrics and Gynecology 09/30/23 documented as of this encounter
--- OUTSIDE RECORDS SUMMARY | 2024-11-02 11:01 | XMS_ITS | Encounter Summary ---
Author Organization [employer] Address [address] 7t [place] [address] Care Team Providers Care Risk Control Field Representative Name Role Phone Jeanine Smith MD Primary Care Provider Reason for Visit * Reason Onset Date Comments Medication Question 05/05/2024 Encounter Details Date Type Department Care Team ([facility] st Contact Info) Description 05/05/2024 Telephone [facility] MEDICINE 230 [place] [address] Jeanine Smith MD 505 [place], [place] [phone] Medication Question Social History Tobacco Use Types [...] on filedocumented in this encounter Care Teams Risk Control Field Representative Relationship Specialty Start Date End Date Jeanine Smith MD [address] [place] [address] PCP - General Internal Medicine 03/04/24 [facility] Consulting Physician Obstetrics and Gynecology 09/30/23 documented as of this encounter
[2024-11-02 12:19] LABS: Alanine Aminotransferase 20 U/L (0-31); Albumin Level 3.9 g/dL (3.5-5.0); Alkaline Phosphatase 77 U/L (39-117); Anion Gap 10 (12-20); Aspartate Amino Transferase 15 U/L (5-31); Bilirubin Total 0.4 mg/dL (0.0-1.0); Blood Urea Nitrogen 11 mg/dL (9-16); Calcium 8.7 mg/dL (8.4-10.2); Carbon Dioxide 26 mmol/L (22-29); Chloride 106 mmol/L (96-108); Estimated Glomerular Filt Rate > 60; Glucose Random 97 mg/dL (60-115); Potassium 3.6 mmol/L (3.3-5.1); Sodium 138 mmol/L (135-145); Total Protein 7.2 g/dL (6.5-8.0)
[2024-11-02 12:41] LABS: HCG Quantitative < 2 mIU/mL; TSH reflex Free T4 1.22 uIU/mL (0.32-4.0)
[2024-11-03 01:26] LABS: CT PCR NOT DETECTED (Not Detect.); NG PCR NOT DETECTED (Not Detect.)
== END 2024-11-02 10:16 | disposition home or self-care (01) ==
LOC: HO.HHCL 10:15
PROVIDERS: Visit Provider Nurse Practitioner Family
DX: N92.6 Irregular menstruation, unspecified (principal)
CPT/HCPCS: 36415; 80053; 84443; 84702; 87491; 87591

== ENCOUNTER 2024-12-08 16:56 | Outpatient (REF) | payer MEDICAID, SELFPAY ==
--- OUTSIDE RECORDS SUMMARY | 2024-12-08 19:29 | XMS_ITS | Encounter Summary ---
Author Organization [employer] Address [address] [place] [address] Care Team Providers Care School Supervisor Name Role Phone Aster White MD Primary Care Provider [phone] Jeanine Smith MD Primary Care Provider [phone] Encounter Details Date Type Department Care Team ([facility] st Contact Info) Description 02/05/2024 Telephone [facility] MEDICINE [address] [place] [address] Aster White MD [address] [place], [place] [phone] Social History Tobacco Use Types Packs/Day Years [...] on filedocumented in this encounter Care Teams School Supervisor Relationship Specialty Start Date End Date Aster White MD [address] [place] [address] PCP - General Family Medicine 10/10/23 03/03/24 Jeanine Smith MD [address] [place] [address] PCP - General Internal Medicine 03/04/24 [facility] Consulting Physician Obstetrics and Gynecology 09/30/23 documented as of this encounter
--- OUTSIDE RECORDS SUMMARY | 2024-12-08 19:29 | XMS_ITS | Encounter Summary ---
Author Organization [employer] [facility] [employer] Address [address] [place] [address] Care Team Providers Care Color Dipper Name Role Phone Aster White MD Primary Care Provider [phone] Jeanine Smith MD Primary Care Provider [phone] Encounter Details Date Type Department Care Team ([facility] st Contact Info) Description 12/10/2023 Telephone [facility] MEDICINE [address] [place] [address] Aster White MD [address] [place], [place] [phone] Social History Tobacco Use Types Packs/Day Years [...] on filedocumented in this encounter Care Teams Color Dipper Relationship Specialty Start Date End Date Aster White MD [address] [place] [address] PCP - General Family Medicine 10/10/23 03/03/24 Jeanine Smith MD [address] [place] [address] PCP - General Internal Medicine 03/04/24 [facility] Consulting Physician Obstetrics and Gynecology 09/30/23 documented as of this encounter
--- OUTSIDE RECORDS SUMMARY | 2024-12-08 19:29 | XMS_ITS | Encounter Summary ---
Author Organization [facility] Address [address] [place] [address] Care Team Providers Care Seconds Grader Name Role Phone Jeanine Smith MD Primary Care Provider [phone] Reason for Visit * Reason Onset Date Comments Nurse Triage 06/29/2024 Encounter Details Date Type Department Care Team ([facility] st Contact Info) Description 06/29/2024 Telephone [facility] MEDICINE [address] [place] [address] Jeanine Smith MD [address] [place] [address] Nurse Triage Social History Tobacco Use Types [...] t he electric, gas, oil or water [employer] threatened to shut off services in your [...] time. Pt is advised to come to [facility] today open till 8pm. Pt is advised [facility] has someone who can speak with Pt in [facility]. Pt agrees with this plan, home care reviewed. Pt will come to [facility] today. Insurance is verified as [...] in the arm for control please call [phone] documented in this encounter Plan of Treatment Not on file documented as of this encounter Visit Diagnoses Not on filedocumented in this encounter Care Teams Seconds Grader Relationship Specialty Start Date End Date Jeanine Smith MD [address] [place] [address] PCP - General Internal Medicine 03/04/24 [facility] Consulting Physician Obstetrics and Gynecology 09/30/23 documented as of this encounter
--- OUTSIDE RECORDS SUMMARY | 2024-12-08 19:29 | XMS_ITS | Encounter Summary ---
Author Organization [employer] Address [address] [place] [address] Care Team Providers Care Surgical Supplies Sterilizer Name Role Phone Jeanine Smith MD Primary Care Provider Encounter Details Date Type Department Care Team (Late st Contact Info) Description 11/23/2024 Orders Only [facility] MEDICINE [address] [place] [address] Sharron Pace, CN [address] [place] [address] Social History Tobacco Use Types Packs/Day Years [...] documented as of this encounter Care Teams Surgical Supplies Sterilizer Relationship Specialty Start Date End Date Jeanine Smith MD [address] [place] [address] PCP - General Internal Medicine 03/04/24 [employer] Consulting Physician Obstetrics and Gynecology 09/30/23 documented as of this encounter
--- OUTSIDE RECORDS SUMMARY | 2024-12-08 19:29 | XMS_ITS | Encounter Summary ---
Author Organization [email or web address] [facility] Address [address] [place] [address] 7 [place] [address] Care Team Providers Care Income Tax Administrator Name Role Phone Aster White MD Primary Care Provider [phone] Jeanine Smith MD Primary Care Provider [phone] Reason for Referral * Consultation (Routine) - Authorized Specialty Diagnoses / Procedures Referred By Contac t Referred To Contact Pharmacy Diagnoses Acute pulmonary embolism, unspecified pulmonary embolism type, unspecified whether acute cor pulmonale present (CMS/HCC) Minnie Adams PharmD [address] [place] [address] Phone: tel: fax: Referral ID Status Reason Start Date Expiration Date Visits Requested Visits Authorized [id number] Authorized Continuity of Care 01/10/2024 01/09/2025 1 1 Encounter Details Date Type Department Care Team (Late st Contact Info) Description 01/10/2024 Orders Only [facility] MEDICINE [address] [place] [address] Minnie Adams, PharmD [address] [place] [address] Acute pulmonary embolism, unspecified pulmonary embolism type, [...] Orde r Schedule Referral to Pharmacy [facility] Outpatient Referral Routine Acute pulmonary embolism, unspecified pulmonary embolism type, unspecified whether acute cor pulmonale present (CMS/HCC) Ordered: 01/10/2024 documented as of this encounter Visit Diagnoses Diagnosis Acute pulmonary embolism, unspecified pulmonary embolism type, unspecified whether acute cor pulmonale present (CMS/HCC)- Primary documented in this encounter Care Teams Income Tax Administrator Relationship Specialty Start Date End Date Aster White MD [address] [place] [address] PCP - General Family Medicine 10/10/23 03/03/24 Jeanine Smith MD [address] [place] [address] PCP - General Internal Medicine 03/04/24 [facility] Consulting Physician Obstetrics and Gynecology 09/30/23 documented as of this encounter
--- OUTSIDE RECORDS SUMMARY | 2024-12-08 19:29 | XMS_ITS | Encounter Summary ---
Author Organization [employer] Address [address] 7[address] [place] [address] Care Team Providers Care Equipment Worker Name Role Phone Jeanine Smith MD Primary Care Provider Encounter Details Date Type Department Care Team (Late st Contact Info) Description 10/26/2024 Orders Only [facility] [address] [place], [place] [phone] Jeanine Smith MD [address] [place] [address] Social History Tobacco Use Types Packs/Day Years [...] documented as of this encounter Care Teams Equipment Worker Relationship Specialty Start Date End Date Jeanine Smith MD [address] [place] [address] PCP - General Internal Medicine 03/04/24 [facility] Consulting Physician Obstetrics and Gynecology 09/30/23 documented as of this encounter
--- OUTSIDE RECORDS SUMMARY | 2024-12-08 19:29 | XMS_ITS | Encounter Summary ---
Author Organization [employer] Address [address] 7t [place] [address] Care Team Providers Care Manufacturing Job Titles Name Role Phone Jeanine Smith MD Primary Care Provider Reason for Visit * Reason Onset Date Comments Medication Question 05/05/2024 Encounter Details Date Type Department Care Team ([facility] st Contact Info) Description 05/05/2024 Telephone [facility] MEDICINE [address] [place] [address] Jeanine Smith MD [address] [place], [place] [phone] Medication Question Social History Tobacco Use Types [...] on filedocumented in this encounter Care Teams Manufacturing Job Titles Relationship Specialty Start Date End Date Jeanine Smith MD [address] [place] [address] PCP - General Internal Medicine 03/04/24 [facility] Consulting Physician Obstetrics and Gynecology 09/30/23 documented as of this encounter
--- OUTSIDE RECORDS SUMMARY | 2024-12-08 19:29 | XMS_ITS | Encounter Summary ---
Author Organization [employer] Address [address] 7t [place] [address] Care Team Providers Care Adoption Worker Name Role Phone Jeanine Smith MD Primary Care Provider Encounter Details Date Type Department Care Team (Late st Contact Info) Description 11/13/2024 Telephone [facility] MEDICINE [address] [place] [address] Carisa Ramos NP [address] [place], [place] [phone] Social History Tobacco Use Types Packs/Day Years [...] encounter Miscellaneous Notes * Telephone Encounter - Mei Jarquin RN - 11/13/2024 10:03 AM EST TC x 2 placed to pt to inform of below provider message. Pt verbalized understanding and denies questions or concerns at this time. ----- Message from Carisa Ramos sent at 11/13/2024 9:19 AM EST ----- Pt seen in [facility] please let her know labs were normal documented in this encounter Plan of Treatment Not on file documented as of this encounter Visit Diagnoses Not on filedocumented in this encounter Additional Health Concerns Assessment Noted Time PHQ-9 Depression Total Score: 15 024 2:35 PM EDT documented as of this encounter Care Teams Adoption Worker Relationship Specialty Start Date End Date Jeanine Smith MD [address] [place] [address] PCP - General Internal Medicine 03/04/24 [facility] Consulting Physician Obstetrics and Gynecology 09/30/23 documented as of this encounter
--- OUTSIDE RECORDS SUMMARY | 2024-12-08 19:29 | XMS_ITS | Encounter Summary ---
Author Organization [email or web address] Address [address] 7t [place] [address] Care Team Providers Care Dental Technician Apprentice Name Role Phone Aster White MD Primary Care Provider [phone] Jeanine Smith MD Primary Care Provider [phone] Reason for Visit * Reason Onset Date Comments Call Back Request 12/27/2023 Encounter Details Date Type Department Care Team ([facility] st Contact Info) Description 12/27/2023 Telephone [facility] MEDICINE [address] [place] [address] Aster White MD [address] [place] [address] Call Back Request Social History Tobacco Use [...] prescription direction is Eliquis 5 MG tablet [[id number]] Take 1 tablet (5 mg) by mouth [...] on filedocumented in this encounter Care Teams Dental Technician Apprentice Relationship Specialty Start Date End Date Aster White MD [address] [place] [address] PCP - General Family Medicine 10/10/23 03/03/24 Jeanine Smith MD [address] [place] [address] PCP - General Internal Medicine 03/04/24 [facility] Consulting Physician Obstetrics and Gynecology 09/30/23 documented as of this encounter
--- OUTSIDE RECORDS SUMMARY | 2024-12-08 19:29 | XMS_ITS | Encounter Summary ---
Author Organization [employer] [facility] Address [address] 7t [place] [address] Care Team Providers Care Director Of Training Name Role Phone Aster White MD Primary Care Provider [phone] Jeanine Smith MD Primary Care Provider [phone] Reason for Visit * Reason Onset Date Comments New Patient 05/16/2023 Encounter Details Date Type Department Care Team ([facility] Contact Info) Description 05/16/2023 Telephone [facility] MEDICINE 230 [place] [address] Hamlet Mccullough MD [address] [place] [address] New Patient Social History Tobacco Use Types [...] been transfer over to wait list for DOCUMENT COORDINATOR. EFFECTIVE SINCE 05/16/2023 documented in this encounter Plan of Treatment Not on file documented as of this encounter Visit Diagnoses Not on filedocumented in this encounter Care Teams Director Of Training Relationship Specialty Start Date End Date Aster White MD [address] [place] [address] PCP - General Family Medicine 10/10/23 03/03/24 Jeanine Smith MD [address] [place] [address] PCP - General Internal Medicine 03/04/24 [facility] Consulting Physician Obstetrics and Gynecology 09/30/23 documented as of this encounter
--- OUTSIDE RECORDS SUMMARY | 2024-12-08 19:29 | XMS_ITS | Encounter Summary ---
Demographics Address [address] [place] [address] Mobile Phone Home Phone Email Address Preferred Language en Marital Status Single Adventist Affiliation Unknown Race White Ethnic Group or Author Organization [employer] Address [address] 7t [place] [address] Care Team Providers Care Integrity Engineer Name Role Phone Jeanine Smith MD Primary Care Provider Reason for Visit * Reason Onset Date Comments Med Refill 10/25/2024 Encounter Details Date Type Department Care Team ([facility] st Contact Info) Description 10/25/[address] [facility] MED & PEDS [address] [place] [address] Jeanine Smith MD [address] [place] [address] Social History Tobacco Use Types Packs/Day Years [...] documented as of this encounter Care Teams Integrity Engineer Relationship Specialty Start Date End Date Jeanine Smith MD [address] [place] [address] PCP - General Internal Medicine 03/04/24 [facility] Consulting Physician Obstetrics and Gynecology 09/30/23 documented as of this encounter
--- OUTSIDE RECORDS SUMMARY | 2024-12-08 19:29 | XMS_ITS | Encounter Summary ---
Author Organization [email or web address] Address [address] 7t [place] [address] Care Team Providers Care Animal Care Attendant Name Role Phone Jeanine Smith MD Primary Care Provider Encounter Details Date Type Department Care Team (Late st Contact Info) Description 03/05/2024 Orders Only [facility] MED & PEDS [address] [place], [place] [phone] Jeanine Smith MD [address] [place], [place] [phone] Single subsegmental pulmonary embolism without acute cor [...] (CMS/HCC) documented in this encounter Care Teams Animal Care Attendant Relationship Specialty Start Date End Date Jeanine Smith MD [address] [place] [address] PCP - General Internal Medicine 03/04/24 [facility] Consulting Physician Obstetrics and Gynecology 09/30/23 documented as of this encounter
--- OUTSIDE RECORDS SUMMARY | 2024-12-08 19:29 | XMS_ITS | Encounter Summary ---
Author Organization [employer] Address [address] [facility] 7t [place] [address] Care Team Providers Care Epic Ambulatory Analysts Name Role Phone Jeanine Smith MD Primary Care Provider Reason for Visit * Reason Onset Date Comments Prior Authorization 11/10/2024 john wable tablet Encounter Details Date Type Department Care Team ([facility] st Contact Info) Description 11/10/2024 Telephone [facility] MEDICINE [address] [place] [address] Jeanine Smith MD [address] [place], [place] [phone] Prior Authorization ( chewable tablet) Social History Tobacco Use Types Packs/Day Years [...] encounter Miscellaneous Notes * Telephone Encounter - Sharron Pace CNM - 12/01/2024 1:49 PM EST Please get PA - unable to swallow pills. Thanks! * Telephone Encounter - Sharron Pace CNM - 11/27/2024 12:02 PM EST Will they approve gummy? * Telephone Encounter - Nafisa Stout - 11/27/2024 12:00 PM EST PA denial received from for chewable tablets; scanned into media. * Telephone Encounter - Nafisa Stout - 11/25/2024 11:36 AM EST PA signed and faxed to [employer]. Confirmation received and sent to scan. If patient calls to check status on above, please advise them to contact Pharmacy . * Telephone Encounter - Nafisa Stout - 11/10/2024 1:06 PM EST PA request received for chewable tablets from [employer]. PA generated and placed on pcp desk for review and signature. documented in this encounter Plan of Treatment Not on file documented as of this encounter Visit Diagnoses Not on filedocumented in this encounter Additional Health Concerns Assessment Noted Time PHQ-9 Depression Total Score: 15 024 2:35 PM EDT documented as of this encounter Care Teams Epic Ambulatory Analysts Relationship Specialty Start Date End Date Jeanine Smith MD [address] [place] [address] PCP - General Internal Medicine 03/04/24 [facility] Consulting Physician Obstetrics and Gynecology 09/30/23 documented as of this encounter
--- OUTSIDE RECORDS SUMMARY | 2024-12-08 19:29 | XMS_ITS | Encounter Summary ---
Author Organization [employer] Address [address] 7t [place] [address] Care Team Providers Care Idea Worker Name Role Phone Aster White MD Primary Care Provider [phone] Jeanine Smith MD Primary Care Provider [phone] Reason for Visit * Reason Onset Date Comments Lab Orders 12/05/2023 Encounter Details Date Type Department Care Team ([facility] st Contact Info) Description 12/05/2023 Telephone [facility] MEDICINE [address] [place], [place] [phone] Aster White MD [address] [place] [address] Lab Orders Social History Tobacco Use Types [...] Pt was scheduled for COVID test at [facility] testing site for next week before surgery. Pt verbalizes understanding and agreement with plan. * Telephone Encounter - Joslyn Oakes - 12/05/2023 9:52 AM EST Tc from pt requesting lab orders. Please contact pt for clarifications. Geological Technical Officer advise pt on labs done. documented in this encounter Plan of Treatment Not on file documented as of this encounter Visit Diagnoses Not on filedocumented in this encounter Care Teams Idea Worker Relationship Specialty Start Date End Date Aster White MD [address] [place] [address] PCP - General Family Medicine 10/10/23 03/03/24 Jeanine Smith MD [address] [place] [address] PCP - General Internal Medicine 03/04/24 [facility] Consulting Physician Obstetrics and Gynecology 09/30/23 documented as of this encounter
--- OUTSIDE RECORDS SUMMARY | 2024-12-08 19:29 | XMS_ITS | Encounter Summary ---
Author Organization [employer] Address [address] [place] [address] Care Team Providers Care Wood Buffer Name Role Phone Jeanine Smith MD Primary Care Provider Encounter Details Date Type Department Care Team (Late st Contact Info) Description 12/08/2024 9:40 AM EDT Office Visit [facility] 230 [place], [place] [phone] Tiara Simpson MD [address] [place] [address] Lower abdominal pain (Primary Dx) Social History Tobacco Use Types [...] Sign Reading Time Taken Comments Blood Pressure 120/70 12/08/2024 9:41 AM EDT Pulse 88 12/08/2024 9:41 AM EDT Temperature 37.1 ??C (98.8 ??F) 12/08/2024 9:41 AM ED T Respiratory Rate 16 12/08/2024 9:41 AM EDT Oxygen Saturation 99% 12/08/2024 9:41 AM EDT Inhaled Oxygen Concentration - - Weight 94.8 kg (209 lb) 12/08/2024 9:41 AM EDT Height - - Body Mass Index 35.87 10/31/2024 11:34 AM EST documented in this encounter Progress Notes * Tiara Simpson MD - 12/08/2024 9:40 AM EDT Images from the original note were not included. Subjective Patient ID: Paolo Quintana is a 24 y.o. with past medical history of obesity, hx of PE,anxiety and depress, hx HSVfemale who presents to walk in clinic for pain in ovaries . LMP 12/04/24. She reports menses is very light but yesterday she started having severe cramping with nausea and vomiting since yesterday. Reports has never had pain this bad with menses feels like contractions . Denies fevers, discharge, new partners, diarrhea. Menses usually normal q month. Not using any contraception. Review of Systems Gastrointestinal: Positive for abdominal pain, nausea and vomiting. Negative for diarrhea. Genitourinary: Negative for dysuria, flank pain and frequency. Objective Visit Vitals BP 120/70 (BP Location: Left arm, Patient Position: Sitting, BP Cuff Size: Adult) Pulse 88 Temp 98.8 ??F (37.1 ??C) (Temporal) Resp 16 Body mass index is 35.87 kg/m??. Physical Exam Constitutional: Appearance: Normal appearance. Cardiovascular: Rate and Rhythm: Normal rate and regular rhythm. Heart sounds: Normal heart sounds. Pulmonary: Effort: Pulmonary effort is normal. Breath sounds: Normal breath sounds. Abdominal: General: Bowel sounds are normal. There is no distension. Palpations: Abdomen is soft. Tenderness: There is abdominal tenderness. There is guarding. Comments: Pain is greatest left lower abdomen superior to pelvis but pt reports it radiates into pelvis. No rebound. Musculoskeletal: Cervical back: Normal range of motion and neck supple. Neurological: General: No focal deficit present. Mental Status: She is alert. Psychiatric: Behavior: Behavior normal. Problem List Items Addressed This Visit Lower abdominal pain - Primary 2 days of increasing left lower abdominal pain in setting of light vaginal bleeding. Urine Hcg negative. Not on contraception. Exam with guarding. Differential includes ectopic , ovarian pathology, diverticulitis, PID vs other -pt to go to ER at [facility] for further work up -gc/chl swab obtained Relevant Orders Chlamydia/N. Gonorrhoeae RNA, TMA, Vagina POCT , urine manually resulted (Completed) documented in this encounter Miscellaneous Notes * Assessment & Plan Note - Tiara Simpson MD - 12/08/2024 10:15 AM EDT Associated Problem(s): Lower abdominal pain 2 days of increasing left lower abdominal pain in setting of light vaginal bleeding. Urine Hcg negative. Not on contraception. Exam with guarding. Differential includes ectopic , ovarian pathology, diverticulitis, PID vs other -pt to go to ER at [facility] for further work up -gc/chl swab obtained documented in this encounter Plan of Treatment Scheduled Orders Name Type Priority Associated Diagnoses Orde r Schedule Chlamydia/N. Gonorrhoeae RNA, TMA, Vagina Microbiology Routine Lower abdominal pain Ordered: 12/08/2024 documented as of this encounter Procedures Procedure Name Priority Date/Time Associated Diagnosis Comments POCT , URINE Routine 12/08/2024 10:09 AM EDT Lower abdominal pain documented in this encounter Results * POCT , urine manually resulted (12/08/2024 10:09 AM EDT) Preg Test, Ur Negative Negative, Indeterminate, None Detected, Invalid, Specimen unsatisfactory for evaluation, Weakly Positive Urine 12/08/2024 10:0 9 AM EDT Tiara Simpson MD POINT OF CARE TEST ENTER/E DIT ORDERABLES Final Result documented in this encounter Visit Diagnoses Diagnosis Lower abdominal pain- Primary Abdominal pain, other specified site documented in this encounter Additional Health Concerns Assessment Noted Time PHQ-9 Depression Total Score: 15 024 2:35 PM EDT documented as of this encounter Care Teams Wood Buffer Relationship Specialty Start Date End Date Jeanine Smith MD [address] [place] [address] PCP - General Internal Medicine 03/04/24 [facility] Consulting Physician Obstetrics and Gynecology 09/30/23 documented as of this encounter
--- OUTSIDE RECORDS SUMMARY | 2024-12-08 19:29 | XMS_ITS | Clinical Summary ---
Author Organization [employer] Address [address] [facility] 7t [place] [address] Care Team Providers Care Digital Account Director Name Role Phone Jeanine Smith MD Primary [...] by mouth with breakfast. 90 tablet 1 4 Active Pediatric Multivitamins-Fl (multivitamin with fluoride) 0.5 MG chewable tablet Chew 1 tablet in the morning. 90 tablet 1 4 Active Ascorbic Acid (Vitamin C) 500 MG capsule Take 500 mg by mouth in the morning. 120 capsule 3 4 Active docusate sodium (Colace) 100 MG capsule 4 Active oxyCODONE-acetami nophen (Percocet) 5-325 MG tablet Take 1 tablet by mouth every 4 (four) hours if needed. 4 Active ondansetron (Zofran) 8 MG tablet Take 8 mg by mouth every 8 (eight) hours if needed for nausea. 4 Active Blood Pressure kit 1 Units in the morning. 1 kit 4 Active Eliquis 5 MG tabletIndications :Single subsegmental pulmonary embolism without acute cor pulmonale (CMS/HCC) Take 1 tablet (5 mg) by mouth 2 times daily. 60 tablet 1 4 Active valACYclovir (Valtrex) 1 g tablet Take 1 tablet (1,000 mg) by mouth Once per day. 5 tablet 5 Active acyclovir (Zovirax) 800 MG tabletIndications :Herpes Simplex Infection Take 3 tabs a day for 2 days 6 tablet 2 5 Active MV & Min w/FA-DHA ( Adult Gummy/DHA/FA) 0.4-25 MG chewable tablet Chew 1 each Once per day. 30 tablet 11 5 Active Vit-Fe Fumarate-FA ( Vitamins) 28-0.8 MG tabletIndications :Family Planning Take 1 tablet by mouth Once per day. 90 tablet 3 5 11/23/19 25 Discontinu ed(Other) Active Problems Problem Noted Date Diagnosed Date Lower abdominal pain 12/08/2024 Assessment & Plan (12/08/2024 10:15 AM EDT): 2 days of increasing left lower abdominal pain in setting of light vaginal bleeding. Urine Hcg negative. Not on contraception. Exam with guarding. Differential includes ectopic , ovarian pathology, diverticulitis, PID vs other -pt to go to ER at [facility] for further work up -gc/chl swab obtained Missed menses 11/02/2024 Assessment & Plan (11/02/2024 [...] to go to ER now. Partner to school bus driver/custodian her. She agrees with the plan. Suicidal [...] recommended reduction of 20-30% of maintenance calories; door paneler referral offered. Recommended to decrease soda and [...] Encounters Date Type Department Care Team Description 12/08/2024 9:40 AM EDT Office Visit [facility] [address] [place] [phone] Tiara Simpson MD Lower abdominal pain (Primary Dx) 11/23/2024 Orders Only [address] [address] Moisés Garcia CNM 11/13/[address] [address] Carisa Ramos NP 11/10/[address] [address] Jeanine Smith MD Prior Authorization ( chewable tablet) 11/05/[address] [address] Jeanine Smith MD Nurse Triage 11/03/[address] [address] Mirta Padilla RN 11/02/2024 9:40 AM EST Office Visit [facility] [address] [place] [phone] Carisa Ramos NP Irregular periods (Primary Dx); Missed menses 10/31/2024 11:40 AM EST [facility] [address] [address] Mart Briscoe MD Viral URI 10/31/2024 Travel 10/29/2024 10:00 AM EST Office Visit [facility] [address] [place] [phone] Moisés Garcia, TIFFANI ASCUS of cervix with negative high risk HPV (Primary Dx); Procreative management; Cystocele, unspecified 10/29/2024 Orders Only [address] [address] Moisés Garcia CNM 10/29/2024 Travel 10/27/2024 9:40 AM EST [facility] [address] [address] Tiara Simpson MD Herpes infection (Primary Dx); Patient desires 10/26/2024 Orders Only [facility] [address] [place] [address] Jeanine Smith MD 10/26/2024 Refill [facility] [address] [place] [address] Jeanine Smith MD 10/25/2024 Refill [facility] [address] [place] [address] Jeanine Smith MD 10/16/2024 Telephone [facility] [address] [place] [address] Jeanine Smith MD 10/15/2024 10:00 AM EST Office Visit [facility] [address] [address] Mart rBiscoe MD Unprotected sexual intercourse (Primary Dx); Sore throat; Nausea 10/15/2024 Travel 10/08/2024 Telephone [facility] [address] [place] [address] Jeanine Smith MD No Show 10/08/2024 Telephone [facility] [address] [place] [address] Jeanine Smith MD Plan B 09/14/2024 Telephone [facility] [address] [place] [address] Leti Mcghee RN Medication Question from Last 3 Months Immunizations Name Administration [...] (209 lb) 12/08/2024 9:41 AM EDT Height 162.6 cm (5' 4 ) 10/31/2024 11:34 AM EST Body Mass Index 35.87 10/31/2024 11:34 AM EST Plan of Treatment Health Maintenance Due Date Last Done Comments Lipid Panel 1999 Alcohol/Substance Use Screening 2011 HPV Vaccines (1 - 3-dose series) 2014 Hepatitis B Vaccines (1 of 3 - 19+ 3-dose series) 2018 COVID-19 Vaccine (2023-2 5 season) 2024 Influenza Vaccine (#1) 2024 [...] 12/08/2024 10:09 AM EDT Lower abdominal pain HCG, TOTAL, QN Routine 11/02/2024 10:17 AM [...] of cervix with negative high risk HPV HPV DNA, LOW/HIGH RISK Routine 10:40 AM EST HERPES CULTURE WITH REFLEX TYPING Routine 10/27/2024 [...] Routine 10/15/2024 10:12 AM EST Sore throat HEPATITIS C ANTIBODY Routine 11/26/2023 3:32 PM EST HIV 1/2 ANTIGEN/ANTIBODY, FOURTH GENERATION W/RFL Routine 11/26/2023 3:32 PM EST from Last 3 Months or Most Recently Relevant to Health Maintenance Results * POCT , urine manually resulted (12/08/2024 10:09 AM EDT) Only the most recent of3 resultswithin the time period is included. Preg Test, Ur Negative Negative, Indeterminate, None Detected, Invalid, Specimen unsatisfactory for evaluation, Weakly Positive Urine 12/08/2024 10:0 9 AM EDT Tiara Simpson MD POINT OF CARE TEST ENTER/E DIT ORDERABLES Final Result * TSH W/Reflex to FT4 (11/02/2024 10:17 AM EST) TSH reflex Free T4 1.22 0.32 - 4.0 uIU/mL [facility] Blood Venous blood specimen / Unknown 11/02/2024 10:17 AM EST 11/02/2024 11:30 AM EST Carisa Ramos NP LAB BLOOD ORDERABLES Final Resul t [facility] [address] [place] [address] [phone] * hCG, Total, Quantitative (11/02/2024 10:17 AM EST) Only the most recent of2 resultswithin the time period is included. HCG Quantitative <2 mIU/mL [facility] Comment:Weeks post LMP Appro ximate hCG(Last Menstrual Period) Range (mIU/ml)3 - 4 weeks 9 - 1304 - 5 weeks 75 - 2,6005 - 6 weeks 850 - 20,8006 - 7 weeks 4000 - 100,2007 - 12 weeks 11,500 - 289,69723 - 16 weeks 18,300 - 137,64000 - 29 weeks (2nd trimester) 1,400 - 53,93790 - 41 weeks (3rd trimester) 940 - [...] NP LAB BLOOD ORDERABLES Final Resul t [facility] [address] [place], [place] [phone] * (ABNORMAL) Comprehensive Metabolic Panel (11/02/2024 10:17 AM EST) Sodium 138 135 - 145 mmol/L [facility] Potassium 3.6 3.3 - 5.1 mmol/L [facility] Chloride 106 96 - 108 mmol/L [facility] Carbon Dioxide 26 22 - 29 mmol/L [facility] Anion Gap 10(L) 12 - 20 [facility] Urea Nitrogen (BUN) 11 9 - 16 mg/dL [facility] Creatinine, Serum 0.55 0.5 - 1.4 mg/dL [facility] Estimated Glomerular Filt Rate >60 [facility] Comment:Chronic Kidney Disea se: Estimated GFR < 60 mL/min/1.54a0Nkovdw Kidney Disease: Estimated GFR < 15 mL/min/1.73m2 Glucose 97 60 - 115 mg/dL [facility] Calcium 8.7 8.4 - 10.2 mg/dL [facility] Bilirubin, Total 0.4 0.0 - 1.0 mg/dL [facility] Aspartate Amino Transferase 15 5 - 31 U/L [facility] Alanine Aminotransferase 20 0 - 31 U/L [facility] Total Protein 7.2 6.5 - 8.0 g/dL [facility] Albumin Level 3.9 3.5 - 5.0 g/dL [facility] Alkaline Phosphatase 77 39 - 117 U/L [facility] Blood Venous blood specimen / Unknown 11/02/2024 10:17 AM EST 11/02/2024 11:30 AM EST us Carisa Ramos NP LAB BLOOD ORDERABLES Final Resul t [facility] [address] [place] [address] [phone] * Chlamydia/N. Gonorrhoeae RNA, TMA, Urogenitial (11/02/2024 10:00 AM EST) CT PCR NOT DETECTED Not Detect. [facility] Comment:A not detected test result [...] psychologicalconsequences. NG PCR NOT DETECTED Not Detect. [facility] Comment:A not detected test result [...] AM EST 11/02/2024 5:54 PM EST Narrative [facility] - 11/03/2024 1:26 AM EST Urine Carisa Ramos ITINERANT TEACHER ASSISTANT LAB MICROBIOLOGY - GENERAL ORDER CHLOE Final Result [facility] [address] [place] [address] [phone] * POCT Rapid COVID Ag (10/31/2024 12:11 PM EST) Only the most recent of2 resultswithin the time period is included. Pathologist [facility] Rapid COVID Ag Negative QC Media Lot # [id number] Lot# Expiration Date Swab 10/31/2024 12:1 1 PM EST Mart Briscoe MD POINT OF CARE TEST ENTER/EDIT OR DERABLES Final Result * POCT Influenza B manually resulted (10/31/2024 12:11 PM EST) [facility] Rapid Influenza B Ag Negative Negative, Indeterminate QC Media Lot # [id number] Lot# Expiration Date Swab 10/31/2024 12:1 1 PM EST Mart Briscoe MD POINT OF CARE TEST ENTER/EDIT OR DERABLES Final Result * POCT Influenza A manually resulted (10/31/2024 12:11 PM EST) [facility] Rapid Influenza A Ag Negative Negative, Indeterminate QC Media Lot # [id number] Lot# Expiration Date Swab Nasopharyngeal structure / Unknown 10/31/2024 12:11 PM EST us Mart Briscoe MD POINT OF CARE TEST ENTER/EDIT OR DERABLES Final Result * POCT rapid strep A manually resulted (10/31/2024 12:11 PM EST) Only the most recent of2 resultswithin the time period is included. [facility] Rapid Strep A Screen Negative Negative, None Detected QC Media Lot # [id number] Lot# Expiration Date Swab 10/31/2024 12:1 1 PM EST Mart Briscoe MD POINT OF CARE TEST ENTER/EDIT OR DERABLES Final Result * HPV DNA, Low/High Risk (10/29/2024 10:40 AM EST) HPV High Risk Negative Negative [facility] HPV Genotype 16 Negative Negative [facility] HPV Genotype 18 Negative Negative [facility] Comment:HPV testing performe d at [facility] (CLIA#[id number]), [address] [place] [address].Testing for HPV was performed using the [employer] NBA 6800system. The presence of HPV in the female genital tract isassociated with a number of diseases, including cervicalcarcinoma. The HPV DNA high risk pool tests for HPV 31, 33,35, 39, 45, 51, 52, 56, 58, 59, 66 and 68. The testing forHPV 16 and 18 genotypes has also been performed. A positiveresult indicates detection of nucleic acid sequences fromone or more subtypes, whereas a negative result indicatessuch sequences were not detected. 10/29/2024 10:4 0 AM EST 10/30/2024 7:17 AM EST Moisés Garcia [facility] LAB BLOOD ORDERABLES Homa l Result [facility] [address] [place] [phone] * Pap Smear (10/29/2024 10:40 AM EST) Swab Cervix uteri structure / Unknown 10/29/2024 10:40 AM EST 10/30/2024 6:30 AM EST Narrative [facility] - 11/06/2024 11:50 AM EST ----- ------- Name: Paolo Angeles ?Age/Sex: 24/F ? : 2000 Unit#: [id number] ?? Attend Dr: ?Re10/29/24 ?Status: PRE REF ? Location: HO.LNP ?Disch: ? ----- ------- SPEC : [id number] ? RECD: 10/30/24 ? STATUS: ??SOUT ? REQ NUM: [id number] ? LEXIS: 10/29/24-1039 ? SUBM DR: MOISÉS GARCIA CNM ? [...] ? END OF REPORT ? us Moisés Garcia [facility] CYTOLOGY ORDERABLES F inal Result [facility] [address] [place] [address] [phone] * Herpes Simplex Virus Culture with Reflex Typing (10/27/2024 10:49 AM EST) HSV Culture/Type SEE NOTE [facility] Comment:HERPES SIMPLEX VIRUS CULTURE W/RFL TO TYPING Micro Number: [id number] Test Status: Final Specimen Source: Not given Specimen Quality: Adequate HSV Culture: Not IsolatedTHIS TEST WAS PERFORMED AT:[facility] [address] [id number] MERATI,MD Swab Topography unknown / Unknown 10/27/2024 10:49 AM EST 10/27/2024 1:08 PM EST Tiara Simpson MD LAB MICROBIOLOGY - GENERAL ORDERABLES Final Result Performing Organization Address [facility]/ZIP Co de Phone Number [facility] [address] [place] [phone] * Influenza B (ID NOW Rapid Molecular) (10/15/2024 10:22 AM EST) Influenza B Negative Negative, Indeterminate [facility] Swab 10/15/2024 10:2 2 AM EST Mart Briscoe MD POINT OF CARE TEST ENTER/EDIT OR DERABLES Final Result Performing Organization Address [facility]/ZIP Co de Phone Number [facility] [address] [place] [phone] * Influenza A (ID NOW Rapid Molecular) (10/15/2024 10:22 AM EST) Influenza A Negative Negative, Indeterminate [facility] Swab 10/15/2024 10:2 2 AM EST Mart Briscoe MD POINT OF CARE TEST ENTER/EDIT OR DERABLES Final Result Performing Organization Address [facility]/ZIP Co de Phone Number [facility] [address] [place] [address] [phone] * Hepatitis C Ab (11/26/2023 3:32 PM EST) Hepatitis C Antibody Nonreactive Nonreactive [facility] Comment:Antibodies to HCV no t detected; does not exclude early acuteHCV infection. 11/26/2023 3:32 PM EST 11/26/2023 5:25 PM EST us Aster White MD LAB BLOOD ORDERABLES Final Re sult Performing Organization Address [facility]/ZIP Co de Phone Number [facility] [address] [place] [phone] * HIV-1/2 Antigen and Antibodies, Fourth Generation, with Reflexes (11/26/2023 3:32 PM EST) HIV AB/AG Nonreactive Nonreactive [facility] Comment:HIV-1 p24 Ag and/or HIV-1/HIV-2 Ab not detected.A test result that is nonreactive does not exclude thepossibility of exposure to or infection with HIV-1 and/orHIV-2. Nonreactive results in this assay for individualswith prior exposure to HIV-1 and/or HIV-2 may be due toantigen and antibody levels that are below the limit ofdetection of this assay.The [employer] HIV Ag/Ab Combo assay result andsupplemental assay results should be interpreted inconjunction with the patient's clinical presentation,history and other laboratory results. If the results areinconsistent with clinical evidence, additional testing issuggested to confirm the result. 11/26/2023 3:32 PM EST 11/26/2023 5:25 PM EST us Aster White MD LAB BLOOD ORDERABLES Final Re sult Performing Organization Address City/[facility]/ZIP Co de Phone Number [facility] [address] [place] [phone] from Last 3 Months or Most Recently Relevant to Health Maintenance Insurance [facility] C3 Care Teams Digital Account Director Relationship Specialty Start Date End Date Jeanine Smith MD [address] [place] [phone] PCP - General Internal Medicine 03/04/24 [facility] Consulting Physician Obstetrics and Gynecology 09/30/23
--- OUTSIDE RECORDS SUMMARY | 2024-12-08 19:29 | XMS_ITS | Encounter Summary ---
Author Organization [employer] Address [address] [place] [address] Care Team Providers Care Style Advisor Name Role Phone Jeanine Smith MD Primary Care Provider [phone] Encounter Details Date Type Department Care Team (Late st Contact Info) Description 10/29/2024 Orders Only [facility] [address] [place] [address] Sharron Pace, CN [address] [place] [address] Social History Tobacco Use Types Packs/Day Years [...] Procedure Name Priority Date/Time Associated Diagnosis Comments HPV DNA, LOW/HIGH RISK Routine 10/29/2024 10:40 AM EST documented in this encounter Results * HPV DNA, Low/High Risk (10/29/2024 10:40 AM EST) HPV High Risk Negative Negative [facility] HPV Genotype 16 Negative Negative [facility] HPV Genotype 18 Negative Negative [facility] Comment:HPV testing performe d at [facility] (CLIA#[id number]), [address] [place] [address].Testing for HPV was performed using the [employer] NBA 6800system. The presence of HPV in [...] 0 AM EST 10/30/2024 7:17 AM EST us Sharron Pace [facility] LAB BLOOD ORDERABLES Homa sherron Result [facility] [address] [place] [phone] documented in this encounter Visit Diagnoses Not on filedocumented in this encounter Additional Health Concerns Assessment Noted Time PHQ-9 Depression Total Score: 15 024 2:35 PM EDT documented as of this encounter Care Teams Style Advisor Relationship Specialty Start Date End Date Jeanine Smith MD [address] [place] [phone] PCP - General Internal Medicine 03/04/24 [facility] Consulting Physician Obstetrics and Gynecology 09/30/23 documented as of this encounter
--- OUTSIDE RECORDS SUMMARY | 2024-12-08 19:29 | XMS_ITS | Encounter Summary ---
Author Organization [employer] Address [address] [place] [address] Care Team Providers Care Box Lining Machine Operator Name Role Phone Jeanine Smith MD Primary Care Provider [phone] Encounter Details Date Type Department Care Team (Late st Contact Info) Description 07/29/2024 Orders Only [facility] [address] [place] [address] Sharron Pace, CN [address] [place] [address] Social History Tobacco Use Types Packs/Day Years [...] ORDERABLES F inal Result Performing Organization Address City/State/[facility] Co de Phone Number [facility] [address] [place] [address] documented in this encounter Visit Diagnoses Not on filedocumented in this encounter Additional Health Concerns Assessment Noted Time PHQ-9 Depression Total Score: 15 024 2:35 PM EDT documented as of this encounter Care Teams Box Lining Machine Operator Relationship Specialty Start Date End Date Jeanine Smith MD [address] [place] [address] PCP - General Internal Medicine 03/04/24 [facility] Consulting Physician Obstetrics and Gynecology 09/30/23 documented as of this encounter
[2024-12-09 05:22] LABS: CT PCR NOT DETECTED (Not Detect.); NG PCR NOT DETECTED (Not Detect.)
== END 2024-12-08 16:57 | disposition home or self-care (01) ==
LOC: HO.HHCLNP 16:56
PROVIDERS: Visit Provider Family Medicine
DX: R10.30 Lower abdominal pain, unspecified (principal)
CPT/HCPCS: 87491; 87591

== ENCOUNTER 2024-12-23 09:43 | Outpatient (REF) | payer MEDICAID, SELFPAY ==
--- OUTSIDE RECORDS SUMMARY | 2024-12-23 10:55 | XMS_ITS | Encounter Summary ---
Author Organization [employer] Address [address] [place] [address] Care Team Providers Care Agriculture Inspector Name Role Phone Aster White MD Primary Care Provider Jeanine Smith MD Primary Care Provider [phone] Reason for Visit * Reason Onset Date Comments Call Back Request 12/27/2023 Encounter Details Date Type Department Care Team ([facility] st Contact Info) Description 12/27/2023 Telephone [facility] [address] [place] [address] Aster White MD [address] [place] [address] Call Back Request Social History Tobacco Use [...] prescription direction is Eliquis 5 MG tablet [[id number]] Take 1 tablet (5 mg) by mouth [...] on filedocumented in this encounter Care Teams Agriculture Inspector Relationship Specialty Start Date End Date Aster White MD [address] [place] [phone] PCP - General Family Medicine 10/10/23 03/03/24 Jeanine Smith MD [address] [place] [address] PCP - General Internal Medicine 03/04/24 [facility] Consulting Physician Obstetrics and Gynecology 09/30/23 documented as of this encounter
--- OUTSIDE RECORDS SUMMARY | 2024-12-23 10:55 | XMS_ITS | Encounter Summary ---
Author Organization [employer] Address [address] [place] [address] Care Team Providers Care Cut Off Saw Set Up Operator Name Role Phone Jeanine Smith MD Primary Care Provider Encounter Details Date Type Department Care Team (Late st Contact Info) Description 12/08/2024 9:40 AM EDT Office Visit [facility] [address] [place], [place] [phone] Tiara Simpson MD [address] [place] [address] Lower abdominal pain (Primary Dx) Social History [...] other -pt to go to ER at [facility] for further work up -gc/chl swab [...] other -pt to go to ER at [facility] for further work up -gc/chl swab obtained documented in this encounter Plan of Treatment Not on file documented as of this encounter Procedures Procedure Name Priority Date/Time Associated Diagnosis Comments POCT , URINE Routine 12/08/2024 10:09 AM EDT Lower abdominal pain CHLAMYDIA/N. GONORRHOEAE RNA, TMA, UROGENITAL Routine 12/08/2024 10:01 AM EDT Lower abdominal pain documented in this encounter Results * POCT , urine manually resulted (12/08/2024 10:09 AM EDT) Preg Test, Ur Negative Negative, Indeterminate, None Detected, Invalid, Specimen unsatisfactory for evaluation, Weakly Positive Urine 12/08/2024 10:0 9 AM EDT Tiara Simpson MD POINT OF CARE TEST ENTER/E DIT ORDERABLES Final Result * Chlamydia/N. Gonorrhoeae RNA, TMA, Vagina (12/08/2024 10:01 AM EDT) CT PCR NOT DETECTED Not Detect. [facility] Comment:A not detected test result [...] psychologicalconsequences. NG PCR NOT DETECTED Not Detect. [facility] Comment:A not detected test result [...] lead to adverse medical, social or psychologicalconsequences. Swab Vaginal structure / Unknown 12/08/2024 10:01 AM EDT 12/08/2024 4:56 PM EDT Narrative [facility] - 12/09/2024 5:22 AM EDT Vaginal us Tiara Simpson MD LAB MICROBIOLOGY - GENERAL ORDERABLES Final Result [facility] [address] [place] [address] [phone] documented in this encounter Visit Diagnoses Diagnosis Lower abdominal pain- Primary Abdominal pain, other specified site documented in this encounter Additional Health Concerns Assessment Noted Time PHQ-9 Depression Total Score: 15 024 2:35 PM EDT documented as of this encounter Care Teams Cut Off Saw Set Up Operator Relationship Specialty Start Date End Date Jeanine Smith MD [address] [place] [phone] PCP - General Internal Medicine 03/04/24 [facility] Consulting Physician Obstetrics and Gynecology 09/30/23 documented as of this encounter
--- OUTSIDE RECORDS SUMMARY | 2024-12-23 10:55 | XMS_ITS | Encounter Summary ---
Author Organization [employer] [facility] Address [address] [place] [address] 7 [place] [address] Care Team Providers Care Suggestion Clerk Name Role Phone Aster White MD Primary Care Provider [phone] Jeanine Smith MD Primary Care Provider [phone] Reason for Referral * Consultation (Routine) - Authorized Specialty Diagnoses / Procedures Referred By Contac t Referred To Contact Pharmacy Diagnoses Acute pulmonary embolism, unspecified pulmonary embolism type, unspecified whether acute cor pulmonale present (CMS/HCC) Minnie Adams PharmD [address] [place] [address] Phone: tel: fax: Referral ID Status Reason Start Date Expiration Date Visits Requested Visits Authorized [id number] Authorized Continuity of Care 01/10/2024 01/09/2025 1 1 Encounter Details Date Type Department Care Team (Late st Contact Info) Description 01/10/2024 Orders Only [facility] MEDICINE [address] [place] [address] Minnie Adams, PharmD [address] [place] [address] Acute pulmonary embolism, unspecified pulmonary embolism type, [...] Diagnoses Orde r Schedule Referral to Pharmacy [facility] Outpatient Referral Routine Acute pulmonary embolism, unspecified pulmonary embolism type, unspecified whether acute cor pulmonale present (CMS/HCC) Ordered: 01/10/2024 documented as of this encounter Visit Diagnoses Diagnosis Acute pulmonary embolism, unspecified pulmonary embolism type, unspecified whether acute cor pulmonale present (CMS/HCC)- Primary documented in this encounter Care Teams Suggestion Clerk Relationship Specialty Start Date End Date Aster White MD [address] [place] [address] PCP - General Family Medicine 10/10/23 03/03/24 Jeanine Smith MD [address] [place] [address] PCP - General Internal Medicine 03/04/24 [facility] Consulting Physician Obstetrics and Gynecology 09/30/23 documented as of this encounter
--- OUTSIDE RECORDS SUMMARY | 2024-12-23 10:55 | XMS_ITS | Encounter Summary ---
Author Organization [employer] Address [address] [facility] 7t [place] [address] Care Team Providers Care Chair Mender Name Role Phone Jeanine Smith MD Primary Care Provider [phone] Reason for Visit * Reason Onset Date Comments Prior Authorization 11/10/2024 john wable tablet Encounter Details Date Type Department Care Team ([facility] st Contact Info) Description 11/10/2024 Telephone [facility] MEDICINE [address] [place] [address] Jeanine Smith MD [address] [place], [place] [phone] Prior Authorization ( chewable tablet) Social History [...] encounter Miscellaneous Notes * Telephone Encounter - Nafisa Stout - 12/09/2024 7:58 AM EDT PA resubmitted to . Pending decision. * Telephone Encounter - Sharron Pace CNM [...] AM EST PA signed and faxed to [employer]. Confirmation received and sent to scan. If patient calls to check status on above, please advise them to contact Pharmacy . * Telephone Encounter - Nafisa Stout - 11/10/2024 1:06 PM EST PA request received for chewable tablets from [employer]. PA generated and placed on pcp desk for review and signature. documented in this encounter Plan of Treatment Not on file documented as of this encounter Visit Diagnoses Not on filedocumented in this encounter Additional Health Concerns Assessment Noted Time PHQ-9 Depression Total Score: 15 024 2:35 PM EDT documented as of this encounter Care Teams Chair Mender Relationship Specialty Start Date End Date Jeanine Smith MD [address] [place] [address] PCP - General Internal Medicine 03/04/24 [facility] Consulting Physician Obstetrics and Gynecology 09/30/23 documented as of this encounter
--- OUTSIDE RECORDS SUMMARY | 2024-12-23 10:55 | XMS_ITS | Encounter Summary ---
Author Organization [employer] [facility] Address [address] [facility] 7t [place] [address] Care Team Providers Care Face Worker Name Role Phone Aster White MD Primary Care Provider [phone] Jeanine Smith MD Primary Care Provider [phone] Reason for Visit * Reason Onset Date Comments New Patient 05/16/2023 Encounter Details Date Type Department Care Team ([facility] Contact Info) Description 05/16/2023 Telephone [facility] MEDICINE [address] [place] [address] Hamlet Mccullough MD [address] [place] [address] New Patient Social History Tobacco Use Types [...] been transfer over to wait list for APPLIANCE COUNSELOR. EFFECTIVE SINCE 05/16/2023 documented in this encounter Plan of Treatment Not on file documented as of this encounter Visit Diagnoses Not on filedocumented in this encounter Care Teams Face Worker Relationship Specialty Start Date End Date Aster White MD [address] [place] [address] PCP - General Family Medicine 10/10/23 03/03/24 Jeanine Smith MD [address] [place] [address] PCP - General Internal Medicine 03/04/24 [facility] Consulting Physician Obstetrics and Gynecology 09/30/23 documented as of this encounter
--- OUTSIDE RECORDS SUMMARY | 2024-12-23 10:55 | XMS_ITS | Encounter Summary ---
Author Organization [employer] Address [address] [facility] [address] 7t [place] [address] Care Team Providers Care Blind Eyeletter Name Role Phone Aster White MD Primary Care Provider [phone] Jeanine Smith MD Primary Care Provider [phone] Encounter Details Date Type Department Care Team ([facility] st Contact Info) Description 02/05/2024 Telephone [facility] MEDICINE [address] [place] [address] Aster White MD [address] [place], [place] [phone] Social History Tobacco Use Types Packs/Day Years [...] on filedocumented in this encounter Care Teams Blind Eyeletter Relationship Specialty Start Date End Date Aster White MD [address] [place] [address] PCP - General Family Medicine 10/10/23 03/03/24 Jeanine Smith MD [address] [place] [address] PCP - General Internal Medicine 03/04/24 [facility] Consulting Physician Obstetrics and Gynecology 09/30/23 documented as of this encounter
--- OUTSIDE RECORDS SUMMARY | 2024-12-23 10:55 | XMS_ITS | Encounter Summary ---
Author Organization [employer] Address [address] [facility] [address] 7t [place] [address] Care Team Providers Care Horse Rancher Name Role Phone Aster White MD Primary Care Provider [phone] Jeanine Smith MD Primary Care Provider [phone] Encounter Details Date Type Department Care Team ([facility] st Contact Info) Description 12/10/[address] [facility] MEDICINE [address] [place] [address] Aster White MD [address] [place], [place] [phone] Social History Tobacco Use Types Packs/Day Years [...] on filedocumented in this encounter Care Teams Horse Rancher Relationship Specialty Start Date End Date Aster White MD [address] [place] [address] PCP - General Family Medicine 10/10/23 03/03/24 Jeanine Smith MD [address] [place] [address] PCP - General Internal Medicine 03/04/24 [facility] Consulting Physician Obstetrics and Gynecology 09/30/23 documented as of this encounter
--- OUTSIDE RECORDS SUMMARY | 2024-12-23 10:55 | XMS_ITS | Encounter Summary ---
Author Organization [employer] Address [address] [facility] [address] 7t [place] [address] Care Team Providers Care Propellant Charge Loader Name Role Phone Jeanine Smith MD Primary Care Provider Encounter Details Date Type Department Care Team (Late st Contact Info) Description 10/26/2024 Orders Only [facility] CH[facility] MED & PEDS [address] [place], [place] [phone] Jeanine Smith MD 505 [place] [address] Social History Tobacco Use Types Packs/Day Years [...] documented as of this encounter Care Teams Propellant Charge Loader Relationship Specialty Start Date End Date Jeanine Smith MD [address] [place] [address] PCP - General Internal Medicine 03/04/24 [facility] Consulting Physician Obstetrics and Gynecology 09/30/23 documented as of this encounter
--- OUTSIDE RECORDS SUMMARY | 2024-12-23 10:55 | XMS_ITS | Encounter Summary ---
Author Organization [employer] Address [address] [facility] [address] 7[address] [place] [address] Care Team Providers Care Rug Underlay Machine Operator Name Role Phone Jeanine Smith MD Primary Care Provider Reason for Visit * Reason Onset Date Comments Medication Question 05/05/2024 Encounter Details Date Type Department Care Team ([facility] st Contact Info) Description 05/05/2024 Telephone [facility] MEDICINE [address] [place] [address] Jeanine Smith MD [address] [place], [place] [phone] Medication Question Social History Tobacco Use Types [...] on filedocumented in this encounter Care Teams Rug Underlay Machine Operator Relationship Specialty Start Date End Date Jeanine Smith MD [address] [place] [address] PCP - General Internal Medicine 03/04/24 [facility] Consulting Physician Obstetrics and Gynecology 09/30/23 documented as of this encounter
--- OUTSIDE RECORDS SUMMARY | 2024-12-23 10:55 | XMS_ITS | Encounter Summary ---
Author Organization [facility] [facility] Address [address] [facility] 7t [place] [address] Care Team Providers Care Television Operator Name Role Phone Jeanine Smith MD Primary Care Provider Encounter Details Date Type Department Care Team (Late st Contact Info) Description 12/11/2024 Population Health Risk Score [facility] (C[facility]) Department [address] [facility] [address] [place] [phone] Provider, Population Health Generic Social History Tobacco Use Types Packs/Day Years [...] documented as of this encounter Care Teams Television Operator Relationship Specialty Start Date End Date Jeanine Smith MD [address] [place] [address] PCP - General Internal Medicine 03/04/24 [facility] Consulting Physician Obstetrics and Gynecology 09/30/23 documented as of this encounter
--- OUTSIDE RECORDS SUMMARY | 2024-12-23 10:55 | XMS_ITS | Encounter Summary ---
Author Organization [employer] Address [address] [facility] [address] 7t [place] [address] Care Team Providers Care Product Marketing Executive Name Role Phone Jeanine Smith MD Primary Care Provider [phone] Encounter Details Date Type Department Care Team (Late st Contact Info) Description 11/23/2024 Orders Only [facility] MEDICINE [address] [place] [address] Sharron Pace, CN [address] [place] [address] Social History Tobacco Use Types Packs/Day Years [...] as of this encounter Care Teams Product Marketing Executive Relationship Specialty Start Date End Date Jeanine Smith MD [address] [place] [address] PCP - General Internal Medicine 03/04/24 [facility] Consulting Physician Obstetrics and Gynecology 09/30/23 documented as of this encounter
--- OUTSIDE RECORDS SUMMARY | 2024-12-23 10:55 | XMS_ITS | Encounter Summary ---
Author Organization [employer] Address [address] [facility] [address] 7[address] [place] [address] Care Team Providers Care Flight Operation Coordinator Name Role Phone Jeanine Smith MD Primary Care Provider Encounter Details Date Type Department Care Team (Late st Contact Info) Description 03/05/2024 Orders Only [facility] CHC MED & PEDS [address] [place], [place] [phone] Jeanine Smith MD [address] [place], [place] [phone] Single subsegmental pulmonary embolism without acute cor [...] (CMS/HCC) documented in this encounter Care Teams Flight Operation Coordinator Relationship Specialty Start Date End Date Jeanine Smith MD [address] [place] [address] PCP - General Internal Medicine 03/04/24 [facility] Consulting Physician Obstetrics and Gynecology 09/30/23 documented as of this encounter
--- OUTSIDE RECORDS SUMMARY | 2024-12-23 10:55 | XMS_ITS | Encounter Summary ---
Author Organization [employer] Address [address] [facility] [address] 7[address] [place] [address] Care Team Providers Care Slubber Tender Name Role Phone Jeanine Smith MD Primary Care Provider [phone] Encounter Details Date Type Department Care Team (Late st Contact Info) Description 07/29/2024 Orders Only [facility] MEDICINE [address] [place] [address] Sharron Pace, CN [address] [place] [address] Social History Tobacco Use Types Packs/Day Years [...] ORDERABLES F inal Result Performing Organization Address City/State/[facility] Co de Phone Number [facility] [address] [place] [address] documented in this encounter Visit Diagnoses Not on filedocumented in this encounter Additional Health Concerns Assessment Noted Time PHQ-9 Depression Total Score: 15 024 2:35 PM EDT documented as of this encounter Care Teams Slubber Tender Relationship Specialty Start Date End Date Jeanine Smith MD [address] [place] [address] PCP - General Internal Medicine 03/04/24 [facility] Consulting Physician Obstetrics and Gynecology 09/30/23 documented as of this encounter
--- OUTSIDE RECORDS SUMMARY | 2024-12-23 10:55 | XMS_ITS | Encounter Summary ---
Author Organization [employer] Address [address] [facility] [address] 7[address] [place] [address] Care Team Providers Care Jet Piercer Operator Name Role Phone Aster White MD Primary Care Provider [phone] Jeanine Smith MD Primary Care Provider [phone] Reason for Visit * Reason Onset Date Comments Lab Orders 12/05/2023 Encounter Details Date Type Department Care Team ([facility] st Contact Info) Description 12/05/2023 Telephone [facility] MEDICINE [address] [place] [address] Aster White MD [address] [place] [address] Lab Orders Social History Tobacco Use Types [...] Pt was scheduled for COVID test at [facility] testing site for next week before surgery. Pt verbalizes understanding and agreement with plan. * Telephone Encounter - Josyln Oakes - 12/05/2023 9:52 AM EST Tc from pt requesting lab orders. Please contact pt for clarifications. Labor Trainer advise pt on labs done. documented in this encounter Plan of Treatment Not on file documented as of this encounter Visit Diagnoses Not on filedocumented in this encounter Care Teams Jet Piercer Operator Relationship Specialty Start Date End Date Aster White MD [address] [place] [address] PCP - General Family Medicine 10/10/23 03/03/24 Jeanine Smith MD [address] [place] [address] PCP - General Internal Medicine 03/04/24 [facility] Consulting Physician Obstetrics and Gynecology 09/30/23 documented as of this encounter
--- OUTSIDE RECORDS SUMMARY | 2024-12-23 10:55 | XMS_ITS | Clinical Summary ---
Author Organization [email or web address] Address [address] [facility] 7[address] [place] [address] Care Team Providers Care Slope Hoist Operator Name Role Phone Jeanine Smith MD [...] by mouth with breakfast. 90 tablet 1 11/26/2023 Active Pediatric Multivitamins-Fl (multivitamin with fluoride) 0.5 MG chewable tablet Chew 1 tablet in the morning. 90 tablet 1 11/26/2023 Active Ascorbic Acid (Vitamin C) 500 MG capsule Take 500 mg by mouth in the morning. 120 capsule 3 11/26/2023 Active docusate sodium (Colace) 100 MG capsule 12/01/2023 Active oxyCODONE-acetami nophen (Percocet) 5-325 MG tablet Take 1 tablet by mouth every 4 (four) hours if needed. 12/18/2023 Active ondansetron (Zofran) 8 MG tablet Take 8 mg by mouth every 8 (eight) hours if needed for nausea. 12/18/2023 Active Blood Pressure kit 1 Units in the morning. 1 kit 12/30/2023 Active Eliquis 5 MG tabletIndications :Single subsegmental pulmonary embolism without acute cor pulmonale (CMS/HCC) Take 1 tablet (5 mg) by mouth 2 times daily. 60 tablet 1 03/05/2024 Active valACYclovir (Valtrex) 1 g tablet Take 1 tablet (1,000 mg) by mouth Once per day. 5 tablet 10/26/2024 Active acyclovir (Zovirax) 800 MG tabletIndications :Herpes Simplex Infection Take 3 tabs a day for 2 days 6 tablet 2 10/27/2024 Active MV & Min w/FA-DHA ( Adult Gummy/DHA/FA) 0.4-25 MG chewable tablet Chew 1 each Once per day. 30 tablet 11 10/29/2024 Active Active Problems Problem Noted Date Diagnosed Date Lower abdominal pain 12/08/2024 Assessment & Plan (12/08/2024 10:15 AM EDT): 2 days of increasing left lower abdominal pain in setting of light vaginal bleeding. Urine Hcg negative. Not on contraception. Exam with guarding. Differential includes ectopic , ovarian pathology, diverticulitis, PID vs other -pt to go to ER at [facility] for further work up -gc/chl swab [...] to go to ER now. Partner to inventory associate and driver her. She agrees with the plan. [...] recommended reduction of 20-30% of maintenance calories; sales operations specialist referral offered. Recommended to decrease soda and [...] Encounters Date Type Department Care Team Description 12/23/2024 9:00 AM EDT Office Visit [facility] [address] [place] [phone] Chely Garner FNP Mild nausea (Primary Dx); Possible 12/11/2024 Population Health Risk Score [facility] () Department [address] [place] [phone] Provider, Population Health Generic 12/08/2024 9:40 AM EDT Office Visit [facility] [address] [place] [phone] Tiara Simpson MD Lower abdominal pain (Primary Dx) 11/23/2024 Orders Only [facility] [address] [place] [address] Moisés Garcia CNM 11/13/2024 Telephone [facility] [address] [place] [phone] Carisa Ramos NP 11/10/2024 Telephone [facility] [address] [place] [address] [phone] Jeanine Smith MD Prior Authorization ( chewable tablet) 11/05/2024 Telephone [facility] [address] [place] [address] [phone] Jeanine Smith MD Nurse Triage 11/03/[address] [address] Mirta Padilla RN 11/02/2024 9:40 AM EST [facility] [address] [address] Carisa Ramos NP Irregular periods (Primary Dx); Missed menses 10/31/2024 11:40 AM EST [facility] [address] [address] Matr Briscoe MD Viral URI 10/31/2024 Travel 10/29/2024 10:00 AM EST Office Visit [address] [address] Moisés Garcia CNM ASCUS of cervix with negative high risk HPV (Primary Dx); Procreative management; Cystocele, unspecified 10/29/2024 Orders Only [address] [address] Moisés Garcia CNM 10/29/2024 Travel 10/27/2024 9:40 AM EST [facility] [address] [address] Tiara Simpson MD Herpes infection (Primary Dx); Patient desires 10/26/2024 Orders Only [facility] [address] [place] [address] Jeanine Smith MD 10/26/[address] [address] Jeanine Smith MD 10/25/2024 Refill [facility] [address] [place] [address] Jeanine Smith MD 10/16/2024 Telephone [facility] [address] [place] [address] Jeanine Smith MD 10/15/2024 10:00 AM EST [facility] [address] [address] Mart Briscoe MD Unprotected sexual intercourse (Primary Dx); Sore throat; Nausea 10/15/2024 Travel 10/08/2024 Telephone [facility] [address] [facility] [place] [address] Jeanine Smith MD No Show 10/08/2024 Telephone [facility] [address] [facility] [address] [address] [place] [phone] Jeanine Smith MD Plan B from Last 3 Months Immunizations Name Administration [...] Sign Reading Time Taken Comments Blood Pressure 122/73 12/23/2024 8:57 AM EDT Pulse 85 12/23/2024 8:57 AM EDT Temperature 36.7 ??C (98 ??F) 12/23/2024 8:57 AM EDT Respiratory Rate 16 12/23/2024 8:57 AM EDT Oxygen Saturation 98% 12/23/2024 8:57 AM EDT Inhaled Oxygen Concentration - - Weight 93.9 kg (207 lb) 12/23/2024 8:57 AM EDT Height 162.6 cm (5' 4 ) 10/31/2024 11:34 AM EST Body Mass Index 35.53 10/31/2024 11:34 AM EST Plan of Treatment [...] Associated Diagnosis Comments POCT , URINE Routine 12/23/2024 9:02 AM EDT Mild nausea POCT RAPID COVID ANTIGEN Routine 12/23/2024 9:02 AM EDT Mild nausea POCT INFLUENZA B (ID NOW RAPID MOLECULAR) Routine 12/23/2024 9:02 AM EDT Mild nausea POCT INFLUENZA A (ID NOW RAPID MOLECULAR) Routine 12/23/2024 9:02 AM EDT Mild nausea POCT , URINE Routine 12/08/2024 10:09 AM EDT Lower abdominal pain CHLAMYDIA/N. GONORRHOEAE RNA, TMA, UROGENITAL Routine 12/08/2024 10:01 AM EDT Lower abdominal pain HCG, TOTAL, [...] Recently Relevant to Health Maintenance Results * Influenza B (ID NOW Rapid Molecular) (12/23/2024 9:02 AM EDT) Only the most recent of2 resultswithin the time period is included. Influenza B Negative Negative, Indeterminate [facility] Swab 12/23/2024 9:02 AM EDT us Chely Garner ORAL PATHOLOGIST POINT OF CARE TEST ENTER/EDIT ORDERABLES Final Result Performing Organization Address City/[facility]/ZIP Co de Phone Number [facility] [address] [place] [phone] * Influenza A (ID NOW Rapid Molecular) (12/23/2024 9:02 AM EDT) Only the most recent of2 resultswithin the time period is included. Influenza A Negative Negative, Indeterminate [facility] Swab 12/23/2024 9:02 AM EDT us Chely Phalen ORAL PATHOLOGIST POINT OF CARE TEST ENTER/EDIT ORDERABLES Final Result Performing Organization Address City/[facility]/ZIP Co de Phone Number [facility] [address] [place] [phone] * POCT Rapid COVID Ag (12/23/2024 9:02 AM EDT) Only the most recent of3 resultswithin the time period is included. [facility] Rapid COVID Ag Negative Swab 12/23/2024 9:02 AM EDT [facility]INT OF [facility]ARE TEST ENTER/EDIT ORDERABLES Final Result * POCT , urine manually resulted (12/23/2024 9:02 AM EDT) Only the most recent of4 resultswithin the time period is included. [facility] Preg Test, Ur Negative Negative, Indeterminate, None Detected, Invalid, Specimen unsatisfactory for evaluation, Weakly Positive Urine 12/23/2024 9:02 AM EDT Chely [facility] POINT OF CARE TEST ENTER/EDIT ORDERABLES Final Result * Chlamydia/N. Gonorrhoeae RNA, TMA, Vagina (12/08/2024 10:01 AM EDT) Only the most recent of2 resultswithin the time period is included. [facility] CT PCR NOT DETECTED Not Detect. [facility] Comment:A not detected test result [...] psychologicalconsequences. NG PCR NOT DETECTED Not Detect. [facility] Comment:A not detected test result [...] AM EDT 12/08/2024 4:56 PM EDT Narrative [facility] - 12/09/2024 5:22 AM EDT Vaginal Tiara Simpson MD LAB MICROBIOLOGY - GENERAL ORDERABLES Final Result Performing Organization Address [facility]/ZIP Co de Phone Number [facility] [address] [place] [phone] * TSH W/Reflex to FT4 (11/02/2024 10:17 AM EST) TSH reflex Free T4 1.22 0.32 - 4.0 uIU/mL [facility] Blood Venous blood specimen / Unknown 11/02/2024 10:17 AM EST 11/02/2024 11:30 AM EST us Carisa Ramos NP LAB BLOOD ORDERABLES Final Resul t Performing Organization Address [facility] Co de Phone Number [facility] [address] [place] [phone] * hCG, Total, Quantitative (11/02/2024 10:17 AM EST) Only the most recent of2 resultswithin the time period is included. HCG Quantitative <2 mIU/mL [facility] Comment:Weeks post LMP Appr oximate hCG(Last Menstrual Period) Range (mIU/ml)3 - 4 weeks 9 - 1304 - 5 weeks 75 - 2,6005 - 6 weeks 850 - 20,8006 - 7 weeks 4000 - 100,2007 - 12 weeks 11,500 - 289,33308 - 16 weeks 18,300 - 137,17469 - 29 weeks (2nd trimester) 1,400 - 53,41843 - 41 weeks (3rd trimester) 940 - [...] NP LAB BLOOD ORDERABLES Final Resul t [facility] [address] [place] [address] [phone] * (ABNORMAL) Comprehensive Metabolic Panel (11/02/2024 10:17 AM EST) Sodium 138 135 - 145 mmol/L [facility] Potassium 3.6 3.3 - 5.1 mmol/L [facility] Chloride 106 96 - 108 mmol/L [facility] Carbon Dioxide 26 22 - 29 mmol/L [facility] Anion Gap 10(L) 12 - 20 [facility] Urea Nitrogen (BUN) 11 9 - 16 mg/dL [facility] Creatinine, Serum 0.55 0.5 - 1.4 mg/dL [facility] Estimated Glomerular Filt Rate >60 [facility] Comment:Chronic Kidney Disea se: Estimated GFR < 60 mL/min/1.82h7Ltfwur Kidney Disease: Estimated GFR < 15 mL/min/1.73m2 Glucose 97 60 - 115 mg/dL [facility] Calcium 8.7 8.4 - 10.2 mg/dL [facility] Bilirubin, Total 0.4 0.0 - 1.0 mg/dL [facility] Aspartate Amino Transferase 15 5 - 31 U/L [facility] Alanine Aminotransferase 20 0 - 31 U/L [facility] Total Protein 7.2 6.5 - 8.0 g/dL [facility] Albumin Level 3.9 3.5 - 5.0 g/dL [facility] Alkaline Phosphatase 77 39 - 117 U/L [facility] Blood Venous blood specimen / Unknown 11/02/2024 10:17 AM EST 11/02/2024 11:30 AM EST Carisa Ramos ELECTRO MECHANICAL ENGINEER LAB BLOOD ORDERABLES Final Resul t [facility] [address] [place] [phone] * POCT Influenza B manually resulted (10/31/2024 12:11 PM EST) [facility] Rapid Influenza B Ag Negative Negative, Indeterminate QC Media Lot # [id number] Lot# Expiration Date Swab 10/31/2024 12:1 1 PM EST Mart Briscoe MD POINT OF CARE TEST ENTER/EDIT OR DERABLES Final Result * POCT Influenza A manually resulted (10/31/2024 12:11 PM EST) [facility] Rapid Influenza A Ag Negative Negative, Indeterminate QC Media Lot # [id number] Lot# Expiration Date Swab Nasopharyngeal structure / Unknown 10/31/2024 12:11 PM EST Mart Briscoe MD POINT OF CARE TEST ENTER/EDIT OR DERABLES Final Result * POCT rapid strep A manually resulted (10/31/2024 12:11 PM EST) Only the most recent of2 resultswithin the time period is included. [facility] Rapid Strep A Screen Negative Negative, None Detected QC Media Lot # [id number] Lot# Expiration Date Swab 10/31/2024 12:1 1 PM EST Mart Briscoe MD POINT OF CARE TEST ENTER/EDIT OR DERABLES Final Result * HPV DNA, Low/High Risk (10/29/2024 10:40 AM EST) HPV High Risk Negative Negative [facility] HPV Genotype 16 Negative Negative [facility] HPV Genotype 18 Negative Negative [facility] Comment:HPV testing performe d at [facility] (CLIA#[id number]), [address] [place] [address].Testing for HPV was performed using the [employer]. The presence of HPV in the female [...] AM EST 10/30/2024 7:17 AM EST Moisés NIXON LAB BLOOD ORDERABLES Homa l Result [facility] [address] [place] [phone] * Pap Smear (10/29/2024 10:40 AM EST) Swab Cervix uteri structure / Unknown 10/29/2024 10:40 AM EST 10/30/2024 6:30 AM EST Narrative [facility] - 11/06/2024 11:50 AM EST ----- ------- Name: Paolo Angeles ?Age/Sex: 24/F ? : 2000 Unit#: [id number] ?? Attend Dr: ?Re10/29/24 ?Status: PRE REF ? Location: HO.LNP ?Disch: ? ----- ------- SPEC : [id number] ? RECD: 10/30/24 ? STATUS: ??SOUT ? REQ NUM: [id number] ? LEXIS: 10/29/24-1039 ? SUBM DR: MOISÉS [...] END OF REPORT ? us Moisés Garcia [facility] CYTOLOGY ORDERABLES F inal Result [facility] [address] [place] [address] [phone] * Herpes Simplex Virus Culture with Reflex Typing (10/27/2024 10:49 AM EST) Pathologist [facility] HSV Culture/Type SEE NOTE [facility] Comment:HERPES SIMPLEX VIRUS CULTURE W/RFL TO TYPING Micro Number: [id number] Test Status: Final Specimen Source: Not given Specimen Quality: Adequate HSV Culture: Not IsolatedTHIS TEST WAS PERFORMED AT:[employer] [employer] [address] [id number] MERATI,MD Swab Topography unknown / Unknown 10/27/2024 10:49 AM EST 10/27/2024 1:08 PM EST us Tiara Simpson MD LAB MICROBIOLOGY - GENERAL ORDERABLES Final Result Performing Organization Address [facility] Co de Phone Number [facility] [address] [place] [phone] * Hepatitis C Ab (11/26/2023 3:32 PM EST) Pathologist [facility] Hepatitis C Antibody Nonreactive Nonreactive [facility] Comment:Antibodies to HCV no t detected; does not exclude early acuteHCV infection. 11/26/2023 3:32 PM EST 11/26/2023 5:25 PM EST us Aster White MD LAB BLOOD ORDERABLES Final Re sult Performing Organization Address [facility]/ZIP Co de Phone Number [facility] [address] [place] [address] [phone] * HIV-1/2 Antigen and Antibodies, Fourth Generation, with Reflexes (11/26/2023 3:32 PM EST) HIV AB/AG Nonreactive Nonreactive [facility] Comment:HIV-1 p24 Ag and/or HIV-1/HIV-2 Ab not detected.A test result that is nonreactive does not exclude thepossibility of exposure to or infection with HIV-1 and/orHIV-2. Nonreactive results in this assay for individualswith prior exposure to HIV-1 and/or HIV-2 may be due toantigen and antibody levels that are below the limit ofdetection of this assay.The [employer] Alinity HIV Ag/Ab Combo assay result andsupplemental assay results should be interpreted inconjunction with the patient's clinical presentation,history and other laboratory results. If the results areinconsistent with clinical evidence, additional testing issuggested to confirm the result. 11/26/2023 3:32 PM EST 11/26/2023 5:25 PM EST us Aster White MD LAB BLOOD ORDERABLES Final Re sult [facility] [address] [place] [phone] [phone] from Last 3 Months or Most Recently Relevant to Health Maintenance [facility] [employer] Care Teams Slope Hoist Operator Relationship Specialty Start Date End Date Jeanine Smith MD [address] [place] [phone] PCP - General Internal Medicine 03/04/24 [facility] Consulting Physician Obstetrics and Gynecology 09/30/23
--- OUTSIDE RECORDS SUMMARY | 2024-12-23 10:55 | XMS_ITS | Encounter Summary ---
Author Organization [employer] Address [address] [place] [address] Care Team Providers Care Rater Associate Name Role Phone Jeanine Smith MD Primary Care Provider [phone] Reason for Visit * Reason Comments Chills Encounter Details Date Type Department Care Team ([facility] st Contact Info) Description 12/23/2024 9:00 AM EDT Office Visit [facility] [address] [place] [address] Chely Garner FNP [address] [place] [address] Mild nausea (Primary Dx); Possible Social History Tobacco Use Types Packs/Day Years [...] (207 lb) 12/23/2024 8:57 AM EDT Height - - Body Mass Index 35.53 10/31/2024 11:34 AM EST documented in this encounter Progress Notes * Chely Garner, LYDIA - 12/23/2024 9:00 AM EDT Subjective: Paolo Quintana is a 24 y.o. female w/ PMH PE, anxiety, who presents to the office for a sickvisit. HPI Last seen on 12/08/24 at [facility] for lower abdominal pain and sent to [facility] ED for furthereval. Testing for CT/NG was negative. Pelvic ultrasound demonstrated: No acute abnormality identified sonographically. Numerous small peripheral ovarian follicles. Findings can be seen normally or with polycystic ovarian syndrome. Correlation for clinical and/or biochemical hyperandrogenism recommended. Paolo reports that her menses occur monthly, no sign of excess hair growth. Today, primary concern is possible . LMP 12/04/24, but starting to feel symptoms similar to past pregnancies such as anxiety/irritability, mild nausea. Home test demonstrated mild faint line. Will send for serum HCG. 4 children. Review of Systems Constitutional: Negative for chills. Respiratory: Negative for cough and wheezing. Cardiovascular: Negative for chest pain and palpitations. Gastrointestinal: Positive for nausea. Neurological: Negative for dizziness. Psychiatric/Behavioral: Negative for suicidal ideas. The patient is nervous/anxious. Visit Vitals BP 122/73 (BP Location: Right arm, Patient Position: Sitting, BP Cuff Size: Adult) Pulse 85 Temp 98 ??F (36.7 ??C) (Temporal) Resp 16 Wt 207 lb (93.9 kg) SpO2 98% BMI 35.53 kg/m?? OB Status Having periods Smoking Status Never BSA 2.06 m?? Physical Exam Constitutional: Appearance: Normal appearance. HENT: Head: Atraumatic. Right Ear: External ear normal. Left Ear: External ear normal. Cardiovascular: Rate and Rhythm: Normal rate and regular rhythm. Pulmonary: Effort: Pulmonary effort is normal. Breath sounds: Normal breath sounds. Neurological: Mental Status: She is alert and oriented to person, place, and time. Psychiatric: Mood and Affect: Mood normal. Behavior: Behavior normal. Problem List Items Addressed This Visit Visit Diagnoses Mild nausea - Primary Relevant Orders Influenza A (ID NOW Rapid Molecular) (Completed) Influenza B (ID NOW Rapid Molecular) (Completed) POCT Rapid COVID Ag (Completed) POCT , urine manually resulted (Completed) Possible - Urine HCG Testing in office negative. Serum HCG ordered - Rapid Flu A&B, COVID negative - Not currently taking any daily medications aside from - Plan of care pending lab results Relevant Orders hCG, Total, Quantitative Follow up: routine care with PCP, sooner as needed documented in this encounter Plan of Treatment Scheduled Orders Name Type Priority Associated Diagnoses Orde r Schedule hCG, Total, Quantitative Lab Routine Possible Expected: 12/23/2024 (Approximate), Expires: 12/23/2025 documented as of this encounter Procedures Procedure Name Priority Date/Time Associated Diagnosis Comments POCT INFLUENZA B (ID NOW RAPID MOLECULAR) Routine 12/23/2024 9:02 AM EDT Mild nausea POCT INFLUENZA A (ID NOW RAPID MOLECULAR) Routine 12/23/2024 9:02 AM EDT Mild nausea POCT RAPID COVID ANTIGEN Routine 12/23/2024 9:02 AM EDT Mild nausea POCT , URINE Routine 12/23/2024 9:02 AM EDT Mild nausea documented in this encounter Results * POCT , urine manually resulted (12/23/2024 9:02 AM EDT) [facility] Preg Test, Ur Negative Negative, Indeterminate, None Detected, Invalid, Specimen unsatisfactory for evaluation, Weakly Positive Urine 12/23/2024 9:02 AM EDT us Chely Phalen DISPENSING AND MEASURING OPTICIAN POINT OF CARE TEST ENTER/EDIT ORDERABLES Final Result * POCT Rapid COVID Ag (12/23/2024 9:02 AM EDT) [facility] Rapid COVID Ag Negative Swab 12/23/2024 9:02 AM EDT us Chely Phalen DISPENSING AND MEASURING OPTICIAN POINT OF CARE TEST ENTER/EDIT ORDERABLES Final Result * Influenza B (ID NOW Rapid Molecular) (12/23/2024 9:02 AM EDT) [facility] Influenza B Negative Negative, Indeterminate [facility] Swab 12/23/2024 9:02 AM EDT us Chely Phalen DISPENSING AND MEASURING OPTICIAN POINT OF CARE TEST ENTER/EDIT ORDERABLES Final Result [facility] [address] [place] [phone] * Influenza A (ID NOW Rapid Molecular) (12/23/2024 9:02 AM EDT) [facility] Influenza A Negative Negative, Indeterminate [facility] Swab 12/23/2024 9:02 AM EDT us Chely Garner DISPENSING AND MEASURING OPTICIAN POINT OF CARE TEST ENTER/EDIT ORDERABLES Final Result [facility] [address] [place] [address] [phone] documented in this encounter Visit Diagnoses Diagnosis Mild nausea- Primary Possible documented in this encounter Additional Health Concerns Assessment Noted Time PHQ-9 Depression Total Score: 15 024 2:35 PM EDT documented as of this encounter Care Teams Rater Associate Relationship Specialty Start Date End Date Jeanine Smith MD [address] [place] [phone] PCP - General Internal Medicine 03/04/24 [facility] Consulting Physician Obstetrics and Gynecology 09/30/23 documented as of this encounter
--- OUTSIDE RECORDS SUMMARY | 2024-12-23 10:55 | XMS_ITS | Encounter Summary ---
Demographics Address [address] [place] [address] Mobile Phone Home Phone Email Address Preferred Language en Marital Status Single Latter-Day Affiliation Unknown Race White Ethnic Group or Author Organization [employer] Address [address] [place] [address] Care Team Providers Care Pulmonary Specialist Name Role Phone Jeanine Smith MD Primary Care Provider Reason for Visit * Reason Onset Date Comments Med Refill 10/25/2024 Encounter Details Date Type Department Care Team ([facility] st Contact Info) Description 10/25/2024 Refill [facility] [address] [place] [address] Jeanine Smith MD [address] [place] [address] Social History Tobacco Use Types Packs/Day Years [...] documented as of this encounter Care Teams Pulmonary Specialist Relationship Specialty Start Date End Date Jeanine Smith MD [address] [place] [phone] PCP - General Internal Medicine 03/04/24 [facility] Consulting Physician Obstetrics and Gynecology 09/30/23 documented as of this encounter
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
[2024-12-23 11:42] LABS: HCG Quantitative < 2 mIU/mL
== END 2024-12-23 09:44 | disposition home or self-care (01) ==
LOC: HO.HHCL 09:43
PROVIDERS: Visit Provider Registered Nurse
DX: Z32.00 Encounter for pregnancy test, result unknown (principal)
CPT/HCPCS: 36415; 84702

== ENCOUNTER 2025-01-14 19:12 | Emergency (ER) | payer MEDICAID, SELFPAY ==
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
[2025-01-14 19:40] VITALS: BP 129/90; PULSE 104; RESP 18; TEMP 36.3; O2SAT 97; BMI 36.0
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
--- NOTE | 2025-01-14 19:48 | ECG_ITS ---
Test Reason : chest pain Blood Pressure : */* mmHG Vent. Rate : 112 BPM Atrial Rate : 112 BPM P-R Int : 150 ms QRS Dur : 78 ms QT Int : 324 ms P-R-T Axes : 52 46 24 degrees QTcB Int : 442 ms Sinus tachycardia Otherwise normal ECG When compared with ECG of 04-Sep-2024 09:27, Vent. rate has increased by 37 bpm Referred By: Penny Palma Electronically Signed By: LORRIE ESTEVEZ MD
--- OUTSIDE RECORDS SUMMARY | 2025-01-14 22:02 | XMS_ITS | Encounter Summary ---
Author Organization [employer] [facility] Address [address] [facility] 7t [place] [address] Care Team Providers Care Wood Milling Machine Operator Name Role Phone Aster White MD Primary Care Provider [phone] Jeanine Smith MD Primary Care Provider [phone] Reason for Visit * Reason Onset Date Comments New Patient 05/16/2023 Encounter Details Date Type Department Care Team ([facility] Contact Info) Description 05/16/2023 Telephone [facility] MEDICINE [address] [place] [address] Hamlet Mccullough MD [address] [place] [address] New Patient Social History Tobacco Use Types [...] been transfer 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 EFFECTIVE SINCE 05/16/2023 documented in this encounter Plan of Treatment Not on file documented as of this encounter Visit Diagnoses Not on filedocumented in this encounter Care Teams Wood Milling Machine Operator Relationship Specialty Start Date End Date Aster White MD [address] [place] [address] PCP - General Family Medicine 10/10/23 03/03/24 Jeanine Smith MD [address] [place] [address] PCP - General Internal Medicine 03/04/24 [facility] Consulting Physician Obstetrics and Gynecology 09/30/23 documented as of this encounter
--- OUTSIDE RECORDS SUMMARY | 2025-01-14 22:02 | XMS_ITS | Encounter Summary ---
Demographics Address [address] [place] [address] Mobile Phone Home Phone Email Address Preferred Language en Marital Status Single Voodoo Affiliation Unknown Race White Ethnic Group or Author Organization [employer] Address [address] [facility] 7t [place] [address] Care Team Providers Care Nanny Babysitter Name Role Phone Jeanine Smith MD Primary Care Provider Reason for Visit * Reason Onset Date Comments Med Refill 10/25/2024 Encounter Details Date Type Department Care Team ([facility] st Contact Info) Description 10/25/2024 Refill [facility] MED & PEDS [address] [place] [address] Jeanine Smith MD [address] [place] [address] Social History Tobacco Use Types Packs/Day Years [...] documented as of this encounter Care Teams Nanny Babysitter Relationship Specialty Start Date End Date Jeanine Smith MD [address] [place] [address] PCP - General Internal Medicine 03/04/24 [facility] Consulting Physician Obstetrics and Gynecology 09/30/23 documented as of this encounter
--- OUTSIDE RECORDS SUMMARY | 2025-01-14 22:02 | XMS_ITS | Encounter Summary ---
Author Organization [employer] Address [address] 7t [place] [address] Care Team Providers Care Rn Flight Name Role Phone Aster White MD Primary Care Provider [phone] Jeanine Smith MD Primary Care Provider [phone] Reason for Visit * Reason Onset Date Comments Lab Orders 12/05/2023 Encounter Details Date Type Department Care Team ([facility] st Contact Info) Description 12/05/2023 Telephone [facility] MEDICINE [address] [place] [address] Aster White MD [address] [place] [address] Lab Orders Social History Tobacco Use Types [...] Pt was scheduled for COVID test at [facility] testing site for next week before surgery. Pt verbalizes understanding and agreement with plan. * Telephone Encounter - Joslyn Oakes - 12/05/2023 9:52 AM EST Tc from pt requesting lab orders. Please contact pt for clarifications. Catalogue And Special Products Manager advise pt on labs done. documented in this encounter Plan of Treatment Not on file documented as of this encounter Visit Diagnoses Not on filedocumented in this encounter Care Teams Rn Flight Relationship Specialty Start Date End Date Aster White MD [address] [place] [address] PCP - General Family Medicine 10/10/23 03/03/24 Jeanine Smith MD [address] [place] [address] PCP - General Internal Medicine 03/04/24 [facility] Consulting Physician Obstetrics and Gynecology 09/30/23 documented as of this encounter
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
--- OUTSIDE RECORDS SUMMARY | 2025-01-14 22:02 | XMS_ITS | Encounter Summary ---
Author Organization [employer] Address [address] 7t [place] [address] Care Team Providers Care In House Counsel Name Role Phone Jeanine Smith MD Primary Care Provider Encounter Details Date Type Department Care Team (Late st Contact Info) Description 10/26/2024 Orders Only [facility] MED & PEDS [address] [place], [place] [phone] Jeanine Smith MD [address] [place] [address] Social History Tobacco Use Types Packs/Day Years [...] documented as of this encounter Care Teams In House Counsel Relationship Specialty Start Date End Date Jeanine Smith MD [address] [place] [address] PCP - General Internal Medicine 03/04/24 [facility] Consulting Physician Obstetrics and Gynecology 09/30/23 documented as of this encounter
--- OUTSIDE RECORDS SUMMARY | 2025-01-14 22:02 | XMS_ITS | Encounter Summary ---
Author Organization [facility] Address [address] [facility] 7t [place] [address] Care Team Providers Care Machine Engineer Name Role Phone Aster White MD Primary Care Provider [phone] Jeanine Smith MD Primary Care Provider [phone] Reason for Referral * Consultation (Routine) - Canceled Specialty Diagnoses / Procedures Referred By Contac t Referred To Contact Pharmacy Diagnoses Acute pulmonary embolism, unspecified pulmonary embolism type, unspecified whether acute cor pulmonale present (CMS/HCC) Minnie Adams PharmD [address] [place] [address] Phone: tel: fax: Referral ID Status Reason Start Date Expiration Date V isits Requested Visits Authorized [id number] Canceled Continuity of Care 01/10/2024 01/09/2025 1 1 Encounter Details Date Type Department Care Team (Late st Contact Info) Description 01/10/2024 Orders Only [facility] MEDICINE [address] [place], [place] [phone] Minnie Adams, PharmD [address] [place], [place] [phone] Acute pulmonary embolism, unspecified pulmonary embolism type, [...] Primary documented in this encounter Care Teams Machine Engineer Relationship Specialty Start Date End Date Aster White MD [address] [place] [address] PCP - General Family Medicine 10/10/23 03/03/24 Jeanine Smith MD [address] [place] [address] PCP - General Internal Medicine 03/04/24 [facility] Consulting Physician Obstetrics and Gynecology 09/30/23 documented as of this encounter
--- OUTSIDE RECORDS SUMMARY | 2025-01-14 22:02 | XMS_ITS | Encounter Summary ---
Author Organization [employer] [facility] Address [address]t [place] [address] Care Team Providers Care Artist And Repertoire Manager Name Role Phone Jeanine Smith MD Primary Care Provider Encounter Details Date Type Department Care Team (Latest Contact Info) Description 01/09/2025 Travel Social History Tobacco Use Types Packs/Day [...] documented as of this encounter Care Teams Artist And Repertoire Manager Relationship Specialty Start Date End Date Jeanine Smith MD [address] [place] [address] PCP - General Internal Medicine 03/04/24 [facility] Consulting Physician Obstetrics and Gynecology 09/30/23 documented as of this encounter
--- OUTSIDE RECORDS SUMMARY | 2025-01-14 22:02 | XMS_ITS | Encounter Summary ---
Author Organization [employer] Address [address] [place] [address] Care Team Providers Care Arboreal Scientist Name Role Phone Jeanine Smith MD Primary Care Provider [phone] Encounter Details Date Type Department Care Team (Late st Contact Info) Description 07/29/2024 Orders Only [facility] MEDICINE [address] [place] [address] Sharron Pace, CN [address] [place] [address] Social History Tobacco Use Types Packs/Day Years [...] ORDERABLES F inal Result Performing Organization Address City/State/[facility] Co de Phone Number [facility] [address] [place] [address] documented in this encounter Visit Diagnoses Not on filedocumented in this encounter Additional Health Concerns Assessment Noted Time PHQ-9 Depression Total Score: 15 024 2:35 PM EDT documented as of this encounter Care Teams Arboreal Scientist Relationship Specialty Start Date End Date Jeanine Smith MD [address] [place] [address] PCP - General Internal Medicine 03/04/24 [facility] Consulting Physician Obstetrics and Gynecology 09/30/23 documented as of this encounter
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
--- OUTSIDE RECORDS SUMMARY | 2025-01-14 22:02 | XMS_ITS | Encounter Summary ---
Author Organization [email or web address] Address [address] 7[address] [place] [address] Care Team Providers Care House Nurse Name Role Phone Aster White MD Primary Care Provider [phone] Jeanine Smith MD Primary Care Provider [phone] Reason for Visit * Reason Onset Date Comments Call Back Request 12/27/2023 Encounter Details Date Type Department Care Team ([facility] st Contact Info) Description 12/27/2023 Telephone [facility] MEDICINE [address] [place] [address] Aster White MD [address] [place] [address] Call Back Request Social History Tobacco Use [...] prescription direction is Eliquis 5 MG tablet [[id number]] Take 1 tablet (5 mg) by mouth [...] on filedocumented in this encounter Care Teams House Nurse Relationship Specialty Start Date End Date Aster White MD [address] [place] [phone] PCP - General Family Medicine 10/10/23 03/03/24 Jeanine Smith MD [address] [place] [address] PCP - General Internal Medicine 03/04/24 [facility] Consulting Physician Obstetrics and Gynecology 09/30/23 documented as of this encounter
--- OUTSIDE RECORDS SUMMARY | 2025-01-14 22:02 | XMS_ITS | Encounter Summary ---
Author Organization [employer] Address [address] [place] [address] Care Team Providers Care Maintenance Instructor Name Role Phone Jeanine Smith MD Primary Care Provider Reason for Visit * Reason Onset Date Comments Medication Question 05/05/2024 Encounter Details Date Type Department Care Team ([facility] st Contact Info) Description 05/05/2024 Telephone [facility] MEDICINE [address] [place] [address] Jeanine Smith MD [address] [place], [place] [phone] Medication Question Social History Tobacco Use Types [...] on filedocumented in this encounter Care Teams Maintenance Instructor Relationship Specialty Start Date End Date Jeanine Smith MD [address] [place] [phone] PCP - General Internal Medicine 03/04/24 [facility] Consulting Physician Obstetrics and Gynecology 09/30/23 documented as of this encounter
--- OUTSIDE RECORDS SUMMARY | 2025-01-14 22:02 | XMS_ITS | Encounter Summary ---
Author Organization [employer] Address [address] [place] [address] Care Team Providers Care Shirt Hemmer Name Role Phone Aster White MD Primary Care Provider [phone] Jeanine Smith MD Primary Care Provider [phone] Encounter Details Date Type Department Care Team ([facility] st Contact Info) Description 02/05/2024 Telephone [facility] MEDICINE [address] [place] [address] Aster White MD [address] [place], [place] [phone] Social History Tobacco Use Types Packs/Day Years [...] on filedocumented in this encounter Care Teams Shirt Hemmer Relationship Specialty Start Date End Date Aster White MD [address] [place] [phone] PCP - General Family Medicine 10/10/23 03/03/24 Jeanine Smith MD [address] [place] [address] PCP - General Internal Medicine 03/04/24 [facility] Consulting Physician Obstetrics and Gynecology 09/30/23 documented as of this encounter
--- OUTSIDE RECORDS SUMMARY | 2025-01-14 22:02 | XMS_ITS | Encounter Summary ---
Author Organization [employer] Address [address] [place] [address] Care Team Providers Care Manager Environmental Name Role Phone Jeanine Smtih MD Primary Care Provider Encounter Details Date Type Department Care Team (Late st Contact Info) Description 03/05/2024 Orders Only [facility] [address] [place], [place] [phone] Jeanine Smith MD [address] [place], [place] [phone] Single subsegmental pulmonary embolism without acute cor [...] (CMS/HCC) documented in this encounter Care Teams Manager Environmental Relationship Specialty Start Date End Date Jeanine Smith MD [address] [place] [phone] PCP - General Internal Medicine 03/04/24 [facility] Consulting Physician Obstetrics and Gynecology 09/30/23 documented as of this encounter
--- OUTSIDE RECORDS SUMMARY | 2025-01-14 22:02 | XMS_ITS | Encounter Summary ---
Author Organization [employer] [facility] Address [address] [place] [address] Care Team Providers Care Apparel Fashion Designer Name Role Phone Jeanine Smith MD Primary Care Provider Reason for Visit * Reason Comments Sore Throat Encounter Details Date Type Department Care Team ([facility] st Contact Info) Description 01/09/2025 12:40 PM EDT Office Visit [facility] [address] [place] [address] Name, MD Donte [address] [place] [address] Sore throat (Primary Dx) Social History Tobacco Use Types [...] Sign Reading Time Taken Comments Blood Pressure 116/71 01/09/2025 12:38 PM EDT Pulse 85 01/09/2025 12:38 PM EDT Temperature 37.1 ??C (98.7 ??F) 01/09/2025 12:38 PM E DT Respiratory Rate 20 01/09/2025 12:38 PM EDT Oxygen Saturation 98% 01/09/2025 12:38 PM EDT Inhaled Oxygen Concentration - - Weight 95.7 kg (211 lb) 01/09/2025 12:38 PM EDT Height 162.6 cm (5' 4 ) 01/09/2025 12:38 PM EDT Body Mass Index 36.22 01/09/2025 12:38 PM EDT documented in this encounter Progress Notes * Donte Name, - 01/09/2025 12:40 PM EDT Subjective Patient ID: Paolo Quintana is a 24 y.o. female who presents for Sore Throat. Patient comes for a sick visit. She complains of a couple of days of sore throat. She describes occasional headaches. She denies any fever, chills, nasal congestion, cough or shortness of breath. Sheexplains to me that her and her children were recently diagnosed with the flu. She tells sanchez sindhu had strep throat last week. The patient is not interested in prophylactic Tamiflu. Review of Systems Constitutional: Positive for fatigue. HENT: Positive for sore throat. Respiratory: Negative for cough, shortness of breath and wheezing. Cardiovascular: Negative for chest pain, palpitations and leg swelling. Visit Vitals BP 116/71 (BP Location: Left arm, Patient Position: Sitting, BP Cuff Size: Adult) Pulse 85 Temp 98.7 ??F (37.1 ??C) (Oral) Resp 20 Ht 5' 4 (1.626 m) Wt 211 lb (95.7 kg) SpO2 98% BMI 36.22 kg/m?? OB Status Having periods Smoking Status Never BSA 2.08 m?? Objective Physical Exam Constitutional: General: She is not in acute distress. Appearance: Normal appearance. She is not toxic-appearing. HENT: Mouth/Throat: Pharynx: Posterior oropharyngeal erythema present. No oropharyngeal exudate. Cardiovascular: Rate and Rhythm: Normal rate and regular rhythm. Heart sounds: No murmur heard. No gallop. Pulmonary: Effort: Pulmonary effort is normal. No respiratory distress. Breath sounds: Normal breath sounds. No wheezing. Musculoskeletal: Right lower leg: No edema. Left lower leg: No edema. Neurological: Mental Status: She is alert. Assessment/Plan Diagnoses and all orders for this visit: Sore throat Comments: Patient tested negative for COVID and flu. Rapid strep test was negative. She is not interested in prophylaxis with Tamiflu. She is recommended symptomatic treatment with fluids, rest, Tylenol, warm water and salt gargles. Orders: - POCT Rapid Covid-19 [place] ID NOW - POCT Rapid Influenza A [place] ID NOW - POCT Rapid Influenza B [place] ID NOW - POCT Rapid Strep A [place] ID NOW documented in this encounter Plan of Treatment Not on file documented as of this encounter Procedures Procedure Name Priority Date/Time Associated Diagnosis Comments POCT INFLUENZA B (ID NOW RAPID MOLECULAR) Routine 01/09/2025 12:54 PM EDT Sore throat POCT INFLUENZA A (ID NOW RAPID MOLECULAR) Routine 01/09/2025 12:53 PM EDT Sore throat POCT COVID-19 AG [place] ID NOW Routine 01/09/2025 12:52 PM EDT Sore throat POC [place] ID NOW STREP A Routine 01/09/2025 12:49 PM EDT Sore throat documented in this encounter Results * POCT Rapid Influenza B [place] ID NOW (01/09/2025 12:54 PM EDT) Influenza B Negative Negative, Indeterminate [facility] QC Media Lot # [id number] [facility] Lot# Expiration Date [facility] Swab 01/09/2025 12:5 4 PM EDT us Donte Saavedra MD POINT OF CARE TEST ENTER/EDIT OR DERABLES Final Result Performing Organization Address [facility]/ZIP Co de Phone Number [facility] [address] [place] [phone] * POCT Rapid Influenza A [place] ID NOW (01/09/2025 12:53 PM EDT) Influenza A Negative Negative, Indeterminate [facility] QC Media Lot # [id number] [facility] Lot# Expiration Date [facility] Swab 01/09/2025 12:5 3 PM EDT us Donte Saavedra MD POINT OF CARE TEST ENTER/EDIT OR DERABLES Final Result Performing Organization Address City/[facility]/ZIP Co de Phone Number [facility] [address] [place] [phone] * POCT Rapid Covid-19 [place] ID NOW (01/09/2025 12:52 PM EDT) Coronavirus Antigen PCR Negative Negative, Indeterminate, None Detected, Invalid, Specimen unsatisfactory for evaluation, Weakly Positive QC Media Lot # [id number] Lot# Expiration Date Swab 01/09/2025 12:5 2 PM EDT us Donte Saavedra MD POINT OF CARE TEST ENTER/EDIT OR DERABLES Final Result * POCT Rapid Strep A [place] ID NOW (01/09/2025 12:49 PM EDT) Rapid Strep A Screen Negative Negative, None Detected QC Media Lot # [id number] Lot# Expiration Date Swab 01/09/2025 12:4 9 PM EDT us Donte Name POINT OF CARE TEST ENTER/EDIT OR DERABLES Final Result documented in this encounter Visit Diagnoses Diagnosis Sore throat- Primary Acute pharyngitis documented in this encounter Additional Health Concerns Assessment Noted Time PHQ-9 Depression Total Score: 15 024 2:35 PM EDT documented as of this encounter Care Teams Apparel Fashion Designer Relationship Specialty Start Date End Date Jeanine Smith MD [address] [place] [phone] PCP - General Internal Medicine 03/04/24 [facility] Consulting Physician Obstetrics and Gynecology 09/30/23 documented as of this encounter
--- OUTSIDE RECORDS SUMMARY | 2025-01-14 22:02 | XMS_ITS | Encounter Summary ---
Author Organization [employer] Address [address] [place] [address] Care Team Providers Care Cancer Program Coordinator Name Role Phone Aster White MD Primary Care Provider [phone] Jeanine Smith MD Primary Care Provider [phone] Encounter Details Date Type Department Care Team ([facility] st Contact Info) Description 12/10/2023 Telephone [facility] MEDICINE [address] [place] [address] Aster White MD [address] [place], [place] [phone] Social History Tobacco Use Types Packs/Day Years [...] on filedocumented in this encounter Care Teams Cancer Program Coordinator Relationship Specialty Start Date End Date Aster White MD [address] [place] [phone] PCP - General Family Medicine 10/10/23 03/03/24 Jeanine Smith MD [address] [place] [phone] PCP - General Internal Medicine 03/04/24 [facility] Consulting Physician Obstetrics and Gynecology 09/30/23 documented as of this encounter
--- OUTSIDE RECORDS SUMMARY | 2025-01-14 22:03 | XMS_ITS | Clinical Summary ---
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 Symptoms mild. No evidence of dehydration. -Supportive care advised. -Isolation recommendations discussed. Lower abdominal pain 12/08/2024 Assessment & Plan (12/08/2024 10:15 AM EDT): 2 days of increasing left lower abdominal pain in setting of light vaginal bleeding. Urine Hcg negative. Not on contraception. Exam with guarding. Differential includes ectopic , ovarian pathology, diverticulitis, PID vs other -pt to go to ER at [facility] for further work up -gc/chl swab [...] to go to ER now. 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 She agrees with the plan. [...] recommended reduction of 20-30% of maintenance calories; heating equipment repairer referral offered. Recommended to decrease soda and [...] Encounters Date Type Department Care Team Description 01/14/2025 Orders Only [facility] External Provider, [facility] 01/09/2025 12:40 PM EDT Office Visit [facility] [address] [place] [phone] Name, MD Donte Sore throat (Primary Dx) 01/09/2025 Travel 01/05/2025 6:00 PM EDT Office Visit [facility] [address] [place] [phone] Tiara Simpson MD Viral upper respiratory infection (Primary Dx) 01/05/2025 Travel 12/23/2024 9:00 AM EDT Office Visit [facility] [address] [address] Chely Garner FNP Mild nausea (Primary Dx); Possible 12/11/2024 Population Health Risk Score [facility] () Department [address] [place] [phone] Provider, Population Health Generic 12/08/2024 9:40 AM EDT [facility] [address] [address] Tiara Simpson MD Lower abdominal pain (Primary Dx) 11/23/2024 Orders Only [address] [address] Moisés Garcia CNM 11/13/[address] [address] Carisa Ramos, VIPIN 11/10/[address] [address] Jeanine Smith MD Prior Authorization ( chewable tablet) 11/05/[address] [address] Jeanine Smith MD Nurse Triage 11/03/[address] [address] Mirta Padilla, ZAIN 11/02/2024 9:40 AM EST Office Visit [address] [address] Carisa Ramos NP Irregular periods (Primary Dx); Missed menses 10/31/2024 11:40 AM EST Office Visit [address] [address] Mart Bricsoe MD Viral URI 10/31/2024 Travel 10/29/2024 10:00 AM EST Office Visit [address] [address] Moisés Garcia CNM ASCUS of cervix with negative high risk HPV (Primary Dx); Procreative management; Cystocele, unspecified 10/29/2024 Orders Only [address] [address] Moisés Garcia CNM 10/29/2024 Travel 10/27/2024 9:40 AM EST [facility] [address] [address] Tiara Simpson MD Herpes infection (Primary Dx); Patient desires 10/26/2024 Orders Only [facility] [address] [place] [address] Jeanine Smith MD 10/26/2024 Refill [facility] [address] [place] [address] Jeanine Smith MD 10/25/2024 Refill [facility] [address] [facility] [place] [phone] Jeanine Smith MD 10/16/2024 Telephone [facility] [address] [place], [place] [phone] Jeanine Smith MD from Last 3 Months Immunizations Name Administration [...] Mass Index 36.22 01/09/2025 12:38 PM EDT Plan of Treatment Health Maintenance Due Date Last Done Comments Lipid Panel 1999 Alcohol/Substance Use Screening 2011 HPV Vaccines (1 - 3-dose series) 2014 Hepatitis B Vaccines (1 of 3 - 19+ 3-dose series) 2018 COVID-19 Vaccine ( - 2023-2 5 season) 2024 Influenza Vaccine (#1) 2024 8, 10/24/2017 SDOH Screening 10/10/2024 10/10/2023 Depression Monitoring 12/29/2024 06/30/2024 , 06/30/2024 Depression Screening 06/30/2025 06/30/2024, 06/30/2024 Family Planning (PISQ) 10/29/2025 10/29/2024 Tobacco Screening 01/09/2026 01/09/2025 Pap Smear 10/29/2027 10/29/2024, 09/01/2021 DTaP/Tdap/Td Vaccines [...] 2 VIEWS Routine 01/14/2025 8:15 PM EDT POCT INFLUENZA B (ID NOW RAPID MOLECULAR) Routine 01/09/2025 12:54 PM EDT Sore throat POCT INFLUENZA A (ID NOW RAPID MOLECULAR) Routine 01/09/2025 12:53 PM EDT Sore throat POCT COVID-19 AG DE [place] ROSA ID NOW Routine 01/09/2025 12:52 PM EDT Sore throat POC DE [place] ROS[place] ID NOW STREP A Routine 01/09/2025 12:49 PM EDT Sore throat POCT INFLUENZA B (ID NOW RAPID MOLECULAR) Routine 01/05/2025 6:12 PM EDT Viral upper respiratory infection POCT INFLUENZA A (ID NOW RAPID MOLECULAR) Routine 01/05/2025 6:12 PM EDT Viral upper respiratory infection POCT RAPID COVID ANTIGEN Routine 01/05/2025 6:12 PM EDT Viral upper respiratory infection POC DE [place] ID NOW STREP A Routine 01/05/2025 6:11 PM EDT Viral upper respiratory infection HCG, TOTAL, QN Routine 12/23/2024 9:46 AM EDT Possible POCT , URINE Routine 12/23/2024 9:02 AM [...] Routine 10/27/2024 10:49 AM EST Herpes infection HEPATITIS C ANTIBODY Routine 11/26/2023 3:32 PM EST HIV 1/2 ANTIGEN/ANTIBODY, FOURTH GENERATION W/RFL Routine 11/26/2023 3:32 PM EST from Last 3 Months or Most Recently Relevant to Health Maintenance Results * XR Lumbar Spine 2-3 Views (01/14/2025 8:16 PM EDT) Anatomical Region Laterality Modality Spine, L-spine Radiographic Lucero ging 01/14/2025 8:16 PM EDT Narrative 01/14/2025 8:19 PM EDT ? [facility] ?[address] ?[place] [address] ?XRay Report ? Signed ? Patient: Esquivel Lilian,Emady ?MR#: M ?? [id number] ? : 2000 ?Acct:[id number] ? Age/Sex: 24 / F ?ADM Date: 01/14/25 ? Loc: HO.ED ? Attending Dr: ? Ordering Physician: Penny Palma NP ?? Date of Service: 01/14/25 ?? Procedure(s): XR lumbar spine 2-3V ?? Accession Number(s): [id number] ? cc: Jeanine Smith MD; Penny Palma [...] by Sharyn Chatman MD in OV> ? 01/14/25 2018 ? DD/ 2016 ? TD/TT: 01/14/252015 ? Child Protective Investigator: ? Procedure Note Danica, Harshad - 01/14/[address] [address] XRay Report Signed Patient: Paolo AngelesMR#: M [id number] : 2000Acct:[id number] Age/Sex: 24 / FADM Date: 01/14/25 Loc: HO.ED Attending Dr: Ordering Physician: Penny Palma NP Date of Service: 01/14/25 Procedure(s): XR lumbar spine 2-3V Accession Number(s): [id number] cc: Jeanine Smith MD; Penny Palma NP [...] in OV> 01/14/252017 DD/ 15 TD/TT: 01/14/252015 Child Protective Investigator: us [facility] External Provider IMG XR PROCEDURES Edited Result - Final * XR Chest 2 Views (01/14/2025 8:15 PM EDT) Anatomical Region Laterality Modality Chest Radiographic Lucero ging 01/14/2025 8:15 PM EDT Narrative 01/14/2025 8:18 PM EDT ? [facility] ?[address] ?[place] [address] ?XRay Report ? Signed ? Patient: Paolo Angeles ?MR#: M ?? [id number] ? : 2000 ?Acct:[id number] ? Age/Sex: 24 / F ?ADM Date: 01/14/25 ? Loc: HO.ED ? Attending Dr: ? Ordering Physician: Penny Palma NP ?? Date of Service: 01/14/25 ?? Procedure(s): XR chest 2V ?? Accession Number(s): [id number] ? cc: Jeanine Smith MD; Penny Palma [...] by Sharyn Chatman MD in OV> ? 01/14/25 2018 ? DD/ 2015 ? TD/TT: 01/14/252014 ? Child Protective Investigator: ? Procedure Note Harshad Mishra - 01/14/2025 [facility] [address] [place] [address] XRay Report Signed Patient: Paolo AngelesMR#: M [id number] : 2000Acct:[id number] Age/Sex: 24 / FADM Date: 01/14/25 Loc: HO.ED Attending Dr: Ordering Physician: Penny Palma NP Date of Service: 01/14/25 Procedure(s): XR chest 2V Accession Number(s): [id number] cc: Jeanine Smith MD; Penny Palma NP [...] in OV> 01/14/252017 DD/ 14 TD/TT: 01/14/252014 Child Protective Investigator: [facility] External Provider IMG XR PROCEDURES Edited Result - Final * POCT Rapid Influenza B [place] ROSA ID NOW (01/09/2025 12:54 PM EDT) Only the most recent of3 resultswithin the time period is included. Influenza B Negative Negative, Indeterminate [facility] QC Media Lot # [id number] [facility] Lot# Expiration Date 1082 [facility] Swab 01/09/2025 12:5 4 PM EDT Donte Saavedra MD POINT OF CARE TEST ENTER/EDIT OR DERABLES Final Result [facility] [address] [place] [address] [phone] * POCT Rapid Influenza A [place] ID NOW (01/09/2025 12:53 PM EDT) Only the most recent of3 resultswithin the time period is included. Pathologist [facility] Influenza A Negative Negative, Indeterminate [facility] QC Media Lot # [id number] [facility] Lot# Expiration Date 1082 [facility] Swab 01/09/2025 12:5 3 PM EDT [facility]INT OF [facility]ARE [facility] ENTER/EDIT OR DERABLES Final Result [facility] [address] [place] [phone] * POCT Rapid Covid-19 [place] ID NOW (01/09/2025 12:52 PM EDT) [facility] Coronavirus Antigen PCR Negative Negative, Indeterminate, None Detected, Invalid, Specimen unsatisfactory for evaluation, Weakly Positive QC Media Lot # [id number] Lot# Expiration Date Swab 01/09/2025 12:5 2 PM EDT [facility] POINT OF CARE TEST ENTER/EDIT OR DERABLES Final Result * POCT Rapid Strep A [place] ID NOW (01/09/2025 12:49 PM EDT) Only the most recent of2 resultswithin the time period is included. [facility] Rapid Strep A Screen Negative Negative, None Detected QC Media Lot # [id number] Lot# Expiration Date Swab 01/09/2025 12:4 9 PM EDT [facility] POINT OF CARE TEST ENTER/EDIT OR DERABLES Final Result * POCT Rapid COVID-19 Binax NOW (01/05/2025 6:12 PM EDT) Only the most recent of3 resultswithin the time period is included. [facility] Rapid COVID Ag Negative Swab 01/05/2025 6:12 PM EDT Tiara Simpson MD POINT OF CARE TEST ENTER/E DIT ORDERABLES Final Result * hCG, Total, Quantitative (12/23/2024 9:46 AM EDT) Only the most recent of2 resultswithin the time period is included. HCG Quantitative <2 mIU/mL [facility] Comment:Weeks post LMP Appr oximate hCG(Last Menstrual Period) Range (mIU/ml)3 - 4 weeks 9 - 1304 - 5 weeks 75 - 2,6005 - 6 weeks 850 - 20,8006 - 7 weeks 4000 - 100,2007 - 12 weeks 11,500 - 289,27800 - 16 weeks 18,300 - 137,37159 - 29 weeks (2nd trimester) 1,400 - 53,82516 - 41 weeks (3rd trimester) 940 - 60,000The De [place] Rosa B- hCG assay is used for the early detection ofpregnancy; it cannot be used to diagnose any conditionunrelated to . If a B-hCG level is not supportedby the clinical evidence, results should be confirmed by analternative method (qualitative urine hCG, for example). Blood Venous blood specimen / Unknown 12/23/2024 9:46 AM EDT 12/23/2024 11:06 AM EDT Chely [facility]BAL[facility] LAB BLOOD ORDERABLES Final Res ult [facility] [address] [place] [phone] * POCT , urine manually resulted (12/23/2024 9:02 AM EDT) Only the most recent of3 resultswithin the time period is included. Preg Test, Ur Negative Negative, Indeterminate, None Detected, Invalid, Specimen unsatisfactory for evaluation, Weakly Positive Urine 12/23/2024 9:02 AM EDT [facility]ly [facility] POINT OF CARE TEST ENTER/EDIT ORDERABLES Final Result * Chlamydia/N. Gonorrhoeae RNA, TMA, Vagina (12/08/2024 10:01 AM EDT) Only the most recent of2 resultswithin the time period is included. CT PCR NOT DETECTED Not Detect. [facility] Comment:A not detected test result does [...] psychologicalconsequences. NG PCR NOT DETECTED Not Detect. [facility] Comment:A not detected test result does [...] AM EDT 12/08/2024 4:56 PM EDT Narrative [facility] - 12/09/2024 5:22 AM EDT Vaginal Tiara Simpson MD LAB MICROBIOLOGY - GENERAL ORDERABLES Final Result [facility] [address] [place] [address] [phone] * TSH W/Reflex to FT4 (11/02/2024 10:17 AM EST) TSH reflex Free T4 1.22 0.32 - 4.0 uIU/mL [facility] Blood Venous blood specimen / Unknown 11/02/2024 10:17 AM EST 11/02/2024 11:30 AM EST us Carisa Ramos PACKAGING DESIGNER LAB BLOOD ORDERABLES Final Resul t [facility] [address] [place] [phone] * (ABNORMAL) Comprehensive Metabolic Panel (11/02/2024 10:17 AM EST) Pathologist [facility] Sodium 138 135 - 145 mmol/L [facility] Potassium 3.6 3.3 - 5.1 mmol/L [facility] Chloride 106 96 - 108 mmol/L [facility] Carbon Dioxide 26 22 - 29 mmol/L [facility] Anion Gap 10(L) 12 - 20 [facility] Urea Nitrogen (BUN) 11 9 - 16 mg/dL [facility] Creatinine, Serum 0.55 0.5 - 1.4 mg/dL [facility] Estimated Glomerular Filt Rate >60 [facility] Comment:Chronic Kidney Disea se: Estimated GFR < 60 mL/min/1.38x0Ymhbkf Kidney Disease: Estimated GFR < 15 mL/min/1.73m2 Glucose 97 60 - 115 mg/dL [facility] Calcium 8.7 8.4 - 10.2 mg/dL [facility] Bilirubin, Total 0.4 0.0 - 1.0 mg/dL [facility] Aspartate Amino Transferase 15 5 - 31 U/L [facility] Alanine Aminotransferase 20 0 - 31 U/L [facility] Total Protein 7.2 6.5 - 8.0 g/dL [facility] Albumin Level 3.9 3.5 - 5.0 g/dL [facility] Alkaline Phosphatase 77 39 - 117 U/L [facility] Blood Venous blood specimen / Unknown 11/02/2024 10:17 AM EST 11/02/2024 11:30 AM EST Carisa Ramos PACKAGING DESIGNER LAB BLOOD ORDERABLES Final Resul t [facility] [address] [place] [phone] * POCT Influenza B manually resulted (10/31/2024 12:11 PM EST) [facility] Rapid Influenza B Ag Negative Negative, Indeterminate QC Media Lot # [id number] Lot# Expiration Date Swab 10/31/2024 12:1 1 PM EST Mart Briscoe MD POINT OF CARE TEST ENTER/EDIT OR DERABLES Final Result * POCT Influenza A manually resulted (10/31/2024 12:11 PM EST) [facility] Rapid Influenza A Ag Negative Negative, Indeterminate QC Media Lot # [id number] Lot# Expiration Date Swab Nasopharyngeal structure / Unknown 10/31/2024 12:11 PM EST Mart Briscoe MD POINT OF CARE TEST ENTER/EDIT OR DERABLES Final Result * POCT rapid strep A manually resulted (10/31/2024 12:11 PM EST) [facility] Rapid Strep A Screen Negative Negative, None Detected QC Media Lot # [id number] Lot# Expiration Date Swab 10/31/2024 12:1 1 PM EST us Mart Briscoe MD POINT OF CARE TEST ENTER/EDIT OR DERABLES Final Result * HPV DNA, Low/High Risk (10/29/2024 10:40 AM EST) HPV High Risk Negative Negative [facility] HPV Genotype 16 Negative Negative [facility] HPV Genotype 18 Negative Negative [facility] Comment:HPV testing performe d at [facility] (CLIA#[id number]), [address] [place] [id number].Testing for HPV was performed using the [employer] NBA 6800system. The presence of HPV in [...] AM EST 10/30/2024 7:17 AM EST us Moisés Garcia [facility] LAB BLOOD ORDERABLES Homa siu Result [facility] [address] [place] [phone] * Pap Smear (10/29/2024 10:40 AM EST) Swab Cervix uteri structure / Unknown 10/29/2024 10:40 AM EST 10/30/2024 6:30 AM EST Narrative [facility] - 11/06/2024 11:50 AM EST ----- ------- Name: Esquivel Lilian,Emady ?Age/Sex: 24/F ? : 2000 Unit#: [id number] ?? Attend Dr: ?Re10/29/24 ?Status: PRE REF ? Location: HO.LNP ?Disch: ? ----- ------- SPEC : [id number] ? RECD: 10/30/24 ? STATUS: ??SOUT ? REQ NUM: [id number] ? LEXIS: 10/29/24 ? SUBM DR: MOISÉS GARCIAM ? ENTERED: ??10/30/24 ?SP TYPE: Pap Smr [...] END OF REPORT ? us Moisés Garcia [facility] LAB CYTOLOGY ORDERABLES F inal Result [facility] [address] [place] [address] [phone] * Herpes Simplex Virus Culture with Reflex Typing (10/27/2024 10:49 AM EST) HSV Culture/Type SEE NOTE [facility] Comment:HERPES SIMPLEX VIRUS CULTURE W/RFL TO TYPING Micro Number: [id number] Test Status: Final Specimen Source: Not given Specimen Quality: Adequate HSV Culture: Not IsolatedTHIS TEST WAS PERFORMED AT:[facility] [address] [id number] MERATI,MD Swab Topography unknown / Unknown 10/27/2024 10:49 AM EST 10/27/2024 1:08 PM EST us Tiara Simpson MD LAB MICROBIOLOGY - GENERAL ORDERABLES Final Result Performing Organization Address [facility]/ZIP Co de Phone Number [facility] [address] [place] [phone] * Hepatitis C Ab (11/26/2023 3:32 PM EST) Pathologist [facility] Hepatitis C Antibody Nonreactive Nonreactive [facility] Comment:Antibodies to HCV no t detected; does not exclude early acuteHCV infection. 11/26/2023 3:32 PM EST 11/26/2023 5:25 PM EST us Aster White MD LAB BLOOD ORDERABLES Final Re sult Performing Organization Address [facility] Co de Phone Number [facility] [address] [place] [phone] * HIV-1/2 Antigen and Antibodies, Fourth Generation, with Reflexes (11/26/2023 3:32 PM EST) HIV AB/AG Nonreactive Nonreactive [facility] Comment:HIV-1 p24 Ag and/or HIV-1/HIV-2 Ab not detected.A test result that is nonreactive does not exclude thepossibility of exposure to or infection with HIV-1 and/orHIV-2. Nonreactive results in this assay for individualswith prior exposure to HIV-1 and/or HIV-2 may be due toantigen and antibody levels that are below the limit ofdetection of this assay.The Votigoni[employer]inal HIV Ag/Ab Combo assay result andsupplemental assay results should be interpreted inconjunction with the patient's clinical presentation,history and other laboratory results. If the results areinconsistent with clinical evidence, additional testing issuggested to confirm the result. 11/26/2023 3:32 PM EST 11/26/2023 5:25 PM EST us Aster White MD LAB BLOOD ORDERABLES Final Re sult [facility] [address] [place] [address] [phone] from Last 3 Months or Most Recently Relevant to Health Maintenance Insurance [employer] Care Teams Lime Plant Operator Relationship Specialty Start Date End Date Jeanine Smith MD [address] [place] [phone] PCP - General Internal Medicine 03/04/24 [facility] Consulting Physician Obstetrics and Gynecology 09/30/23
[2025-01-14 22:20] VITALS: BP 120/77; PULSE 99; RESP 19; TEMP 36.6; O2SAT 99
[2025-01-14 23:49] VITALS: BP 120/77; PULSE 99; RESP 19; TEMP 36.6; O2SAT 99
--- NOTE | 2025-01-14 23:49 | PC.NURSE ---
reviewed discharge instructions with pt. pt verbalized understanding no sign of distress. pt ambulated with a steady gait.
== END 2025-01-14 23:50 | disposition home or self-care (01) ==
PROVIDERS: Emergency Provider Emergency Medicine; PCP Internal Medicine
DX: Z04.1 Encounter for examination and observation following transport accident (principal); M54.50 Low back pain, unspecified; R00.0 Tachycardia, unspecified; Z86.711 Personal history of pulmonary embolism; Z79.01 Long term (current) use of anticoagulants
CPT/HCPCS: 71046; 72100; 93005; 99283; 99285

== ENCOUNTER → 2025-01-14 19:48 | Outpatient (BNV) | payer MEDICAID, SELFPAY | PROVIDERS: Emergency Provider Emergency Medicine; PCP Internal Medicine; Visit Provider Internal Medicine Cardiovascular Disease | DX: R00.0 Tachycardia, unspecified (principal) | CPT/HCPCS: 93010 ==

== ENCOUNTER → 2025-01-14 19:48 | Outpatient (BNV) | payer MEDICAID, SELFPAY | PROVIDERS: PCP Internal Medicine; Visit Provider Radiology Diagnostic Radiology | DX: S39.92XA Unspecified injury of lower back, initial encounter (principal); R07.9 Chest pain, unspecified | CPT/HCPCS: 71046; 72100 ==

== ENCOUNTER 2025-02-03 16:51 | Outpatient (REF) | payer MEDICAID, SELFPAY ==
[2025-02-03 18:49] LABS: Bacterial Vaginosis PCR NEGATIVE (Negative); Candida Group PCR DETECTED (Not Detect); Candida glab krusei PCR NOT DETECTED (Not Detect); Trichomonas vaginalis PCR NOT DETECTED (Not Detect)
[2025-02-03 20:23] LABS: CT PCR NOT DETECTED (Not Detect.); NG PCR NOT DETECTED (Not Detect.)
== END 2025-02-03 16:52 | disposition home or self-care (01) ==
LOC: HO.HHCLNP 16:51
PROVIDERS: Visit Provider Emergency Medicine
DX: N89.8 Other specified noninflammatory disorders of vagina (principal)
CPT/HCPCS: 81515; 87086; 87491; 87591

== ENCOUNTER 2025-02-21 21:29 | Emergency (ER) | payer MEDICAID, SELFPAY ==
[2025-02-21 21:44] VITALS: BP 120/78; PULSE 119; O2SAT 97; BMI 37.4
[2025-02-21 21:59] VITALS: BP 120/74; PULSE 91; RESP 16; TEMP 37; O2SAT 98
--- NOTE | 2025-02-21 22:05 | PC.NURSE ---
ambulated steadily to bathroom
[2025-02-21 22:33] LABS: Basophils Absolute Auto 0.1 X10*3/uL (0.0-0.2); Basophils Percent Auto 0.6 % (0-2); Eosinophils Absolute Auto 0.2 X10*3/uL (0.0-0.4); Eosinophils Percent Auto 2.1 % (0-4); Hematocrit 35.1 % (37.0-47.0); Hemoglobin 11.5 g/dl (12.0-16.0); Imm Gran Abs Auto 0.01 X10*3/uL (0.00-0.03); Imm Gran Pct Auto 0.1 % (0.0-0.4); Lymphocytes Absolute Auto 2.5 X10*3/uL (1.2-4.9); Lymphocytes Percent Auto 29.4 % (20-40); MANUAL DIFF FLAG NO; Mean Corpuscular HGB Conc 32.8 g/dl (31.0-35.0); Mean Corpuscular Hemoglobin 26.8 pg (27.0-33.0); Mean Corpuscular Volume 81.8 fL (80.0-98.0); Mean Platelet Volume 9.9 fL (9.4-12.3); Monocytes Absolute Auto 0.6 X10*3/uL (0.1-1.2); Monocytes Percent Auto 6.5 % (2-11); Neutrophils Absolute Auto 5.3 x10*3/uL (2.0-8.3); Neutrophils Percent Auto 61.3 % (45-73); Platelet Count 295 X10*3/uL (160-400); Red Blood Count 4.29 X10*6/uL (4.20-5.50); Red Cell Distribution Width 14.8 % (11.0-16.0); White Blood Count 8.6 X10*3/uL (4.8-10.8)
[2025-02-21 22:53] LABS: Alanine Aminotransferase 24 U/L (0-31); Albumin Level 4.3 g/dL (3.5-5.0); Alkaline Phosphatase 94 U/L (39-117); Anion Gap 14 (12-20); Aspartate Amino Transferase 17 U/L (5-31); Bilirubin Total 0.1 mg/dL (0.0-1.0); Blood Urea Nitrogen 16 mg/dL (9-16); Calcium 9.3 mg/dL (8.4-10.2); Carbon Dioxide 24 mmol/L (22-29); Chloride 108 mmol/L (96-108); Creatinine Clr Calc Pharmacy 181.9; Estimated Glomerular Filt Rate > 60; Glucose Random 101 mg/dL (60-115); HCG Quantitative < 2 mIU/mL; Potassium 3.6 mmol/L (3.3-5.1); Sodium 142 mmol/L (135-145); Total Protein 7.5 g/dL (6.5-8.0)
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
[2025-02-21 23:15] VITALS: BP 120/75; PULSE 89; RESP 16; TEMP 36.5; O2SAT 98
== END 2025-02-21 23:15 | disposition home or self-care (01) ==
PROVIDERS: Emergency Provider Emergency Medicine
DX: S00.83XA Contusion of other part of head, initial encounter (principal); R10.2 Pelvic and perineal pain; R51.9 Headache, unspecified; Y04.2XXA Assault by strike against or bumped into by another person, initial encounter; Y93.9 Activity, unspecified; Y92.9 Unspecified place or not applicable; Y99.8 Other external cause status
CPT/HCPCS: 36415; 80053; 84702; 85025; 99283; 99284

== ENCOUNTER 2025-03-05 15:53 | Emergency (ER) | payer MEDICAID, SELFPAY ==
--- NOTE | 2025-03-05 15:56 | ECG_ITS ---
Test Reason : cp Blood Pressure : */* mmHG Vent. Rate : 97 BPM Atrial Rate : 97 BPM P-R Int : 124 ms QRS Dur : 86 ms QT Int : 352 ms P-R-T Axes : 33 43 26 degrees QTcB Int : 447 ms Normal sinus rhythm Normal ECG When compared with ECG of 14-Jan-2025 19:51, No significant change was found Referred By: Winsome Veloz Electronically Signed By: HERMAN PRESCOTT
[2025-03-05 15:59] VITALS: BP 123/81; PULSE 98; RESP 18; TEMP 36; O2SAT 98; BMI 36.5
--- NOTE | 2025-03-05 16:00 | ED_ITS ---
HPI - Chest Pain General Chief Complaint: Back Pain/Injury Stated Complaint: hx of PE SOB chest pain Related Data Home Medications ?Medication ?Instructions ?Recorded ?Confirmed ascorbic acid (vitamin C) 500 mg 500 mg QAM 12/24/23 03/10/24 tablet (Vitamin C) pediatric multivitamin no.17 with 1 tab PO QAM 12/24/23 03/10/24 fluoride 0.5 mg chewable tablet (Multi-Vitamin With Fluoride) Previous Rx's ?Medication ?Instructions ?Recorded apixaban 5 mg tablet (Eliquis) See Rx Instructions .Route 12/26/23 .COMPLEX #74 tabs valacyclovir 1 gram tablet 1,000 mg PO Q8H #15 tabs 12/26/23 mupirocin 2 % topical ointment 1 appl topical TID #15 grams 03/23/24 amoxicillin 400 mg-potassium 10 ml PO BID 10 days #200 mL 08/22/24 clavulanate 57 mg/5 mL oral suspension ibuprofen 100 mg/5 mL oral 400 mg (20 mL) PO Q6H PRN pain 08/22/24 suspension #473 mL cyclobenzaprine 10 mg tablet 10 mg PO TID PRN muscle spasm #10 01/14/25 tabs Allergies Allergy/AdvReac Type Severity Reaction Status Date / Time cinnamon [CINNAMON] Allergy Severe ANAPHYLAXIS Verified 03/05/25 16:02 oats [OATS] Allergy Severe ANAPHYLAXIS Verified 03/05/25 16:02 apple [APPLES] Allergy Intermediate ANGIOEDEMA Verified 03/05/25 16:02 PMFSH Past Medical History Medical History Miscarriage within last 12 months Migraines Migraines Depression Anxiety Family History Family History Father Chronic mental illness Mother CVD (cardiovascular disease) Chronic mental illness Family/Other Breast cancer Social History Social History Unable to assess alcohol history related to: Unknown Alcohol intake: unknown Patient Tobacco Use Status: Never used Tobacco Second Hand Smoke Exposure: No Advance Directives: Yes Advance Directives on File: Yes Advance Directives Date on File: 12/25/23 Do you have a plan to hurt others: No Plan service: No Physical Exam 2 Vital Signs: Vital Signs: Last Vital Signs Temp 96.8 F 03/05/25 15:59 Pulse 98 03/05/25 15:59 Resp 18 03/05/25 15:59 BP 123/81 03/05/25 15:59 Pulse Ox 98 03/05/25 15:59 O2 Del Method Room Air 03/05/25 15:59 BMI result Body Mass Index 36.5 Course Course Course Narrative: 03/05/25 1600 LILIA Ugarte This is a Rapid Medical Examination (RME) performed by Rashid Veloz PA-C in triage. Full HPI, ROS, assessment and treatment plan per primary provider in the Main ED. Hx: 24 yo F hx PE (not on AC) here for chest pain rad between shoulder blades worse w/ deep inspiration since yesterday, worsening. assoc dizziness. reports hx provoked PE - on eliquis x6 mo, this was discontinued 1 yr ago. just had nexplanon removed. PE/vitals: tachycardic Plan: labs, trop ekg Reevaluation(s) Reevaluation #1: Patient left the emergency department before myself or any of the other clinicians could review or explain physical exam findings, test results, need or lack there of for additional testing, treatment options, or a treatment plan. Medical Decision Making Lab Data 03/05/25 16:15 03/05/25 16:15 Labs: Lab Results 03/05/25 Range/Units 16:15 WBC 10.6 (4.8-10.8) X10*3/uL RBC 4.31 (4.20-5.50) X10*6/uL Hgb 11.6 L (12.0-16.0) g/dl Hct 35.5 L (37.0-47.0) % MCV 82.4 (80.0-98.0) fL MCH 26.9 L (27.0-33.0) pg MCHC 32.7 (31.0-35.0) g/dl RDW 15.1 (11.0-16.0) % Plt Count 313 (160-400) X10*3/uL MPV 10.1 (9.4-12.3) fL Immature Gran % (Auto) 0.4 (0.0-0.4) % Neut % (Auto) 66.9 (45-73) % Lymph % (Auto) 25.2 (20-40) % [place] % (Auto) 5.6 (2-11) % Eos % (Auto) 1.4 (0-4) % Baso % (Auto) 0.5 (0-2) % Lymph # (Auto) 2.7 (1.2-4.9) X10*3/uL [place] # (Auto) 0.6 (0.1-1.2) X10*3/uL Eos # (Auto) 0.2 (0.0-0.4) X10*3/uL Baso # (Auto) 0.1 (0.0-0.2) X10*3/uL Abs Immat Gran (auto) 0.04 H (0.00-0.03) X10*3/uL Absolute Neuts (auto) 7.1 (2.0-8.3) x10*3/uL Absolute Nucleated RBC 0.000 (0.0-0.012) X10*3/uL Nucleated RBC % (auto) 0.0 (0.0-0.2) /100WBC Sodium 141 (135-145) mmol/L Potassium 3.8 (3.3-5.1) mmol/L Chloride 106 (96-108) mmol/L Carbon Dioxide 26 (22-29) mmol/L Anion Gap 13 (12-20) BUN 15 (9-16) mg/dL Creatinine 0.60 (0.5-1.4) mg/dL Estim Creat Clear Calc 161.6 Estimated GFR > 60 Random Glucose 120 H (60-115) mg/dL Calcium 9.5 (8.4-10.2) mg/dL Magnesium 1.8 (1.6-2.6) mg/dL Total Bilirubin 0.2 (0.0-1.0) mg/dL AST 17 (5-31) U/L ALT 20 (0-31) U/L Alkaline Phosphatase 84 (39-117) U/L Troponin I High Sens < 2.7 (<3.5-17.0) ng/L Total Protein 6.9 (6.5-8.0) g/dL Albumin 4.3 (3.5-5.0) g/dL Discharge Plan Discharge Clinical Impression: Chest pain Patient Disposition: Left W/O Completing Treatment Prescriptions: No Action amoxicillin-pot clavulanate 400-57 mg/5 mL suspension for reconstitution 10 ml PO BID 10 Days Qty: 200 0RF ibuprofen 100 mg/5 mL suspension 400 mg PO Q6H PRN (Reason: pain) Qty: 473 0RF ascorbic acid (vitamin C) [Vitamin C] 500 mg tablet 500 mg QAM Multi-Vitamin With Fluoride 0.5 mg tablet,chewable 1 tab PO QAM valacyclovir 1 gram Tablet 1,000 mg PO Q8H Qty: 15 0RF Eliquis 5 mg tablet See Rx Instructions .ROUTE .COMPLEX Qty: 74 0RF Rx Instructions: 10 mg (2 tabs) twice daily for 7 days, then 5 mg twice daily mupirocin 2 % ointment 1 appl topical TID Qty: 15 0RF cyclobenzaprine 10 mg tablet 10 mg PO TID PRN (Reason: muscle spasm) Qty: 10 0RF Discharge Date/Time: 03/05/25 19:14
[2025-03-05 16:19] LABS: MANUAL DIFF FLAG NO
[2025-03-05 16:20] LABS: Basophils Absolute Auto 0.1 X10*3/uL (0.0-0.2); Basophils Percent Auto 0.5 % (0-2); Eosinophils Absolute Auto 0.2 X10*3/uL (0.0-0.4); Eosinophils Percent Auto 1.4 % (0-4); Hematocrit 35.5 % (37.0-47.0); Hemoglobin 11.6 g/dl (12.0-16.0); Imm Gran Abs Auto 0.04 X10*3/uL (0.00-0.03); Imm Gran Pct Auto 0.4 % (0.0-0.4); Lymphocytes Absolute Auto 2.7 X10*3/uL (1.2-4.9); Lymphocytes Percent Auto 25.2 % (20-40); Mean Corpuscular HGB Conc 32.7 g/dl (31.0-35.0); Mean Corpuscular Hemoglobin 26.9 pg (27.0-33.0); Mean Corpuscular Volume 82.4 fL (80.0-98.0); Mean Platelet Volume 10.1 fL (9.4-12.3); Monocytes Absolute Auto 0.6 X10*3/uL (0.1-1.2); Monocytes Percent Auto 5.6 % (2-11); Neutrophils Absolute Auto 7.1 x10*3/uL (2.0-8.3); Neutrophils Percent Auto 66.9 % (45-73); Platelet Count 313 X10*3/uL (160-400); Red Blood Count 4.31 X10*6/uL (4.20-5.50); Red Cell Distribution Width 15.1 % (11.0-16.0); White Blood Count 10.6 X10*3/uL (4.8-10.8)
[2025-03-05 16:40] LABS: Alanine Aminotransferase 20 U/L (0-31); Albumin Level 4.3 g/dL (3.5-5.0); Anion Gap 13 (12-20); Aspartate Amino Transferase 17 U/L (5-31); Bilirubin Total 0.2 mg/dL (0.0-1.0); Blood Urea Nitrogen 15 mg/dL (9-16); Calcium 9.5 mg/dL (8.4-10.2); Carbon Dioxide 26 mmol/L (22-29); Chloride 106 mmol/L (96-108); Creatinine Clr Calc Pharmacy 161.6; Estimated Glomerular Filt Rate > 60; Glucose Random 120 mg/dL (60-115); Magnesium 1.8 mg/dL (1.6-2.6); Potassium 3.8 mmol/L (3.3-5.1); Sodium 141 mmol/L (135-145); Total Protein 6.9 g/dL (6.5-8.0)
[2025-03-05 16:41] LABS: Troponin-I High Sensitivity < 2.7 ng/L (<3.5-17.0)
--- NOTE | 2025-03-05 19:13 | PC.NURSE ---
no answer from SERA at 19:10
[2025-03-05 19:58] LABS: Alkaline Phosphatase 84 U/L (39-117)
== END 2025-03-05 19:14 | disposition left against medical advice (07) ==
PROVIDERS: Physician Assistant Medical; Emergency Provider Emergency Medicine
DX: R07.89 Other chest pain (principal); Z79.899 Other long term (current) drug therapy
CPT/HCPCS: 36415; 80053; 83735; 84484; 85025; 93005; 99283

== ENCOUNTER → 2025-03-05 15:56 | Outpatient (BNV) | payer MEDICAID, SELFPAY | PROVIDERS: Emergency Provider Emergency Medicine; Visit Provider Internal Medicine | DX: R07.9 Chest pain, unspecified (principal) | CPT/HCPCS: 93010 ==

== ENCOUNTER 2025-03-15 15:53 | Outpatient (REF) | payer MEDICAID, SELFPAY ==
--- NOTE | ~2025-03-15 | US_ITS ---
EXAMINATION: US PELVIS CLINICAL INFORMATION: 3 year history of intermittent left pelvic pain described as ovary pain COMPARISON: CT 01/04/2024 TECHNIQUE: Ultrasound of the pelvis is performed using both transabdominal and transvaginal transducers along with Doppler. Transvaginal imaging is performed due to inadequate visualization transabdominally. FINDINGS: Uterus: The uterus measures 11.6 x 4.2 x 4.8 cm. The endometrial stripe l thickness is 4-5 mm. The uterus is smooth in contour and has normal myometrial echogenicity. No visible fibroid. Adnexa: Both ovaries are visualized. There is normal color flow to the adnexa. Venous and arterial waveforms were also documented bilaterally. There is no ovarian torsion. There is no pelvic ascites or fluid collection. Right ovary measures 3.7 x 2.7 x 1.8 cm . Left ovary measures 7.2 x 4.4 x 5.6 cm. There is a anechoic mass with increased through transmission and small thin peripheral septations measuring 6.1 x 4.4 x 4.9 cm. There is no internal blood flow. cm. US/US pelvic and transvaginal IMPRESSION: Left ovarian Cyst with indeterminate characteristics: Findings suggestive of but not classic for cyst, endometrioma, or dermoid. Thin walled cyst with thin septation or focal wall calcification. Follow up: 6-12 weeks. If no resolution, hemorrhagic cyst is unlikely and continued US follow up, or MRI should be considered. If MRI does not confirm endometrioma or dermoid, surgical consultation should be considered. Electronically signed by: Osvaldo Morocho MD 03/15/2025 05:40 PM EDT
--- OUTSIDE RECORDS SUMMARY | 2025-03-15 17:42 | XMS_ITS | Encounter Summary ---
Author Organization [employer] Address [address] [place] [address] Care Team Providers Care Economic Research Assistant Name Role Phone Jeanine Smith MD Primary Care Provider Encounter Details Date Type Department Care Team (Late st Contact Info) Description 03/05/2024 Orders Only [facility] [address], [place] [id number] Jeanine Smith MD [address] [place], [place] [phone] Single subsegmental pulmonary embolism without acute cor [...] (CMS/HCC) documented in this encounter Care Teams Economic Research Assistant Relationship Specialty Start Date End Date Jeanine Smith MD [address] [place] [id number] PCP - General Internal Medicine 03/04/24 [facility] Consulting Physician Obstetrics and Gynecology 09/30/23 documented as of this encounter
== END 2025-03-15 15:54 | disposition home or self-care (01) ==
LOC: HO.US 15:53
PROVIDERS: PCP Internal Medicine; Visit Provider Emergency Medicine
DX: Z87.898 Personal history of other specified conditions (principal)
CPT/HCPCS: 76830; 76856

== ENCOUNTER → 2025-03-15 15:57 | Outpatient (BNV) | payer MEDICAID, SELFPAY | PROVIDERS: PCP Internal Medicine; Visit Provider Radiology Diagnostic Radiology | DX: N83.292 Other ovarian cyst, left side (principal) | CPT/HCPCS: 76830; 76856 ==

== ENCOUNTER 2025-03-27 15:57 | Emergency (ER) | payer MEDICAID, SELFPAY ==
--- NOTE | ~2025-03-27 | XR_ITS ---
CLINICAL HISTORY: CP 2 view chest x-ray Comparison: 01/14/2025 07:59 PM EDT: CR: XR CHEST 2V Findings: The lungs are clear. Normal size heart. No acute fracture. IMPRESSION: 1. No acute findings. This document has been electronically signed by: Kaylee Ren MD on 03/27/2025 17:54:42
--- NOTE | ~2025-03-27 | CT_ITS ---
CLINICAL HISTORY: cp, sob, hx provoked PE, no AC CT angiography chest with contrast. 3D Postprocessing. Comparison: Chest x-ray 01/14/2025, CT pulmonary angiogram 01/26/2024 Findings: Pulmonary arteries are adequately visualized and evaluated to the level of distal lobar branches. No definite evidence to suggest acute pulmonary embolism within this distribution. Central pulmonary arteries are normal caliber. Normal caliber thoracic aorta. No dense focal airspace consolidation. No pleural effusion. No pneumothorax. Low lung volumes. Central airways are patent. Patchy scattered ground-glass densities. Normal heart size. No pericardial effusion. No coronary artery calcifications. Unremarkable esophagus. No acute findings within visualized lower neck. Visualized upper abdomen is unremarkable. No lymphadenopathy. No acute osseous abnormality. No lytic or sclerotic osseous lesions. Impression: 1. No evidence of acute pulmonary embolism to the level of distal lobar branches. 2. Scattered patchy ground-glass parenchymal densities, favored to represent atelectasis in the setting of low lung volumes. Mild edema or pneumonitis however may have this appearance in the appropriate clinical setting and should be correlated with patient's symptoms and clinical history. 3. Additional findings as above. This document has been electronically signed by: Bala Resendiz MD on 03/27/2025 20:45:15
--- NOTE | 2025-03-27 15:59 | ECG_ITS ---
Test Reason : PALPITATIONS Blood Pressure : */* mmHG Vent. Rate : 87 BPM Atrial Rate : 87 BPM P-R Int : 138 ms QRS Dur : 86 ms QT Int : 376 ms P-R-T Axes : 28 35 15 degrees QTcB Int : 452 ms Normal sinus rhythm Normal ECG When compared with ECG of 05-Mar-2025 15:54, No significant change was found Referred By: Miley Puente Electronically Signed By: HERMAN PRESCOTT
--- NOTE | 2025-03-27 16:04 | ED_ITS ---
HPI - Chest Pain General Chief Complaint: Dyspnea Stated Complaint: chest tightness/brain fog/headaches hx of PE Time Seen by Provider: 03/27/25 16:13 Source: patient Mode of arrival: ambulatory Limitations: no limitations History of Present Illness ED Provider: guero link np HPI narrative: Patient is a 24-year-old female with past medical history of migraine, depression, anxiety, history of provoked pulmonary embolism from cosmetic surgery 1 year ago took 6 months of anticoagulation and this was discontinued approximately 6 months ago, recent Nexplanon removal who presents emergency department for evaluation of chest tightness over the past 24 hours, ?feels like a belt around my chest?, ?like something sitting on my chest?, reporting a sharp midsternal pain with palpitations. She feels as though she can not catch her breath having to frequently focused reading intake deep breaths. Has intermittent, numbness and tingling to the bilateral hands. Denies dizziness or lightheadedness. No lower extremity redness pain or swelling. Related Data Home Medications ?Medication ?Instructions ?Recorded ?Confirmed ascorbic acid (vitamin C) 500 mg 500 mg QAM 12/24/23 0 03/10/24 tablet (Vitamin C) pediatric multivitamin no.17 with 1 tab PO QAM 4 03/10/24 fluoride 0.5 mg chewable tablet (Multi-Vitamin With Fluoride) Previous Rx's ?Medication ?Instructions ?Recorded apixaban 5 mg tablet (Eliquis) See Rx Instructions .Ro cristela 12/26/23 .COMPLEX #74 tabs valacyclovir 1 gram tablet 1,000 mg PO Q8H #15 tabs mupirocin 2 % topical ointment 1 appl topical TID #15 grams 03/23/24 amoxicillin 400 mg-potassium 10 ml PO BID 10 days #200 mL 08/22/24 clavulanate 57 mg/5 mL oral suspension ibuprofen 100 mg/5 mL oral 400 mg (20 mL) PO Q6H PRN p ain 08/22/24 suspension #473 mL cyclobenzaprine 10 mg tablet 10 mg PO TID PRN muscle s pasm #10 01/14/25 tabs Allergies Allergy/AdvReac Type Severity Reaction Status Date / Time cinnamon (CINNAMON) Allergy Severe ANAPHYLAXIS Verified 03/27/25 16:05 oats (OATS) Allergy Severe ANAPHYLAXIS Verified 03/27/25 16:05 apple (APPLES) Allergy Intermediate ANGIOEDEMA Verified 03/27/25 16:05 Review of Systems 2 Review of Systems: Yes all other systems are reviewed and are negative [facility] Past Medical History Attestation statement: The following information was validated with the patient. Source: old records reviewed Medical History Miscarriage within last 12 months Migraines Migraines Depression Anxiety Family History Family History Father Chronic mental illness Mother CVD (cardiovascular disease) Chronic mental illness Family/Other Breast cancer Social History Social History Unable to assess alcohol history related to: Unknown Alcohol intake: unknown Patient Tobacco Use Status: Never used Tobacco Smoked in Last 30 Days: No Second Hand Smoke Exposure: No Use of substances other than those prescribed or required for medical reasons: No Advance Directives: Yes Advance Directives on File: Yes Advance Directives Date on File: 12/25/23 Do you have a plan to hurt others: No Plan service: No Physical Exam 2 Vital Signs: Vital Signs: Last Vital Signs Temp 98.3 F 03/27/25 22:20 Pulse 87 03/27/25 22:20 Resp 18 03/27/25 22:20 BP 123/66 03/27/25 22:20 Pulse Ox 99 03/27/25 22:20 O2 Del Method Room Air 03/27/25 22:20 BMI result Body Mass Index 36.4 Appearance: Alert.?Oriented to person, place and time. No acute distress.?Normal affect. Eyes: Pupils equal, round and reactive to light.? ENT: Pharynx normal.?? Neck: Normal inspection.? Neck supple.?? CVS: Heart sounds normal. Normal heart rate and rhythm.? Pulses normal.?? Respiratory: No respiratory distress.? Lung sounds clear to auscultation bilaterally?? Abdomen: Soft and non-tender. Normoactive bowel sounds. Skin: Skin warm and dry.? Normal skin color.? Extremities: No lower extremity edema.? No calf ttp? Neuro: Moves all extremities spontaneously. Sensation intact bilaterally. No focal neuro deficits. Ambulates with normal steady gait. Course Course Course Narrative: Miley Puente LARISSA This is a rapid medical exam. deferred additional HPI, ROS, PE to primary provider. 24 yo female with a history of PE not on AC therapy (secondary to surgery) here with complaints of shortness of breath/chest tightness x 24hrs with numbness/tingling bilateral hands. Will obtain EKG, CXR, labs. VSS Reevaluation(s) Reevaluation #1: Patient signed out to LILIA Dumas pending CT angio of the chest Time: 19:07 Reevaluation #2: Kacie Miner PA-C have accepted care of the patient and signed out pending CTA of the chest and final disposition CT angio chest:Impression: 1. No evidence of acute pulmonary embolism to the level of distal lobar branches. 2. Scattered patchy ground-glass parenchymal densities, favored to represent atelectasis in the setting of low lung volumes. Mild edema or pneumonitis however may have this appearance in the appropriate clinical setting and should be correlated with patient's symptoms and clinical history. 3. Additional findings as above Relayed findings to the patient, she states seasonal allergies has been very bothersome, she states she has had asthma in the past, and still has a nebulizer and inhaler. On exam she is not actively wheezing. She also is a prior smoker, perhaps she is developing COPD. I relayed to the patient to follow up with primary care for pulmonary function testing. She is in agreement with the plan. I have also suggested to start taking Zyrtec for her allergy related symptoms. Medications Administered Discontinued Medications Generic Name Dose Route Start Last Admin Trade Name Freq PRN Reason Stop Dose Admin Sodium Chloride 1,000 mls @ 999 mls/hr 03/27/25 17:45 03/27/25 20:16 Ns IV 03/27/25 18:45 Infused .Q1H1M DEEP Infusion Iohexol 75 ml 03/27/25 19:32 03/27/25 19:33 Iohexol 350 Mg/Ml 100 Ml Infus..Btl IV 03/27/25 19:33 75 ml ONCE ONE Administration Medical Decision Making Medical Decision Making MDM Narrative: Patient is a 24-year-old female with past medical history of migraine, depression, anxiety, history of provoked pulmonary embolism from cosmetic surgery 1 year ago took 6 months of anticoagulation and this was discontinued approximately 6 months ago, recent Nexplanon removal who presents emergency department for evaluation of chest pain or shortness of breath as per HPI. Had serum labs obtained prior to my assumption of care CBC is without leukocytosis, has a mild normocytic anemia that does not meet transfusion criteria, no thrombocytopenia. No electrolyte derangement. No DANIELA. LFTs unremarkable. High sensitive troponin below detectable limits, ECG reveals normal sinus rhythm with ventricular rate of 81, QTC 452, no ST-elevation, T-wave inversion in lead III, V3 without prior for comparison. Differential less likely ACS given lack of risk factors, pneumonia though CXR is without consolidation or infiltrate to suggest such, no pleural effusions, no signs of fluid volume overload on examination to suggest CHF, no visualized intrathoracic mass. No recent URI symptoms. Potentially musculoskeletal pathology but denies any recent lot of just straining or heavy lifting. Given her past medical history pulmonary embolism although provoked based on her history will obtain CT angio to exclude pulmonary embolism. She presented to the emergency department 03/05/2025 with chest pain radiating between the shoulder blades worse with deep inspiration associated dizziness but ultimately left without completing treatment. Differential Diagnosis Differential Diagnoses: The differential diagnosis associated with the presentation includes (See narrative above) Admission/Observation Consideration of admission/observation: Escalation of care including admission/observation considered Lab Data MDM Lab Attestation statement: I reviewed the patient's lab results. (See narrative above) 03/27/25 16:36 03/27/25 16:36 Labs: Lab Results 03/27/25 Range/Units 16:36 WBC 7.9 (4.8-10.8) X10*3/uL RBC 4.33 (4.20-5.50) X10*6/uL Hgb 11.8 L (12.0-16.0) g/dl Hct 36.1 L (37.0-47.0) % MCV 83.4 (80.0-98.0) fL MCH 27.3 (27.0-33.0) pg MCHC 32.7 (31.0-35.0) g/dl RDW 15.3 (11.0-16.0) % Plt Count 321 (160-400) X10*3/uL MPV 10.4 (9.4-12.3) fL Immature Gran % (Auto) 0.3 (0.0-0.4) % Neut % (Auto) 66.2 (45-73) % Lymph % (Auto) 27.6 (20-40) % [place] % (Auto) 4.3 (2-11) % Eos % (Auto) 1.1 (0-4) % Baso % (Auto) 0.5 (0-2) % Lymph # (Auto) 2.2 (1.2-4.9) X10*3/uL [place] # (Auto) 0.3 (0.1-1.2) X10*3/uL Eos # (Auto) 0.1 (0.0-0.4) X10*3/uL Baso # (Auto) 0.0 (0.0-0.2) X10*3/uL Abs Immat Gran (auto) 0.02 (0.00-0.03) X10*3/uL Absolute Neuts (auto) 5.3 (2.0-8.3) x10*3/uL Absolute Nucleated RBC 0.000 (0.0-0.012) X10*3/uL Nucleated RBC % (auto) 0.0 (0.0-0.2) /100WBC D-Dimer High Sensitivty < 150 NG/ML Hold Blue Top Cancelled Sodium 142 (135-145) mmol/L Potassium 3.5 (3.3-5.1) mmol/L Chloride 108 (96-108) mmol/L Carbon Dioxide 24 (22-29) mmol/L Anion Gap 14 (12-20) BUN 14 (9-16) mg/dL Creatinine 0.58 (0.5-1.4) mg/dL Estim Creat Clear Calc 166.9 Estimated GFR > 60 Random Glucose 111 (60-115) mg/dL Calcium 9.0 (8.4-10.2) mg/dL Total Bilirubin 0.4 (0.0-1.0) mg/dL Direct Bilirubin 0.1 (0.0-0.5) mg/dL AST 17 (5-31) U/L ALT 20 (0-31) U/L Alkaline Phosphatase 94 (39-117) U/L Troponin I High Sens < 2.7 (<3.5-17.0) ng/L Total Protein 7.1 (6.5-8.0) g/dL Albumin 4.3 (3.5-5.0) g/dL Beta HCG, Quant < 2 mIU/mL Independent Interpretation I performed an independent interpretation of an: EKG (See narrative above) and Plain X-Ray (See narrative above) Radiology Impression Discussion of test interpretation with radiology: I have reviewed the radiologist's reading. Radiologist Impression: 2 view chest x-ray Comparison: 01/14/2025 07:59 PM EDT: CR: XR CHEST 2V Findings: The lungs are clear. Normal size heart. No acute fracture. IMPRESSION: 1. No acute findings. External Record Review External record reviewed: Outpatient record Chronic Conditions Patient?s care impacted by: Other (See narrative above) Critical Care Time Critical Care Time Critical Care Time: Yes Total Critical Care Time: 35 Attestation: Time is exclusive of separately billable procedures. Time includes: direct patient care, patient reassessment, coordination of patient care, interpretation of data (laboratory data, pulse oximetry, arterial blood gases and chest xrays), review of patient's medical records, medical consultation and documentation of patient care. Procedures excluded from critical care time: central intravenous line placement and electrocardiography. Discharge Plan Discharge Clinical Impression: Chest pain, Shortness of breath Patient Disposition: Home, Self-Care Instructions: Noncardiac Chest Pain (ED), Shortness of Breath (ED) Additional Instructions: All of your screening labs including a cardiac enzymes were normal. There were no acute findings on the CT angiogram of your chest, you do not have a clot. Seasonal allergies could be exacerbating your asthma, you could also be developing COPD. You need to follow up with primary care to have pulmonary function testing. Call Saturday to make an appointment. Prescriptions: No Action amoxicillin-pot clavulanate 400-57 mg/5 mL suspension for reconstitution 10 ml PO BID 10 Days Qty: 200 0RF ibuprofen 100 mg/5 mL suspension 400 mg PO Q6H PRN (Reason: pain) Qty: 473 0RF ascorbic acid (vitamin C) [Vitamin C] 500 mg tablet 500 mg QAM Multi-Vitamin With Fluoride 0.5 mg tablet,chewable 1 tab PO QAM valacyclovir 1 gram Tablet 1,000 mg PO Q8H Qty: 15 0RF Eliquis 5 mg tablet See Rx Instructions .ROUTE .COMPLEX Qty: 74 0RF Rx Instructions: 10 mg (2 tabs) twice daily for 7 days, then 5 mg twice daily mupirocin 2 % ointment 1 appl topical TID Qty: 15 0RF cyclobenzaprine 10 mg tablet 10 mg PO TID PRN (Reason: muscle spasm) Qty: 10 0RF Interventions: ED Discharge Assessment Last Done: 03/27/25 22:20 Discharge Date/Time: 03/27/25 22:21 Print Language: Kyrgyz
[2025-03-27 16:05] VITALS: BP 107/70; PULSE 88; RESP 16; TEMP 36.5; O2SAT 97; BMI 36.4
[2025-03-27 16:40] LABS: MANUAL DIFF FLAG NO
[2025-03-27 16:53] LABS: Basophils Percent Auto 0.5 % (0-2); Eosinophils Absolute Auto 0.1 X10*3/uL (0.0-0.4); Eosinophils Percent Auto 1.1 % (0-4); Hematocrit 36.1 % (37.0-47.0); Hemoglobin 11.8 g/dl (12.0-16.0); Imm Gran Abs Auto 0.02 X10*3/uL (0.00-0.03); Imm Gran Pct Auto 0.3 % (0.0-0.4); Lymphocytes Absolute Auto 2.2 X10*3/uL (1.2-4.9); Lymphocytes Percent Auto 27.6 % (20-40); Mean Corpuscular HGB Conc 32.7 g/dl (31.0-35.0); Mean Corpuscular Hemoglobin 27.3 pg (27.0-33.0); Mean Corpuscular Volume 83.4 fL (80.0-98.0); Mean Platelet Volume 10.4 fL (9.4-12.3); Monocytes Absolute Auto 0.3 X10*3/uL (0.1-1.2); Monocytes Percent Auto 4.3 % (2-11); Neutrophils Absolute Auto 5.3 x10*3/uL (2.0-8.3); Neutrophils Percent Auto 66.2 % (45-73); Platelet Count 321 X10*3/uL (160-400); Red Blood Count 4.33 X10*6/uL (4.20-5.50); Red Cell Distribution Width 15.3 % (11.0-16.0); White Blood Count 7.9 X10*3/uL (4.8-10.8)
[2025-03-27 16:56] LABS: Alanine Aminotransferase 20 U/L (0-31); Albumin Level 4.3 g/dL (3.5-5.0); Alkaline Phosphatase 94 U/L (39-117); Anion Gap 14 (12-20); Aspartate Amino Transferase 17 U/L (5-31); Bilirubin Direct 0.1 mg/dL (0.0-0.5); Bilirubin Total 0.4 mg/dL (0.0-1.0); Blood Urea Nitrogen 14 mg/dL (9-16); Carbon Dioxide 24 mmol/L (22-29); Chloride 108 mmol/L (96-108); Creatinine Clr Calc Pharmacy 166.9; Estimated Glomerular Filt Rate > 60; Glucose Random 111 mg/dL (60-115); Potassium 3.5 mmol/L (3.3-5.1); Sodium 142 mmol/L (135-145); Total Protein 7.1 g/dL (6.5-8.0)
[2025-03-27 17:03] LABS: Troponin-I High Sensitivity < 2.7 ng/L (<3.5-17.0)
[2025-03-27 17:20] LABS: D Dimer High Sensitivity < 150 NG/ML
[2025-03-27] MEDS: 0.9 % Sodium Chloride 1,000 ML 999 ML IV (18:22)
[2025-03-27 18:53] LABS: HCG Quantitative < 2 mIU/mL
[2025-03-27] MEDS: iohexoL 350 MG/ML 100 ML INFUS..BTL 75 ML IV (19:33)
[2025-03-27 20:09] VITALS: BP 120/64; PULSE 82; RESP 18; TEMP 36.8; O2SAT 99
[2025-03-27 22:20] VITALS: BP 123/66; PULSE 87; RESP 18; TEMP 36.8; O2SAT 99
== END 2025-03-27 22:21 | disposition home or self-care (01) ==
PROVIDERS: Nurse Practitioner Family; Emergency Provider Emergency Medicine Emergency Medical Services; PCP Internal Medicine
DX: R07.89 Other chest pain (principal); R51.9 Headache, unspecified; R06.02 Shortness of breath; R10.2 Pelvic and perineal pain; R11.0 Nausea; Z86.711 Personal history of pulmonary embolism; Z79.01 Long term (current) use of anticoagulants; Z79.899 Other long term (current) drug therapy
CPT/HCPCS: 36415; 71046; 71275; 80048; 80076; 84484; 84702; 85025; 85379; 93005; 96360; 96361; 99284; 99285; Q9967

== ENCOUNTER → 2025-03-27 15:59 | Outpatient (BNV) | payer MEDICAID, SELFPAY | PROVIDERS: Emergency Provider Emergency Medicine Emergency Medical Services; PCP Internal Medicine; Visit Provider Internal Medicine | DX: R00.2 Palpitations (principal) | CPT/HCPCS: 93010 ==

== ENCOUNTER → 2025-03-27 16:07 | Outpatient (BNV) | payer MEDICAID, SELFPAY | PROVIDERS: Emergency Provider Emergency Medicine Emergency Medical Services; PCP Internal Medicine; Visit Provider Radiology Diagnostic Radiology | DX: J98.11 Atelectasis (principal); R07.9 Chest pain, unspecified | CPT/HCPCS: 71046; 71275 ==